=== PATIENT | female | born 1960 | race Caucasian/White ===

== ENCOUNTER 2016-04-14 13:12 | Emergency (ER) | payer OTHER ==
[~2016-04-14 13:12] MED LIST: AMIT100TA PO; AMIT75TA PO; BACITAB3 PO; COMP1TAB PO; CYCL10TA PO; DEXA4TA PO; FERR324T2 PO; FOLI1TAB2 PO; GABA300C3 PO; LEVO125T3 PO; LEVO150T42 PO; NORC5TAB PO; OMEP20CA3 PO; PERC5TAB6 PO; RIZA10TA4 PO; TYLE325T5 PO; VENL75CA PO; VITA50003 PO; ZOFR8TAB PO; ZYPR10TA PO
--- NOTE | 2016-04-14 13:55 | EDDOCDS ---
Nurse's Notes [facility] Name: Mirian Jameson Age: 55 yrs Sex: Female : 1960 Arrival Date: 04/14/2016 Time: 13:12 Bed Triage 1 Private MD: Janna Cabrera PA-C Diagnosis: Acute nasopharyngitis [common cold] Presentation: 04/14 13:18 Presenting complaint: Patient states: Pt presents with sore throat and cough x 4 days. dls Risk factors: Stridor is not present. Drooling is not present. Shortness of breath is not present. Cellulitis is not present. Adult Sepsis Screening: The patient does not have new or worsening altered mentation. Patient's respiratory rate is less than 22. Systolic blood pressure is greater than 100. Patient has a qSOFA score of 0- Negative Sepsis Screen. Suicide/Homicide risk assessment- the patient denies having any suicidal and/or homicidal ideations and does not present with any other emotional, behavioral or mental health complaints. 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 Transition of care: patient was not received from another setting of care. 13:18 Acuity: STEPHEN Level 4 dls 13:18 Method Of Arrival: Walkin/Carried/Asstd dls Triage Assessment: 13:21 General: Appears in no apparent distress, well developed, well nourished, well groomed, dls Behavior is cooperative. Pain: Pain currently is 6 out of 10 on a pain scale. HIV screening NA for this visit Offered previously. 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 gabapentin 300 mg Oral cap 1 cap 3 times per day 2. amitriptyline 100 mg Oral tab 1 tab once daily 3. folic acid 1 mg Oral tab once daily 4. venlafaxine 75 mg oral cp24 1 cap once daily - PSHx: removal of left lung; Appendectomy; Carpal Tunnel Repair- Right; Hysterectomy; - Social history: Smoking status: Patient/guardian denies using No barriers to communication noted, The patient speaks fluent Haitian. - Family history: Not pertinent. - : The pt / caregiver states he / she is not on anticoagulants. Home medication list is obtained from the patient. - Exposure Risk Screening:: None identified. Screenin:50 Screening information is obtained from the patient. Fall risk: No risks identified. js13 Assistance ADL's: requires no assistance with activities of daily living. Abuse/DV Screen: The patient / caregiver reports he/she is: not in a situation that causes fear, pain or injury. Nutritional screening: No deficits noted. Advance Directives: There is no active DNR order. home support is adequate. Assessment: 13:51 General: Appears in no apparent distress, comfortable. EENT: Throat is reddened. js13 Respiratory: Airway is patent. Derm: Skin is pink, warm & dry. Vital Signs: 13:14 BP 120 / 70; Pulse 91; Resp 18; Temp 96.7; Pulse Ox 96% ; Weight 63.5 kg; Height 5 ft. elp 3 in. (160.02 cm); Pain 6/10; 13:14 Body Mass Index 24.80 (63.50 kg, 160.02 cm) elp Vitals: 13:14 Log In Time: April 14, 2016 at 13:11. elp 13:39 Strep Screen is obtained and tested: Negative, a GATSNEG culture is ordered in [facility] dls and sent. ED Course: 13:14 Patient visited by Maty Alicia PCA. elp 13:14 Janna Cabrera is Private Physician. elp 13:14 Patient moved to Waiting elp 13:15 Patient visited by Maty Alicia PCA. elp 13:15 Patient moved to Pre RCE elp 13:19 Triage Initiated dls 13:29 Patient moved to Triage 1 js13 13:40 GATS (NEGATIVE STREP SCREEN) Sent. js13 13:42 Shakeel Olmedo PA is PHCP. btw 13:42 Sparkle Castillo MD is Attending Physician. btw 13:42 Patient visited by Shakeel Olmedo PA. btw 13:50 The patient / caregiver is instructed regarding the plan of care and ED course. js13 13:50 No IV's were initiated during this patient's visit. No procedures done that require js13 assistance. 13:51 Janna Cabrera is Referral Physician. btw Order Results: There are currently no results for this order. Outcome: 13:52 Discharge ordered by Provider. btw 13:52 Discharge Assessment: Patient awake, alert and oriented x 3. No cognitive and/or js13 functional deficits noted. Patient verbalized understanding of disposition instructions. patient administered narcotics - no. The following High Risk Discharge criteria are identified: None. Discharged to home ambulatory. Condition: stable. Discharge instructions given to patient, Instructed on discharge instructions, follow up and referral plans. medication usage, Demonstrated understanding of instructions, medications, Pt was receptive of discharge instructions/ teaching. Prescriptions given X 1. No special radiology studies were completed. Property :Personal belongings accompany Pt. 13:54 Patient left the ED. js13 Signatures: Michelle Walker RN RN Shakeel Matias PA PA btw Sullivan, JenniferRN RN js13 Maty Alicia, BANKING MANAGER BANKING MANAGER elp GISELLE
--- NOTE | 2016-04-14 13:55 | EDDOCDS ---
Physician Documentation [facility] Name: Mirian Jameson Age: 55 yrs Sex: Female : 1960 Arrival Date: 04/14/2016 Time: 13:12 Bed Triage 1 Private MD: Janna Cabrera PA-C Disposition: 04/14/16 13:52 Discharged to Home/Self Care. Impression: Acute nasopharyngitis [common cold]. - Condition is Stable. - Discharge Instructions: Upper Respiratory Infection, Adult, Viral Infections, Cool Mist Vaporizers. - Prescriptions for benzonatate 200 mg Oral Capsule - take 1 capsule by ORAL route 3 times per day As needed; 30 capsule. - Medication Reconciliation, Local Pharmacy Hours form. - Follow up: Janna Cabrera; When: 2 - 3 days; Reason: Further diagnostic work-up, Recheck today's complaints, Continuance of care. - Problem is new. - Symptoms are unchanged. Historical: - Allergies: Cymbalta (Upset stomach); GADOLINIUM-CONTAINING AGENTS (Anaphylaxis); PENICILLINS (Rash); SUMATRIPTAN (Anaphylaxis); - Home Meds: 1. gabapentin 300 mg Oral cap 1 cap 3 times per day 2. amitriptyline 100 mg Oral tab 1 tab once daily 3. folic acid 1 mg Oral tab once daily 4. venlafaxine 75 mg oral cp24 1 cap once daily - PSHx: removal of left lung; Appendectomy; Carpal Tunnel Repair- Right; Hysterectomy; - Social history: Smoking status: Patient/guardian denies using No barriers to communication noted, The patient speaks fluent Gibraltarian. - Family history: Not pertinent. - : The pt / caregiver states he / she is not on anticoagulants. Home medication list is obtained from the patient. - Exposure Risk Screening:: None identified. 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 3 in. (160.02 cm); Pain 6/10; 13:14 Body Mass Index 24.80 (63.50 kg, 160.02 cm) elp MDM: 13:23 Strep Screen, Nursing ordered. dt4 13:39 GATS (NEGATIVE STREP SCREEN) Ordered. EDMS 13:53 Financial registration complete. lg Signatures: Dispatcher [employer] EDLA Michelle Walker, RN RN Prasanth Vasquez, Nelson Reg lg Shakeel Olmedo PA PA btw Sullivan, Jennifer, RN RN js13 Yanira Garcia, NABOR PARuby dt4 MTDD
--- NOTE | 2016-04-17 11:07 | EDDOCDS ---
Physician Documentation [facility] Name: Mirian Jameson Age: 55 yrs Sex: Female : 1960 Arrival Date: 04/14/2016 Time: 13:12 Bed Triage 1 Private MD: Janna Cabrera PA-C Disposition: 04/14/16 13:52 Discharged to Home/Self Care. Impression: Acute nasopharyngitis [common cold]. - Condition is Stable. - Discharge Instructions: Upper Respiratory Infection, Adult, Viral Infections, Cool Mist Vaporizers. - Prescriptions for benzonatate 200 mg Oral Capsule - take 1 capsule by ORAL route 3 times per day As needed; 30 capsule. - Medication Reconciliation, Local Pharmacy Hours form. - Follow up: Janna Cabrera; When: 2 - 3 days; Reason: Further diagnostic work-up, Recheck today's complaints, Continuance of care. - Problem is new. - Symptoms are unchanged. Historical: - Allergies: Cymbalta (Upset stomach); GADOLINIUM-CONTAINING AGENTS (Anaphylaxis); PENICILLINS (Rash); SUMATRIPTAN (Anaphylaxis); - Home Meds: 1. gabapentin 300 mg Oral cap 1 cap 3 times per day 2. amitriptyline 100 mg Oral tab 1 tab once daily 3. folic acid 1 mg Oral tab once daily 4. venlafaxine 75 mg oral cp24 1 cap once daily - PSHx: removal of left lung; Appendectomy; Carpal Tunnel Repair- Right; Hysterectomy; - Social history: Smoking status: Patient/guardian denies using No barriers to communication noted, The patient speaks fluent Citizen Of [place]. - Family history: Not pertinent. - : The pt / caregiver states he / she is not on anticoagulants. Home medication list is obtained from the patient. - Exposure Risk Screening:: None identified. 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 3 in. (160.02 cm); Pain 6/10; 13:14 Body Mass Index 24.80 (63.50 kg, 160.02 cm) elp MDM: 13:23 Strep Screen, Nursing ordered. dt4 13:39 GATS (NEGATIVE STREP SCREEN) Ordered. EDMS 13:53 Financial registration complete. lg 13:59 [facility] Payment Agreement was scanned into [employer] and attached to record. lg 21:20 T-Sheet-- Draft Copy was scanned into [employer] and attached to record. klr Signatures: Dispatcher [employer] EDMS Michelle Walker RN RN dls Prasanth Grey, Reg Reg lg Shakeel Olmedo PA PA btw Sullivan, Jennifer, RN RN js13 Yanira Garcia PA-C PA-C dt4 Rohini Patterson klmati The chart was reviewed and I authenticate all verbal orders and agree with the evaluation and treatment provided.Attachments: 13:59 [facility] Payment Agreement lg 21:20 T-Sheet-- Draft Copy klr Chart Complete MTDD
--- NOTE | 2016-04-17 11:07 | EDDOCDS ---
Nurse's Notes [facility] Name: Mirian Jameson Age: 55 yrs Sex: Female : 1960 Arrival Date: 04/14/2016 Time: 13:12 Bed Triage 1 Private MD: Janna Cabrera PA-C Diagnosis: Acute nasopharyngitis [common cold] Presentation: 04/14 13:18 Presenting complaint: Patient states: Pt presents with sore throat and cough x 4 days. dls Risk factors: Stridor is not present. Drooling is not present. Shortness of breath is not present. Cellulitis is not present. Adult Sepsis Screening: The patient does not have new or worsening altered mentation. Patient's respiratory rate is less than 22. Systolic blood pressure is greater than 100. Patient has a qSOFA score of 0- Negative Sepsis Screen. Suicide/Homicide risk assessment- the patient denies having any suicidal and/or homicidal ideations and does not present with any other emotional, behavioral or mental health complaints. 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 Transition of care: patient was not received from another setting of care. 13:18 Acuity: STEPHEN Level 4 dls 13:18 Method Of Arrival: Walkin/Carried/Asstd dls Triage Assessment: 13:21 General: Appears in no apparent distress, well developed, well nourished, well groomed, dls Behavior is cooperative. Pain: Pain currently is 6 out of 10 on a pain scale. HIV screening NA for this visit Offered previously. 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 gabapentin 300 mg Oral cap 1 cap 3 times per day 2. amitriptyline 100 mg Oral tab 1 tab once daily 3. folic acid 1 mg Oral tab once daily 4. venlafaxine 75 mg oral cp24 1 cap once daily - PSHx: removal of left lung; Appendectomy; Carpal Tunnel Repair- Right; Hysterectomy; - Social history: Smoking status: Patient/guardian denies using No barriers to communication noted, The patient speaks fluent [place] Islander. - Family history: Not pertinent. - : The pt / caregiver states he / she is not on anticoagulants. Home medication list is obtained from the patient. - Exposure Risk Screening:: None identified. Screenin:50 Screening information is obtained from the patient. Fall risk: No risks identified. js13 Assistance ADL's: requires no assistance with activities of daily living. Abuse/DV Screen: The patient / caregiver reports he/she is: not in a situation that causes fear, pain or injury. Nutritional screening: No deficits noted. Advance Directives: There is no active DNR order. home support is adequate. Assessment: 13:51 General: Appears in no apparent distress, comfortable. EENT: Throat is reddened. js13 Respiratory: Airway is patent. Derm: Skin is pink, warm & dry. Vital Signs: 13:14 BP 120 / 70; Pulse 91; Resp 18; Temp 96.7; Pulse Ox 96% ; Weight 63.5 kg; Height 5 ft. elp 3 in. (160.02 cm); Pain 6/10; 13:14 Body Mass Index 24.80 (63.50 kg, 160.02 cm) elp Vitals: 13:14 Log In Time: April 14, 2016 at 13:11. elp 13:39 Strep Screen is obtained and tested: Negative, a GATSNEG culture is ordered in [facility] dls and sent. ED Course: 13:14 Patient visited by Maty Alicia PCA. elp 13:14 Janna Cabrera is Private Physician. elp 13:14 Patient moved to Waiting elp 13:15 Patient visited by Maty Alicia PCA. elp 13:15 Patient moved to Pre RCE elp 13:19 Triage Initiated dls 13:29 Patient moved to Triage 1 js13 13:40 GATS (NEGATIVE STREP SCREEN) Sent. js13 13:42 Shakeel Olmedo PA is PHCP. btw 13:42 Sparkle Castillo MD is Attending Physician. btw 13:42 Patient visited by Shakeel Olmedo PA. btw 13:50 The patient / caregiver is instructed regarding the plan of care and ED course. js13 13:50 No IV's were initiated during this patient's visit. No procedures done that require js13 assistance. 13:51 Janna Cabrera is Referral Physician. btw 13:59 [facility] Payment Agreement was scanned into Sumerian and attached to record. lg 21:20 T-Sheet-- Draft Copy was scanned into Sumerian and attached to record. sharon Order Results: Lab Order: GATS (NEGATIVE STREP SCREEN); SPEC'M 04/14/16 13:34 Test: GATS CULTURE (NEG STREP SCR); Value: GATS RESULT NEGATIVE FOR STREP PYOGENES (GROUP A); Status: F Outcome: 13:52 Discharge ordered by Provider. btw 13:52 Discharge Assessment: Patient awake, alert and oriented x 3. No cognitive and/or js13 functional deficits noted. Patient verbalized understanding of disposition instructions. patient administered narcotics - no. The following High Risk Discharge criteria are identified: None. Discharged to home ambulatory. Condition: stable. Discharge instructions given to patient, Instructed on discharge instructions, follow up and referral plans. medication usage, Demonstrated understanding of instructions, medications, Pt was receptive of discharge instructions/ teaching. Prescriptions given X 1. No special radiology studies were completed. Property :Personal belongings accompany Pt. 13:54 Patient left the ED. js13 Signatures: Michelle Walker, RN RN dls Prasanth Grey, Reg Reg lg Shakeel Olmedo, NIA PA btw Imelda Stark,RN RN js13 Maty Alicia, RYAN CRUISE DIRECTOR Rohini Escobedo Chart Complete MTDD
--- NOTE | 2016-04-17 11:07 | EDDOCDS ---
Physician Documentation [facility] Name: Mirian Jameson Age: 55 yrs Sex: Female : 1960 Arrival Date: 04/14/2016 Time: 13:12 Bed Triage 1 Private MD: Janna Cabrera PA-C Disposition: 04/14/16 13:52 Discharged to Home/Self Care. Impression: Acute nasopharyngitis [common cold]. - Condition is Stable. - Discharge Instructions: Upper Respiratory Infection, Adult, Viral Infections, Cool Mist Vaporizers. - Prescriptions for benzonatate 200 mg Oral Capsule - take 1 capsule by ORAL route 3 times per day As needed; 30 capsule. - Medication Reconciliation, Local Pharmacy Hours form. - Follow up: Janna Cabrera; When: 2 - 3 days; Reason: Further diagnostic work-up, Recheck today's complaints, Continuance of care. - Problem is new. - Symptoms are unchanged. Historical: - Allergies: Cymbalta (Upset stomach); GADOLINIUM-CONTAINING AGENTS (Anaphylaxis); PENICILLINS (Rash); SUMATRIPTAN (Anaphylaxis); - Home Meds: 1. gabapentin 300 mg Oral cap 1 cap 3 times per day 2. amitriptyline 100 mg Oral tab 1 tab once daily 3. folic acid 1 mg Oral tab once daily 4. venlafaxine 75 mg oral cp24 1 cap once daily - PSHx: removal of left lung; Appendectomy; Carpal Tunnel Repair- Right; Hysterectomy; - Social history: Smoking status: Patient/guardian denies using No barriers to communication noted, The patient speaks fluent Honduran. - Family history: Not pertinent. - : The pt / caregiver states he / she is not on anticoagulants. Home medication list is obtained from the patient. - Exposure Risk Screening:: None identified. 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 3 in. (160.02 cm); Pain 6/10; 13:14 Body Mass Index 24.80 (63.50 kg, 160.02 cm) elp MDM: 13:23 Strep Screen, Nursing ordered. dt4 13:39 GATS (NEGATIVE STREP SCREEN) Ordered. EDMS 13:53 Financial registration complete. lg 13:59 [facility] Payment Agreement was scanned into [employer] and attached to record. lg 21:20 T-Sheet-- Draft Copy was scanned into [employer] and attached to record. klr Signatures: Dispatcher [employer] EDMS Michelle Walker RN RN dls Prasanth Grey, Reg Reg lg Shakeel Olmedo PA PA btw Sullivan, Jennifer, RN RN js13 Yanira Garcia PA-C PA-C dt4 Rohini Patterson klmati The chart was reviewed and I authenticate all verbal orders and agree with the evaluation and treatment provided.Attachments: 13:59 [facility] Payment Agreement lg 21:20 T-Sheet-- Draft Copy klr Chart Complete MTDD
== END 2016-04-14 13:54 | disposition home or self-care (01) ==
LOC: M ED 13:12
DX: J06.9 Acute upper respiratory infection, unspecified (principal); Z79.899 Other long term (current) drug therapy; Z90.2 Acquired absence of lung [part of]; Z88.8 Allergy status to other drugs, medicaments and biological substances; Z88.0 Allergy status to penicillin; Z91.041 Radiographic dye allergy status

== ENCOUNTER → 2016-04-18 | Outpatient (REF) | payer OTHER ==
[2016-04-18 20:46] LABS: FREE T4 0.72 NG/DL (0.76-1.46)
== END ==
LOC: M SFHCADAM 15:29
PROVIDERS: ATTEND Physician Assistant
DX: E03.9 Hypothyroidism, unspecified (principal); M25.50 Pain in unspecified joint

== ENCOUNTER → 2016-05-02 | Outpatient (CLI) | payer OTHER ==
--- NOTE | 2016-05-02 13:47 | REP ---
Chest x-ray: Two views. History: Cough. Comparison chest CT study is from November 23, 2014. The patient is status post left pneumonectomy. Findings: The right lung is hyperinflated as expected but clear. No infiltrate is seen. Post-pneumonectomy changes are seen with mediastinal shift to the left and sutures in the left perihilar region. Postoperative changes are seen in the left rib cage. There are clips in right upper quadrant of the abdomen as well. No bony abnormality is seen. Impression: No active disease. The patient is status post left pneumonectomy. Signed by Noble Mariee MD 05/02/2016 06:36 P
== END ==
LOC: M ADAMS 10:29
PROVIDERS: ATTEND Physician Assistant
DX: R05 Cough (principal); Z87.09 Personal history of other diseases of the respiratory system

== ENCOUNTER 2016-05-12 13:51 | Emergency (ER) | payer OTHER ==
--- NOTE | 2016-05-12 14:46 | REP ---
CHEST X-RAY: Two views. HISTORY: Cough. FINDINGS: The patient is status post left pneumonectomy. The right lung is somewhat hyperinflated but otherwise clear. Trachea is deviated somewhat to the left consistent with a pneumonectomy. This is unchanged. Tracheobronchial tree is otherwise unremarkable. The right pleural angles are sharp. No bony abnormality is seen. IMPRESSION: No active disease. The patient status post left pneumonectomy. Signed by Noble Mariee MD 05/12/2016 02:57 P
[2016-05-12 15:12] LABS: BASO % 0.7 % (0.0-1.0); EOS # 0.2 K/mm3 (0.0-0.50); EOS % 4.5 % (0.0-3.0); LARGE UNSTAINED CELL # 0.1 K/mm3 (0.0-0.4); LYMPH # 2.8 K/mm3 (1.5-4.5); LYMPH % 46.9 % (24.0-44.0); MEAN CORPUSCULAR HEMOGLOBIN 29.8 pg (27.0-33.0); MEAN CORPUSCULAR HGB CONC 33.3 g/dl (32.0-36.5); MEAN CORPUSCULAR VOLUME 89.4 fl (80.0-96.0); MONO # 0.3 K/mm3 (0.0-0.8); MONO % 5.8 % (0.0-5.0); NEUTROPHILS # 2.3 K/mm3 (1.8-7.7); NEUTROPHILS % 40.2 % (36.0-66.0); PLATELET COUNT, AUTOMATED 243 k/mm3 (150-450); RED CELL DISTRIBUTION WIDTH 13.1 % (11.5-14.5); WHITE BLOOD COUNT 5.6 K/mm3 (4.0-10.0)
[2016-05-12 15:18] LABS: INR 0.93
[2016-05-12 15:37] LABS: ANION GAP 8 MEQ/L (8-16); BLOOD UREA NITROGEN 16 MG/DL (7-18); CALCIUM LEVEL 8.5 MG/DL (8.5-10.1); CARBON DIOXIDE LEVEL 27 MEQ/L (21-32); CHLORIDE LEVEL 110 MEQ/L (98-107); CREATININE FOR GFR 1.09 MG/DL (0.55-1.02); GLOMERULAR FILTRATION RATE 55.7 (>51); GLUCOSE, FASTING 87 MG/DL (70-105); POTASSIUM SERUM 3.9 MEQ/L (3.5-5.1); SODIUM LEVEL 145 MEQ/L (136-145)
[2016-05-12] MEDS ORDERED: IPRATROPIUM 0.5MG/ALBUTEROL 2.5MG INH SOL UD 3ML (DUONEB)(J7620) As Ordered ONE (15:52)
[2016-05-12] MEDS ORDERED: ISOVUE-370 76% 100ML VIAL (Q9967) As Ordered ONE (16:06)
[2016-05-12] MEDS ORDERED: TUSSICAPS ER 10/8MG CAPSULE As Ordered ONE (16:35)
--- NOTE | 2016-05-12 19:09 | ECGEPIP ---
Stationary ECG Study [facility] - ED Test Date: 2016-05-12 Pat Name: KATE ROSENBERG Department: Room: - Gender: F Grizzlyman: salima : 1960 Requested By: Mary Nesbitt Order Number: [id number] Reading MD: Mary Nesbitt Measurements Intervals [place] Rate: 82 P: 102 OR: 117 QRS: 71 QRSD: 89 T: 134 QT: 367 QTc: 431 Interpretive Statements SINUS RHYTHM WITH SHORT OR INTERVAL POSSIBLE RIGHT ATRIAL ENLARGEMENT ST DEVIATION AND MODERATE T-WAVE ABNORMALITY, CONSIDER ANTEROLATERAL ISCHEMIA, MORE PRONOUNCED 12/19/15, CLINICAL CORRELATION Electronically Signed On 05-12-2016 19:08:54 EST by Mary Nesbitt
--- NOTE | 2016-05-12 21:43 | EDDOCDS ---
Physician Documentation [facility] Name: Mirian Jameson Age: 56 yrs Sex: Female : 1960 Arrival Date: 05/12/2016 Time: 13:51 Bed OBSERVATION Private MD: Janna Cabrera PA-C Disposition: 05/12/16 21:24 Discharged to Home/Self Care. Impression: Cough. - Condition is Stable. - Discharge Instructions: Cough, Adult. - Prescriptions for Albuterol Sulfate 90 mcg/actuation Inhalation HFA Aerosol Inhaler - inhale 2 puff by INHALATION route every 4 hours As needed; 1 Inhaler. Guaifenesin AC 10- 100 mg/5 mL Oral liquid - take 10 milliliter by ORAL route every 4 hours; 200 milliliter. - Medication Reconciliation, Local Pharmacy Hours form. - Follow up: Janna Cabrera; When: saturday. - Problem is an ongoing problem. - Symptoms have improved. Historical: - Allergies: Cymbalta (Upset stomach); GADOLINIUM-CONTAINING AGENTS (Anaphylaxis); PENICILLINS (Rash); SUMATRIPTAN (Anaphylaxis); - Home Meds: 1. amitriptyline 100 mg Oral tab 1 tab once daily 2. folic acid 1 mg Oral tab once daily 3. gabapentin 300 mg Oral cap 1 cap 3 times per day 4. venlafaxine 75 mg oral cp24 1 cap once daily 5. unknown antibiotic - PMHx: Cancer, Lung - Left; Thyroid disease; - PSHx: removal of left lung, cancer, june 2014; Appendectomy; Carpal Tunnel Repair- Right; Hysterectomy; Cholecystectomy; - Social history: Smoking status: Patient states former smoker of tobacco. No barriers to communication noted. - Family history: Not pertinent. - : The pt / caregiver states he / she is not on anticoagulants. Home medication list is obtained from the patient. - Exposure Risk Screening:: None identified. 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 4 in. (162.56 cm) (R); Pain 5/10; 14:49 BP 109 / 65 (auto/); dsf 14:50 Pulse 78 MON; Pulse Ox 99% ; dsf 15:04 BP 108 / 62 (auto/); dsf 15:05 Pulse 84 MON; Pulse Ox 98% ; dsf 15:19 Pulse 80 MON; Pulse Ox 97% ; dsf 15:19 BP 98 / 60 (auto/); dsf 15:20 Pulse 76 MON; Pulse Ox 98% ; dsf 15:34 BP 99 / 60 (auto/); dsf 15:35 Pulse 74 MON; Pulse Ox 98% ; dsf 15:49 BP 93 / 61 (auto/); dsf 15:50 Pulse 78 MON; Pulse Ox 97% ; dsf 16:04 Pulse 78 MON; Pulse Ox 100% ; dsf 16:04 BP 96 / 57 (auto/); dsf 16:19 BP 97 / 56 (auto/); dsf 16:23 Pulse 86 MON; Pulse Ox 99% ; dsf 16:34 BP 106 / 58 (auto/); dsf 16:34 Pulse 84 MON; Pulse Ox 98% ; dsf 16:49 BP 100 / 59 (auto/); dsf 16:49 Pulse 78 MON; Pulse Ox 98% ; dsf 17:04 BP 103 / 57 (auto/); dsf 17:05 Pulse 80 MON; Pulse Ox 98% ; dsf 17:19 BP 96 / 57 (auto/); dsf 17:19 Pulse 80 MON; Pulse Ox 96% ; dsf 17:35 Pulse 76 MON; Pulse Ox 98% ; dsf 17:36 BP 93 / 52 (auto/); dsf 17:36 Pulse 80 MON; Pulse Ox 99% ; dsf 17:49 BP 106 / 70 (auto/); dsf 17:49 Pulse 80 MON; Pulse Ox 97% ; dsf 18:04 BP 98 / 57 (auto/); dsf 18:04 Pulse 78 MON; Pulse Ox 96% ; dsf 18:19 BP 108 / 61 (auto/); dsf 18:19 Pulse 80 MON; Pulse Ox 95% ; dsf 18:34 BP 111 / 63 (auto/); dsf 18:35 Pulse 80 MON; Pulse Ox 97% ; dsf 18:49 BP 108 / 68 (auto/); dsf 18:51 Pulse 78 MON; Pulse Ox 97% ; dsf 19:04 BP 98 / 62 (auto/); dsf 19:05 Pulse 82 MON; Pulse Ox 96% ; dsf 21:27 BP 106 / 59; Pulse 68; Resp 18; Temp 96.8(O); Pulse Ox 98% on R/A; Pain 0/10; justino 13:53 Body Mass Index 25.40 (67.13 kg, 162.56 cm) gr2 MDM: 14:25 Chest, 2 View (pa\E\lat) Ordered. EDMS 14:25 ECG WITH READING ER PHYS+CARDIAG ordered. EDMS 14:44 Records Management Director/Pulse Ox/q 30 min VS ordered. sd1 14:44 IV Saline Lock ordered. sd1 14:44 Rhythm Strip to chart ordered. sd1 14:44 Undress patient appropriately for examination ordered. sd1 14:45 Basic Metabolic Profile Ordered. EDMS 14:45 CBC with Diff Ordered. EDMS 14:45 Cardiac Injury Profile Ordered. EDMS 14:45 Prothrombin Time Profile\E\INR Ordered. EDMS 14:45 Troponin Ordered. EDMS 14:55 BNP Ordered. EDMS 15:12 Albuterol-Ipratropium 1 neb Nebulizer every 20 minutes x3 ordered. sd1 15:51 Financial registration complete. gjb 15:51 Basic Metabolic Profile Reviewed. sd1 15:51 CBC with Diff Reviewed. sd1 15:51 BNP Reviewed. sd1 15:51 Cardiac Injury Profile Reviewed. sd1 15:51 Prothrombin Time Profile\E\INR Reviewed. sd1 15:51 Troponin Reviewed. sd1 15:51 Chest, 2 View (pa\E\lat) Reviewed. sd1 15:53 CT Chest Angio R/O PE Ordered. EDMS 15:57 [facility] Payment Agreement was scanned into [employer] and attached to record. gjb 16:24 Chlorpheniramine-Hydrocodone Extended Release 12 hour Capsule 8 mg-10 mg 1 caps PO once sd1 ordered. 17:32 Redraw CIP &Troponin (put time in details section) ordered. sd1 17:32 Repeat EKG (put time details section) ordered. sd1 17:36 Repeat EKG (put time details section) complete. ar3 17:36 Redraw CIP &Troponin (put time in details section) complete. ar3 17:36 CARDIAC MARKER PANEL Ordered. EDMS 17:38 ECG WITH READING ER PHYS ordered. EDMS 21:23 CARDIAC MARKER PANEL Reviewed. cs11 21:23 EKG-ADULT Reviewed. cs11 Administered Medications: 15:56 Drug: Albuterol-Ipratropium 1 neb [ipratropium-albuterol 0.5 mg-3 mg(2.5 mg base)/3 mL kjn nebulization soln (1 neb)] Route: Nebulizer; 16:08 Drug: Albuterol-Ipratropium 1 neb [ipratropium-albuterol 0.5 mg-3 mg(2.5 mg base)/3 mL kjn nebulization soln (1 neb)] Route: Nebulizer; 16:25 Drug: Albuterol-Ipratropium 1 neb [ipratropium-albuterol 0.5 mg-3 mg(2.5 mg base)/3 mL kjn nebulization soln (1 neb)] Route: Nebulizer; 16:42 Drug: Chlorpheniramine-Hydrocodone 1 caps [hydrocodone ER 10 mg-chlorpheniramine 8 mg dsf 12hr capsule,extend.release (1 caps)] Route: PO; Signatures: Dispatcher [employer] EDMS Mary Nesbitt MD MD sd1 Nadia Dejesus, VICE PRESIDENT SALES VICE PRESIDENT SALES ar3 Carmela Mckeon RN RN [facility] Corbin Whitfield, DO cs11 Lasha Worthington RN RN [id number] Coreen Cadet Desiree RN dsf Penny Lucio The chart was reviewed and I authenticate all verbal orders and agree with the evaluation and treatment provided.Attachments: 15:57 [facility] Payment Agreement arabella [email or web address]
--- NOTE | 2016-05-12 21:43 | EDDOCDS ---
Nurse's Notes [facility] Name: Kate Jameson Age: 56 yrs Sex: Female : 1960 Arrival Date: 05/12/2016 Time: 13:51 Bed OBSERVATION Private MD: Janna Cabrera PA-C Diagnosis: Cough Presentation: 05/12 13:59 Presenting complaint: Patient states: antibiotics changed on Saturday but still [facility] coughing and having chest pain sometimes with cough sometimes when I cough I feel like I'm going to pass out, they told me if I didn't feel any better this weekend I should come in and get checked and I only have one lung. Adult Sepsis Screening: The patient does not have new or worsening altered mentation. Patient's respiratory rate is less than 22. Systolic blood pressure is greater than 100. Patient has a qSOFA score of 0- Negative Sepsis Screen. Suicide/Homicide risk assessment- the patient denies having any suicidal and/or homicidal ideations and does not present with any other emotional, behavioral or mental health complaints. 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 Transition of care: patient was not received from another setting of care. 13:59 Acuity: STEPHEN Level 3 [facility] 13:59 Method Of Arrival: Walkin/Carried/Asstd [facility] Triage Assessment: 14:03 General: Appears in no apparent distress, comfortable, Behavior is appropriate for age, [facility] cooperative. Pain: Denies pain. HIV screening NA for this visit Offered previously. Respiratory: Onset: The symptoms/episode began/occurred 2-weeks, Reports cough that is non-productive. Derm: Skin is pink, warm & dry. 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 amitriptyline 100 mg Oral tab 1 tab once daily 2. folic acid 1 mg Oral tab once daily 3. gabapentin 300 mg Oral cap 1 cap 3 times per day 4. venlafaxine 75 mg oral cp24 1 cap once daily 5. unknown antibiotic - PMHx: Cancer, Lung - Left; Thyroid disease; - PSHx: removal of left lung, cancer, june 2014; Appendectomy; Carpal Tunnel Repair- Right; Hysterectomy; Cholecystectomy; - Social history: Smoking status: Patient states former smoker of tobacco. No barriers to communication noted. - Family history: Not pertinent. - : The pt / caregiver states he / she is not on anticoagulants. Home medication list is obtained from the patient. - Exposure Risk Screening:: None identified. Screenin:41 Screening information is obtained from the patient. Fall risk: No risks identified. mb9 Assistance ADL's: requires no assistance with activities of daily living. Abuse/DV Screen: The patient / caregiver reports he/she is: not in a situation that causes fear, pain or injury. Nutritional screening: No deficits noted. Advance Directives: There is no active DNR order. home support is adequate. Assessment: 15:17 Adult Sepsis Screening: The patient does not have new or worsening altered mentation. dsf Patient's respiratory rate is less than 22. Systolic blood pressure is greater than 100. Patient has a qSOFA score of 0- Negative Sepsis Screen. General: Appears in no apparent distress, ill, Behavior is appropriate for age, cooperative. Pain: Denies pain. Neurological: Level of Consciousness is awake, alert, Oriented to person, place, time. Cardiovascular: Capillary refill < 3 seconds Rhythm is sinus rhythm No ectopy. Respiratory: Airway is patent Respiratory effort is even, unlabored, Respiratory pattern is regular, symmetrical, Reports shortness of breath on exertion since 2 weeks ago cough that is non-productive, since 2 weeks. Derm: Skin is dry, Skin is pale, Skin temperature is warm. 16:00 General: Appears in no apparent distress, ill, Behavior is appropriate for age, dsf cooperative. Pain: Denies pain. Neurological: Level of Consciousness is awake, alert, Oriented to person, place, time. Cardiovascular: Capillary refill < 3 seconds Heart tones S1 S2 present Rhythm is sinus rhythm No ectopy. Respiratory: Airway is patent Respiratory effort is even, unlabored, Respiratory pattern is regular, symmetrical, Breath sounds are diminished in right posterior upper lobe, right posterior middle lobe and right posterior lower lobe Breath sounds with wheezes in right posterior upper lobe, right posterior middle lobe and right posterior lower lobe. GI: Abdomen is non- distended Bowel sounds present X 4 quads. Abd is soft and non tender X 4 quads. Derm: Skin is dry, Skin is pale, Skin temperature is warm. 17:18 General: Appears in no apparent distress, Behavior is appropriate for age, cooperative. mb9 Respiratory: Airway is patent Respiratory effort is even, unlabored. 18:18 Adult Sepsis Screening: The patient does not have new or worsening altered mentation. dsf Patient's respiratory rate is less than 22. Systolic blood pressure is greater than 100. Patient has a qSOFA score of 0- Negative Sepsis Screen. General: Appears in no apparent distress, Behavior is appropriate for age, cooperative. Neurological: Level of Consciousness is awake, alert. Cardiovascular: Capillary refill < 3 seconds. Respiratory: Airway is patent Respiratory effort is even, unlabored, Respiratory pattern is regular, symmetrical. Derm: Skin is dry, Skin is pale, Skin temperature is warm. 19:59 General: Appears in no apparent distress, Behavior is appropriate for age, cooperative. mb9 Pain: Denies pain. Neurological: Level of Consciousness is awake, alert, Oriented to person, place, time. Respiratory: Airway is patent Breath sounds are clear bilaterally. Reports cough that is pt reports, "the cough has improved since you guys gave me that pill.". 21:41 Reassessment: Patient appears in no apparent distress at this time. Patient states mb9 symptoms have improved. Adult Sepsis Screening: The patient does not have new or worsening altered mentation. Patient's respiratory rate is less than 22. Systolic blood pressure is greater than 100. Patient has a qSOFA score of 0- Negative Sepsis Screen. General: Appears in no apparent distress, Behavior is appropriate for age, cooperative. Respiratory: Airway is patent Respiratory effort is even, unlabored. Vital Signs: 13:53 BP 128 / 61; Pulse 92; Resp 18 S; Temp 98.0(O); Pulse Ox 100% on R/A; Weight 67.13 kg gr2 (R); Height 5 ft. 4 in. (162.56 cm) (R); Pain 5/10; 14:49 BP 109 / 65 (auto/); dsf 14:50 Pulse 78 MON; Pulse Ox 99% ; dsf 15:04 BP 108 / 62 (auto/); dsf 15:05 Pulse 84 MON; Pulse Ox 98% ; dsf 15:19 Pulse 80 MON; Pulse Ox 97% ; dsf 15:19 BP 98 / 60 (auto/); dsf 15:20 Pulse 76 MON; Pulse Ox 98% ; dsf 15:34 BP 99 / 60 (auto/); dsf 15:35 Pulse 74 MON; Pulse Ox 98% ; dsf 15:49 BP 93 / 61 (auto/); dsf 15:50 Pulse 78 MON; Pulse Ox 97% ; dsf 16:04 Pulse 78 MON; Pulse Ox 100% ; dsf 16:04 BP 96 / 57 (auto/); dsf 16:19 BP 97 / 56 (auto/); dsf 16:23 Pulse 86 MON; Pulse Ox 99% ; dsf 16:34 BP 106 / 58 (auto/); dsf 16:34 Pulse 84 MON; Pulse Ox 98% ; dsf 16:49 BP 100 / 59 (auto/); dsf 16:49 Pulse 78 MON; Pulse Ox 98% ; dsf 17:04 BP 103 / 57 (auto/); dsf 17:05 Pulse 80 MON; Pulse Ox 98% ; dsf 17:19 BP 96 / 57 (auto/); dsf 17:19 Pulse 80 MON; Pulse Ox 96% ; dsf 17:35 Pulse 76 MON; Pulse Ox 98% ; dsf 17:36 BP 93 / 52 (auto/); dsf 17:36 Pulse 80 MON; Pulse Ox 99% ; dsf 17:49 BP 106 / 70 (auto/); dsf 17:49 Pulse 80 MON; Pulse Ox 97% ; dsf 18:04 BP 98 / 57 (auto/); dsf 18:04 Pulse 78 MON; Pulse Ox 96% ; dsf 18:19 BP 108 / 61 (auto/); dsf 18:19 Pulse 80 MON; Pulse Ox 95% ; dsf 18:34 BP 111 / 63 (auto/); dsf 18:35 Pulse 80 MON; Pulse Ox 97% ; dsf 18:49 BP 108 / 68 (auto/); dsf 18:51 Pulse 78 MON; Pulse Ox 97% ; dsf 19:04 BP 98 / 62 (auto/); dsf 19:05 Pulse 82 MON; Pulse Ox 96% ; dsf 21:27 BP 106 / 59; Pulse 68; Resp 18; Temp 96.8(O); Pulse Ox 98% on R/A; Pain 0/10; justino 13:53 Body Mass Index 25.40 (67.13 kg, 162.56 cm) gr2 Vitals: 13:53 Log In Time: May 12, 2016 at 13:53. gr2 ED Course: 13:53 Patient visited by Osmar Ivey. gr2 13:53 Janna Cabrera is Private Physician. gr2 13:53 Patient moved to Waiting gr2 13:54 Patient visited by Osmar Ivey. gr2 13:54 Patient moved to Pre RCE gr2 14:01 Triage Initiated cjh 14:32 Patient moved to PD dem1 14:38 Patient visited by Kranthi Clifford. dem1 14:38 EKG done. (by ED staff). Reviewed by Mary Nesbitt MD. dem1 14:44 Patient moved to 14 ar3 14:50 Patient visited by Kranthi Clifford. dem1 14:50 Pt greeted and oriented to ED. Patient advised of names of staff involved in care, dem1 location of call terry, wait times and NPO status. Patient has correct armband on for positive identification. Placed in gown. Bed in low position. Call light in reach. Side rails up X 1. air sampling and monitoring on. Pulse ox on. NIBP on. 14:55 Mary Nesbitt MD is Attending Physician. sd1 14:55 Patient visited by Mary Nesbitt MD. sd1 15:06 BNP Sent. mb9 15:07 Basic Metabolic Profile Sent. mb9 15:07 CBC with Diff Sent. mb9 15:07 Cardiac Injury Profile Sent. mb9 15:07 Prothrombin Time Profile\\E\\INR Sent. mb9 15:07 Troponin Sent. mb9 15:07 Inserted saline lock: 20 gauge. mb9 15:18 Patient visited by Lise Mayo,JENNIFER. dsf 15:25 Chest, 2 View (pa\\E\\lat) Returned. EDMS 15:57 [facility] [place] Agreement was scanned into [employer] and attached to record. gjb 16:[address] dsf 16:32 Patient moved to 14 dsf 16:34 Patient visited by Lise Mayo,JENNIFER. dsf 17:18 Patient visited by Lasha Worthington,JENNIFER. mb9 17:36 Patient moved to OBSERVATION sd1 18:47 Patient visited by Lise Mayo,JENNIFER. dsf 19:13 Attending Physician role handed off by Mary Nesbitt MD cs11 19:13 Corbin Whitfield DO is Attending Physician. cs11 19:46 EKG-ADULT Returned. EDMS 20:41 Patient visited by Rebecca Alonso PCA. justino 20:41 EKG done. (by ED staff). Reviewed by Corbin Whitfield DO. justino 21:23 Janna Cabrera is Referral Physician. cs11 21:27 Patient visited by Rebecca Alonso PCA. justino 21:41 The patient / caregiver is instructed regarding the plan of care and ED course. mb9 21:41 Discontinued IV lock intact, bleeding controlled, pressure dressing applied, No mb9 redness/swelling at site. No procedures done that require assistance. Administered Medications: 15:56 Drug: Albuterol-Ipratropium 1 neb [ipratropium-albuterol 0.5 mg-3 mg(2.5 mg base)/3 mL kjn nebulization soln (1 neb)] Route: Nebulizer; 16:08 Drug: Albuterol-Ipratropium 1 neb [ipratropium-albuterol 0.5 mg-3 mg(2.5 mg base)/3 mL kjn nebulization soln (1 neb)] Route: Nebulizer; 16:25 Drug: Albuterol-Ipratropium 1 neb [ipratropium-albuterol 0.5 mg-3 mg(2.5 mg base)/3 mL kjn nebulization soln (1 neb)] Route: Nebulizer; 16:42 Drug: Chlorpheniramine-Hydrocodone 1 caps [hydrocodone ER 10 mg-chlorpheniramine 8 mg dsf 12hr capsule,extend.release (1 caps)] Route: PO; RT: 15:57 Initial Med Neb Given as ordered Patient was instructed and evaluated on procedure kjn Patient tolerated procedure well without adverse effect. Oxygen is room air. Respiratory: Respiratory effort is unlabored, Breath sounds are diminished Breath sounds with wheezes in right upper lobe, right middle lobe and right lower lobe at inspiration. 16:08 Subsequent Med Neb Given as ordered. Respiratory: Breath sounds are diminished in right kjn upper lobe, right middle lobe and right lower lobe Breath sounds with wheezes in right upper lobe, right middle lobe and right lower lobe at expiration. 16:47 Subsequent Med Neb Given as ordered. Respiratory: Breath sounds are diminished Breath kjn sounds with wheezes. Order Results: Lab Order: Basic Metabolic Profile; SPEC05/12/16 15:02 Test: GLUCOSE, FASTING; Value: 87; Range: 70-105; Units: MG/DL; Status: F Test: BLOOD UREA NITROGEN; Value: 16; Range: 7-18; Units: MG/DL; Status: F Test: CREATININE FOR GFR; Value: 1.09; Range: 0.55-1.02; Abnormal: Above high normal; Units: MG/DL; Status: F Test: GLOMERULAR FILTRATION RATE; Value: 55.7; Range: >51; Status: F Test: SODIUM LEVEL; Value: 145; Range: 136-145; Units: MEQ/L; Status: F Test: POTASSIUM SERUM; Value: 3.9; Range: 3.5-5.1; Units: MEQ/L; Status: F Test: CHLORIDE LEVEL; Value: 110; Range: 98-107; Abnormal: Above high normal; Units: MEQ/L; Status: F Test: CARBON DIOXIDE LEVEL; Value: 27; Range: 21-32; Units: MEQ/L; Status: F Test: ANION GAP; Value: 8; Range: 8-16; Units: MEQ/L; Status: F Test: CALCIUM LEVEL; Value: 8.5; Range: 8.5-10.1; Units: MG/DL; Status: F Test Note: ; Units are mL/min/1.73 m2 Chronic Kidney Disease Staging per NKF: Stage I & II GFR >=60 Normal to Mildly Decreased Stage III GFR 30-59 Moderately Decreased Stage IV GFR 15-29 Severely Decreased Stage V GFR <15 Very Little GFR Left ESRD GFR <15 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 Lab Order: CBC with Diff; SPEC'05/12/16 15:02 Test: WHITE BLOOD COUNT; Value: 5.6; Range: 4.0-10.0; Units: K/mm3; Status: F Test: RED BLOOD COUNT; Value: 4.13; Range: 4.00-5.40; Units: M/mm3; Status: F Test: HEMOGLOBIN; Value: 12.3; Range: 12.0-16.0; Units: g/dl; Status: F Test: HEMATOCRIT; Value: 37.0; Range: 36.0-47.0; Units: %; Status: F Test: MEAN CORPUSCULAR VOLUME; Value: 89.4; Range: 80.0-96.0; Units: fl; Status: F Test: MEAN CORPUSCULAR HEMOGLOBIN; Value: 29.8; Range: 27.0-33.0; Units: pg; Status: F Test: MEAN CORPUSCULAR HGB CONC; Value: 33.3; Range: 32.0-36.5; Units: g/dl; Status: F Test: RED CELL DISTRIBUTION WIDTH; Value: 13.1; Range: 11.5-14.5; Units: %; Status: F Test: PLATELET COUNT, AUTOMATED; Value: 243; Range: 150-450; Units: k/mm3; Status: F Test: NEUTROPHILS %; Value: 40.2; Range: 36.0-66.0; Units: %; Status: F Test: LYMPH %; Value: 46.9; Range: 24.0-44.0; Abnormal: Above high normal; Units: %; Status: F Test: MONO %; Value: 5.8; Range: 0.0-5.0; Abnormal: Above high normal; Units: %; Status: F Test: EOS %; Value: 4.5; Range: 0.0-3.0; Abnormal: Above high normal; Units: %; Status: F Test: BASO %; Value: 0.7; Range: 0.0-1.0; Units: %; Status: F Test: LARGE UNSTAINED CELL %; Value: 2.0; Range: 0.0-4.0; Units: %; Status: F Test: NEUTROPHILS #; Value: 2.3; Range: 1.8-7.7; Units: K/mm3; Status: F Test: LYMPH #; Value: 2.8; Range: 1.5-4.5; Units: K/mm3; Status: F Test: MONO #; Value: 0.3; Range: 0.0-0.8; Units: K/mm3; Status: F Test: EOS #; Value: 0.2; Range: 0.0-0.50; Units: K/mm3; Status: F Test: BASO #; Value: 0.0; Range: 0.0-0.2; Units: K/mm3; Status: F Test: LARGE UNSTAINED CELL #; Value: 0.1; Range: 0.0-0.4; Units: K/mm3; Status: F Lab Order: Cardiac Injury Profile; [facility] 05/12/16 15:02 Test: CPK CREATINE PHOSPHOKINASE; Value: 56; Range: 26-192; Units: U/L; Status: F Test: CK-MB VALUE MASS; Value: 1.0; Range: 0.0-3.6; Units: NG/ML; Status: F Test: MB/CK RELATIVE INDEX; Value: 1.78; Range: < OR =4; Status: F Test Note: ; DIAGNOSIS CRITERIA MMB ng/ml Relative Index (RI) NON-AMI < or = 5 N/A SUTTON ZONE > 5 < or = 4 AMI > 5 > 4 Lab Order: Prothrombin Time Profile\\E\\INR; [facility] 05/12/16 15:02 Test: PROTHROMBIN TIME; Value: 12.6; Range: 12.3-14.5; Units: SECONDS; Status: F Test: INR; Value: 0.93; Status: F Test Note: ; THERAPUTIC HUMAN INR VALUES INDICATIONS NORMAL RANGES PROPHYLAXIS/TREATMENT OF: VENOUS THROMBOSIS 2.0-3.0 PULMONARY EMBOLISM 2.0-3.0 PREVENTION OF SYSTEMIC EMBOLISM FROM: TISSUE HEART VALVES 2.0-3.0 ACUTE MYOCARDIAL INFARCTION 2.0-3.0 VALVULAR HEART DISEASE 2.0-3.0 ATRIAL FIBRILLATION 2.0-3.0 MECHANICAL VALVES(HIGH RISK) 2.5-3.5 RECURRENT MYOCARDIAL INFARCTION 2.5-3.5 Lab Order: Troponin; [facility] 05/12/16 15:02 Test: TROPONIN I; Value: < 0.02; Range: < 0.10; Units: NG/ML; Status: F Test Note: ; Troponin I Reference Interval for [place] LOCI: 99th Percentile= 0.00-0.045 ng/ml Risk Stratification: <= 0.10 ng/ml Decreased Risk for Adverse Clinical Events. 0.10-1.50 ng/ml Increased Risk for Adverse Clinical Events. Evaluation of additional criterion and/or repeat testing in 2-6 hours is suggested to rule out myocardial damage. >= 1.50 ng/ml Indicative of Myocardial Injury. Lab Order: BNP; SPEC'[facility] 05/12/16 15:02 Test: BRAIN NATRIURETIC PEPTIDE; Value: 104; Range: <100; Abnormal: Above high normal; Units: PG/ML; Status: F Lab Order: CARDIAC MARKER PANEL; SPEC'[facility] 05/12/16 20:45 Test: CPK CREATINE PHOSPHOKINASE; Value: 52; Range: 26-192; Units: U/L; Status: F Test: CK-MB VALUE MASS; Value: 1.0; Range: 0.0-3.6; Units: NG/ML; Status: F Test: MB/CK RELATIVE INDEX; Value: 1.92; Range: < OR =4; Status: F Test: TROPONIN I; Value: < 0.02; Range: < 0.10; Units: NG/ML; Status: F Test Note: ; DIAGNOSIS CRITERIA MMB ng/ml Relative Index (RI) NON-AMI < or = 5 N/A SUTTON ZONE > 5 < or = 4 AMI > 5 > 4 Radiology Order: Chest, 2 View (pa\\E\\lat) Test: Chest, 2 View (pa\\E\\lat) REASON FOR EXAMINATION: Cough; CHEST X-RAY: Two views.; ; HISTORY: Cough.; ; FINDINGS: The patient is status post left pneumonectomy. The right lung is; somewhat hyperinflated but otherwise clear. Trachea is deviated somewhat to the; left consistent with a pneumonectomy. This is unchanged. Tracheobronchial tree; is otherwise unremarkable. The right pleural angles are sharp. No bony; abnormality is seen.; ; IMPRESSION:; ; No active disease. 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 cs11 21:41 Discharge Assessment: Patient awake, alert and oriented x 3. No cognitive and/or mb9 functional deficits noted. Patient verbalized understanding of disposition instructions. patient administered narcotics - no. The following High Risk Discharge criteria are identified: None. Discharged to home ambulatory, with significant other. Condition: good Condition: stable Condition: improved. Discharge instructions given to patient, Instructed on discharge instructions, follow up and referral plans. medication usage, Demonstrated understanding of instructions, medications, Pt was receptive of discharge instructions/ teaching. Prescriptions given X 2. No special radiology studies were completed. Property :Personal belongings accompany Pt. 21:42 Patient left the ED. [email or web address] Signatures: Dispatcher [employer] EDMS Mary Nesbitt MD MD sd1 Nadia Dejesus, WARM IN WARM IN ar3 Rebecca Alonso, WARM IN WARM IN Lise Alvarez,RN RN Kranthi Guerrero1 Carmela MckeonRN RN [facility] Penny Lucio Craig, DO cs11 Osmar Ivey 2 Lasha Worthington RN RN mb9 Coreen Cadet MTDD
--- NOTE | 2016-05-13 06:39 | ECGEPIP ---
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
--- NOTE | 2016-05-13 07:20 | REP ---
CT PULMONARY ANGIOGRAM: With IV contrast. HISTORY: Shortness of breath. COMPARISON STUDIES: November 23, 2014 Contrast dose: 75 mL of Isovue [address] TECHNIQUE: Helical scanning is acquired and overlapping 1.5 mm and contiguous 3 mm axial images are reformatted. In addition, a 3D work station is deployed to generate thick slab maximum intensity projection images in sagittal and coronal imaging projections. CT PULMONARY ANGIOGRAPHIC FINDINGS: There is good opacification of the pulmonary arterial tree. There is no CT evidence of pulmonary embolism. The thoracic aorta enhances homogeneously and is normal in course and caliber. The patient is status post left pneumonectomy so that the heart and mediastinal structures are in the left chest. The right lung is somewhat hyperinflated but free of infiltrate. No pleural or pericardial effusion is evident. No hilar or mediastinal mass is seen. Maximal intensity projection images show no filling defect or vessel cutoff. There is a tiny 3 mm noncalcified pulmonary nodule in the right lower lobe. This is seen on today's study page 46 and 107 series 402. Is not definitely apparent on July 16, 2014 or November 23, 2014 prior studies. No other new pulmonary nodule is appreciated. No bony destructive lesion is seen. No adrenal lesion is observed. There are clips in the gallbladder fossa. IMPRESSION: No CT evidence of pulmonary embolus. The patient status post left pneumonectomy. 3 mm noncalcified nodule seen on today's study in the right lower lobe. Follow-up chest CT study suggested 6-12 months. The areas of infiltrate seen in the periphery of the right lung on November 23, 2014 have resolved except for some right apical pleuroparenchymal fibrosis. Signed by Noble Mariee MD 05/13/2016 08:22 A
--- NOTE | 2016-05-14 22:43 | EDDOCDS ---
Physician Documentation [facility] Name: Mirian Jameson Age: 56 yrs Sex: Female : 1960 Arrival Date: 05/12/2016 Time: 13:51 Bed OBSERVATION Private MD: Janna Cabrera PA-C Disposition: 05/12/16 21:24 Discharged to Home/Self Care. Impression: Cough. - Condition is Stable. - Discharge Instructions: Cough, Adult. - Prescriptions for Albuterol Sulfate 90 mcg/actuation Inhalation HFA Aerosol Inhaler - inhale 2 puff by INHALATION route every 4 hours As needed; 1 Inhaler. Guaifenesin AC 10- 100 mg/5 mL Oral liquid - take 10 milliliter by ORAL route every 4 hours; 200 milliliter. - Medication Reconciliation, Local Pharmacy Hours form. - Follow up: Janna Cabrera; When: saturday. - Problem is an ongoing problem. - Symptoms have improved. Historical: - Allergies: Cymbalta (Upset stomach); GADOLINIUM-CONTAINING AGENTS (Anaphylaxis); PENICILLINS (Rash); SUMATRIPTAN (Anaphylaxis); - Home Meds: 1. amitriptyline 100 mg Oral tab 1 tab once daily 2. folic acid 1 mg Oral tab once daily 3. gabapentin 300 mg Oral cap 1 cap 3 times per day 4. venlafaxine 75 mg oral cp24 1 cap once daily 5. unknown antibiotic - PMHx: Cancer, Lung - Left; Thyroid disease; - PSHx: removal of left lung, cancer, june 2014; Appendectomy; Carpal Tunnel Repair- Right; Hysterectomy; Cholecystectomy; - Social history: Smoking status: Patient states former smoker of tobacco. No barriers to communication noted. - Family history: Not pertinent. - : The pt / caregiver states he / she is not on anticoagulants. Home medication list is obtained from the patient. - Exposure Risk Screening:: None identified. 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 4 in. (162.56 cm) (R); Pain 5/10; 14:49 BP 109 / 65 (auto/); dsf 14:50 Pulse 78 MON; Pulse Ox 99% ; dsf 15:04 BP 108 / 62 (auto/); dsf 15:05 Pulse 84 MON; Pulse Ox 98% ; dsf 15:19 Pulse 80 MON; Pulse Ox 97% ; dsf 15:19 BP 98 / 60 (auto/); dsf 15:20 Pulse 76 MON; Pulse Ox 98% ; dsf 15:34 BP 99 / 60 (auto/); dsf 15:35 Pulse 74 MON; Pulse Ox 98% ; dsf 15:49 BP 93 / 61 (auto/); dsf 15:50 Pulse 78 MON; Pulse Ox 97% ; dsf 16:04 Pulse 78 MON; Pulse Ox 100% ; dsf 16:04 BP 96 / 57 (auto/); dsf 16:19 BP 97 / 56 (auto/); dsf 16:23 Pulse 86 MON; Pulse Ox 99% ; dsf 16:34 BP 106 / 58 (auto/); dsf 16:34 Pulse 84 MON; Pulse Ox 98% ; dsf 16:49 BP 100 / 59 (auto/); dsf 16:49 Pulse 78 MON; Pulse Ox 98% ; dsf 17:04 BP 103 / 57 (auto/); dsf 17:05 Pulse 80 MON; Pulse Ox 98% ; dsf 17:19 BP 96 / 57 (auto/); dsf 17:19 Pulse 80 MON; Pulse Ox 96% ; dsf 17:35 Pulse 76 MON; Pulse Ox 98% ; dsf 17:36 BP 93 / 52 (auto/); dsf 17:36 Pulse 80 MON; Pulse Ox 99% ; dsf 17:49 BP 106 / 70 (auto/); dsf 17:49 Pulse 80 MON; Pulse Ox 97% ; dsf 18:04 BP 98 / 57 (auto/); dsf 18:04 Pulse 78 MON; Pulse Ox 96% ; dsf 18:19 BP 108 / 61 (auto/); dsf 18:19 Pulse 80 MON; Pulse Ox 95% ; dsf 18:34 BP 111 / 63 (auto/); dsf 18:35 Pulse 80 MON; Pulse Ox 97% ; dsf 18:49 BP 108 / 68 (auto/); dsf 18:51 Pulse 78 MON; Pulse Ox 97% ; dsf 19:04 BP 98 / 62 (auto/); dsf 19:05 Pulse 82 MON; Pulse Ox 96% ; dsf 21:27 BP 106 / 59; Pulse 68; Resp 18; Temp 96.8(O); Pulse Ox 98% on R/A; Pain 0/10; justino 13:53 Body Mass Index 25.40 (67.13 kg, 162.56 cm) gr2 MDM: 14:25 Chest, 2 View (pa\E\lat) Ordered. EDMS 14:25 ECG WITH READING ER PHYS+CARDIAG ordered. EDMS 14:44 Flumer/Pulse Ox/q 30 min VS ordered. sd1 14:44 IV Saline Lock ordered. sd1 14:44 Rhythm Strip to chart ordered. sd1 14:44 Undress patient appropriately for examination ordered. sd1 14:45 Basic Metabolic Profile Ordered. EDMS 14:45 CBC with Diff Ordered. EDMS 14:45 Cardiac Injury Profile Ordered. EDMS 14:45 Prothrombin Time Profile\E\INR Ordered. EDMS 14:45 Troponin Ordered. EDMS 14:55 BNP Ordered. EDMS 15:12 Albuterol-Ipratropium 1 neb Nebulizer every 20 minutes x3 ordered. sd1 15:51 Financial registration complete. gjb 15:51 Basic Metabolic Profile Reviewed. sd1 15:51 CBC with Diff Reviewed. sd1 15:51 BNP Reviewed. sd1 15:51 Cardiac Injury Profile Reviewed. sd1 15:51 Prothrombin Time Profile\E\INR Reviewed. sd1 15:51 Troponin Reviewed. sd1 15:51 Chest, 2 View (pa\E\lat) Reviewed. sd1 15:53 CT Chest Angio R/O PE Ordered. EDMS 15:57 [facility] Payment Agreement was scanned into [employer] and attached to record. gjb 16:24 Chlorpheniramine-Hydrocodone Extended Release 12 hour Capsule 8 mg-10 mg 1 caps PO once sd1 ordered. 17:32 Redraw CIP &Troponin (put time in details section) ordered. sd1 17:32 Repeat EKG (put time details section) ordered. sd1 17:36 Repeat EKG (put time details section) complete. ar3 17:36 Redraw CIP &Troponin (put time in details section) complete. ar3 17:36 CARDIAC MARKER PANEL Ordered. EDMS 17:38 ECG WITH READING ER PHYS ordered. EDMS 21:23 CARDIAC MARKER PANEL Reviewed. cs11 21:23 EKG-ADULT Reviewed. cs11 05/13 12:36 T-Sheet-- Draft Copy was scanned into [employer] and attached to record. gb 12:36 ECG/EKG was scanned into [employer] and attached to record. gb 12:37 Radiology Report was scanned into [employer] and attached to record. gb Administered Medications: 05/12 15:56 Drug: Albuterol-Ipratropium 1 neb [ipratropium-albuterol 0.5 mg-3 mg(2.5 mg base)/3 mL kjn nebulization soln (1 neb)] Route: Nebulizer; 16:08 Drug: Albuterol-Ipratropium 1 neb [ipratropium-albuterol 0.5 mg-3 mg(2.5 mg base)/3 mL kjn nebulization soln (1 neb)] Route: Nebulizer; 16:25 Drug: Albuterol-Ipratropium 1 neb [ipratropium-albuterol 0.5 mg-3 mg(2.5 mg base)/3 mL kjn nebulization soln (1 neb)] Route: Nebulizer; 16:42 Drug: Chlorpheniramine-Hydrocodone 1 caps [hydrocodone ER 10 mg-chlorpheniramine 8 mg dsf 12hr capsule,extend.release (1 caps)] Route: PO; Signatures: Dispatcher [employer] EDMI Mary Nesbitt MD MD sd1 Leia Spring, Reg Reg gb Oleg, Nadia, WASHING MACHINE ASSEMBLER WASHING MACHINE ASSEMBLER ar3 Carmela Mckeon RN RN [facility] Corbin Whitfield, DO cs11 Lasha Worthington RN RN [id number] Coreen Cadet Desiree RN dsf Penny Lucio The chart was reviewed and I authenticate all verbal orders and agree with the evaluation and treatment provided.Attachments: 15:57 [facility] Payment Agreement b 05/13 12:36 T-Sheet-- Draft Copy gb 12:36 ECG/EKG gb Chart Complete MTDD
--- NOTE | 2016-05-14 22:43 | EDDOCDS ---
Physician Documentation [facility] Name: Mirian Jameson Age: 56 yrs Sex: Female : 1960 Arrival Date: 05/12/2016 Time: 13:51 Bed OBSERVATION Private MD: Janna Cabrera PA-C Disposition: 05/12/16 21:24 Discharged to Home/Self Care. Impression: Cough. - Condition is Stable. - Discharge Instructions: Cough, Adult. - Prescriptions for Albuterol Sulfate 90 mcg/actuation Inhalation HFA Aerosol Inhaler - inhale 2 puff by INHALATION route every 4 hours As needed; 1 Inhaler. Guaifenesin AC 10- 100 mg/5 mL Oral liquid - take 10 milliliter by ORAL route every 4 hours; 200 milliliter. - Medication Reconciliation, Local Pharmacy Hours form. - Follow up: Janna Cabrera; When: saturday. - Problem is an ongoing problem. - Symptoms have improved. Historical: - Allergies: Cymbalta (Upset stomach); GADOLINIUM-CONTAINING AGENTS (Anaphylaxis); PENICILLINS (Rash); SUMATRIPTAN (Anaphylaxis); - Home Meds: 1. amitriptyline 100 mg Oral tab 1 tab once daily 2. folic acid 1 mg Oral tab once daily 3. gabapentin 300 mg Oral cap 1 cap 3 times per day 4. venlafaxine 75 mg oral cp24 1 cap once daily 5. unknown antibiotic - PMHx: Cancer, Lung - Left; Thyroid disease; - PSHx: removal of left lung, cancer, june 2014; Appendectomy; Carpal Tunnel Repair- Right; Hysterectomy; Cholecystectomy; - Social history: Smoking status: Patient states former smoker of tobacco. No barriers to communication noted. - Family history: Not pertinent. - : The pt / caregiver states he / she is not on anticoagulants. Home medication list is obtained from the patient. - Exposure Risk Screening:: None identified. 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 4 in. (162.56 cm) (R); Pain 5/10; 14:49 BP 109 / 65 (auto/); dsf 14:50 Pulse 78 MON; Pulse Ox 99% ; dsf 15:04 BP 108 / 62 (auto/); dsf 15:05 Pulse 84 MON; Pulse Ox 98% ; dsf 15:19 Pulse 80 MON; Pulse Ox 97% ; dsf 15:19 BP 98 / 60 (auto/); dsf 15:20 Pulse 76 MON; Pulse Ox 98% ; dsf 15:34 BP 99 / 60 (auto/); dsf 15:35 Pulse 74 MON; Pulse Ox 98% ; dsf 15:49 BP 93 / 61 (auto/); dsf 15:50 Pulse 78 MON; Pulse Ox 97% ; dsf 16:04 Pulse 78 MON; Pulse Ox 100% ; dsf 16:04 BP 96 / 57 (auto/); dsf 16:19 BP 97 / 56 (auto/); dsf 16:23 Pulse 86 MON; Pulse Ox 99% ; dsf 16:34 BP 106 / 58 (auto/); dsf 16:34 Pulse 84 MON; Pulse Ox 98% ; dsf 16:49 BP 100 / 59 (auto/); dsf 16:49 Pulse 78 MON; Pulse Ox 98% ; dsf 17:04 BP 103 / 57 (auto/); dsf 17:05 Pulse 80 MON; Pulse Ox 98% ; dsf 17:19 BP 96 / 57 (auto/); dsf 17:19 Pulse 80 MON; Pulse Ox 96% ; dsf 17:35 Pulse 76 MON; Pulse Ox 98% ; dsf 17:36 BP 93 / 52 (auto/); dsf 17:36 Pulse 80 MON; Pulse Ox 99% ; dsf 17:49 BP 106 / 70 (auto/); dsf 17:49 Pulse 80 MON; Pulse Ox 97% ; dsf 18:04 BP 98 / 57 (auto/); dsf 18:04 Pulse 78 MON; Pulse Ox 96% ; dsf 18:19 BP 108 / 61 (auto/); dsf 18:19 Pulse 80 MON; Pulse Ox 95% ; dsf 18:34 BP 111 / 63 (auto/); dsf 18:35 Pulse 80 MON; Pulse Ox 97% ; dsf 18:49 BP 108 / 68 (auto/); dsf 18:51 Pulse 78 MON; Pulse Ox 97% ; dsf 19:04 BP 98 / 62 (auto/); dsf 19:05 Pulse 82 MON; Pulse Ox 96% ; dsf 21:27 BP 106 / 59; Pulse 68; Resp 18; Temp 96.8(O); Pulse Ox 98% on R/A; Pain 0/10; justino 13:53 Body Mass Index 25.40 (67.13 kg, 162.56 cm) gr2 MDM: 14:25 Chest, 2 View (pa\E\lat) Ordered. EDMS 14:25 ECG WITH READING ER PHYS+CARDIAG ordered. EDMS 14:44 Torch Brazer/Pulse Ox/q 30 min VS ordered. sd1 14:44 IV Saline Lock ordered. sd1 14:44 Rhythm Strip to chart ordered. sd1 14:44 Undress patient appropriately for examination ordered. sd1 14:45 Basic Metabolic Profile Ordered. EDMS 14:45 CBC with Diff Ordered. EDMS 14:45 Cardiac Injury Profile Ordered. EDMS 14:45 Prothrombin Time Profile\E\INR Ordered. EDMS 14:45 Troponin Ordered. EDMS 14:55 BNP Ordered. EDMS 15:12 Albuterol-Ipratropium 1 neb Nebulizer every 20 minutes x3 ordered. sd1 15:51 Financial registration complete. gjb 15:51 Basic Metabolic Profile Reviewed. sd1 15:51 CBC with Diff Reviewed. sd1 15:51 BNP Reviewed. sd1 15:51 Cardiac Injury Profile Reviewed. sd1 15:51 Prothrombin Time Profile\E\INR Reviewed. sd1 15:51 Troponin Reviewed. sd1 15:51 Chest, 2 View (pa\E\lat) Reviewed. sd1 15:53 CT Chest Angio R/O PE Ordered. EDMS 15:57 [facility] Payment Agreement was scanned into [employer] and attached to record. gjb 16:24 Chlorpheniramine-Hydrocodone Extended Release 12 hour Capsule 8 mg-10 mg 1 caps PO once sd1 ordered. 17:32 Redraw CIP &Troponin (put time in details section) ordered. sd1 17:32 Repeat EKG (put time details section) ordered. sd1 17:36 Repeat EKG (put time details section) complete. ar3 17:36 Redraw CIP &Troponin (put time in details section) complete. ar3 17:36 CARDIAC MARKER PANEL Ordered. EDMS 17:38 ECG WITH READING ER PHYS ordered. EDMS 21:23 CARDIAC MARKER PANEL Reviewed. cs11 21:23 EKG-ADULT Reviewed. cs11 05/13 12:36 T-Sheet-- Draft Copy was scanned into [employer] and attached to record. gb 12:36 ECG/EKG was scanned into [employer] and attached to record. gb 12:37 Radiology Report was scanned into [employer] and attached to record. gb Administered Medications: 05/12 15:56 Drug: Albuterol-Ipratropium 1 neb [ipratropium-albuterol 0.5 mg-3 mg(2.5 mg base)/3 mL kjn nebulization soln (1 neb)] Route: Nebulizer; 16:08 Drug: Albuterol-Ipratropium 1 neb [ipratropium-albuterol 0.5 mg-3 mg(2.5 mg base)/3 mL kjn nebulization soln (1 neb)] Route: Nebulizer; 16:25 Drug: Albuterol-Ipratropium 1 neb [ipratropium-albuterol 0.5 mg-3 mg(2.5 mg base)/3 mL kjn nebulization soln (1 neb)] Route: Nebulizer; 16:42 Drug: Chlorpheniramine-Hydrocodone 1 caps [hydrocodone ER 10 mg-chlorpheniramine 8 mg dsf 12hr capsule,extend.release (1 caps)] Route: PO; Signatures: Dispatcher [employer] EDWY Mary Nesbitt MD MD sd1 Leia Spring, Reg Reg gb Oleg, Nadia, TOMBSTONE POLISHER TOMBSTONE POLISHER ar3 Carmela Mckeon RN RN [facility] Corbin Whitfield, DO cs11 Lasha Worthington RN RN [id number] Coreen Cadet Desiree RN dsf Penny Lucio The chart was reviewed and I authenticate all verbal orders and agree with the evaluation and treatment provided.Attachments: 15:57 [facility] Payment Agreement b 05/13 12:36 T-Sheet-- Draft Copy gb 12:36 ECG/EKG gb Chart Complete MTDD
--- NOTE | 2016-05-14 22:43 | EDDOCDS ---
Nurse's Notes [facility] Name: Kate Rosenberg Age: 56 yrs Sex: Female : 1960 Arrival Date: 05/12/2016 Time: 13:51 Bed OBSERVATION Private MD: Janna Cabrera PA-C Diagnosis: Cough Presentation: 05/12 13:59 Presenting complaint: Patient states: antibiotics changed on Saturday but still [facility] coughing and having chest pain sometimes with cough sometimes when I cough I feel like I'm going to pass out, they told me if I didn't feel any better this weekend I should come in and get checked and I only have one lung. Adult Sepsis Screening: The patient does not have new or worsening altered mentation. Patient's respiratory rate is less than 22. Systolic blood pressure is greater than 100. Patient has a qSOFA score of 0- Negative Sepsis Screen. Suicide/Homicide risk assessment- the patient denies having any suicidal and/or homicidal ideations and does not present with any other emotional, behavioral or mental health complaints. Status: Patient is not a service developer or dependent. Transition of care: patient was not received from another setting of care. 13:59 Acuity: STEPHEN Level 3 [facility] 13:59 Method Of Arrival: Walkin/Carried/Asstd [facility] Triage Assessment: 14:03 General: Appears in no apparent distress, comfortable, Behavior is appropriate for age, [facility] cooperative. Pain: Denies pain. HIV screening NA for this visit Offered previously. Respiratory: Onset: The symptoms/episode began/occurred 2-weeks, Reports cough that is non-productive. Derm: Skin is pink, warm & dry. [employer] ARTISTIC DIRECTOR: 14:03 LMP N/A - Hysterectomy [facility] Historical: - Allergies: Cymbalta (Upset stomach); GADOLINIUM-CONTAINING AGENTS (Anaphylaxis); PENICILLINS (Rash); SUMATRIPTAN (Anaphylaxis); - Home Meds: 1. amitriptyline 100 mg Oral tab 1 tab once daily 2. folic acid 1 mg Oral tab once daily 3. gabapentin 300 mg Oral cap 1 cap 3 times per day 4. venlafaxine 75 mg oral cp24 1 cap once daily 5. unknown antibiotic - PMHx: Cancer, Lung - Left; Thyroid disease; - PSHx: removal of left lung, cancer, june 2014; Appendectomy; Carpal Tunnel Repair- Right; Hysterectomy; Cholecystectomy; - Social history: Smoking status: Patient states former smoker of tobacco. No barriers to communication noted. - Family history: Not pertinent. - : The pt / caregiver states he / she is not on anticoagulants. Home medication list is obtained from the patient. - Exposure Risk Screening:: None identified. Screenin:41 Screening information is obtained from the patient. Fall risk: No risks identified. mb9 Assistance ADL's: requires no assistance with activities of daily living. Abuse/DV Screen: The patient / caregiver reports he/she is: not in a situation that causes fear, pain or injury. Nutritional screening: No deficits noted. Advance Directives: There is no active DNR order. home support is adequate. Assessment: 15:17 Adult Sepsis Screening: The patient does not have new or worsening altered mentation. dsf Patient's respiratory rate is less than 22. Systolic blood pressure is greater than 100. Patient has a qSOFA score of 0- Negative Sepsis Screen. General: Appears in no apparent distress, ill, Behavior is appropriate for age, cooperative. Pain: Denies pain. Neurological: Level of Consciousness is awake, alert, Oriented to person, place, time. Cardiovascular: Capillary refill < 3 seconds Rhythm is sinus rhythm No ectopy. Respiratory: Airway is patent Respiratory effort is even, unlabored, Respiratory pattern is regular, symmetrical, Reports shortness of breath on exertion since 2 weeks ago cough that is non-productive, since 2 weeks. Derm: Skin is dry, Skin is pale, Skin temperature is warm. 16:00 General: Appears in no apparent distress, ill, Behavior is appropriate for age, dsf cooperative. Pain: Denies pain. Neurological: Level of Consciousness is awake, alert, Oriented to person, place, time. Cardiovascular: Capillary refill < 3 seconds Heart tones S1 S2 present Rhythm is sinus rhythm No ectopy. Respiratory: Airway is patent Respiratory effort is even, unlabored, Respiratory pattern is regular, symmetrical, Breath sounds are diminished in right posterior upper lobe, right posterior middle lobe and right posterior lower lobe Breath sounds with wheezes in right posterior upper lobe, right posterior middle lobe and right posterior lower lobe. GI: Abdomen is non- distended Bowel sounds present X 4 quads. Abd is soft and non tender X 4 quads. Derm: Skin is dry, Skin is pale, Skin temperature is warm. 17:18 General: Appears in no apparent distress, Behavior is appropriate for age, cooperative. mb9 Respiratory: Airway is patent Respiratory effort is even, unlabored. 18:18 Adult Sepsis Screening: The patient does not have new or worsening altered mentation. dsf Patient's respiratory rate is less than 22. Systolic blood pressure is greater than 100. Patient has a qSOFA score of 0- Negative Sepsis Screen. General: Appears in no apparent distress, Behavior is appropriate for age, cooperative. Neurological: Level of Consciousness is awake, alert. Cardiovascular: Capillary refill < 3 seconds. Respiratory: Airway is patent Respiratory effort is even, unlabored, Respiratory pattern is regular, symmetrical. Derm: Skin is dry, Skin is pale, Skin temperature is warm. 19:59 General: Appears in no apparent distress, Behavior is appropriate for age, cooperative. mb9 Pain: Denies pain. Neurological: Level of Consciousness is awake, alert, Oriented to person, place, time. Respiratory: Airway is patent Breath sounds are clear bilaterally. Reports cough that is pt reports, "the cough has improved since you guys gave me that pill.". 21:41 Reassessment: Patient appears in no apparent distress at this time. Patient states mb9 symptoms have improved. Adult Sepsis Screening: The patient does not have new or worsening altered mentation. Patient's respiratory rate is less than 22. Systolic blood pressure is greater than 100. Patient has a qSOFA score of 0- Negative Sepsis Screen. General: Appears in no apparent distress, Behavior is appropriate for age, cooperative. Respiratory: Airway is patent Respiratory effort is even, unlabored. Vital Signs: 13:53 BP 128 / 61; Pulse 92; Resp 18 S; Temp 98.0(O); Pulse Ox 100% on R/A; Weight 67.13 kg gr2 (R); Height 5 ft. 4 in. (162.56 cm) (R); Pain 5/10; 14:49 BP 109 / 65 (auto/); dsf 14:50 Pulse 78 MON; Pulse Ox 99% ; dsf 15:04 BP 108 / 62 (auto/); dsf 15:05 Pulse 84 MON; Pulse Ox 98% ; dsf 15:19 Pulse 80 MON; Pulse Ox 97% ; dsf 15:19 BP 98 / 60 (auto/); dsf 15:20 Pulse 76 MON; Pulse Ox 98% ; dsf 15:34 BP 99 / 60 (auto/); dsf 15:35 Pulse 74 MON; Pulse Ox 98% ; dsf 15:49 BP 93 / 61 (auto/); dsf 15:50 Pulse 78 MON; Pulse Ox 97% ; dsf 16:04 Pulse 78 MON; Pulse Ox 100% ; dsf 16:04 BP 96 / 57 (auto/); dsf 16:19 BP 97 / 56 (auto/); dsf 16:23 Pulse 86 MON; Pulse Ox 99% ; dsf 16:34 BP 106 / 58 (auto/); dsf 16:34 Pulse 84 MON; Pulse Ox 98% ; dsf 16:49 BP 100 / 59 (auto/); dsf 16:49 Pulse 78 MON; Pulse Ox 98% ; dsf 17:04 BP 103 / 57 (auto/); dsf 17:05 Pulse 80 MON; Pulse Ox 98% ; dsf 17:19 BP 96 / 57 (auto/); dsf 17:19 Pulse 80 MON; Pulse Ox 96% ; dsf 17:35 Pulse 76 MON; Pulse Ox 98% ; dsf 17:36 BP 93 / 52 (auto/); dsf 17:36 Pulse 80 MON; Pulse Ox 99% ; dsf 17:49 BP 106 / 70 (auto/); dsf 17:49 Pulse 80 MON; Pulse Ox 97% ; dsf 18:04 BP 98 / 57 (auto/); dsf 18:04 Pulse 78 MON; Pulse Ox 96% ; dsf 18:19 BP 108 / 61 (auto/); dsf 18:19 Pulse 80 MON; Pulse Ox 95% ; dsf 18:34 BP 111 / 63 (auto/); dsf 18:35 Pulse 80 MON; Pulse Ox 97% ; dsf 18:49 BP 108 / 68 (auto/); dsf 18:51 Pulse 78 MON; Pulse Ox 97% ; dsf 19:04 BP 98 / 62 (auto/); dsf 19:05 Pulse 82 MON; Pulse Ox 96% ; dsf 21:27 BP 106 / 59; Pulse 68; Resp 18; Temp 96.8(O); Pulse Ox 98% on R/A; Pain 0/10; justino 13:53 Body Mass Index 25.40 (67.13 kg, 162.56 cm) gr2 Vitals: 13:53 Log In Time: May 12, 2016 at 13:53. gr2 ED Course: 13:53 Patient visited by Osmar Ivey. gr2 13:53 Janna Cabrera is Private Physician. gr2 13:53 Patient moved to Waiting gr2 13:54 Patient visited by Osmar Ivey. gr2 13:54 Patient moved to Pre RCE gr2 14:01 Triage Initiated cjh 14:32 Patient moved to PD dem1 14:38 Patient visited by Kranthi Clifford. dem1 14:38 EKG done. (by ED staff). Reviewed by Mary Nesbitt MD. dem1 14:44 Patient moved to 14 ar3 14:50 Patient visited by Kranthi Clifford. dem1 14:50 Pt greeted and oriented to ED. Patient advised of names of staff involved in care, dem1 location of call terry, wait times and NPO status. Patient has correct armband on for positive identification. Placed in gown. Bed in low position. Call light in reach. Side rails up X 1. desk monitor on. Pulse ox on. NIBP on. 14:55 Mary Nesbitt MD is Attending Physician. sd1 14:55 Patient visited by Mary Nesbitt MD. sd1 15:06 BNP Sent. mb9 15:07 Basic Metabolic Profile Sent. mb9 15:07 CBC with Diff Sent. mb9 15:07 Cardiac Injury Profile Sent. mb9 15:07 Prothrombin Time Profile\\E\\INR Sent. mb9 15:07 Troponin Sent. mb9 15:07 Inserted saline lock: 20 gauge. mb9 15:18 Patient visited by Lise Mayo,JENNIFER. dsf 15:25 Chest, 2 View (pa\\E\\lat) Returned. EDMS 15:57 [facility] [place] Agreement was scanned into [employer] and attached to record. gjb 16:[address] dsf 16:32 Patient moved to 14 dsf 16:34 Patient visited by Lise Mayo,JENNIFER. dsf 17:18 Patient visited by Lasha Worthington,JENNIFER. mb9 17:36 Patient moved to OBSERVATION sd1 18:47 Patient visited by Lise Mayo,JENNIFER. dsf 19:13 Attending Physician role handed off by Mary Nesbitt MD cs11 19:13 Corbin Whitfield DO is Attending Physician. cs11 19:46 EKG-ADULT Returned. EDMS 20:41 Patient visited by Rebecca Alonso PCA. justino 20:41 EKG done. (by ED staff). Reviewed by Corbin Whitfield DO. justino 21:23 Janna Cabrera is Referral Physician. cs11 21:27 Patient visited by Rebecca Alonso PCA. justino 21:41 The patient / caregiver is instructed regarding the plan of care and ED course. mb9 21:41 Discontinued IV lock intact, bleeding controlled, pressure dressing applied, No mb9 redness/swelling at site. No procedures done that require assistance. 05/13 06:54 ECG WITH READING ER PHYS Returned. EDMS 07:22 CT Chest Angio R/O PE Returned. EDMS 12:36 T-Sheet-- Draft Copy was scanned into [employer] and attached to record. gb 12:36 ECG/EKG was scanned into [employer] and attached to record. gb 12:37 Radiology Report was scanned into [employer] and attached to record. gb Administered Medications: 05/12 15:56 Drug: Albuterol-Ipratropium 1 neb [ipratropium-albuterol 0.5 mg-3 mg(2.5 mg base)/3 mL kjn nebulization soln (1 neb)] Route: Nebulizer; 16:08 Drug: Albuterol-Ipratropium 1 neb [ipratropium-albuterol 0.5 mg-3 mg(2.5 mg base)/3 mL kjn nebulization soln (1 neb)] Route: Nebulizer; 16:25 Drug: Albuterol-Ipratropium 1 neb [ipratropium-albuterol 0.5 mg-3 mg(2.5 mg base)/3 mL kjn nebulization soln (1 neb)] Route: Nebulizer; 16:42 Drug: Chlorpheniramine-Hydrocodone 1 caps [hydrocodone ER 10 mg-chlorpheniramine 8 mg dsf 12hr capsule,extend.release (1 caps)] Route: PO; RT: 15:57 Initial Med Neb Given as ordered Patient was instructed and evaluated on procedure kjn Patient tolerated procedure well without adverse effect. Oxygen is room air. Respiratory: Respiratory effort is unlabored, Breath sounds are diminished Breath sounds with wheezes in right upper lobe, right middle lobe and right lower lobe at inspiration. 16:08 Subsequent Med Neb Given as ordered. Respiratory: Breath sounds are diminished in right kjn upper lobe, right middle lobe and right lower lobe Breath sounds with wheezes in right upper lobe, right middle lobe and right lower lobe at expiration. 16:47 Subsequent Med Neb Given as ordered. Respiratory: Breath sounds are diminished Breath kjn sounds with wheezes. Order Results: Lab Order: Basic Metabolic Profile; SPEC'M 05/12/16 15:02 Test: GLUCOSE, FASTING; Value: 87; Range: 70-105; Units: MG/DL; Status: F Test: BLOOD UREA NITROGEN; Value: 16; Range: 7-18; Units: MG/DL; Status: F Test: CREATININE FOR GFR; Value: 1.09; Range: 0.55-1.02; Abnormal: Above high normal; Units: MG/DL; Status: F Test: GLOMERULAR FILTRATION RATE; Value: 55.7; Range: >51; Status: F Test: SODIUM LEVEL; Value: 145; Range: 136-145; Units: MEQ/L; Status: F Test: POTASSIUM SERUM; Value: 3.9; Range: 3.5-5.1; Units: MEQ/L; Status: F Test: CHLORIDE LEVEL; Value: 110; Range: 98-107; Abnormal: Above high normal; Units: MEQ/L; Status: F Test: CARBON DIOXIDE LEVEL; Value: 27; Range: 21-32; Units: MEQ/L; Status: F Test: ANION GAP; Value: 8; Range: 8-16; Units: MEQ/L; Status: F Test: CALCIUM LEVEL; Value: 8.5; Range: 8.5-10.1; Units: MG/DL; Status: F Test Note: ; Units are mL/min/1.73 m2 Chronic Kidney Disease Staging per NKF: Stage I & II GFR >=60 Normal to Mildly Decreased Stage III GFR 30-59 Moderately Decreased Stage IV GFR 15-29 Severely Decreased Stage V GFR <15 Very Little GFR Left ESRD GFR <15 on TECHNOLOGY DIRECTOR Lab Order: CBC with Diff; SPEC'M 05/12/16 15:02 Test: WHITE BLOOD COUNT; Value: 5.6; Range: 4.0-10.0; Units: K/mm3; Status: F Test: RED BLOOD COUNT; Value: 4.13; Range: 4.00-5.40; Units: M/mm3; Status: F Test: HEMOGLOBIN; Value: 12.3; Range: 12.0-16.0; Units: g/dl; Status: F Test: HEMATOCRIT; Value: 37.0; Range: 36.0-47.0; Units: %; Status: F Test: MEAN CORPUSCULAR VOLUME; Value: 89.4; Range: 80.0-96.0; Units: fl; Status: F Test: MEAN CORPUSCULAR HEMOGLOBIN; Value: 29.8; Range: 27.0-33.0; Units: pg; Status: F Test: MEAN CORPUSCULAR HGB CONC; Value: 33.3; Range: 32.0-36.5; Units: g/dl; Status: F Test: RED CELL DISTRIBUTION WIDTH; Value: 13.1; Range: 11.5-14.5; Units: %; Status: F Test: PLATELET COUNT, AUTOMATED; Value: 243; Range: 150-450; Units: k/mm3; Status: F Test: NEUTROPHILS %; Value: 40.2; Range: 36.0-66.0; Units: %; Status: F Test: LYMPH %; Value: 46.9; Range: 24.0-44.0; Abnormal: Above high normal; Units: %; Status: F Test: MONO %; Value: 5.8; Range: 0.0-5.0; Abnormal: Above high normal; Units: %; Status: F Test: EOS %; Value: 4.5; Range: 0.0-3.0; Abnormal: Above high normal; Units: %; Status: F Test: BASO %; Value: 0.7; Range: 0.0-1.0; Units: %; Status: F Test: LARGE UNSTAINED CELL %; Value: 2.0; Range: 0.0-4.0; Units: %; Status: F Test: NEUTROPHILS #; Value: 2.3; Range: 1.8-7.7; Units: K/mm3; Status: F Test: LYMPH #; Value: 2.8; Range: 1.5-4.5; Units: K/mm3; Status: F Test: MONO #; Value: 0.3; Range: 0.0-0.8; Units: K/mm3; Status: F Test: EOS #; Value: 0.2; Range: 0.0-0.50; Units: K/mm3; Status: F Test: BASO #; Value: 0.0; Range: 0.0-0.2; Units: K/mm3; Status: F Test: LARGE UNSTAINED CELL #; Value: 0.1; Range: 0.0-0.4; Units: K/mm3; Status: F Lab Order: Cardiac Injury Profile; [facility] 05/12/16 15:02 Test: CPK CREATINE PHOSPHOKINASE; Value: 56; Range: 26-192; Units: U/L; Status: F Test: CK-MB VALUE MASS; Value: 1.0; Range: 0.0-3.6; Units: NG/ML; Status: F Test: MB/CK RELATIVE INDEX; Value: 1.78; Range: < OR =4; Status: F Test Note: ; DIAGNOSIS CRITERIA MMB ng/ml Relative Index (RI) NON-AMI < or = 5 N/A SUTTON ZONE > 5 < or = 4 AMI > 5 > 4 Lab Order: Prothrombin Time Profile\\E\\INR; [facility] 05/12/16 15:02 Test: PROTHROMBIN TIME; Value: 12.6; Range: 12.3-14.5; Units: SECONDS; Status: F Test: INR; Value: 0.93; Status: F Test Note: ; THERAPUTIC HUMAN INR VALUES INDICATIONS NORMAL RANGES PROPHYLAXIS/TREATMENT OF: VENOUS THROMBOSIS 2.0-3.0 PULMONARY EMBOLISM 2.0-3.0 PREVENTION OF SYSTEMIC EMBOLISM FROM: TISSUE HEART VALVES 2.0-3.0 ACUTE MYOCARDIAL INFARCTION 2.0-3.0 VALVULAR HEART DISEASE 2.0-3.0 ATRIAL FIBRILLATION 2.0-3.0 MECHANICAL VALVES(HIGH RISK) 2.5-3.5 RECURRENT MYOCARDIAL INFARCTION 2.5-3.5 Lab Order: Troponin; [facility] 05/12/16 15:02 Test: TROPONIN I; Value: < 0.02; Range: < 0.10; Units: NG/ML; Status: F Test Note: ; Troponin I Reference Interval for [employer] LOCI: 99th Percentile= 0.00-0.045 ng/ml Risk Stratification: <= 0.10 ng/ml Decreased Risk for Adverse Clinical Events. 0.10-1.50 ng/ml Increased Risk for Adverse Clinical Events. Evaluation of additional criterion and/or repeat testing in 2-6 hours is suggested to rule out myocardial damage. >= 1.50 ng/ml Indicative of Myocardial Injury. Lab Order: BNP; SPEC'M 05/12/16 15:02 Test: BRAIN NATRIURETIC PEPTIDE; Value: 104; Range: <100; Abnormal: Above high normal; Units: PG/ML; Status: F Lab Order: CARDIAC MARKER PANEL; SPEC'M 05/12/16 20:45 Test: CPK CREATINE PHOSPHOKINASE; Value: 52; Range: 26-192; Units: U/L; Status: F Test: CK-MB VALUE MASS; Value: 1.0; Range: 0.0-3.6; Units: NG/ML; Status: F Test: MB/CK RELATIVE INDEX; Value: 1.92; Range: < OR =4; Status: F Test: TROPONIN I; Value: < 0.02; Range: < 0.10; Units: NG/ML; Status: F Test Note: ; DIAGNOSIS CRITERIA MMB ng/ml Relative Index (RI) NON-AMI < or = 5 N/A SUTTON ZONE > 5 < or = 4 AMI > 5 > 4 Radiology Order: Chest, 2 View (pa\\E\\lat) Test: Chest, 2 View (pa\\E\\lat) REASON FOR EXAMINATION: Cough; CHEST X-RAY: Two views.; ; HISTORY: Cough.; ; FINDINGS: The patient is status post left pneumonectomy. The right lung is; somewhat hyperinflated but otherwise clear. Trachea is deviated somewhat to the; left consistent with a pneumonectomy. This is unchanged. Tracheobronchial tree; is otherwise unremarkable. The right pleural angles are sharp. No bony; abnormality is seen.; ; IMPRESSION:; ; No active disease. 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; : 1960 Requested By: Mary Nesbitt; Order Number: [id number] Reading MD: Mary Nesbitt; Measurements; Intervals [place]; Rate: 82 P: 102; [place]: 117 QRS: 71; QRSD: 89 T: 134; QT: 367; QTc: 431; Interpretive Statements; SINUS RHYTHM WITH SHORT [place] INTERVAL; POSSIBLE RIGHT ATRIAL ENLARGEMENT; ST DEVIATION AND MODERATE T-WAVE ABNORMALITY, CONSIDER ANTEROLATERAL; ISCHEMIA,; MORE PRONOUNCED 12/19/15, CLINICAL CORRELATION; ; Electronically Signed On 05-12-2016 19:08:54 EST by Mary Nesbitt; Radiology Order: CT Chest Angio R/O PE Test: CT Chest Angio R/O PE REASON FOR EXAMINATION: Shortness of Breath; CT PULMONARY ANGIOGRAM: With IV contrast.; ; HISTORY: Shortness of breath.; ; COMPARISON STUDIES: November 23, 2014; ; Contrast dose: 75 mL of Isovue 370 are administered intravenously.; ; CT TECHNIQUE: Helical scanning is acquired and overlapping 1.5 mm and contiguous; 3 mm axial images are reformatted. In addition, a 3D work station is deployed to; generate thick slab maximum intensity projection images in sagittal and coronal; imaging projections.; ; CT PULMONARY ANGIOGRAPHIC FINDINGS: There is good opacification of the pulmonary; arterial tree. There is no CT evidence of pulmonary embolism. The thoracic; aorta enhances homogeneously and is normal in course and caliber. The patient is; status post left pneumonectomy so that the heart and mediastinal structures are; in the left chest. The right lung is somewhat hyperinflated but free of; infiltrate. No pleural or pericardial effusion is evident. No hilar or; mediastinal mass is seen. Maximal intensity projection images show no filling; defect or vessel cutoff. There is a tiny 3 mm noncalcified pulmonary nodule in; the right lower lobe. This is seen on today's study page 46 and 107 series 402.; Is not definitely apparent on July 16, 2014 or November 23, 2014 prior studies.; No other new pulmonary nodule is appreciated. No bony destructive lesion is; seen. No adrenal lesion is observed. There are clips in the gallbladder fossa.; ; IMPRESSION:; ; No CT evidence of pulmonary embolus.; ; The patient status post left pneumonectomy.; ; 3 mm noncalcified nodule seen on today's study in the right lower lobe.; Follow-up chest CT study suggested 6-12 months.; ; The areas of infiltrate seen in the periphery of the right lung on November [id number] have resolved except for some right apical pleuroparenchymal fibrosis.; ; ; ; ; Signed by; Noble Mariee MD 05/13/2016 08:22 A; Radiology Order: ECG WITH READING ER PHYS Test: ECG WITH READING ER PHYS REASON FOR EXAMINATION: CHEST CONGESTION, COUGH; Stationary ECG Study; [facility] - ED; ; Test Date: 2016-05-12; Pat Name: KATE ROSENBERG Department:; Room: -; Gender: F 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 cox monett 21:41 Discharge Assessment: Patient awake, alert and oriented x 3. No cognitive and/or mb9 functional deficits noted. Patient verbalized understanding of disposition instructions. patient administered narcotics - no. The following High Risk Discharge criteria are identified: None. Discharged to home ambulatory, with significant other. Condition: good Condition: stable Condition: improved. Discharge instructions given to patient, Instructed on discharge instructions, follow up and referral plans. medication usage, Demonstrated understanding of instructions, medications, Pt was receptive of discharge instructions/ teaching. Prescriptions given X 2. No special radiology studies were completed. Property :Personal belongings accompany Pt. 21:42 Patient left the ED. mb9 Signatures: Dispatcher [employer] EDMT Mary Nesbitt MD MD sd1 Clementine, Leia, Reg Reg gb Oleg, Nadia, CURRICULUM AND INSTRUCTION DIRECTOR CURRICULUM AND INSTRUCTION DIRECTOR ar3 Celeste, Rebecca, CURRICULUM AND INSTRUCTION DIRECTOR CURRICULUM AND INSTRUCTION DIRECTOR justino Maria Esther,Lise,JENNIFER RN shane Clifford, Kranthi dem1 Carmela Mckeon RN RN [facility] Naveed,Corbin Jacobs, DO DO cs11 Osmar Ivey gr2 Lasha Worthington RN RN mb9 Coreen Cadet Chart Complete MTDD
--- NOTE | 2016-05-15 17:46 | EDDOCDS ---
Physician Documentation [facility] Name: Mirian Jameson Age: 56 yrs Sex: Female : 1960 Arrival Date: 05/12/2016 Time: 13:51 Bed OBSERVATION Private MD: Janna Cabrera PA-C Disposition: 05/12/16 21:24 Discharged to Home/Self Care. Impression: Cough. - Condition is Stable. - Discharge Instructions: Cough, Adult. - Prescriptions for Albuterol Sulfate 90 mcg/actuation Inhalation HFA Aerosol Inhaler - inhale 2 puff by INHALATION route every 4 hours As needed; 1 Inhaler. Guaifenesin AC 10- 100 mg/5 mL Oral liquid - take 10 milliliter by ORAL route every 4 hours; 200 milliliter. - Medication Reconciliation, Local Pharmacy Hours form. - Follow up: Janna Cabrera; When: saturday. - Problem is an ongoing problem. - Symptoms have improved. Historical: - Allergies: Cymbalta (Upset stomach); GADOLINIUM-CONTAINING AGENTS (Anaphylaxis); PENICILLINS (Rash); SUMATRIPTAN (Anaphylaxis); - Home Meds: 1. amitriptyline 100 mg Oral tab 1 tab once daily 2. folic acid 1 mg Oral tab once daily 3. gabapentin 300 mg Oral cap 1 cap 3 times per day 4. venlafaxine 75 mg oral cp24 1 cap once daily 5. unknown antibiotic - PMHx: Cancer, Lung - Left; Thyroid disease; - PSHx: removal of left lung, cancer, june 2014; Appendectomy; Carpal Tunnel Repair- Right; Hysterectomy; Cholecystectomy; - Social history: Smoking status: Patient states former smoker of tobacco. No barriers to communication noted. - Family history: Not pertinent. - : The pt / caregiver states he / she is not on anticoagulants. Home medication list is obtained from the patient. - Exposure Risk Screening:: None identified. 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 4 in. (162.56 cm) (R); Pain 5/10; 14:49 BP 109 / 65 (auto/); dsf 14:50 Pulse 78 MON; Pulse Ox 99% ; dsf 15:04 BP 108 / 62 (auto/); dsf 15:05 Pulse 84 MON; Pulse Ox 98% ; dsf 15:19 Pulse 80 MON; Pulse Ox 97% ; dsf 15:19 BP 98 / 60 (auto/); dsf 15:20 Pulse 76 MON; Pulse Ox 98% ; dsf 15:34 BP 99 / 60 (auto/); dsf 15:35 Pulse 74 MON; Pulse Ox 98% ; dsf 15:49 BP 93 / 61 (auto/); dsf 15:50 Pulse 78 MON; Pulse Ox 97% ; dsf 16:04 Pulse 78 MON; Pulse Ox 100% ; dsf 16:04 BP 96 / 57 (auto/); dsf 16:19 BP 97 / 56 (auto/); dsf 16:23 Pulse 86 MON; Pulse Ox 99% ; dsf 16:34 BP 106 / 58 (auto/); dsf 16:34 Pulse 84 MON; Pulse Ox 98% ; dsf 16:49 BP 100 / 59 (auto/); dsf 16:49 Pulse 78 MON; Pulse Ox 98% ; dsf 17:04 BP 103 / 57 (auto/); dsf 17:05 Pulse 80 MON; Pulse Ox 98% ; dsf 17:19 BP 96 / 57 (auto/); dsf 17:19 Pulse 80 MON; Pulse Ox 96% ; dsf 17:35 Pulse 76 MON; Pulse Ox 98% ; dsf 17:36 BP 93 / 52 (auto/); dsf 17:36 Pulse 80 MON; Pulse Ox 99% ; dsf 17:49 BP 106 / 70 (auto/); dsf 17:49 Pulse 80 MON; Pulse Ox 97% ; dsf 18:04 BP 98 / 57 (auto/); dsf 18:04 Pulse 78 MON; Pulse Ox 96% ; dsf 18:19 BP 108 / 61 (auto/); dsf 18:19 Pulse 80 MON; Pulse Ox 95% ; dsf 18:34 BP 111 / 63 (auto/); dsf 18:35 Pulse 80 MON; Pulse Ox 97% ; dsf 18:49 BP 108 / 68 (auto/); dsf 18:51 Pulse 78 MON; Pulse Ox 97% ; dsf 19:04 BP 98 / 62 (auto/); dsf 19:05 Pulse 82 MON; Pulse Ox 96% ; dsf 21:27 BP 106 / 59; Pulse 68; Resp 18; Temp 96.8(O); Pulse Ox 98% on R/A; Pain 0/10; justino 13:53 Body Mass Index 25.40 (67.13 kg, 162.56 cm) gr2 MDM: 14:25 Chest, 2 View (pa\E\lat) Ordered. EDMS 14:25 ECG WITH READING ER PHYS+CARDIAG ordered. EDMS 14:44 Ship Runner/Pulse Ox/q 30 min VS ordered. sd1 14:44 IV Saline Lock ordered. sd1 14:44 Rhythm Strip to chart ordered. sd1 14:44 Undress patient appropriately for examination ordered. sd1 14:45 Basic Metabolic Profile Ordered. EDMS 14:45 CBC with Diff Ordered. EDMS 14:45 Cardiac Injury Profile Ordered. EDMS 14:45 Prothrombin Time Profile\E\INR Ordered. EDMS 14:45 Troponin Ordered. EDMS 14:55 BNP Ordered. EDMS 15:12 Albuterol-Ipratropium 1 neb Nebulizer every 20 minutes x3 ordered. sd1 15:51 Financial registration complete. gjb 15:51 Basic Metabolic Profile Reviewed. sd1 15:51 CBC with Diff Reviewed. sd1 15:51 BNP Reviewed. sd1 15:51 Cardiac Injury Profile Reviewed. sd1 15:51 Prothrombin Time Profile\E\INR Reviewed. sd1 15:51 Troponin Reviewed. sd1 15:51 Chest, 2 View (pa\E\lat) Reviewed. sd1 15:53 CT Chest Angio R/O PE Ordered. EDMS 15:57 [facility] Payment Agreement was scanned into [employer] and attached to record. gjb 16:24 Chlorpheniramine-Hydrocodone Extended Release 12 hour Capsule 8 mg-10 mg 1 caps PO once sd1 ordered. 17:32 Redraw CIP &Troponin (put time in details section) ordered. sd1 17:32 Repeat EKG (put time details section) ordered. sd1 17:36 Repeat EKG (put time details section) complete. ar3 17:36 Redraw CIP &Troponin (put time in details section) complete. ar3 17:36 CARDIAC MARKER PANEL Ordered. EDMS 17:38 ECG WITH READING ER PHYS ordered. EDMS 21:23 CARDIAC MARKER PANEL Reviewed. cs11 21:23 EKG-ADULT Reviewed. cs11 05/13 12:36 T-Sheet-- Draft Copy was scanned into [employer] and attached to record. gb 12:36 ECG/EKG was scanned into [employer] and attached to record. gb 12:37 Radiology Report was scanned into [employer] and attached to record. gb Administered Medications: 05/12 15:56 Drug: Albuterol-Ipratropium 1 neb [ipratropium-albuterol 0.5 mg-3 mg(2.5 mg base)/3 mL kjn nebulization soln (1 neb)] Route: Nebulizer; 16:08 Drug: Albuterol-Ipratropium 1 neb [ipratropium-albuterol 0.5 mg-3 mg(2.5 mg base)/3 mL kjn nebulization soln (1 neb)] Route: Nebulizer; 16:25 Drug: Albuterol-Ipratropium 1 neb [ipratropium-albuterol 0.5 mg-3 mg(2.5 mg base)/3 mL kjn nebulization soln (1 neb)] Route: Nebulizer; 16:42 Drug: Chlorpheniramine-Hydrocodone 1 caps [hydrocodone ER 10 mg-chlorpheniramine 8 mg dsf 12hr capsule,extend.release (1 caps)] Route: PO; Addendum: 05/15/2016 17:45 Radiology Callback: Radiology results faxed to primary care physician/provider. dr fermín daniels faxed formal report of cta for fu mlg. Signatures: Dispatcher [employer] EDMS Mary Nesbitt MD MD sd1 Sparkle Castillo MD MD ml Barnhardt, Gloria, Reg Reg gb Nadia Dejesus, PRODUCT CONTROLLER PRODUCT CONTROLLER ar3 Carmela MckeonRN RN [facility] Corbin Whitfield DO DO cs11 Lasha WorthingtonRN RN mb9 Coreen Cadet b Lise Mayo RNf Penny Lucio The chart was reviewed and I authenticate all verbal orders and agree with the evaluation and treatment provided.Attachments: 05/12 15:57 [facility] Payment Agreement gjb 05/13 12:36 T-Sheet-- Draft Copy gb 12:36 ECG/EKG gb MTDD
--- NOTE | 2016-05-15 17:46 | EDDOCDS ---
Physician Documentation [facility] Name: Mirian Jameson Age: 56 yrs Sex: Female : 1960 Arrival Date: 05/12/2016 Time: 13:51 Bed OBSERVATION Private MD: Janna Cabrera PA-C Disposition: 05/12/16 21:24 Discharged to Home/Self Care. Impression: Cough. - Condition is Stable. - Discharge Instructions: Cough, Adult. - Prescriptions for Albuterol Sulfate 90 mcg/actuation Inhalation HFA Aerosol Inhaler - inhale 2 puff by INHALATION route every 4 hours As needed; 1 Inhaler. Guaifenesin AC 10- 100 mg/5 mL Oral liquid - take 10 milliliter by ORAL route every 4 hours; 200 milliliter. - Medication Reconciliation, Local Pharmacy Hours form. - Follow up: Janna Cabrera; When: saturday. - Problem is an ongoing problem. - Symptoms have improved. Historical: - Allergies: Cymbalta (Upset stomach); GADOLINIUM-CONTAINING AGENTS (Anaphylaxis); PENICILLINS (Rash); SUMATRIPTAN (Anaphylaxis); - Home Meds: 1. amitriptyline 100 mg Oral tab 1 tab once daily 2. folic acid 1 mg Oral tab once daily 3. gabapentin 300 mg Oral cap 1 cap 3 times per day 4. venlafaxine 75 mg oral cp24 1 cap once daily 5. unknown antibiotic - PMHx: Cancer, Lung - Left; Thyroid disease; - PSHx: removal of left lung, cancer, june 2014; Appendectomy; Carpal Tunnel Repair- Right; Hysterectomy; Cholecystectomy; - Social history: Smoking status: Patient states former smoker of tobacco. No barriers to communication noted. - Family history: Not pertinent. - : The pt / caregiver states he / she is not on anticoagulants. Home medication list is obtained from the patient. - Exposure Risk Screening:: None identified. 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 4 in. (162.56 cm) (R); Pain 5/10; 14:49 BP 109 / 65 (auto/); dsf 14:50 Pulse 78 MON; Pulse Ox 99% ; dsf 15:04 BP 108 / 62 (auto/); dsf 15:05 Pulse 84 MON; Pulse Ox 98% ; dsf 15:19 Pulse 80 MON; Pulse Ox 97% ; dsf 15:19 BP 98 / 60 (auto/); dsf 15:20 Pulse 76 MON; Pulse Ox 98% ; dsf 15:34 BP 99 / 60 (auto/); dsf 15:35 Pulse 74 MON; Pulse Ox 98% ; dsf 15:49 BP 93 / 61 (auto/); dsf 15:50 Pulse 78 MON; Pulse Ox 97% ; dsf 16:04 Pulse 78 MON; Pulse Ox 100% ; dsf 16:04 BP 96 / 57 (auto/); dsf 16:19 BP 97 / 56 (auto/); dsf 16:23 Pulse 86 MON; Pulse Ox 99% ; dsf 16:34 BP 106 / 58 (auto/); dsf 16:34 Pulse 84 MON; Pulse Ox 98% ; dsf 16:49 BP 100 / 59 (auto/); dsf 16:49 Pulse 78 MON; Pulse Ox 98% ; dsf 17:04 BP 103 / 57 (auto/); dsf 17:05 Pulse 80 MON; Pulse Ox 98% ; dsf 17:19 BP 96 / 57 (auto/); dsf 17:19 Pulse 80 MON; Pulse Ox 96% ; dsf 17:35 Pulse 76 MON; Pulse Ox 98% ; dsf 17:36 BP 93 / 52 (auto/); dsf 17:36 Pulse 80 MON; Pulse Ox 99% ; dsf 17:49 BP 106 / 70 (auto/); dsf 17:49 Pulse 80 MON; Pulse Ox 97% ; dsf 18:04 BP 98 / 57 (auto/); dsf 18:04 Pulse 78 MON; Pulse Ox 96% ; dsf 18:19 BP 108 / 61 (auto/); dsf 18:19 Pulse 80 MON; Pulse Ox 95% ; dsf 18:34 BP 111 / 63 (auto/); dsf 18:35 Pulse 80 MON; Pulse Ox 97% ; dsf 18:49 BP 108 / 68 (auto/); dsf 18:51 Pulse 78 MON; Pulse Ox 97% ; dsf 19:04 BP 98 / 62 (auto/); dsf 19:05 Pulse 82 MON; Pulse Ox 96% ; dsf 21:27 BP 106 / 59; Pulse 68; Resp 18; Temp 96.8(O); Pulse Ox 98% on R/A; Pain 0/10; justino 13:53 Body Mass Index 25.40 (67.13 kg, 162.56 cm) gr2 MDM: 14:25 Chest, 2 View (pa\E\lat) Ordered. EDMS 14:25 ECG WITH READING ER PHYS+CARDIAG ordered. 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 sd1 14:44 IV Saline Lock ordered. sd1 14:44 Rhythm Strip to chart ordered. sd1 14:44 Undress patient appropriately for examination ordered. sd1 14:45 Basic Metabolic Profile Ordered. EDMS 14:45 CBC with Diff Ordered. EDMS 14:45 Cardiac Injury Profile Ordered. EDMS 14:45 Prothrombin Time Profile\E\INR Ordered. EDMS 14:45 Troponin Ordered. EDMS 14:55 BNP Ordered. EDMS 15:12 Albuterol-Ipratropium 1 neb Nebulizer every 20 minutes x3 ordered. sd1 15:51 Financial registration complete. gjb 15:51 Basic Metabolic Profile Reviewed. sd1 15:51 CBC with Diff Reviewed. sd1 15:51 BNP Reviewed. sd1 15:51 Cardiac Injury Profile Reviewed. sd1 15:51 Prothrombin Time Profile\E\INR Reviewed. sd1 15:51 Troponin Reviewed. sd1 15:51 Chest, 2 View (pa\E\lat) Reviewed. sd1 15:53 CT Chest Angio R/O PE Ordered. EDMS 15:57 [facility] Payment Agreement was scanned into [employer] and attached to record. gjb 16:24 Chlorpheniramine-Hydrocodone Extended Release 12 hour Capsule 8 mg-10 mg 1 caps PO once sd1 ordered. 17:32 Redraw CIP &Troponin (put time in details section) ordered. sd1 17:32 Repeat EKG (put time details section) ordered. sd1 17:36 Repeat EKG (put time details section) complete. ar3 17:36 Redraw CIP &Troponin (put time in details section) complete. ar3 17:36 CARDIAC MARKER PANEL Ordered. EDMS 17:38 ECG WITH READING ER PHYS ordered. EDMS 21:23 CARDIAC MARKER PANEL Reviewed. cs11 21:23 EKG-ADULT Reviewed. cs11 05/13 12:36 T-Sheet-- Draft Copy was scanned into [employer] and attached to record. gb 12:36 ECG/EKG was scanned into [employer] and attached to record. gb 12:37 Radiology Report was scanned into [employer] and attached to record. gb Administered Medications: 05/12 15:56 Drug: Albuterol-Ipratropium 1 neb [ipratropium-albuterol 0.5 mg-3 mg(2.5 mg base)/3 mL kjn nebulization soln (1 neb)] Route: Nebulizer; 16:08 Drug: Albuterol-Ipratropium 1 neb [ipratropium-albuterol 0.5 mg-3 mg(2.5 mg base)/3 mL kjn nebulization soln (1 neb)] Route: Nebulizer; 16:25 Drug: Albuterol-Ipratropium 1 neb [ipratropium-albuterol 0.5 mg-3 mg(2.5 mg base)/3 mL kjn nebulization soln (1 neb)] Route: Nebulizer; 16:42 Drug: Chlorpheniramine-Hydrocodone 1 caps [hydrocodone ER 10 mg-chlorpheniramine 8 mg dsf 12hr capsule,extend.release (1 caps)] Route: PO; Addendum: 05/15/2016 17:45 Radiology Callback: Radiology results faxed to primary care physician/provider. dr fermín daniels faxed formal report of cta for fu mlg. Signatures: Dispatcher [employer] EDMS Mary Nesbitt MD MD sd1 Sparkle Castillo MD MD ml Barnhardt, Gloria, Reg Reg gb Nadia Dejesus, HOOK AND EYE ATTACHER HOOK AND EYE ATTACHER ar3 Carmela MckeonRN RN [facility] Corbin Whitfield DO DO cs11 Lasha WorthingtonRN RN mb9 Coreen Cadet b Lise Mayo RNf Penny Lucio The chart was reviewed and I authenticate all verbal orders and agree with the evaluation and treatment provided.Attachments: 05/12 15:57 [facility] Payment Agreement gjb 05/13 12:36 T-Sheet-- Draft Copy gb 12:36 ECG/EKG gb MTDD
--- NOTE | 2016-05-15 17:47 | EDDOCDS ---
Physician Documentation [facility] Name: Mirian Jameson Age: 56 yrs Sex: Female : 1960 Arrival Date: 05/12/2016 Time: 13:51 Bed OBSERVATION Private MD: Janna Cabrera PA-C Disposition: 05/12/16 21:24 Discharged to Home/Self Care. Impression: Cough. - Condition is Stable. - Discharge Instructions: Cough, Adult. - Prescriptions for Albuterol Sulfate 90 mcg/actuation Inhalation HFA Aerosol Inhaler - inhale 2 puff by INHALATION route every 4 hours As needed; 1 Inhaler. Guaifenesin AC 10- 100 mg/5 mL Oral liquid - take 10 milliliter by ORAL route every 4 hours; 200 milliliter. - Medication Reconciliation, Local Pharmacy Hours form. - Follow up: Janna Cabrera; When: saturday. - Problem is an ongoing problem. - Symptoms have improved. Historical: - Allergies: Cymbalta (Upset stomach); GADOLINIUM-CONTAINING AGENTS (Anaphylaxis); PENICILLINS (Rash); SUMATRIPTAN (Anaphylaxis); - Home Meds: 1. amitriptyline 100 mg Oral tab 1 tab once daily 2. folic acid 1 mg Oral tab once daily 3. gabapentin 300 mg Oral cap 1 cap 3 times per day 4. venlafaxine 75 mg oral cp24 1 cap once daily 5. unknown antibiotic - PMHx: Cancer, Lung - Left; Thyroid disease; - PSHx: removal of left lung, cancer, june 2014; Appendectomy; Carpal Tunnel Repair- Right; Hysterectomy; Cholecystectomy; - Social history: Smoking status: Patient states former smoker of tobacco. No barriers to communication noted. - Family history: Not pertinent. - : The pt / caregiver states he / she is not on anticoagulants. Home medication list is obtained from the patient. - Exposure Risk Screening:: None identified. 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 4 in. (162.56 cm) (R); Pain 5/10; 14:49 BP 109 / 65 (auto/); dsf 14:50 Pulse 78 MON; Pulse Ox 99% ; dsf 15:04 BP 108 / 62 (auto/); dsf 15:05 Pulse 84 MON; Pulse Ox 98% ; dsf 15:19 Pulse 80 MON; Pulse Ox 97% ; dsf 15:19 BP 98 / 60 (auto/); dsf 15:20 Pulse 76 MON; Pulse Ox 98% ; dsf 15:34 BP 99 / 60 (auto/); dsf 15:35 Pulse 74 MON; Pulse Ox 98% ; dsf 15:49 BP 93 / 61 (auto/); dsf 15:50 Pulse 78 MON; Pulse Ox 97% ; dsf 16:04 Pulse 78 MON; Pulse Ox 100% ; dsf 16:04 BP 96 / 57 (auto/); dsf 16:19 BP 97 / 56 (auto/); dsf 16:23 Pulse 86 MON; Pulse Ox 99% ; dsf 16:34 BP 106 / 58 (auto/); dsf 16:34 Pulse 84 MON; Pulse Ox 98% ; dsf 16:49 BP 100 / 59 (auto/); dsf 16:49 Pulse 78 MON; Pulse Ox 98% ; dsf 17:04 BP 103 / 57 (auto/); dsf 17:05 Pulse 80 MON; Pulse Ox 98% ; dsf 17:19 BP 96 / 57 (auto/); dsf 17:19 Pulse 80 MON; Pulse Ox 96% ; dsf 17:35 Pulse 76 MON; Pulse Ox 98% ; dsf 17:36 BP 93 / 52 (auto/); dsf 17:36 Pulse 80 MON; Pulse Ox 99% ; dsf 17:49 BP 106 / 70 (auto/); dsf 17:49 Pulse 80 MON; Pulse Ox 97% ; dsf 18:04 BP 98 / 57 (auto/); dsf 18:04 Pulse 78 MON; Pulse Ox 96% ; dsf 18:19 BP 108 / 61 (auto/); dsf 18:19 Pulse 80 MON; Pulse Ox 95% ; dsf 18:34 BP 111 / 63 (auto/); dsf 18:35 Pulse 80 MON; Pulse Ox 97% ; dsf 18:49 BP 108 / 68 (auto/); dsf 18:51 Pulse 78 MON; Pulse Ox 97% ; dsf 19:04 BP 98 / 62 (auto/); dsf 19:05 Pulse 82 MON; Pulse Ox 96% ; dsf 21:27 BP 106 / 59; Pulse 68; Resp 18; Temp 96.8(O); Pulse Ox 98% on R/A; Pain 0/10; justino 13:53 Body Mass Index 25.40 (67.13 kg, 162.56 cm) gr2 MDM: 14:25 Chest, 2 View (pa\E\lat) Ordered. EDMS 14:25 ECG WITH READING ER PHYS+CARDIAG ordered. EDMS 14:44 Tail Ripper/Pulse Ox/q 30 min VS ordered. sd1 14:44 IV Saline Lock ordered. sd1 14:44 Rhythm Strip to chart ordered. sd1 14:44 Undress patient appropriately for examination ordered. sd1 14:45 Basic Metabolic Profile Ordered. EDMS 14:45 CBC with Diff Ordered. EDMS 14:45 Cardiac Injury Profile Ordered. EDMS 14:45 Prothrombin Time Profile\E\INR Ordered. EDMS 14:45 Troponin Ordered. EDMS 14:55 BNP Ordered. EDMS 15:12 Albuterol-Ipratropium 1 neb Nebulizer every 20 minutes x3 ordered. sd1 15:51 Financial registration complete. gjb 15:51 Basic Metabolic Profile Reviewed. sd1 15:51 CBC with Diff Reviewed. sd1 15:51 BNP Reviewed. sd1 15:51 Cardiac Injury Profile Reviewed. sd1 15:51 Prothrombin Time Profile\E\INR Reviewed. sd1 15:51 Troponin Reviewed. sd1 15:51 Chest, 2 View (pa\E\lat) Reviewed. sd1 15:53 CT Chest Angio R/O PE Ordered. EDMS 15:57 [facility] Payment Agreement was scanned into [employer] and attached to record. gjb 16:24 Chlorpheniramine-Hydrocodone Extended Release 12 hour Capsule 8 mg-10 mg 1 caps PO once sd1 ordered. 17:32 Redraw CIP &Troponin (put time in details section) ordered. sd1 17:32 Repeat EKG (put time details section) ordered. sd1 17:36 Repeat EKG (put time details section) complete. ar3 17:36 Redraw CIP &Troponin (put time in details section) complete. ar3 17:36 CARDIAC MARKER PANEL Ordered. EDMS 17:38 ECG WITH READING ER PHYS ordered. EDMS 21:23 CARDIAC MARKER PANEL Reviewed. cs11 21:23 EKG-ADULT Reviewed. cs11 05/13 12:36 T-Sheet-- Draft Copy was scanned into [employer] and attached to record. gb 12:36 ECG/EKG was scanned into [employer] and attached to record. gb 12:37 Radiology Report was scanned into [employer] and attached to record. gb Administered Medications: 05/12 15:56 Drug: Albuterol-Ipratropium 1 neb [ipratropium-albuterol 0.5 mg-3 mg(2.5 mg base)/3 mL kjn nebulization soln (1 neb)] Route: Nebulizer; 16:08 Drug: Albuterol-Ipratropium 1 neb [ipratropium-albuterol 0.5 mg-3 mg(2.5 mg base)/3 mL kjn nebulization soln (1 neb)] Route: Nebulizer; 16:25 Drug: Albuterol-Ipratropium 1 neb [ipratropium-albuterol 0.5 mg-3 mg(2.5 mg base)/3 mL kjn nebulization soln (1 neb)] Route: Nebulizer; 16:42 Drug: Chlorpheniramine-Hydrocodone 1 caps [hydrocodone ER 10 mg-chlorpheniramine 8 mg dsf 12hr capsule,extend.release (1 caps)] Route: PO; Addendum: 05/15/2016 17:45 Radiology Callback: Radiology results faxed to primary care physician/provider. dr fermín daniels faxed formal report of cta for fu mlg. Signatures: Dispatcher [employer] EDMS Mary Nesbitt MD MD sd1 Sparkle Castillo MD MD ml Barnhardt, Gloria, Reg Reg gb Nadia Dejesus, AIRPORT ATTENDANT AIRPORT ATTENDANT ar3 Carmela MckeonRN RN [facility] Corbin Whitfield DO DO cs11 Lasha WorthingtonRN RN mb9 Coreen Cadet b Lise Mayo RNf Penny Lucio The chart was reviewed and I authenticate all verbal orders and agree with the evaluation and treatment provided.Attachments: 05/12 15:57 [facility] Payment Agreement gjb 05/13 12:36 T-Sheet-- Draft Copy gb 12:36 ECG/EKG gb Chart Complete MTDD
--- NOTE | 2016-05-15 17:47 | EDDOCDS ---
Physician Documentation [facility] Name: Mirian Jameson Age: 56 yrs Sex: Female : 1960 Arrival Date: 05/12/2016 Time: 13:51 Bed OBSERVATION Private MD: Janna Cabrera PA-C Disposition: 05/12/16 21:24 Discharged to Home/Self Care. Impression: Cough. - Condition is Stable. - Discharge Instructions: Cough, Adult. - Prescriptions for Albuterol Sulfate 90 mcg/actuation Inhalation HFA Aerosol Inhaler - inhale 2 puff by INHALATION route every 4 hours As needed; 1 Inhaler. Guaifenesin AC 10- 100 mg/5 mL Oral liquid - take 10 milliliter by ORAL route every 4 hours; 200 milliliter. - Medication Reconciliation, Local Pharmacy Hours form. - Follow up: Janna Cabrera; When: saturday. - Problem is an ongoing problem. - Symptoms have improved. Historical: - Allergies: Cymbalta (Upset stomach); GADOLINIUM-CONTAINING AGENTS (Anaphylaxis); PENICILLINS (Rash); SUMATRIPTAN (Anaphylaxis); - Home Meds: 1. amitriptyline 100 mg Oral tab 1 tab once daily 2. folic acid 1 mg Oral tab once daily 3. gabapentin 300 mg Oral cap 1 cap 3 times per day 4. venlafaxine 75 mg oral cp24 1 cap once daily 5. unknown antibiotic - PMHx: Cancer, Lung - Left; Thyroid disease; - PSHx: removal of left lung, cancer, june 2014; Appendectomy; Carpal Tunnel Repair- Right; Hysterectomy; Cholecystectomy; - Social history: Smoking status: Patient states former smoker of tobacco. No barriers to communication noted. - Family history: Not pertinent. - : The pt / caregiver states he / she is not on anticoagulants. Home medication list is obtained from the patient. - Exposure Risk Screening:: None identified. 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 4 in. (162.56 cm) (R); Pain 5/10; 14:49 BP 109 / 65 (auto/); dsf 14:50 Pulse 78 MON; Pulse Ox 99% ; dsf 15:04 BP 108 / 62 (auto/); dsf 15:05 Pulse 84 MON; Pulse Ox 98% ; dsf 15:19 Pulse 80 MON; Pulse Ox 97% ; dsf 15:19 BP 98 / 60 (auto/); dsf 15:20 Pulse 76 MON; Pulse Ox 98% ; dsf 15:34 BP 99 / 60 (auto/); dsf 15:35 Pulse 74 MON; Pulse Ox 98% ; dsf 15:49 BP 93 / 61 (auto/); dsf 15:50 Pulse 78 MON; Pulse Ox 97% ; dsf 16:04 Pulse 78 MON; Pulse Ox 100% ; dsf 16:04 BP 96 / 57 (auto/); dsf 16:19 BP 97 / 56 (auto/); dsf 16:23 Pulse 86 MON; Pulse Ox 99% ; dsf 16:34 BP 106 / 58 (auto/); dsf 16:34 Pulse 84 MON; Pulse Ox 98% ; dsf 16:49 BP 100 / 59 (auto/); dsf 16:49 Pulse 78 MON; Pulse Ox 98% ; dsf 17:04 BP 103 / 57 (auto/); dsf 17:05 Pulse 80 MON; Pulse Ox 98% ; dsf 17:19 BP 96 / 57 (auto/); dsf 17:19 Pulse 80 MON; Pulse Ox 96% ; dsf 17:35 Pulse 76 MON; Pulse Ox 98% ; dsf 17:36 BP 93 / 52 (auto/); dsf 17:36 Pulse 80 MON; Pulse Ox 99% ; dsf 17:49 BP 106 / 70 (auto/); dsf 17:49 Pulse 80 MON; Pulse Ox 97% ; dsf 18:04 BP 98 / 57 (auto/); dsf 18:04 Pulse 78 MON; Pulse Ox 96% ; dsf 18:19 BP 108 / 61 (auto/); dsf 18:19 Pulse 80 MON; Pulse Ox 95% ; dsf 18:34 BP 111 / 63 (auto/); dsf 18:35 Pulse 80 MON; Pulse Ox 97% ; dsf 18:49 BP 108 / 68 (auto/); dsf 18:51 Pulse 78 MON; Pulse Ox 97% ; dsf 19:04 BP 98 / 62 (auto/); dsf 19:05 Pulse 82 MON; Pulse Ox 96% ; dsf 21:27 BP 106 / 59; Pulse 68; Resp 18; Temp 96.8(O); Pulse Ox 98% on R/A; Pain 0/10; justino 13:53 Body Mass Index 25.40 (67.13 kg, 162.56 cm) gr2 MDM: 14:25 Chest, 2 View (pa\E\lat) Ordered. EDMS 14:25 ECG WITH READING ER PHYS+CARDIAG ordered. EDMS 14:44 Manager Vehicle/Pulse Ox/q 30 min VS ordered. sd1 14:44 IV Saline Lock ordered. sd1 14:44 Rhythm Strip to chart ordered. sd1 14:44 Undress patient appropriately for examination ordered. sd1 14:45 Basic Metabolic Profile Ordered. EDMS 14:45 CBC with Diff Ordered. EDMS 14:45 Cardiac Injury Profile Ordered. EDMS 14:45 Prothrombin Time Profile\E\INR Ordered. EDMS 14:45 Troponin Ordered. EDMS 14:55 BNP Ordered. EDMS 15:12 Albuterol-Ipratropium 1 neb Nebulizer every 20 minutes x3 ordered. sd1 15:51 Financial registration complete. gjb 15:51 Basic Metabolic Profile Reviewed. sd1 15:51 CBC with Diff Reviewed. sd1 15:51 BNP Reviewed. sd1 15:51 Cardiac Injury Profile Reviewed. sd1 15:51 Prothrombin Time Profile\E\INR Reviewed. sd1 15:51 Troponin Reviewed. sd1 15:51 Chest, 2 View (pa\E\lat) Reviewed. sd1 15:53 CT Chest Angio R/O PE Ordered. EDMS 15:57 [facility] Payment Agreement was scanned into [employer] and attached to record. gjb 16:24 Chlorpheniramine-Hydrocodone Extended Release 12 hour Capsule 8 mg-10 mg 1 caps PO once sd1 ordered. 17:32 Redraw CIP &Troponin (put time in details section) ordered. sd1 17:32 Repeat EKG (put time details section) ordered. sd1 17:36 Repeat EKG (put time details section) complete. ar3 17:36 Redraw CIP &Troponin (put time in details section) complete. ar3 17:36 CARDIAC MARKER PANEL Ordered. EDMS 17:38 ECG WITH READING ER PHYS ordered. EDMS 21:23 CARDIAC MARKER PANEL Reviewed. cs11 21:23 EKG-ADULT Reviewed. cs11 05/13 12:36 T-Sheet-- Draft Copy was scanned into [employer] and attached to record. gb 12:36 ECG/EKG was scanned into [employer] and attached to record. gb 12:37 Radiology Report was scanned into [employer] and attached to record. gb Administered Medications: 05/12 15:56 Drug: Albuterol-Ipratropium 1 neb [ipratropium-albuterol 0.5 mg-3 mg(2.5 mg base)/3 mL kjn nebulization soln (1 neb)] Route: Nebulizer; 16:08 Drug: Albuterol-Ipratropium 1 neb [ipratropium-albuterol 0.5 mg-3 mg(2.5 mg base)/3 mL kjn nebulization soln (1 neb)] Route: Nebulizer; 16:25 Drug: Albuterol-Ipratropium 1 neb [ipratropium-albuterol 0.5 mg-3 mg(2.5 mg base)/3 mL kjn nebulization soln (1 neb)] Route: Nebulizer; 16:42 Drug: Chlorpheniramine-Hydrocodone 1 caps [hydrocodone ER 10 mg-chlorpheniramine 8 mg dsf 12hr capsule,extend.release (1 caps)] Route: PO; Addendum: 05/15/2016 17:45 Radiology Callback: Radiology results faxed to primary care physician/provider. dr fermín daniels faxed formal report of cta for fu mlg. Signatures: Dispatcher [employer] EDMS Mary Nesbitt MD MD sd1 Sparkle Castillo MD MD ml Barnhardt, Gloria, Reg Reg gb Nadia Dejesus, CASHIER TUBE ROOM CASHIER [employer] ROOM ar3 Carmela MckeonRN RN [facility] Corbin Whitfield DO DO cs11 Lasha WorthingtonRN RN mb9 Coreen Cadet b Lise Mayo RNf Penny Lucio The chart was reviewed and I authenticate all verbal orders and agree with the evaluation and treatment provided.Attachments: 05/12 15:57 [facility] Payment Agreement gjb 05/13 12:36 T-Sheet-- Draft Copy gb 12:36 ECG/EKG gb Chart Complete MTDD
--- NOTE | 2016-05-15 17:47 | EDDOCDS ---
Nurse's Notes [facility] Name: Kate Rosenberg Age: 56 yrs Sex: Female : 1960 Arrival Date: 05/12/2016 Time: 13:51 Bed OBSERVATION Private MD: Janna Cabrera PA-C Diagnosis: Cough Presentation: 05/12 13:59 Presenting complaint: Patient states: antibiotics changed on Saturday but still [facility] coughing and having chest pain sometimes with cough sometimes when I cough I feel like I'm going to pass out, they told me if I didn't feel any better this weekend I should come in and get checked and I only have one lung. Adult Sepsis Screening: The patient does not have new or worsening altered mentation. Patient's respiratory rate is less than 22. Systolic blood pressure is greater than 100. Patient has a qSOFA score of 0- Negative Sepsis Screen. Suicide/Homicide risk assessment- the patient denies having any suicidal and/or homicidal ideations and does not present with any other emotional, behavioral or mental health complaints. Status: Patient is not a technical services librarian or dependent. Transition of care: patient was not received from another setting of care. 13:59 Acuity: STEPHEN Level 3 [facility] 13:59 Method Of Arrival: Walkin/Carried/Asstd [facility] Triage Assessment: 14:03 General: Appears in no apparent distress, comfortable, Behavior is appropriate for age, [facility] cooperative. Pain: Denies pain. HIV screening NA for this visit Offered previously. Respiratory: Onset: The symptoms/episode began/occurred 2-weeks, Reports cough that is non-productive. Derm: Skin is pink, warm & dry. 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 amitriptyline 100 mg Oral tab 1 tab once daily 2. folic acid 1 mg Oral tab once daily 3. gabapentin 300 mg Oral cap 1 cap 3 times per day 4. venlafaxine 75 mg oral cp24 1 cap once daily 5. unknown antibiotic - PMHx: Cancer, Lung - Left; Thyroid disease; - PSHx: removal of left lung, cancer, june 2014; Appendectomy; Carpal Tunnel Repair- Right; Hysterectomy; Cholecystectomy; - Social history: Smoking status: Patient states former smoker of tobacco. No barriers to communication noted. - Family history: Not pertinent. - : The pt / caregiver states he / she is not on anticoagulants. Home medication list is obtained from the patient. - Exposure Risk Screening:: None identified. Screenin:41 Screening information is obtained from the patient. Fall risk: No risks identified. mb9 Assistance ADL's: requires no assistance with activities of daily living. Abuse/DV Screen: The patient / caregiver reports he/she is: not in a situation that causes fear, pain or injury. Nutritional screening: No deficits noted. Advance Directives: There is no active DNR order. home support is adequate. Assessment: 15:17 Adult Sepsis Screening: The patient does not have new or worsening altered mentation. dsf Patient's respiratory rate is less than 22. Systolic blood pressure is greater than 100. Patient has a qSOFA score of 0- Negative Sepsis Screen. General: Appears in no apparent distress, ill, Behavior is appropriate for age, cooperative. Pain: Denies pain. Neurological: Level of Consciousness is awake, alert, Oriented to person, place, time. Cardiovascular: Capillary refill < 3 seconds Rhythm is sinus rhythm No ectopy. Respiratory: Airway is patent Respiratory effort is even, unlabored, Respiratory pattern is regular, symmetrical, Reports shortness of breath on exertion since 2 weeks ago cough that is non-productive, since 2 weeks. Derm: Skin is dry, Skin is pale, Skin temperature is warm. 16:00 General: Appears in no apparent distress, ill, Behavior is appropriate for age, dsf cooperative. Pain: Denies pain. Neurological: Level of Consciousness is awake, alert, Oriented to person, place, time. Cardiovascular: Capillary refill < 3 seconds Heart tones S1 S2 present Rhythm is sinus rhythm No ectopy. Respiratory: Airway is patent Respiratory effort is even, unlabored, Respiratory pattern is regular, symmetrical, Breath sounds are diminished in right posterior upper lobe, right posterior middle lobe and right posterior lower lobe Breath sounds with wheezes in right posterior upper lobe, right posterior middle lobe and right posterior lower lobe. GI: Abdomen is non- distended Bowel sounds present X 4 quads. Abd is soft and non tender X 4 quads. Derm: Skin is dry, Skin is pale, Skin temperature is warm. 17:18 General: Appears in no apparent distress, Behavior is appropriate for age, cooperative. mb9 Respiratory: Airway is patent Respiratory effort is even, unlabored. 18:18 Adult Sepsis Screening: The patient does not have new or worsening altered mentation. dsf Patient's respiratory rate is less than 22. Systolic blood pressure is greater than 100. Patient has a qSOFA score of 0- Negative Sepsis Screen. General: Appears in no apparent distress, Behavior is appropriate for age, cooperative. Neurological: Level of Consciousness is awake, alert. Cardiovascular: Capillary refill < 3 seconds. Respiratory: Airway is patent Respiratory effort is even, unlabored, Respiratory pattern is regular, symmetrical. Derm: Skin is dry, Skin is pale, Skin temperature is warm. 19:59 General: Appears in no apparent distress, Behavior is appropriate for age, cooperative. mb9 Pain: Denies pain. Neurological: Level of Consciousness is awake, alert, Oriented to person, place, time. Respiratory: Airway is patent Breath sounds are clear bilaterally. Reports cough that is pt reports, "the cough has improved since you guys gave me that pill.". 21:41 Reassessment: Patient appears in no apparent distress at this time. Patient states mb9 symptoms have improved. Adult Sepsis Screening: The patient does not have new or worsening altered mentation. Patient's respiratory rate is less than 22. Systolic blood pressure is greater than 100. Patient has a qSOFA score of 0- Negative Sepsis Screen. General: Appears in no apparent distress, Behavior is appropriate for age, cooperative. Respiratory: Airway is patent Respiratory effort is even, unlabored. Vital Signs: 13:53 BP 128 / 61; Pulse 92; Resp 18 S; Temp 98.0(O); Pulse Ox 100% on R/A; Weight 67.13 kg gr2 (R); Height 5 ft. 4 in. (162.56 cm) (R); Pain 5/10; 14:49 BP 109 / 65 (auto/); dsf 14:50 Pulse 78 MON; Pulse Ox 99% ; dsf 15:04 BP 108 / 62 (auto/); dsf 15:05 Pulse 84 MON; Pulse Ox 98% ; dsf 15:19 Pulse 80 MON; Pulse Ox 97% ; dsf 15:19 BP 98 / 60 (auto/); dsf 15:20 Pulse 76 MON; Pulse Ox 98% ; dsf 15:34 BP 99 / 60 (auto/); dsf 15:35 Pulse 74 MON; Pulse Ox 98% ; dsf 15:49 BP 93 / 61 (auto/); dsf 15:50 Pulse 78 MON; Pulse Ox 97% ; dsf 16:04 Pulse 78 MON; Pulse Ox 100% ; dsf 16:04 BP 96 / 57 (auto/); dsf 16:19 BP 97 / 56 (auto/); dsf 16:23 Pulse 86 MON; Pulse Ox 99% ; dsf 16:34 BP 106 / 58 (auto/); dsf 16:34 Pulse 84 MON; Pulse Ox 98% ; dsf 16:49 BP 100 / 59 (auto/); dsf 16:49 Pulse 78 MON; Pulse Ox 98% ; dsf 17:04 BP 103 / 57 (auto/); dsf 17:05 Pulse 80 MON; Pulse Ox 98% ; dsf 17:19 BP 96 / 57 (auto/); dsf 17:19 Pulse 80 MON; Pulse Ox 96% ; dsf 17:35 Pulse 76 MON; Pulse Ox 98% ; dsf 17:36 BP 93 / 52 (auto/); dsf 17:36 Pulse 80 MON; Pulse Ox 99% ; dsf 17:49 BP 106 / 70 (auto/); dsf 17:49 Pulse 80 MON; Pulse Ox 97% ; dsf 18:04 BP 98 / 57 (auto/); dsf 18:04 Pulse 78 MON; Pulse Ox 96% ; dsf 18:19 BP 108 / 61 (auto/); dsf 18:19 Pulse 80 MON; Pulse Ox 95% ; dsf 18:34 BP 111 / 63 (auto/); dsf 18:35 Pulse 80 MON; Pulse Ox 97% ; dsf 18:49 BP 108 / 68 (auto/); dsf 18:51 Pulse 78 MON; Pulse Ox 97% ; dsf 19:04 BP 98 / 62 (auto/); dsf 19:05 Pulse 82 MON; Pulse Ox 96% ; dsf 21:27 BP 106 / 59; Pulse 68; Resp 18; Temp 96.8(O); Pulse Ox 98% on R/A; Pain 0/10; justino 13:53 Body Mass Index 25.40 (67.13 kg, 162.56 cm) gr2 Vitals: 13:53 Log In Time: May 12, 2016 at 13:53. gr2 ED Course: 13:53 Patient visited by Osmar Ivey. gr2 13:53 Janna Cabrera is Private Physician. gr2 13:53 Patient moved to Waiting gr2 13:54 Patient visited by Osmar Ivey. gr2 13:54 Patient moved to Pre RCE gr2 14:01 Triage Initiated cjh 14:32 Patient moved to PD dem1 14:38 Patient visited by Kranthi Clifford. dem1 14:38 EKG done. (by ED staff). Reviewed by Mary Nesbitt MD. dem1 14:44 Patient moved to 14 ar3 14:50 Patient visited by Kranthi Clifford. dem1 14:50 Pt greeted and oriented to ED. Patient advised of names of staff involved in care, dem1 location of call terry, wait times and NPO status. Patient has correct armband on for positive identification. Placed in gown. Bed in low position. Call light in reach. Side rails up X 1. vegetable scullion on. Pulse ox on. NIBP on. 14:55 Mary Nesbitt MD is Attending Physician. sd1 14:55 Patient visited by Mary Nesbitt MD. sd1 15:06 BNP Sent. mb9 15:07 Basic Metabolic Profile Sent. mb9 15:07 CBC with Diff Sent. mb9 15:07 Cardiac Injury Profile Sent. mb9 15:07 Prothrombin Time Profile\\E\\INR Sent. mb9 15:07 Troponin Sent. mb9 15:07 Inserted saline lock: 20 gauge. mb9 15:18 Patient visited by Lise Mayo,JENNIFER. dsf 15:25 Chest, 2 View (pa\\E\\lat) Returned. EDMS 15:57 PA-[facility] Payment Agreement was scanned into [employer] and attached to record. gjb 16:[address] dsf 16:32 Patient moved to 14 dsf 16:34 Patient visited by Lise Mayo,JENNIFER. dsf 17:18 Patient visited by Lasha Worthington,JENNIFER. mb9 17:36 Patient moved to OBSERVATION sd1 18:47 Patient visited by Lise Mayo,JENNIFER. dsf 19:13 Attending Physician role handed off by Mary Nesbitt MD cs11 19:13 Corbin Whitfield DO is Attending Physician. cs11 19:46 EKG-ADULT Returned. EDMS 20:41 Patient visited by Rebecca Alonso PCA. justino 20:41 EKG done. (by ED staff). Reviewed by Corbin Whitfield DO. justino 21:23 Janna Cabrera is Referral Physician. cs11 21:27 Patient visited by Rebecca Alonso PCA. justino 21:41 The patient / caregiver is instructed regarding the plan of care and ED course. mb9 21:41 Discontinued IV lock intact, bleeding controlled, pressure dressing applied, No mb9 redness/swelling at site. No procedures done that require assistance. 05/13 06:54 ECG WITH READING ER PHYS Returned. EDMS 07:22 CT Chest Angio R/O PE Returned. EDMS 12:36 T-Sheet-- Draft Copy was scanned into [employer] and attached to record. gb 12:36 ECG/EKG was scanned into [employer] and attached to record. gb 12:37 Radiology Report was scanned into [employer] and attached to record. gb Administered Medications: 05/12 15:56 Drug: Albuterol-Ipratropium 1 neb [ipratropium-albuterol 0.5 mg-3 mg(2.5 mg base)/3 mL kjn nebulization soln (1 neb)] Route: Nebulizer; 16:08 Drug: Albuterol-Ipratropium 1 neb [ipratropium-albuterol 0.5 mg-3 mg(2.5 mg base)/3 mL kjn nebulization soln (1 neb)] Route: Nebulizer; 16:25 Drug: Albuterol-Ipratropium 1 neb [ipratropium-albuterol 0.5 mg-3 mg(2.5 mg base)/3 mL kjn nebulization soln (1 neb)] Route: Nebulizer; 16:42 Drug: Chlorpheniramine-Hydrocodone 1 caps [hydrocodone ER 10 mg-chlorpheniramine 8 mg dsf 12hr capsule,extend.release (1 caps)] Route: PO; RT: 15:57 Initial Med Neb Given as ordered Patient was instructed and evaluated on procedure kjn Patient tolerated procedure well without adverse effect. Oxygen is room air. Respiratory: Respiratory effort is unlabored, Breath sounds are diminished Breath sounds with wheezes in right upper lobe, right middle lobe and right lower lobe at inspiration. 16:08 Subsequent Med Neb Given as ordered. Respiratory: Breath sounds are diminished in right kjn upper lobe, right middle lobe and right lower lobe Breath sounds with wheezes in right upper lobe, right middle lobe and right lower lobe at expiration. 16:47 Subsequent Med Neb Given as ordered. Respiratory: Breath sounds are diminished Breath kjn sounds with wheezes. Order Results: Lab Order: Basic Metabolic Profile; SPEC'M 05/12/16 15:02 Test: GLUCOSE, FASTING; Value: 87; Range: 70-105; Units: MG/DL; Status: F Test: BLOOD UREA NITROGEN; Value: 16; Range: 7-18; Units: MG/DL; Status: F Test: CREATININE FOR GFR; Value: 1.09; Range: 0.55-1.02; Abnormal: Above high normal; Units: MG/DL; Status: F Test: GLOMERULAR FILTRATION RATE; Value: 55.7; Range: >51; Status: F Test: SODIUM LEVEL; Value: 145; Range: 136-145; Units: MEQ/L; Status: F Test: POTASSIUM SERUM; Value: 3.9; Range: 3.5-5.1; Units: MEQ/L; Status: F Test: CHLORIDE LEVEL; Value: 110; Range: 98-107; Abnormal: Above high normal; Units: MEQ/L; Status: F Test: CARBON DIOXIDE LEVEL; Value: 27; Range: 21-32; Units: MEQ/L; Status: F Test: ANION GAP; Value: 8; Range: 8-16; Units: MEQ/L; Status: F Test: CALCIUM LEVEL; Value: 8.5; Range: 8.5-10.1; Units: MG/DL; Status: F Test Note: ; Units are mL/min/1.73 m2 Chronic Kidney Disease Staging per NKF: Stage I & II GFR >=60 Normal to Mildly Decreased Stage III GFR 30-59 Moderately Decreased Stage IV GFR 15-29 Severely Decreased Stage V GFR <15 Very Little GFR Left ESRD GFR <15 on GRAIN LOADER Lab Order: CBC with Diff; SPEC'M 05/12/16 15:02 Test: WHITE BLOOD COUNT; Value: 5.6; Range: 4.0-10.0; Units: K/mm3; Status: F Test: RED BLOOD COUNT; Value: 4.13; Range: 4.00-5.40; Units: M/mm3; Status: F Test: HEMOGLOBIN; Value: 12.3; Range: 12.0-16.0; Units: g/dl; Status: F Test: HEMATOCRIT; Value: 37.0; Range: 36.0-47.0; Units: %; Status: F Test: MEAN CORPUSCULAR VOLUME; Value: 89.4; Range: 80.0-96.0; Units: fl; Status: F Test: MEAN CORPUSCULAR HEMOGLOBIN; Value: 29.8; Range: 27.0-33.0; Units: pg; Status: F Test: MEAN CORPUSCULAR HGB CONC; Value: 33.3; Range: 32.0-36.5; Units: g/dl; Status: F Test: RED CELL DISTRIBUTION WIDTH; Value: 13.1; Range: 11.5-14.5; Units: %; Status: F Test: PLATELET COUNT, AUTOMATED; Value: 243; Range: 150-450; Units: k/mm3; Status: F Test: NEUTROPHILS %; Value: 40.2; Range: 36.0-66.0; Units: %; Status: F Test: LYMPH %; Value: 46.9; Range: 24.0-44.0; Abnormal: Above high normal; Units: %; Status: F Test: MONO %; Value: 5.8; Range: 0.0-5.0; Abnormal: Above high normal; Units: %; Status: F Test: EOS %; Value: 4.5; Range: 0.0-3.0; Abnormal: Above high normal; Units: %; Status: F Test: BASO %; Value: 0.7; Range: 0.0-1.0; Units: %; Status: F Test: LARGE UNSTAINED CELL %; Value: 2.0; Range: 0.0-4.0; Units: %; Status: F Test: NEUTROPHILS #; Value: 2.3; Range: 1.8-7.7; Units: K/mm3; Status: F Test: LYMPH #; Value: 2.8; Range: 1.5-4.5; Units: K/mm3; Status: F Test: MONO #; Value: 0.3; Range: 0.0-0.8; Units: K/mm3; Status: F Test: EOS #; Value: 0.2; Range: 0.0-0.50; Units: K/mm3; Status: F Test: BASO #; Value: 0.0; Range: 0.0-0.2; Units: K/mm3; Status: F Test: LARGE UNSTAINED CELL #; Value: 0.1; Range: 0.0-0.4; Units: K/mm3; Status: F Lab Order: Cardiac Injury Profile; [facility] 05/12/16 15:02 Test: CPK CREATINE PHOSPHOKINASE; Value: 56; Range: 26-192; Units: U/L; Status: F Test: CK-MB VALUE MASS; Value: 1.0; Range: 0.0-3.6; Units: NG/ML; Status: F Test: MB/CK RELATIVE INDEX; Value: 1.78; Range: < OR =4; Status: F Test Note: ; DIAGNOSIS CRITERIA MMB ng/ml Relative Index (RI) NON-AMI < or = 5 N/A SUTTON ZONE > 5 < or = 4 AMI > 5 > 4 Lab Order: Prothrombin Time Profile\\E\\INR; [facility] 05/12/16 15:02 Test: PROTHROMBIN TIME; Value: 12.6; Range: 12.3-14.5; Units: SECONDS; Status: F Test: INR; Value: 0.93; Status: F Test Note: ; THERAPUTIC HUMAN INR VALUES INDICATIONS NORMAL RANGES PROPHYLAXIS/TREATMENT OF: VENOUS THROMBOSIS 2.0-3.0 PULMONARY EMBOLISM 2.0-3.0 PREVENTION OF SYSTEMIC EMBOLISM FROM: TISSUE HEART VALVES 2.0-3.0 ACUTE MYOCARDIAL INFARCTION 2.0-3.0 VALVULAR HEART DISEASE 2.0-3.0 ATRIAL FIBRILLATION 2.0-3.0 MECHANICAL VALVES(HIGH RISK) 2.5-3.5 RECURRENT MYOCARDIAL INFARCTION 2.5-3.5 Lab Order: Troponin; [facility] 05/12/16 15:02 Test: TROPONIN I; Value: < 0.02; Range: < 0.10; Units: NG/ML; Status: F Test Note: ; Troponin I Reference Interval for [employer] LOCI: 99th Percentile= 0.00-0.045 ng/ml Risk Stratification: <= 0.10 ng/ml Decreased Risk for Adverse Clinical Events. 0.10-1.50 ng/ml Increased Risk for Adverse Clinical Events. Evaluation of additional criterion and/or repeat testing in 2-6 hours is suggested to rule out myocardial damage. >= 1.50 ng/ml Indicative of Myocardial Injury. Lab Order: BNP; SPEC'M 05/12/16 15:02 Test: BRAIN NATRIURETIC PEPTIDE; Value: 104; Range: <100; Abnormal: Above high normal; Units: PG/ML; Status: F Lab Order: CARDIAC MARKER PANEL; SPEC'[facility] 05/12/16 20:45 Test: CPK CREATINE PHOSPHOKINASE; Value: 52; Range: 26-192; Units: U/L; Status: F Test: CK-MB VALUE MASS; Value: 1.0; Range: 0.0-3.6; Units: NG/ML; Status: F Test: MB/CK RELATIVE INDEX; Value: 1.92; Range: < OR =4; Status: F Test: TROPONIN I; Value: < 0.02; Range: < 0.10; Units: NG/ML; Status: F Test Note: ; DIAGNOSIS CRITERIA MMB ng/ml Relative Index (RI) NON-AMI < or = 5 N/A SUTTON ZONE > 5 < or = 4 AMI > 5 > 4 Radiology Order: Chest, 2 View (pa\\E\\lat) Test: Chest, 2 View (pa\\E\\lat) REASON FOR EXAMINATION: Cough; CHEST X-RAY: Two views.; ; HISTORY: Cough.; ; FINDINGS: The patient is status post left pneumonectomy. The right lung is; somewhat hyperinflated but otherwise clear. Trachea is deviated somewhat to the; left consistent with a pneumonectomy. This is unchanged. Tracheobronchial tree; is otherwise unremarkable. The right pleural angles are sharp. No bony; abnormality is seen.; ; IMPRESSION:; ; No active disease. 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; : 1960 Requested By: Mary Nesbitt; Order Number: [id number] Reading MD: Mary Nesbitt; Measurements; Intervals [place]; Rate: 82 P: 102; AR: 117 QRS: 71; QRSD: 89 T: 134; QT: 367; QTc: 431; Interpretive Statements; SINUS RHYTHM WITH SHORT AR INTERVAL; POSSIBLE RIGHT ATRIAL ENLARGEMENT; ST DEVIATION AND MODERATE T-WAVE ABNORMALITY, CONSIDER ANTEROLATERAL; ISCHEMIA,; MORE PRONOUNCED 12/19/15, CLINICAL CORRELATION; ; Electronically Signed On 05-12-2016 19:08:54 EST by Mary Nesbitt; Radiology Order: CT Chest Angio R/O PE Test: CT Chest Angio R/O PE REASON FOR EXAMINATION: Shortness of Breath; CT PULMONARY ANGIOGRAM: With IV contrast.; ; HISTORY: Shortness of breath.; ; COMPARISON STUDIES: November 23, 2014; ; Contrast dose: 75 mL of Isovue 370 are administered intravenously.; ; CT TECHNIQUE: Helical scanning is acquired and overlapping 1.5 mm and contiguous; 3 mm axial images are reformatted. In addition, a 3D work station is deployed to; generate thick slab maximum intensity projection images in sagittal and coronal; imaging projections.; ; CT PULMONARY ANGIOGRAPHIC FINDINGS: There is good opacification of the pulmonary; arterial tree. There is no CT evidence of pulmonary embolism. The thoracic; aorta enhances homogeneously and is normal in course and caliber. The patient is; status post left pneumonectomy so that the heart and mediastinal structures are; in the left chest. The right lung is somewhat hyperinflated but free of; infiltrate. No pleural or pericardial effusion is evident. No hilar or; mediastinal mass is seen. Maximal intensity projection images show no filling; defect or vessel cutoff. There is a tiny 3 mm noncalcified pulmonary nodule in; the right lower lobe. This is seen on today's study page 46 and 107 series 402.; Is not definitely apparent on July 16, 2014 or November 23, 2014 prior studies.; No other new pulmonary nodule is appreciated. No bony destructive lesion is; seen. No adrenal lesion is observed. There are clips in the gallbladder fossa.; ; IMPRESSION:; ; No CT evidence of pulmonary embolus.; ; The patient status post left pneumonectomy.; ; 3 mm noncalcified nodule seen on today's study in the right lower lobe.; Follow-up chest CT study suggested 6-12 months.; ; The areas of infiltrate seen in the periphery of the right lung on November [id number] have resolved except for some right apical pleuroparenchymal fibrosis.; ; ; ; ; Signed by; Noble Mariee MD 05/13/2016 08:22 A; Radiology Order: ECG WITH READING ER PHYS Test: ECG WITH READING ER PHYS REASON FOR EXAMINATION: CHEST CONGESTION, COUGH; Stationary ECG Study; [facility] - ED; ; Test Date: 2016-05-12; Pat Name: KATE ROSENBERG Department:; Room: -; 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 [facility] 21:41 Discharge Assessment: Patient awake, alert and oriented x 3. No cognitive and/or mb9 functional deficits noted. Patient verbalized understanding of disposition instructions. patient administered narcotics - no. The following High Risk Discharge criteria are identified: None. Discharged to home ambulatory, with significant other. Condition: good Condition: stable Condition: improved. Discharge instructions given to patient, Instructed on discharge instructions, follow up and referral plans. medication usage, Demonstrated understanding of instructions, medications, Pt was receptive of discharge instructions/ teaching. Prescriptions given X 2. No special radiology studies were completed. Property :Personal belongings accompany Pt. 21:42 Patient left the ED. mb9 Signatures: Dispatcher [employer] EDIN Mary Nesbitt MD MD sd1 Clementine, Leia, Reg Reg gb Oleg, Nadia, PODIATRIC AIDE PODIATRIC AIDE ar3 Celeste, Rebecca, PODIATRIC AIDE PODIATRIC AIDE justino Maria Esther,Lise,JENNIFER RN shane Clifford, Kranthi dem1 Carmela Mckeon RN RN [facility] Naveed,Corbin Jacobs, DO cs11 Osmar Ivey gr2 Lasha Worthington RN RN mb9 Coreen Cadet MTDD
--- NOTE | 2016-05-15 17:47 | EDDOCDS ---
Nurse's Notes [facility] Name: Kate Rosenberg Age: 56 yrs Sex: Female : 1960 Arrival Date: 05/12/2016 Time: 13:51 Bed OBSERVATION Private MD: Janna Cabrera PA-C Diagnosis: Cough Presentation: 05/12 13:59 Presenting complaint: Patient states: antibiotics changed on Saturday but still [facility] coughing and having chest pain sometimes with cough sometimes when I cough I feel like I'm going to pass out, they told me if I didn't feel any better this weekend I should come in and get checked and I only have one lung. Adult Sepsis Screening: The patient does not have new or worsening altered mentation. Patient's respiratory rate is less than 22. Systolic blood pressure is greater than 100. Patient has a qSOFA score of 0- Negative Sepsis Screen. Suicide/Homicide risk assessment- the patient denies having any suicidal and/or homicidal ideations and does not present with any other emotional, behavioral or mental health complaints. Status: Patient is not a food services director or dependent. Transition of care: patient was not received from another setting of care. 13:59 Acuity: STEPHEN Level 3 [facility] 13:59 Method Of Arrival: Walkin/Carried/Asstd [facility] Triage Assessment: 14:03 General: Appears in no apparent distress, comfortable, Behavior is appropriate for age, [facility] cooperative. Pain: Denies pain. HIV screening NA for this visit Offered previously. Respiratory: Onset: The symptoms/episode began/occurred 2-weeks, Reports cough that is non-productive. Derm: Skin is pink, warm & dry. VP RHEUMATOLOGY: 14:03 LMP N/A - Hysterectomy [facility] Historical: - Allergies: Cymbalta (Upset stomach); GADOLINIUM-CONTAINING AGENTS (Anaphylaxis); PENICILLINS (Rash); SUMATRIPTAN (Anaphylaxis); - Home Meds: 1. amitriptyline 100 mg Oral tab 1 tab once daily 2. folic acid 1 mg Oral tab once daily 3. gabapentin 300 mg Oral cap 1 cap 3 times per day 4. venlafaxine 75 mg oral cp24 1 cap once daily 5. unknown antibiotic - PMHx: Cancer, Lung - Left; Thyroid disease; - PSHx: removal of left lung, cancer, june 2014; Appendectomy; Carpal Tunnel Repair- Right; Hysterectomy; Cholecystectomy; - Social history: Smoking status: Patient states former smoker of tobacco. No barriers to communication noted. - Family history: Not pertinent. - : The pt / caregiver states he / she is not on anticoagulants. Home medication list is obtained from the patient. - Exposure Risk Screening:: None identified. Screenin:41 Screening information is obtained from the patient. Fall risk: No risks identified. mb9 Assistance ADL's: requires no assistance with activities of daily living. Abuse/DV Screen: The patient / caregiver reports he/she is: not in a situation that causes fear, pain or injury. Nutritional screening: No deficits noted. Advance Directives: There is no active DNR order. home support is adequate. Assessment: 15:17 Adult Sepsis Screening: The patient does not have new or worsening altered mentation. dsf Patient's respiratory rate is less than 22. Systolic blood pressure is greater than 100. Patient has a qSOFA score of 0- Negative Sepsis Screen. General: Appears in no apparent distress, ill, Behavior is appropriate for age, cooperative. Pain: Denies pain. Neurological: Level of Consciousness is awake, alert, Oriented to person, place, time. Cardiovascular: Capillary refill < 3 seconds Rhythm is sinus rhythm No ectopy. Respiratory: Airway is patent Respiratory effort is even, unlabored, Respiratory pattern is regular, symmetrical, Reports shortness of breath on exertion since 2 weeks ago cough that is non-productive, since 2 weeks. Derm: Skin is dry, Skin is pale, Skin temperature is warm. 16:00 General: Appears in no apparent distress, ill, Behavior is appropriate for age, dsf cooperative. Pain: Denies pain. Neurological: Level of Consciousness is awake, alert, Oriented to person, place, time. Cardiovascular: Capillary refill < 3 seconds Heart tones S1 S2 present Rhythm is sinus rhythm No ectopy. Respiratory: Airway is patent Respiratory effort is even, unlabored, Respiratory pattern is regular, symmetrical, Breath sounds are diminished in right posterior upper lobe, right posterior middle lobe and right posterior lower lobe Breath sounds with wheezes in right posterior upper lobe, right posterior middle lobe and right posterior lower lobe. GI: Abdomen is non- distended Bowel sounds present X 4 quads. Abd is soft and non tender X 4 quads. Derm: Skin is dry, Skin is pale, Skin temperature is warm. 17:18 General: Appears in no apparent distress, Behavior is appropriate for age, cooperative. mb9 Respiratory: Airway is patent Respiratory effort is even, unlabored. 18:18 Adult Sepsis Screening: The patient does not have new or worsening altered mentation. dsf Patient's respiratory rate is less than 22. Systolic blood pressure is greater than 100. Patient has a qSOFA score of 0- Negative Sepsis Screen. General: Appears in no apparent distress, Behavior is appropriate for age, cooperative. Neurological: Level of Consciousness is awake, alert. Cardiovascular: Capillary refill < 3 seconds. Respiratory: Airway is patent Respiratory effort is even, unlabored, Respiratory pattern is regular, symmetrical. Derm: Skin is dry, Skin is pale, Skin temperature is warm. 19:59 General: Appears in no apparent distress, Behavior is appropriate for age, cooperative. mb9 Pain: Denies pain. Neurological: Level of Consciousness is awake, alert, Oriented to person, place, time. Respiratory: Airway is patent Breath sounds are clear bilaterally. Reports cough that is pt reports, "the cough has improved since you guys gave me that pill.". 21:41 Reassessment: Patient appears in no apparent distress at this time. Patient states mb9 symptoms have improved. Adult Sepsis Screening: The patient does not have new or worsening altered mentation. Patient's respiratory rate is less than 22. Systolic blood pressure is greater than 100. Patient has a qSOFA score of 0- Negative Sepsis Screen. General: Appears in no apparent distress, Behavior is appropriate for age, cooperative. Respiratory: Airway is patent Respiratory effort is even, unlabored. Vital Signs: 13:53 BP 128 / 61; Pulse 92; Resp 18 S; Temp 98.0(O); Pulse Ox 100% on R/A; Weight 67.13 kg gr2 (R); Height 5 ft. 4 in. (162.56 cm) (R); Pain 5/10; 14:49 BP 109 / 65 (auto/); dsf 14:50 Pulse 78 MON; Pulse Ox 99% ; dsf 15:04 BP 108 / 62 (auto/); dsf 15:05 Pulse 84 MON; Pulse Ox 98% ; dsf 15:19 Pulse 80 MON; Pulse Ox 97% ; dsf 15:19 BP 98 / 60 (auto/); dsf 15:20 Pulse 76 MON; Pulse Ox 98% ; dsf 15:34 BP 99 / 60 (auto/); dsf 15:35 Pulse 74 MON; Pulse Ox 98% ; dsf 15:49 BP 93 / 61 (auto/); dsf 15:50 Pulse 78 MON; Pulse Ox 97% ; dsf 16:04 Pulse 78 MON; Pulse Ox 100% ; dsf 16:04 BP 96 / 57 (auto/); dsf 16:19 BP 97 / 56 (auto/); dsf 16:23 Pulse 86 MON; Pulse Ox 99% ; dsf 16:34 BP 106 / 58 (auto/); dsf 16:34 Pulse 84 MON; Pulse Ox 98% ; dsf 16:49 BP 100 / 59 (auto/); dsf 16:49 Pulse 78 MON; Pulse Ox 98% ; dsf 17:04 BP 103 / 57 (auto/); dsf 17:05 Pulse 80 MON; Pulse Ox 98% ; dsf 17:19 BP 96 / 57 (auto/); dsf 17:19 Pulse 80 MON; Pulse Ox 96% ; dsf 17:35 Pulse 76 MON; Pulse Ox 98% ; dsf 17:36 BP 93 / 52 (auto/); dsf 17:36 Pulse 80 MON; Pulse Ox 99% ; dsf 17:49 BP 106 / 70 (auto/); dsf 17:49 Pulse 80 MON; Pulse Ox 97% ; dsf 18:04 BP 98 / 57 (auto/); dsf 18:04 Pulse 78 MON; Pulse Ox 96% ; dsf 18:19 BP 108 / 61 (auto/); dsf 18:19 Pulse 80 MON; Pulse Ox 95% ; dsf 18:34 BP 111 / 63 (auto/); dsf 18:35 Pulse 80 MON; Pulse Ox 97% ; dsf 18:49 BP 108 / 68 (auto/); dsf 18:51 Pulse 78 MON; Pulse Ox 97% ; dsf 19:04 BP 98 / 62 (auto/); dsf 19:05 Pulse 82 MON; Pulse Ox 96% ; dsf 21:27 BP 106 / 59; Pulse 68; Resp 18; Temp 96.8(O); Pulse Ox 98% on R/A; Pain 0/10; justino 13:53 Body Mass Index 25.40 (67.13 kg, 162.56 cm) gr2 Vitals: 13:53 Log In Time: May 12, 2016 at 13:53. gr2 ED Course: 13:53 Patient visited by Osmar Ivey. gr2 13:53 Janna Cabrera is Private Physician. gr2 13:53 Patient moved to Waiting gr2 13:54 Patient visited by Osmar Ivey. gr2 13:54 Patient moved to Pre RCE gr2 14:01 Triage Initiated cjh 14:32 Patient moved to PD dem1 14:38 Patient visited by Kranthi Clifford. dem1 14:38 EKG done. (by ED staff). Reviewed by Mary Nesbitt MD. dem1 14:44 Patient moved to 14 ar3 14:50 Patient visited by Kranthi Clifford. dem1 14:50 Pt greeted and oriented to ED. Patient advised of names of staff involved in care, dem1 location of call terry, wait times and NPO status. Patient has correct armband on for positive identification. Placed in gown. Bed in low position. Call light in reach. Side rails up X 1. busgirl on. Pulse ox on. NIBP on. 14:55 Mary Nesbitt MD is Attending Physician. sd1 14:55 Patient visited by Mary Nesbitt MD. sd1 15:06 BNP Sent. mb9 15:07 Basic Metabolic Profile Sent. mb9 15:07 CBC with Diff Sent. mb9 15:07 Cardiac Injury Profile Sent. mb9 15:07 Prothrombin Time Profile\\E\\INR Sent. mb9 15:07 Troponin Sent. mb9 15:07 Inserted saline lock: 20 gauge. mb9 15:18 Patient visited by Lise Mayo,JENNIFER. dsf 15:25 Chest, 2 View (pa\\E\\lat) Returned. EDMS 15:57 [facility] Payment Agreement was scanned into [employer] and attached to record. gjb 16:[address] dsf 16:32 Patient moved to 14 dsf 16:34 Patient visited by Lise Mayo,JENNIFER. dsf 17:18 Patient visited by Lasha Worthington,JENNIFER. mb9 17:36 Patient moved to OBSERVATION sd1 18:47 Patient visited by Lise Mayo,JENNIFER. dsf 19:13 Attending Physician role handed off by Mary Nesbitt MD cs11 19:13 Corbin Whitfield DO is Attending Physician. cs11 19:46 EKG-ADULT Returned. EDMS 20:41 Patient visited by Rebecca Alonso PCA. justino 20:41 EKG done. (by ED staff). Reviewed by Corbin Whitfield DO. justino 21:23 Janna Cabrera is Referral Physician. cs11 21:27 Patient visited by Rebecca Alonso PCA. justino 21:41 The patient / caregiver is instructed regarding the plan of care and ED course. mb9 21:41 Discontinued IV lock intact, bleeding controlled, pressure dressing applied, No mb9 redness/swelling at site. No procedures done that require assistance. 05/13 06:54 ECG WITH READING ER PHYS Returned. EDMS 07:22 CT Chest Angio R/O PE Returned. EDMS 12:36 T-Sheet-- Draft Copy was scanned into [employer] and attached to record. gb 12:36 ECG/EKG was scanned into [employer] and attached to record. gb 12:37 Radiology Report was scanned into [employer] and attached to record. gb Administered Medications: 05/12 15:56 Drug: Albuterol-Ipratropium 1 neb [ipratropium-albuterol 0.5 mg-3 mg(2.5 mg base)/3 mL kjn nebulization soln (1 neb)] Route: Nebulizer; 16:08 Drug: Albuterol-Ipratropium 1 neb [ipratropium-albuterol 0.5 mg-3 mg(2.5 mg base)/3 mL kjn nebulization soln (1 neb)] Route: Nebulizer; 16:25 Drug: Albuterol-Ipratropium 1 neb [ipratropium-albuterol 0.5 mg-3 mg(2.5 mg base)/3 mL kjn nebulization soln (1 neb)] Route: Nebulizer; 16:42 Drug: Chlorpheniramine-Hydrocodone 1 caps [hydrocodone ER 10 mg-chlorpheniramine 8 mg dsf 12hr capsule,extend.release (1 caps)] Route: PO; RT: 15:57 Initial Med Neb Given as ordered Patient was instructed and evaluated on procedure kjn Patient tolerated procedure well without adverse effect. Oxygen is room air. Respiratory: Respiratory effort is unlabored, Breath sounds are diminished Breath sounds with wheezes in right upper lobe, right middle lobe and right lower lobe at inspiration. 16:08 Subsequent Med Neb Given as ordered. Respiratory: Breath sounds are diminished in right kjn upper lobe, right middle lobe and right lower lobe Breath sounds with wheezes in right upper lobe, right middle lobe and right lower lobe at expiration. 16:47 Subsequent Med Neb Given as ordered. Respiratory: Breath sounds are diminished Breath kjn sounds with wheezes. Order Results: Lab Order: Basic Metabolic Profile; SPEC'M 05/12/16 15:02 Test: GLUCOSE, FASTING; Value: 87; Range: 70-105; Units: MG/DL; Status: F Test: BLOOD UREA NITROGEN; Value: 16; Range: 7-18; Units: MG/DL; Status: F Test: CREATININE FOR GFR; Value: 1.09; Range: 0.55-1.02; Abnormal: Above high normal; Units: MG/DL; Status: F Test: GLOMERULAR FILTRATION RATE; Value: 55.7; Range: >51; Status: F Test: SODIUM LEVEL; Value: 145; Range: 136-145; Units: MEQ/L; Status: F Test: POTASSIUM SERUM; Value: 3.9; Range: 3.5-5.1; Units: MEQ/L; Status: F Test: CHLORIDE LEVEL; Value: 110; Range: 98-107; Abnormal: Above high normal; Units: MEQ/L; Status: F Test: CARBON DIOXIDE LEVEL; Value: 27; Range: 21-32; Units: MEQ/L; Status: F Test: ANION GAP; Value: 8; Range: 8-16; Units: MEQ/L; Status: F Test: CALCIUM LEVEL; Value: 8.5; Range: 8.5-10.1; Units: MG/DL; Status: F Test Note: ; Units are mL/min/1.73 m2 Chronic Kidney Disease Staging per NKF: Stage I & II GFR >=60 Normal to Mildly Decreased Stage III GFR 30-59 Moderately Decreased Stage IV GFR 15-29 Severely Decreased Stage V GFR <15 Very Little GFR Left ESRD GFR <15 on FRAME RUNNER Lab Order: CBC with Diff; SPEC'M 05/12/16 15:02 Test: WHITE BLOOD COUNT; Value: 5.6; Range: 4.0-10.0; Units: K/mm3; Status: F Test: RED BLOOD COUNT; Value: 4.13; Range: 4.00-5.40; Units: M/mm3; Status: F Test: HEMOGLOBIN; Value: 12.3; Range: 12.0-16.0; Units: g/dl; Status: F Test: HEMATOCRIT; Value: 37.0; Range: 36.0-47.0; Units: %; Status: F Test: MEAN CORPUSCULAR VOLUME; Value: 89.4; Range: 80.0-96.0; Units: fl; Status: F Test: MEAN CORPUSCULAR HEMOGLOBIN; Value: 29.8; Range: 27.0-33.0; Units: pg; Status: F Test: MEAN CORPUSCULAR HGB CONC; Value: 33.3; Range: 32.0-36.5; Units: g/dl; Status: F Test: RED CELL DISTRIBUTION WIDTH; Value: 13.1; Range: 11.5-14.5; Units: %; Status: F Test: PLATELET COUNT, AUTOMATED; Value: 243; Range: 150-450; Units: k/mm3; Status: F Test: NEUTROPHILS %; Value: 40.2; Range: 36.0-66.0; Units: %; Status: F Test: LYMPH %; Value: 46.9; Range: 24.0-44.0; Abnormal: Above high normal; Units: %; Status: F Test: MONO %; Value: 5.8; Range: 0.0-5.0; Abnormal: Above high normal; Units: %; Status: F Test: EOS %; Value: 4.5; Range: 0.0-3.0; Abnormal: Above high normal; Units: %; Status: F Test: BASO %; Value: 0.7; Range: 0.0-1.0; Units: %; Status: F Test: LARGE UNSTAINED CELL %; Value: 2.0; Range: 0.0-4.0; Units: %; Status: F Test: NEUTROPHILS #; Value: 2.3; Range: 1.8-7.7; Units: K/mm3; Status: F Test: LYMPH #; Value: 2.8; Range: 1.5-4.5; Units: K/mm3; Status: F Test: MONO #; Value: 0.3; Range: 0.0-0.8; Units: K/mm3; Status: F Test: EOS #; Value: 0.2; Range: 0.0-0.50; Units: K/mm3; Status: F Test: BASO #; Value: 0.0; Range: 0.0-0.2; Units: K/mm3; Status: F Test: LARGE UNSTAINED CELL #; Value: 0.1; Range: 0.0-0.4; Units: K/mm3; Status: F Lab Order: Cardiac Injury Profile; [facility] 05/12/16 15:02 Test: CPK CREATINE PHOSPHOKINASE; Value: 56; Range: 26-192; Units: U/L; Status: F Test: CK-MB VALUE MASS; Value: 1.0; Range: 0.0-3.6; Units: NG/ML; Status: F Test: MB/CK RELATIVE INDEX; Value: 1.78; Range: < OR =4; Status: F Test Note: ; DIAGNOSIS CRITERIA MMB ng/ml Relative Index (RI) NON-AMI < or = 5 N/A SUTTON ZONE > 5 < or = 4 AMI > 5 > 4 Lab Order: Prothrombin Time Profile\\E\\INR; [facility] 05/12/16 15:02 Test: PROTHROMBIN TIME; Value: 12.6; Range: 12.3-14.5; Units: SECONDS; Status: F Test: INR; Value: 0.93; Status: F Test Note: ; THERAPUTIC HUMAN INR VALUES INDICATIONS NORMAL RANGES PROPHYLAXIS/TREATMENT OF: VENOUS THROMBOSIS 2.0-3.0 PULMONARY EMBOLISM 2.0-3.0 PREVENTION OF SYSTEMIC EMBOLISM FROM: TISSUE HEART VALVES 2.0-3.0 ACUTE MYOCARDIAL INFARCTION 2.0-3.0 VALVULAR HEART DISEASE 2.0-3.0 ATRIAL FIBRILLATION 2.0-3.0 MECHANICAL VALVES(HIGH RISK) 2.5-3.5 RECURRENT MYOCARDIAL INFARCTION 2.5-3.5 Lab Order: Troponin; [facility] 05/12/16 15:02 Test: TROPONIN I; Value: < 0.02; Range: < 0.10; Units: NG/ML; Status: F Test Note: ; Troponin I Reference Interval for Siemens Talyst LOCI: 99th Percentile= 0.00-0.045 ng/ml Risk Stratification: <= 0.10 ng/ml Decreased Risk for Adverse Clinical Events. 0.10-1.50 ng/ml Increased Risk for Adverse Clinical Events. Evaluation of additional criterion and/or repeat testing in 2-6 hours is suggested to rule out myocardial damage. >= 1.50 ng/ml Indicative of Myocardial Injury. Lab Order: BNP; SPEC'M 05/12/16 15:02 Test: BRAIN NATRIURETIC PEPTIDE; Value: 104; Range: <100; Abnormal: Above high normal; Units: PG/ML; Status: F Lab Order: CARDIAC MARKER PANEL; SPEC'M 05/12/16 20:45 Test: CPK CREATINE PHOSPHOKINASE; Value: 52; Range: 26-192; Units: U/L; Status: F Test: CK-MB VALUE MASS; Value: 1.0; Range: 0.0-3.6; Units: NG/ML; Status: F Test: MB/CK RELATIVE INDEX; Value: 1.92; Range: < OR =4; Status: F Test: TROPONIN I; Value: < 0.02; Range: < 0.10; Units: NG/ML; Status: F Test Note: ; DIAGNOSIS CRITERIA MMB ng/ml Relative Index (RI) NON-AMI < or = 5 N/A SUTTON ZONE > 5 < or = 4 AMI > 5 > 4 Radiology Order: Chest, 2 View (pa\\E\\lat) Test: Chest, 2 View (pa\\E\\lat) REASON FOR EXAMINATION: Cough; CHEST X-RAY: Two views.; ; HISTORY: Cough.; ; FINDINGS: The patient is status post left pneumonectomy. The right lung is; somewhat hyperinflated but otherwise clear. Trachea is deviated somewhat to the; left consistent with a pneumonectomy. This is unchanged. Tracheobronchial tree; is otherwise unremarkable. The right pleural angles are sharp. No bony; abnormality is seen.; ; IMPRESSION:; ; No active disease. 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; : 1960 Requested By: Mary Nesbitt; Order Number: [id number] Reading MD: Mary Nesbitt; Measurements; Intervals [place]; Rate: 82 P: 102; [place]: 117 QRS: 71; QRSD: 89 T: 134; QT: 367; QTc: 431; Interpretive Statements; SINUS RHYTHM WITH SHORT [place] INTERVAL; POSSIBLE RIGHT ATRIAL ENLARGEMENT; ST DEVIATION AND MODERATE T-WAVE ABNORMALITY, CONSIDER ANTEROLATERAL; ISCHEMIA,; MORE PRONOUNCED 12/19/15, CLINICAL CORRELATION; ; Electronically Signed On 05-12-2016 19:08:54 EST by Mary Nesbitt; Radiology Order: CT Chest Angio R/O PE Test: CT Chest Angio R/O PE REASON FOR EXAMINATION: Shortness of Breath; CT PULMONARY ANGIOGRAM: With IV contrast.; ; HISTORY: Shortness of breath.; ; COMPARISON STUDIES: November 23, 2014; ; Contrast dose: 75 mL of Isovue 370 are administered intravenously.; ; CT TECHNIQUE: Helical scanning is acquired and overlapping 1.5 mm and contiguous; 3 mm axial images are reformatted. In addition, a 3D work station is deployed to; generate thick slab maximum intensity projection images in sagittal and coronal; imaging projections.; ; CT PULMONARY ANGIOGRAPHIC FINDINGS: There is good opacification of the pulmonary; arterial tree. There is no CT evidence of pulmonary embolism. The thoracic; aorta enhances homogeneously and is normal in course and caliber. The patient is; status post left pneumonectomy so that the heart and mediastinal structures are; in the left chest. The right lung is somewhat hyperinflated but free of; infiltrate. No pleural or pericardial effusion is evident. No hilar or; mediastinal mass is seen. Maximal intensity projection images show no filling; defect or vessel cutoff. There is a tiny 3 mm noncalcified pulmonary nodule in; the right lower lobe. This is seen on today's study page 46 and 107 series 402.; Is not definitely apparent on July 16, 2014 or November 23, 2014 prior studies.; No other new pulmonary nodule is appreciated. No bony destructive lesion is; seen. No adrenal lesion is observed. There are clips in the gallbladder fossa.; ; IMPRESSION:; ; No CT evidence of pulmonary embolus.; ; The patient status post left pneumonectomy.; ; 3 mm noncalcified nodule seen on today's study in the right lower lobe.; Follow-up chest CT study suggested 6-12 months.; ; The areas of infiltrate seen in the periphery of the right lung on November [id number] have resolved except for some right apical pleuroparenchymal fibrosis.; ; ; ; ; Signed by; Noble Mariee MD 05/13/2016 08:22 A; Radiology Order: ECG WITH READING ER PHYS Test: ECG WITH READING ER PHYS REASON FOR EXAMINATION: CHEST CONGESTION, COUGH; Stationary ECG Study; [facility] - ED; ; Test Date: 2016-05-12; Pat Name: KATE ROSENBERG Department:; Room: -; Gender: F 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 [facility] 21:41 Discharge Assessment: Patient awake, alert and oriented x 3. No cognitive and/or mb9 functional deficits noted. Patient verbalized understanding of disposition instructions. patient administered narcotics - no. The following High Risk Discharge criteria are identified: None. Discharged to home ambulatory, with significant other. Condition: good Condition: stable Condition: improved. Discharge instructions given to patient, Instructed on discharge instructions, follow up and referral plans. medication usage, Demonstrated understanding of instructions, medications, Pt was receptive of discharge instructions/ teaching. Prescriptions given X 2. No special radiology studies were completed. Property :Personal belongings accompany Pt. 21:42 Patient left the ED. mb9 Signatures: Dispatcher [employer] EDWI Mary Nesbitt MD MD sd1 Clementine, Leia, Reg Reg gb Oleg, Nadia, SURVEILLANCE SUPERVISOR SURVEILLANCE SUPERVISOR ar3 Celeste, Rebecca, SURVEILLANCE SUPERVISOR SURVEILLANCE SUPERVISOR justino Maria Esther,Lise,JENNIFER RN shane Clifford, Kranthi dem1 Carmela Mckeon RN RN [facility] Naveed,Corbin Jacobs, DO DO cs11 Osmar Ivey gr2 Lasha Worthington RN RN mb9 Coreen Cadet Chart Complete MTDD
== END 2016-05-12 21:42 | disposition home or self-care (01) ==
LOC: M ED 13:51
DX: J06.9 Acute upper respiratory infection, unspecified (principal); R91.1 Solitary pulmonary nodule; E07.9 Disorder of thyroid, unspecified; Z85.118 Personal history of other malignant neoplasm of bronchus and lung; Z79.899 Other long term (current) drug therapy; Z88.0 Allergy status to penicillin; Z88.8 Allergy status to other drugs, medicaments and biological substances; Z87.891 Personal history of nicotine dependence
CPT/HCPCS: 36415; 71020; 71275; 80048; 82550; 82553; 83880; 85025; 85610; 93005; 93041; 94640; 99285; Q9967

== ENCOUNTER → 2016-06-15 | Outpatient (REF) | payer OTHER ==
[2016-06-15 15:23] LABS: FREE T4 1.42 NG/DL (0.76-1.46)
== END ==
LOC: M SFHCADAM 13:39
PROVIDERS: ATTEND Physician Assistant
DX: E03.9 Hypothyroidism, unspecified (principal); E55.9 Vitamin D deficiency, unspecified

== ENCOUNTER → 2016-07-09 | Outpatient (CLI) | payer OTHER ==
[~2016-07-09] MED LIST changes: +GABA-282 PO; -GABA300C3 PO; +NORC1TAB4 PO; -NORC5TAB PO
--- NOTE | 2016-07-09 15:42 | REP ---
MR BRAIN WITHOUT CONTRAST: HISTORY: Syncope. COMPARISON: 09/14/2014. Several punctate areas of increased signal intensity on T2-weighted images are present in the periventricular and subcortical white matter. This represents small vessel ischemic disease. There is no intraparenchymal hemorrhage, infarct, mass, or midline shift. The sella turcica is partially empty. The ventricular system is normal in appearance. There is no extracerebral collection. Minimal mucosal thickening is present in the right sphenoid sinus. IMPRESSION: Minimal small vessel ischemic disease. Signed by Sesar Sanchez MD 07/09/2016 03:44 P
== END ==
LOC: M RAD 09:49
PROVIDERS: ATTEND Thoracic Surgery (Cardiothoracic Vascular Surgery)
DX: R55 Syncope and collapse (principal); R90.82 White matter disease, unspecified

== ENCOUNTER → 2016-11-23 | Outpatient (CLI) | payer OTHER ==
[~2016-11-23] MED LIST changes: +BACITAB PO; -BACITAB3 PO; -FOLI1TAB2 PO; +FOLI1TAB4 PO; -LEVO125T3 PO; +LEVO125T4 PO; +PERC5TAB12 PO; -PERC5TAB6 PO; -VENL75CA PO; +VENL75CA2 PO; +VITA1CAP40 PO; -VITA50003 PO
--- NOTE | 2016-11-23 14:18 | REP ---
CHEST X-RAY: Two views. HISTORY: Cough. COMPARISON: Chest x-ray May 02, 2016. FINDINGS: The patient is status post prior left thoracotomy. Post thoracotomy rib changes are noted on the left as before. The right lung is hyperinflated and clear. No new infiltrate or mass lesion is seen. The right pleural angles are sharp. There are clips in right upper quadrant of the abdomen. No significant bony abnormality is seen. IMPRESSION: Status post left thoracotomy. Otherwise no active disease. Signed by Noble Mariee MD 11/23/2016 04:42 P
== END ==
LOC: M ADAMS 13:29
PROVIDERS: ATTEND Physician Assistant
DX: J40 Bronchitis, not specified as acute or chronic (principal)

== ENCOUNTER 2017-03-10 11:23 | Emergency (ER) | payer OTHER, MEDICARE ==
[~2017-03-10] VITALS: Ht 162.6 cm; Wt 67.7 kg
[2017-03-10 12:50] LABS: BASO # 0.1 10^3/uL (0.0-0.2); BASO % 0.7 % (0.0-1.0); EOS # 0.2 10^3/uL (0.0-0.50); EOS % 1.9 % (0.0-3.0); IMMATURE GRANULOCYTE % 0.3 % (0-0); LYMPH # 2.6 10^3/uL (1.5-4.5); MEAN CORPUSCULAR HGB CONC 32.8 g/dl (32.0-36.5); MEAN CORPUSCULAR VOLUME 91.5 fl (80.0-96.0); MONO # 0.7 10^3/uL (0.0-0.8); MONO % 6.7 % (0.0-5.0); NEUTROPHILS # 6.9 10^3/uL (1.8-7.7); NEUTROPHILS % 65.4 % (36.0-66.0); PLATELET COUNT, AUTOMATED 276 10^3/uL (150-450); RED CELL DISTRIBUTION WIDTH 13.2 % (11.5-14.5); WHITE BLOOD COUNT 10.5 10^3/uL (4.0-10.0)
--- NOTE | 2017-03-10 13:16 | REP ---
Chest two views HISTORY: Pneumonia Comparison: 11/23/2016 The patient is status post left thoracotomy. There is shift of the mediastinal structures to the left. There is partial resection of the left fifth rib. The right lung is clear. The heart is normal in size. The pulmonary vasculature is normal in appearance. The bony structure is intact. IMPRESSION: The patient is status post left thoracotomy. Signed by Sesar Sanchez MD 03/10/2017 01:07 P
[2017-03-10] MEDS ORDERED: AZIT-12 PO (13:45)
[2017-03-10] MEDS ORDERED: PROAAER10 INH (13:46)
[2017-03-10 14:00] VITALS: BP 105/67
[2017-03-10] MEDS ORDERED: AZITHROMYCIN 250 MG TAB PO ONE (14:00)
== END 2017-03-10 14:03 | disposition home or self-care (01) ==
LOC: M ED 11:23
DX: J98.8 Other specified respiratory disorders (principal); C34.90 Malignant neoplasm of unspecified part of unspecified bronchus or lung; C79.89 Secondary malignant neoplasm of other specified sites; Z90.2 Acquired absence of lung [part of]; Z87.891 Personal history of nicotine dependence; Z79.899 Other long term (current) drug therapy; Z88.0 Allergy status to penicillin; Z88.8 Allergy status to other drugs, medicaments and biological substances

== ENCOUNTER → 2017-04-11 | Outpatient (CLI) | payer OTHER, MEDICARE | LOC: M ADAMS 15:15 | DX: M54.31 Sciatica, right side (principal); M51.36 Other intervertebral disc degeneration, lumbar region | CPT/HCPCS: 72100 ==

== ENCOUNTER 2017-05-05 13:53 | Emergency (ER) | payer OTHER, MEDICARE | END 2017-05-05 16:14 | disposition left against medical advice (07) | LOC: M ED 13:53 | DX: M54.9 Dorsalgia, unspecified (principal); Z53.21 Procedure and treatment not carried out due to patient leaving prior to being seen by health care provider ==

== ENCOUNTER → 2017-08-08 | Outpatient (REF) | payer MEDICARE, OTHER ==
[2017-08-08 12:44] LABS: HEMATOCRIT 39.2 % (36.0-47.0); HEMOGLOBIN 12.8 g/dl (12.0-15.5); MEAN CORPUSCULAR HGB CONC 32.7 g/dl (32.0-36.5); MEAN CORPUSCULAR VOLUME 91.8 fl (80.0-96.0); PLATELET COUNT, AUTOMATED 278 10^3/uL (150-450); RED BLOOD COUNT 4.27 10^6/uL (4.00-5.40); RED CELL DISTRIBUTION WIDTH 13.6 % (11.5-14.5); WHITE BLOOD COUNT 7.7 10^3/uL (4.0-10.0)
[2017-08-08 12:58] LABS: TOTAL 25(OH) VITAMIN D 17.4 NG/ML (30.0-100.0)
[2017-08-08 12:59] LABS: FOLATE 11.9 NG/ML; VITAMIN B12 LEVEL 343 PG/ML
[2017-08-08 14:15] LABS: ALBUMIN 3.9 GM/DL (3.2-5.2); ALBUMIN/GLOBULIN RATIO 0.93 (1.00-1.93); ALKALINE PHOSPHATASE 102 U/L (45-117); ALT/SGPT 18 U/L (12-78); ANION GAP 6 MEQ/L (8-16); AST/SGOT 11 U/L (7-37); BILIRUBIN,TOTAL 0.3 MG/DL (0.2-1.0); BLOOD UREA NITROGEN 13 MG/DL (7-18); CALCIUM LEVEL 9.3 MG/DL (8.5-10.1); CARBON DIOXIDE LEVEL 28 MEQ/L (21-32); CHLORIDE LEVEL 109 MEQ/L (98-107); CREATININE FOR GFR 1.19 MG/DL (0.55-1.30); GLOMERULAR FILTRATION RATE 50.1 (>51); GLUCOSE, FASTING 76 MG/DL (70-100); POTASSIUM SERUM 4.5 MEQ/L (3.5-5.1); SODIUM LEVEL 143 MEQ/L (136-145); TOTAL PROTEIN 8.1 GM/DL (6.4-8.2)
== END ==
LOC: M SFHCADAM 09:55
DX: C34.12 Malignant neoplasm of upper lobe, left bronchus or lung (principal); E34.9 Endocrine disorder, unspecified; E55.9 Vitamin D deficiency, unspecified; D51.3 Other dietary vitamin B12 deficiency anemia; M79.645 Pain in left finger(s); Z79.899 Other long term (current) drug therapy
CPT/HCPCS: 82746

== ENCOUNTER → 2017-08-08 | Outpatient (CLI) | payer MEDICARE, OTHER | LOC: M ADAMS 10:06 | DX: M25.742 Osteophyte, left hand (principal); M79.645 Pain in left finger(s); E03.9 Hypothyroidism, unspecified; E55.9 Vitamin D deficiency, unspecified | CPT/HCPCS: 73130; 82746 ==

== ENCOUNTER → 2017-08-22 | Outpatient (CLI) | payer MEDICARE, OTHER | LOC: M RAD 13:51 | DX: M54.2 Cervicalgia (principal) | CPT/HCPCS: 70490 ==

== ENCOUNTER → 2017-11-12 | Outpatient (REF) | payer MEDICARE, OTHER ==
[2017-11-12 20:19] LABS: FREE T4 0.69 NG/DL (0.76-1.46)
== END ==
LOC: M SFHCADAM 16:23
DX: E03.9 Hypothyroidism, unspecified (principal)
CPT/HCPCS: 84443

== ENCOUNTER → 2017-11-15 | Outpatient (CLI) | payer MEDICARE, OTHER | LOC: M WUC 11:46 | DX: R05 Cough (principal) | CPT/HCPCS: 71046 ==

== ENCOUNTER → 2018-01-15 | Outpatient (REF) | payer MEDICARE, OTHER ==
[2018-01-15 13:01] LABS: FREE T4 0.71 NG/DL (0.76-1.46)
== END ==
LOC: M LABDRAW1 11:46
DX: E03.9 Hypothyroidism, unspecified (principal)
CPT/HCPCS: 84443

== ENCOUNTER → 2018-02-20 | Outpatient (REF) | payer MEDICARE, OTHER ==
[2018-02-20 19:59] LABS: HEMATOCRIT 36.4 % (36.0-47.0); HEMOGLOBIN 11.7 g/dl (12.0-15.5); MEAN CORPUSCULAR HEMOGLOBIN 29.4 pg (27.0-33.0); MEAN CORPUSCULAR HGB CONC 32.1 g/dl (32.0-36.5); MEAN CORPUSCULAR VOLUME 91.5 fl (80.0-96.0); PLATELET COUNT, AUTOMATED 297 10^3/uL (150-450); RED BLOOD COUNT 3.98 10^6/uL (4.00-5.40); RED CELL DISTRIBUTION WIDTH 12.4 % (11.5-14.5); WHITE BLOOD COUNT 8.5 10^3/uL (4.0-10.0)
[2018-02-20 20:16] LABS: D-DIMER QUANT 404.4 ng/ml (<500)
[2018-02-20 20:31] LABS: ALBUMIN 3.6 GM/DL (3.2-5.2); ALBUMIN/GLOBULIN RATIO 0.97 (1.00-1.93); ALKALINE PHOSPHATASE 102 U/L (45-117); ALT/SGPT 19 U/L (12-78); ANION GAP 9 MEQ/L (8-16); AST/SGOT 10 U/L (7-37); BILIRUBIN,TOTAL 0.2 MG/DL (0.2-1.0); BLOOD UREA NITROGEN 13 MG/DL (7-18); CALCIUM LEVEL 9.3 MG/DL (8.5-10.1); CARBON DIOXIDE LEVEL 28 MEQ/L (21-32); CHLORIDE LEVEL 105 MEQ/L (98-107); CREATININE FOR GFR 1.14 MG/DL (0.55-1.30); GLOMERULAR FILTRATION RATE 52.7 (>51); GLUCOSE, FASTING 85 MG/DL (70-100); POTASSIUM SERUM 4.4 MEQ/L (3.5-5.1); SODIUM LEVEL 142 MEQ/L (136-145); THYROID STIMULATING HORMONE 0.017 uIU/ML (0.358-3.740); TOTAL PROTEIN 7.3 GM/DL (6.4-8.2)
[2018-02-20 20:32] LABS: FREE T4 1.91 NG/DL (0.76-1.46); TOTAL 25(OH) VITAMIN D 25.3 NG/ML (30.0-100.0); VITAMIN B12 LEVEL 387 PG/ML
[2018-02-20 20:33] LABS: FOLATE 8.8 NG/ML
== END ==
LOC: M SFHCADAM 16:43
DX: R06.09 Other forms of dyspnea (principal); R00.0 Tachycardia, unspecified; R53.82 Chronic fatigue, unspecified; M25.50 Pain in unspecified joint; Z79.899 Other long term (current) drug therapy
CPT/HCPCS: 82746

== ENCOUNTER → 2018-02-20 | Outpatient (CLI) | payer MEDICARE, OTHER | LOC: M ADAMS 16:52 | DX: R06.09 Other forms of dyspnea (principal); R00.0 Tachycardia, unspecified; Z98.890 Other specified postprocedural states | CPT/HCPCS: 71046; 82746 ==

== ENCOUNTER → 2018-03-06 | Outpatient (REF) | payer MEDICARE, OTHER ==
[2018-03-06 13:16] LABS: FREE T4 0.55 NG/DL (0.76-1.46); THYROID STIMULATING HORMONE 0.676 uIU/ML (0.358-3.740)
== END ==
LOC: M LABDRAW1 12:08
DX: E07.9 Disorder of thyroid, unspecified (principal)
CPT/HCPCS: 84443

== ENCOUNTER → 2018-03-14 | Outpatient (CLI) | payer MEDICARE, OTHER ==
[~2018-03-14] MED LIST changes: -AMIT100TA PO; -AMIT75TA PO; -BACITAB PO; -COMP1TAB PO; -CYCL10TA PO; -DEXA4TA PO; -FERR324T2 PO; -FOLI1TAB4 PO; -GABA-282 PO; +ISOVUE-370 76% 100ML VIAL (Q9967) As Ordered; -LEVO125T4 PO; -LEVO150T42 PO; -NORC1TAB4 PO; -OMEP20CA3 PO; -PERC5TAB12 PO; -RIZA10TA4 PO; -TYLE325T5 PO; -VENL75CA2 PO; -VITA1CAP40 PO; -ZOFR8TAB PO; -ZYPR10TA PO
== END ==
LOC: M RAD 17:41
DX: C34.92 Malignant neoplasm of unspecified part of left bronchus or lung (principal); R09.02 Hypoxemia; R06.09 Other forms of dyspnea; Z80.2 Family history of malignant neoplasm of other respiratory and intrathoracic organs
CPT/HCPCS: Q9967

== ENCOUNTER → 2018-03-26 | Outpatient (CLI) | payer MEDICARE, OTHER ==
[~2018-03-26] MED LIST changes: +AMIT100TA PO; +AMIT75TA PO; +AZIT-12 PO; +BACITAB PO; +COMP1TAB PO; +CYCL10TA PO; +CYCL5TAB PO; +DEXA4TA PO; +FERR324T2 PO; +FOLI1TAB5 PO; +GABA-843 PO; +IBUP80TA PO; -ISOVUE-370 76% 100ML VIAL (Q9967) As Ordered; +LEVO125T4 PO; +LEVO150T42 PO; +NORC1TAB4 PO; +OMEP20CA3 PO; +PERC5TAB12 PO; +PROAAER10 INH; +RIZA10TA4 PO; +TYLE325T5 PO; +VENL75CA2 PO; +VITA50005 PO; +ZOFR8TAB24 PO; +ZYPR10TA PO
--- NOTE | 2018-03-28 19:33 | ECHO ---
DATE OF PROCEDURE: 03/26/2018 REFERRING PHYSICIAN: NIA Dye INDICATION: Dyspnea, hypoxemia, lung cancer. HEIGHT: 5 feet 4 inches WEIGHT: 144 pounds 2D MEASUREMENTS: Aortic root: 3.0 cm Left atrium: 3.7 cm Ventricular septum: 0.92 cm Posterior wall: 1.00 cm Left ventricle diastole: 4.5 cm Inferior vena cava: 1.7 cm with normal respiratory variation. DOPPLER MEASUREMENTS: Aortic valve velocity: 97.2 cm/s LVOT velocity: 68.4 cm/s Mitral deceleration time: 62.2 cm/s Mitral A velocity: 53.8 cm/s Mitral deceleration time: 151 ms Mild tricuspid regurgitation. Estimated right ventricle systolic pressure: 30-35 mmHg assuming a right atrial pressure of 5-10 mmHg. Pulmonary artery systolic pressure 21 mmHg by pulmonary artery acceleration time method. DESCRIPTION: Rhythm was sinus. Image quality was fair. No pericardial effusion. This was a 2D, M-mode, color flow Doppler and pulse wave Doppler examination that included mitral annular tissue Doppler. CONCLUSIONS: 1. Estimated right ventricle systolic pressure near the upper limits of normal to mildly increased. Normal right ventricle size and systolic function. Normal right atrial size. Central venous pressure estimated to be 5-10 mmHg. 2. Normal left ventricle internal dimensions and wall thickness. Normal regional left ventricle (LV) wall motion and wall thickening. Normal left ventricle (LV) systolic function. Probably normal LV diastolic function. Normal left atrial size. 3. Otherwise, normal appearing echocardiogram Doppler findings.
== END ==
LOC: M CARPUL 09:40
PROVIDERS: ATTEND Physician Assistant
DX: R09.02 Hypoxemia (principal); R06.09 Other forms of dyspnea; C34.92 Malignant neoplasm of unspecified part of left bronchus or lung

== ENCOUNTER → 2018-05-22 | Outpatient (REF) | payer MEDICARE, OTHER ==
[~2018-05-22] MED LIST changes: +FOLI1TAB11 PO; -FOLI1TAB5 PO
[2018-05-22 19:50] LABS: FREE T4 1.43 NG/DL (0.76-1.46); THYROID STIMULATING HORMONE 0.991 uIU/ML (0.358-3.740)
== END ==
LOC: M SFHCADAM 13:37
PROVIDERS: ATTEND Physician Assistant
DX: E03.9 Hypothyroidism, unspecified (principal)
CPT/HCPCS: 84439; 84443; G0463

== ENCOUNTER → 2018-06-03 | Outpatient (REF) | payer MEDICARE, OTHER ==
[2018-06-03 14:24] LABS: BASO # 0.1 10^3/uL (0.0-0.2); BASO % 0.6 % (0.0-1.0); EOS # 0.1 10^3/uL (0.0-0.50); EOS % 1.1 % (0.0-3.0); HEMATOCRIT 40.9 % (36.0-47.0); HEMOGLOBIN 13.4 g/dl (12.0-15.5); LYMPH # 2.5 10^3/uL (1.5-4.5); LYMPH % 24.4 % (24.0-44.0); MEAN CORPUSCULAR HEMOGLOBIN 29.8 pg (27.0-33.0); MEAN CORPUSCULAR HGB CONC 32.8 g/dl (32.0-36.5); MEAN CORPUSCULAR VOLUME 90.9 fl (80.0-96.0); MONO # 0.5 10^3/uL (0.0-0.8); MONO % 5.4 % (0.0-5.0); NEUTROPHILS # 6.9 10^3/uL (1.8-7.7); NEUTROPHILS % 68.2 % (36.0-66.0); PLATELET COUNT, AUTOMATED 329 10^3/uL (150-450); WHITE BLOOD COUNT 10.1 10^3/uL (4.0-10.0)
[2018-06-03 14:58] LABS: BILIRUBIN,TOTAL 0.3 MG/DL (0.2-1.0); CALCIUM LEVEL 9.5 MG/DL (8.5-10.1); CREATININE FOR GFR 1.12 MG/DL (0.55-1.30); GLOMERULAR FILTRATION RATE 53.6 (>51); MAGNESIUM LEVEL 2.1 MG/DL (1.8-2.4); POTASSIUM SERUM 5.3 MEQ/L (3.5-5.1); TOTAL PROTEIN 8.2 GM/DL (6.4-8.2)
== END ==
LOC: M SFHCADAM 12:01
PROVIDERS: ATTEND Physician Assistant
DX: R11.2 Nausea with vomiting, unspecified (principal); G43.809 Other migraine, not intractable, without status migrainosus
CPT/HCPCS: 80053; 82150; 83690; 83735; 85025; G0463

== ENCOUNTER → 2018-11-25 | Outpatient (REF) | payer MEDICARE, OTHER ==
[~2018-11-25] MED LIST changes: -NORC1TAB4 PO; +NORC1TAB7 PO; -OMEP20CA3 PO; +OMEP20CA4 PO
[2018-11-25 16:10] LABS: HEMATOCRIT 39.7 % (36.0-47.0); HEMOGLOBIN 12.8 g/dl (12.0-15.5); MEAN CORPUSCULAR HEMOGLOBIN 30.3 pg (27.0-33.0); MEAN CORPUSCULAR HGB CONC 32.2 g/dl (32.0-36.5); MEAN CORPUSCULAR VOLUME 94.1 fl (80.0-96.0); PLATELET COUNT, AUTOMATED 259 10^3/uL (150-450); RED BLOOD COUNT 4.22 10^6/uL (4.00-5.40); WHITE BLOOD COUNT 7.3 10^3/uL (4.0-10.0)
[2018-11-25 16:23] LABS: BILIRUBIN,TOTAL 0.4 MG/DL (0.2-1.0); CALCIUM LEVEL 9.5 MG/DL (8.5-10.1); CREATININE FOR GFR 1.26 MG/DL (0.55-1.30); GLOMERULAR FILTRATION RATE 46.8 (>51); POTASSIUM SERUM 4.4 MEQ/L (3.5-5.1); THYROID STIMULATING HORMONE 0.128 uIU/ML (0.358-3.740); TOTAL PROTEIN 8.3 GM/DL (6.4-8.2)
== END ==
LOC: M SFHCPLAZ 13:55
PROVIDERS: ATTEND Family Medicine
DX: R42 Dizziness and giddiness (principal); E03.9 Hypothyroidism, unspecified
CPT/HCPCS: 36415; 80053; 84443; 85027; G0463

== ENCOUNTER → 2018-11-29 | Outpatient (CLI) | payer MEDICARE, OTHER ==
[~2018-11-29] MED LIST changes: +ANOR1AER IN; +ANOR1AER PO; +OMEP1CAP73 PO; -OMEP20CA4 PO; +PROT1TAB2 PO; -RIZA10TA4 PO; +RIZA10TA58 PO; +STIO1AER IN; +TAGR80TA PO; +VENTAER INH
--- NOTE | 2018-11-29 09:55 | REPVR ---
EXAM: MR Head Without Contrast EXAM DATE/TIME: 11/29/2018 9:35 AM CLINICAL HISTORY: 58 years old, female; Other: Headache HX of lung CA; Additional info: Headaches TECHNIQUE: Imaging protocol: MR of the head without contrast. COMPARISON: MRI-Brain without Contrast 07/09/2016 10:09 AM FINDINGS: Brain: There is no abnormal diffusion weighted signal intensity to suggest an acute ischemic event. There is mild atrophy and chronic white matter microangiopathic changes. No acute intracranial process is identified. Postcontrast images would be more sensitive to the possibility of metastatic disease. Ventricles: There is compensatory ventricular dilation. There is a normal-variant cavum septi pellucidi. Bones/joints: Unremarkable. Soft tissues: Normal. Sinuses: Normal as visualized. No acute sinusitis. Mastoid air cells: Normal as visualized. No mastoid effusion. Orbits: Unremarkable. Vertebral arteries: There is a dominant left vertebral artery. Posterior cerebral arteries: There is origin of the right posterior cerebral artery. Other vasculature: Normal vascular flow voids are present. IMPRESSION: 1. There is origin of the right posterior cerebral artery. 2. No acute intracranial process is identified. Postcontrast images would be more sensitive to the possibility of metastatic disease. Electronically signed by: Dre Berrios On 11/29/2018 09:55:26 AM
== END ==
LOC: M RAD 08:55
PROVIDERS: ATTEND Family Medicine
DX: R51 Headache (principal)

== ENCOUNTER → 2018-12-22 | Outpatient (CLI) | payer MEDICARE, OTHER ==
[~2018-12-22] MED LIST changes: +ISOVUE-370 76% 100ML VIAL (Q9967) As Ordered ONE
--- NOTE | 2018-12-22 13:51 | REP ---
Thyroid ultrasound: Comparison is 04/05/2014. The thyroid gland is diffusely enlarged. The right lobe measures 5.6 x 2.6 x 2.1 cm. The left lobe measures 5.5 x 2.1 x 2.0 cm. The isthmus measures 4 mm thickness. These measurements are not significantly changed. The thyroid parenchyma is diffusely heterogeneous, as previously. This is unchanged. There are no focal masses or cysts. The bilateral lower lobe nodules identified on the previous study are not identified on the current examination. Impression: Diffusely enlarged heterogeneous thyroid with no focal masses or nodules. 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 Electronically Signed by Son Foster MD 12/22/2018 01:42 P
--- NOTE | 2018-12-22 14:47 | REP ---
CT of the chest with IV contrast for follow up of right lung nodule: Comparison is 03/14/2018. There is a total left pneumonectomy. This is unchanged. There is a ground-glass density in the apex of the right upper lobe today measuring 2.4 cm AP by 1.7 cm transversely by 2.2 cm craniocaudad. This nodule previously measured 2.1 x 1.4 x 2.1 cm, and has slightly increased in size. There are no other lung nodules or masses. There are no infiltrates or pleural effusions. No mediastinal or right hilar add is identified. There is no axillary adenopathy. The thoracic aorta is unremarkable. Cardiac size is normal. The visualized upper abdominal contents are unremarkable. There is no adrenal mass. There are surgical clips in the gallbladder fossa. There is a tiny hepatic right lobe cyst, unchanged. Impression: Slowly growing ground-glass density in the right upper lobe apex as described. No adenopathy. As a precaution, I would recommend follow-up CT in 6 months. Total left pneumonectomy. Electronically Signed by Son Foster MD 12/22/2018 02:39 P
== END ==
LOC: M RAD 12:05
PROVIDERS: ATTEND Family Medicine
DX: E04.9 Nontoxic goiter, unspecified (principal)
CPT/HCPCS: 71260; 76536; Q9967

== ENCOUNTER → 2019-01-07 | Outpatient (CLI) | payer MEDICARE, OTHER ==
[~2019-01-07] MED LIST changes: -ANOR1AER IN; -ANOR1AER PO; -ISOVUE-370 76% 100ML VIAL (Q9967) As Ordered ONE; -OMEP1CAP73 PO; +OMEP20CA4 PO; -PROT1TAB2 PO; +RIZA10TA4 PO; -RIZA10TA58 PO; -STIO1AER IN; -TAGR80TA PO
--- NOTE | 2019-01-07 16:27 | REP ---
PET/CT: History: Restaging lung carcinoma. The patient is status post left pneumonectomy. Comparisons: Comparison PET-CT study August 20, 2016. Comparison chest CT December 22, 2018. TECHNIQUE: 46 minutes following the intravenous injection of a 8.62 mCi dose of F-18 FDG, three-dimensional PET scintigraphy is acquired from the skull base to the proximal thighs. Triplanar noncontrast CT scanning is acquired through the same anatomic range for attenuation correction, and image registration with scan parameters optimized to minimize radiation exposure to the patient. PET scintigraphy and CT datasets were fused and displayed on a workstation with multiplanar and projection display capability. PET/CT Findings: There is diffusely hypermetabolic uptake in the thyroid lobes bilaterally. This appears to be unchanged from the comparison study and is compatible with thyroiditis. Maximum standard uptake value is 12.43. The thyroid gland appears somewhat enlarged. The head and neck soft tissues are otherwise unremarkable. There is mildly hypermetabolic uptake in the recently identified nodule in the right upper lobe of the lung, maximum standard uptake value is 3.46. No other suspicious pulmonary parenchymal uptake is seen in the right lung. There is however suspicious mediastinal hypermetabolic virgie uptake. There are multiple hypermetabolic virgie foci in the precarinal, left hilar root, pretracheal region of the mediastinum. There is a virgie focus adjacent to the posterior aspect of the aortic arch. There is abnormal hypermetabolic uptake just below the left hilar root as well. Maximum standard uptake value within these virgie foci ranges from 5.08 to 17.5. This latter focus is the precarinal virgie focus. These foci appear more numerous than on the PET/CT study from August 20, 2016. In addition, there is a virgie focus of hypermetabolic uptake in a 13 mm left axillary lymph node. Maximum standard uptake value here is 22.4. The injection site was contralateral. This left axillary virgie focus appears to have been present previously. Impression: There are multiple foci of suspicious hypermetabolic virgie uptake in the left chest and mediastinum. These are more numerous than on the prior study. The right lung nodule is hypermetabolic. It appears a little larger than previously. Hypermetabolic left axillary lymphadenopathy is again seen. Electronically Signed by Noble Mariee MD 01/07/2019 04:39 P
== END ==
LOC: M PLARAD 09:14
PROVIDERS: ATTEND Nurse Practitioner Family
DX: C34.11 Malignant neoplasm of upper lobe, right bronchus or lung (principal)
CPT/HCPCS: 78815; A9552

== ENCOUNTER → 2019-01-28 | Outpatient (CLI) | payer MEDICARE, OTHER ==
[~2019-01-28] MED LIST changes: +ANOR1AER IN; -RIZA10TA4 PO; +RIZA10TA58 PO
[2019-01-28 14:01] LABS: BASO # 0.1 10^3/uL (0.0-0.2); BASO % 0.7 % (0.0-1.0); EOS # 0.2 10^3/uL (0.0-0.5); EOS % 1.9 % (0.0-3.0); HEMATOCRIT 40.4 % (36.0-47.0); LYMPH # 2.2 10^3/uL (1.5-5.0); LYMPH % 27.1 % (24.0-44.0); MEAN CORPUSCULAR HEMOGLOBIN 30.5 pg (27.0-33.0); MEAN CORPUSCULAR HGB CONC 32.2 g/dl (32.0-36.5); MEAN CORPUSCULAR VOLUME 94.8 fl (80.0-96.0); MONO # 0.5 10^3/uL (0.0-0.8); MONO % 6.2 % (0.0-5.0); NEUTROPHILS # 5.3 10^3/uL (1.5-8.5); NEUTROPHILS % 63.9 % (36.0-66.0); PLATELET COUNT, AUTOMATED 245 10^3/uL (150-450); RED BLOOD COUNT 4.26 10^6/uL (4.00-5.40); WHITE BLOOD COUNT 8.2 10^3/uL (4.0-10.0)
[2019-01-28 14:17] LABS: CALCIUM LEVEL 9.9 MG/DL (8.5-10.1); CREATININE FOR GFR 1.27 MG/DL (0.55-1.30); GLOMERULAR FILTRATION RATE 46.3 (>51); POTASSIUM SERUM 4.6 MEQ/L (3.5-5.1)
[2019-01-28 14:20] LABS: INR 0.94; PARTIAL THROMBOPLASTIN TIME 32.8 SECONDS (25.0-38.4); PROTHROMBIN TIME 12.3 SECONDS (11.8-14.0)
== END ==
LOC: M SMT 10:33
PROVIDERS: ATTEND Internal Medicine Pulmonary Disease
DX: J44.9 Chronic obstructive pulmonary disease, unspecified (principal)

== ENCOUNTER → 2019-01-30 | Outpatient (CLI) | payer MEDICARE, OTHER ==
[~2019-01-30] MED LIST changes: +STIO1AER IN
--- NOTE | 2019-01-30 15:56 | REP ---
HISTORY: Followup ground glass opacity right upper lobe increasing in size when compared to other prior chest CTs. All prior chest CTs were reviewed, the latest of which is dated 12/22/2018. The lack of intravenous contrast decreases the sensitivity of the examination. ILogic protocol. The mediastinum and pulmonary reynaldo are unchanged. The imaged upper abdomen and imaged osseous structures are unchanged. Postoperative changes left hemithorax with volume loss, status quo. There is a spiculated nodule in the right upper lobe which measures approximately 2.2 cm. When I measured this in the same plane on the same slice as close as possible, compared to the latest prior examination, it has not changed significantly in size from that latest prior. It has, however, increased in size from the 03/14/2018 examination when it had a maximal dimension of 1.9 cm, but its short axis dimension was much smaller on that prior exam. There are no additional abnormal nodules, masses or opacities. IMPRESSION: Spiculated right upper lobe nodule as described above. Electronically Signed by Mejia Jacome DO 01/30/2019 04:24 P
== END ==
LOC: M RAD 07:28
PROVIDERS: ATTEND Internal Medicine Pulmonary Disease
DX: R91.1 Solitary pulmonary nodule (principal); Z85.118 Personal history of other malignant neoplasm of bronchus and lung; E03.9 Hypothyroidism, unspecified
CPT/HCPCS: 71250; 84439; 84443; G0463

== ENCOUNTER → 2019-01-30 | Outpatient (REF) | payer MEDICARE, OTHER ==
[~2019-01-30] MED LIST changes: -STIO1AER IN
[2019-01-30 16:50] LABS: FREE T4 0.8 NG/DL (0.76-1.46); THYROID STIMULATING HORMONE 7.17 uIU/ML (0.358-3.740)
== END ==
LOC: M SFHCADAM 13:47
PROVIDERS: ATTEND Family Medicine
DX: E03.9 Hypothyroidism, unspecified (principal)

== ENCOUNTER 2019-02-04 06:29 | Day surgery (SDC) | payer MEDICARE, OTHER ==
[~2019-02-04] VITALS: Ht 162.6 cm; Wt 62.6 kg
[2019-02-04] MEDS ORDERED: MIDAZOLAM INJ 2 MG/2 ML VIAL (J2250) As Ordered ONE (06:46)
[2019-02-04] MEDS ORDERED: fentaNYL 100 MCG/2 ML INJECTION (J3010) As Ordered ONE (06:46)
[2019-02-04] MEDS ORDERED: LIDOCAINE 2% INJ 100 MG/5 ML SDV (FOR ANES.) As Ordered ONE (06:47)
[2019-02-04] MEDS ORDERED: ONDANSETRON 4MG/2ML VIAL (J2405) As Ordered ONE (06:47)
[2019-02-04] MEDS ORDERED: SUGAMMADEX SODIUM 500 MG/5 ML VIAL (BRIDION) As Ordered ONE (06:47)
[2019-02-04] MEDS ORDERED: PROPOFOL 200 MG/20 ML VIAL As Ordered ONE (06:47)
[2019-02-04] MEDS ORDERED: dexameTHASONE 4 MG/ML 1ML VIAL (J1100) As Ordered ONE (06:47)
[2019-02-04] MEDS ORDERED: ROCURONIUM BROMIDE 50 MG/5 ML VIAL As Ordered ONE (06:47)
[2019-02-04] MEDS ORDERED: THROMBIN SOLN 5,000 UNITS VIAL As Ordered ONE (07:28)
[2019-02-04] MEDS ORDERED: LIDOCAINE VISCOUS 2% SOLN 15ML UDC As Ordered ONE (07:29)
[2019-02-04] MEDS ORDERED: CETACAINE SPRAY 5GM As Ordered ONE (07:29)
[2019-02-04] MEDS ORDERED: LIDOCAINE 1% SDV INJ 30 ML VIAL As Ordered ONE (07:29)
[2019-02-04] MEDS ORDERED: EPINEPHrine 1MG/10ML SYRINGE 1.5IN As Ordered ONE (07:29)
--- NOTE | 2019-02-04 09:51 | REP ---
Clinical: Status post procedure/bronchoscopy. Comparison: 02/20/2018. Findings: Complete opacification of the left hemithorax with volume loss and ipsilateral mediastinal shift remains stable compared to prior examination. The right hemithorax demonstrates ill-defined parenchymal opacity in the right apex. No effusion. No pneumothorax. Skeletal structures stable. Impression: Chronic stable changes involving the left hemithorax. Increased parenchymal opacities in the right apex compared to prior. Electronically Signed by Isauro Maurer MD 02/04/2019 09:43 A
[2019-02-04] MEDS ORDERED: ONDANSETRON 4MG/2ML VIAL (J2405) IV PRN (10:00)
[2019-02-04] MEDS ORDERED: fentaNYL 100 MCG/2 ML INJECTION (J3010) IV PRN (10:00)
[2019-02-04] MEDS ORDERED: METOCLOPRAMIDE INJ 10MG/2ML VIAL (J2765) IV PRN (10:00)
[2019-02-04] MEDS ORDERED: LR 1,000 ML IV SCH (10:00)
[2019-02-04] MEDS ORDERED: oxyCODONE 5MG TAB PO PRN (10:00)
[2019-02-04 10:45] VITALS: BP 100/56
--- NOTE | 2019-02-04 11:44 | ROOR ---
Patient Name: Mirian Jameson Procedure Date: 02/04/2019 7:22 AM Date of : 1960 Admit Type: Outpatient Age: 58 Note Status: Finalized Attending MD: Aleyda Smith MD Procedure: Bronchoscopy Indications: Right upper lobe nodule, Hilar lymphadenopathy of the left side, Mediastinal adenopathy Providers: Aleyda Smith MD (Doctor) Referring MD: Elizabeth Tse MD (Referring MD) Requesting Physician: Medicines: General Anesthesia, Cetacaine topical Complications: No immediate complications. Estimated blood loss: Minimal Procedure: Pre-Anesthesia Assessment: - Prior to the procedure, a History and Physical was performed, and patient medications and allergies were reviewed. The patient's tolerance of previous anesthesia was also reviewed. The risks and benefits of the procedure and the sedation options and risks were discussed with the patient. All questions were answered, and informed consent was obtained. Prior Anticoagulants: The patient has taken no previous anticoagulant or antiplatelet agents. ASA Grade Assessment: III - A patient with severe systemic disease. After reviewing the risks and benefits, the patient was deemed in satisfactory condition to undergo the procedure. The Bronchoscope was introduced through the mouth, via the endotracheal tube (the patient was intubated for the procedure) and advanced to the right lung only. The procedure was accomplished without difficulty. The patient tolerated the procedure well. Findings: Respiratory tract: The trachea is of normal caliber. The marshall is sharp. The entire tracheobronchial tree was examined to at least the first subsegmental level on the right side. Patient is status post left pneumonectomy. Left bronchial stump visualized, well healed. Bronchial mucosa was normal, some mild pitting and webbing. In the RUL there were only two segmental bronchial divisions instead of three. There are no endobronchial lesions. Some scant thick white secretions. Electromagnetic navigation bronchoscopy utilizing the Partender system with iLogic upgrade was performed. The CT scan was used for planning purposes. A virtual bronchoscopic image was generated using the planning software and the marshall, left main bronchus marshall, right upper lobe, right middle lobe and right lower lobe basilar segment registration points were marked on the virtual image. The target in the apical segment of the right upper lobe was marked. A nodule 2.2 cm in size was found and a pathway was created. After a complete airway exam, the locatable guide/extended working channel was inserted and an automatic registration was performed by advancing the scope through the marshall, left main bronchus marshall, right upper lobe, right middle lobe and right lower lobe basilar segment. The navigation phase was then begun to locate the target lesion(s). Positioning was confirmed using the Olympus radial probe ultrasound catheter. The locatable guide was removed from the extended working channel. Fluoroscopy guided transbronchial brushings of a nodule were obtained in the apical segment of the right upper lobe with a needle brush and sent for routine cytology. Transbronchial brushing technique was selected because the sampling site was not accessible using standard endoscopic (bronchoscopic) techniques. Transbronchial needle aspirations of a nodule were performed in the apical segment of the right upper lobe using a SuperTrax 21 gauge needle and sent for routine cytology. The procedure was guided by fluoroscopy. Transbronchial needle aspiration technique was selected because the sampling site was not accessible using standard endoscopic (bronchoscopic) techniques. Transbronchial biopsies of a nodule were performed in the apical segment of the right upper lobe using forceps and sent for histopathology examination. The procedure was guided by fluoroscopy. Transbronchial biopsy technique was selected because the sampling site was not accessible using standard endoscopic (bronchoscopic) techniques. Bronchoalveolar lavage was performed in the RUL apical segment (B1) of the lung and sent for routine cytology. The return was blood-tinged and cloudy. An endobronchial ultrasound endoscope was utilized in order to assist with fine needle aspiration in the subcarinal area. Transbronchial needle aspirations of a lymph node were performed in the subcarinal area using an Olympus EBUS-TBNA 21 gauge needle and sent for routine cytology. The procedure was guided by ultrasound. Transbronchial needle aspiration technique was selected because the sampling site was not visible endoscopically. Impression: - Right upper lobe nodule - Hilar lymphadenopathy of the left side - Mediastinal adenopathy - Electromagnetic navigation bronchoscopy was performed. - Transbronchial brushings were obtained. - A transbronchial needle aspiration was performed. - Transbronchial lung biopsies were performed. - Bronchoalveolar lavage was performed. - Endobronchial ultrasound was performed. - A transbronchial needle aspiration was performed. Recommendation: - Follow up with bronchoscopist as previously scheduled. Attending Participation: I personally performed the entire procedure. Aleyda Smith MD 02/04/2019 11:44:37 AM Number of Addenda: 0 Note Initiated On: 02/04/2019 7:22 AM
--- NOTE | 2019-02-04 22:31 | ECGEPIP ---
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 Electronically Signed on 02-04-2019 22:30:56 EDT by Timothy Ramon
== END 2019-02-04 11:02 | disposition home or self-care (01) ==
LOC: M SDC 06:29
PROVIDERS: ATTEND Internal Medicine Pulmonary Disease
DX: C77.9 Secondary and unspecified malignant neoplasm of lymph node, unspecified (principal); Z85.118 Personal history of other malignant neoplasm of bronchus and lung; R59.0 Localized enlarged lymph nodes; J44.9 Chronic obstructive pulmonary disease, unspecified; Z87.891 Personal history of nicotine dependence; Z92.21 Personal history of antineoplastic chemotherapy; Z88.0 Allergy status to penicillin; Z88.8 Allergy status to other drugs, medicaments and biological substances; Z79.899 Other long term (current) drug therapy; E03.9 Hypothyroidism, unspecified; F41.9 Anxiety disorder, unspecified; F32.9 Major depressive disorder, single episode, unspecified
CPT/HCPCS: 31623; 31624; 31627; 31628; 31629; 31652; 71045; 76000; 88104; 88108; 88173; 88305; 88313; 93005; J1100; J2250; J2405; J3010

== ENCOUNTER 2019-04-10 09:17 | Emergency (ER) | payer MEDICARE, OTHER ==
[~2019-04-10] VITALS: Ht 162.6 cm; Wt 63.3 kg
[~2019-04-10 09:17] MED LIST changes: +OMEP-172 PO; -OMEP20CA4 PO; +STIO1AER IN; +TAGR80TA PO
[2019-04-10] MEDS ORDERED: ANOR1AER PO (09:45)
[2019-04-10 10:03] LABS: BASO % 0.4 % (0.0-1.0); EOS # 0.2 10^3/uL (0.0-0.5); EOS % 2.4 % (0.0-3.0); HEMATOCRIT 37.7 % (36.0-47.0); HEMOGLOBIN 12.3 g/dl (12.0-15.5); LYMPH # 1.3 10^3/uL (1.5-5.0); LYMPH % 13.8 % (24.0-44.0); MEAN CORPUSCULAR HEMOGLOBIN 30.4 pg (27.0-33.0); MEAN CORPUSCULAR HGB CONC 32.6 g/dl (32.0-36.5); MEAN CORPUSCULAR VOLUME 93.3 fl (80.0-96.0); MONO # 0.5 10^3/uL (0.0-0.8); MONO % 5.9 % (0.0-5.0); NEUTROPHILS % 77.2 % (36.0-66.0); PLATELET COUNT, AUTOMATED 192 10^3/uL (150-450); RED BLOOD COUNT 4.04 10^6/uL (4.00-5.40); WHITE BLOOD COUNT 9.1 10^3/uL (4.0-10.0)
--- NOTE | 2019-04-10 10:08 | REP ---
Clinical: Chest pain. Comparison: 02/04/2019. Findings: No change from prior examination. There is near complete opacification of the left hemithorax with ipsilateral mediastinal shift and findings suggesting sequelae from prior surgery. The right hemithorax is well-aerated and clear. Skeletal deformities of the left hemithorax related to surgery remains stable. Impression: Stable chest x-ray with stable left-sided findings. Electronically Signed by Isauro Maurer MD 04/10/2019 10:00 A
[2019-04-10 10:17] LABS: INR 0.97; PROTHROMBIN TIME 12.6 SECONDS (11.8-14.0)
[2019-04-10 10:32] LABS: ALBUMIN 3.8 GM/DL (3.2-5.2); ALT/SGPT 18 U/L (12-78); BILIRUBIN,DIRECT < 0.1 MG/DL (0.0-0.2); BILIRUBIN,TOTAL 0.3 MG/DL (0.2-1.0); CK-MB VALUE MASS < 1.0 NG/ML (<3.6); CPK CREATINE PHOSPHOKINASE 53 U/L (26-192); LIPASE 82 U/L (73-393); MB/CK RELATIVE INDEX 1.89 (< OR =4); TOTAL PROTEIN 7.9 GM/DL (6.4-8.2); TROPONIN I < 0.02 NG/ML (< 0.10)
[2019-04-10] MEDS ORDERED: ISOVUE-370 76% 100ML VIAL (Q9967) As Ordered ONE (11:12)
[2019-04-10] MEDS ORDERED: GI COCKTAIL 50ML BTL(HYOSCYAMINE/MAALOX/LIDOCAINE VISCOUS)(1:3:1) PO ONE (11:15)
[2019-04-10] MEDS ORDERED: ACETAMINOPHEN TAB 650MG DOSE (2X325MG) PO ONE (11:30)
--- NOTE | 2019-04-10 11:37 | REP ---
Clinical: Chest pain. Rule out pulmonary embolus. Technique: Axial contrast enhanced images from the thoracic inlet to the upper abdomen using pulmonary embolus technique including multiplanar re-formations and MIP reconstructions. 75 ml Isovue 370 intravenous contrast material administered without complication. Comparison: 01/30/2019. Findings: The patient is noted to be status post left lung resection with complete ipsilateral mediastinal shift into the left hemithorax. The right pulmonary arteries are well opacified and there is no evidence for pulmonary embolus. Thoracic aorta, heart and pericardium appear stable and within normal limits. The right hemithorax is well-aerated and without acute consolidation, effusion, or pneumothorax. A 1.8 cm density in the right apex is unchanged from prior examination. Impression: 1. No evidence for pulmonary embolus. 2. Status post left lung resection. 3. Stable opacity in the right apex Electronically Signed by Isauro Maurer MD 04/10/2019 11:29 A
[2019-04-10] MEDS ORDERED: PROT1TAB2 PO (12:28)
[2019-04-10 12:30] VITALS: BP 90/54
--- NOTE | 2019-04-10 15:31 | ECGEPIP ---
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
== END 2019-04-10 12:43 | disposition home or self-care (01) ==
LOC: M ED 09:17
DX: K20.9 Esophagitis, unspecified (principal); C34.90 Malignant neoplasm of unspecified part of unspecified bronchus or lung; R00.0 Tachycardia, unspecified; Z79.51 Long term (current) use of inhaled steroids; Z87.891 Personal history of nicotine dependence; Z88.0 Allergy status to penicillin; Z88.8 Allergy status to other drugs, medicaments and biological substances; Z90.2 Acquired absence of lung [part of]
CPT/HCPCS: 36415; 71045; 71275; 80047; 80076; 82550; 82553; 83690; 84484; 85025; 85610; 93005; 93041; 94760; 99285; Q9967

== ENCOUNTER → 2019-04-21 | Outpatient (CLI) | payer MEDICARE, OTHER ==
[~2019-04-21] MED LIST changes: +ANOR1AER PO; -OMEP-172 PO; +OMEP1CAP73 PO; +PROT1TAB2 PO
--- NOTE | 2019-04-21 21:28 | ECGEPIP ---
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
== END ==
LOC: M EKG 13:56
PROVIDERS: ATTEND Internal Medicine Medical Oncology
DX: C34.92 Malignant neoplasm of unspecified part of left bronchus or lung (principal)

== ENCOUNTER → 2019-04-30 | Outpatient (REF) | payer MEDICARE, OTHER ==
[2019-04-30 16:27] LABS: HEMATOCRIT 37.6 % (36.0-47.0); HEMOGLOBIN 11.5 g/dl (12.0-15.5); MEAN CORPUSCULAR HEMOGLOBIN 29.4 pg (27.0-33.0); MEAN CORPUSCULAR HGB CONC 30.6 g/dl (32.0-36.5); MEAN CORPUSCULAR VOLUME 96.2 fl (80.0-96.0); PLATELET COUNT, AUTOMATED 251 10^3/uL (150-450); RED BLOOD COUNT 3.91 10^6/uL (4.00-5.40); WHITE BLOOD COUNT 7.9 10^3/uL (4.0-10.0)
[2019-04-30 17:03] LABS: ALBUMIN 3.8 GM/DL (3.2-5.2); BILIRUBIN,TOTAL 0.2 MG/DL (0.2-1.0); CALCIUM LEVEL 9.1 MG/DL (8.5-10.1); CREATININE FOR GFR 1.24 MG/DL (0.55-1.30); FREE T4 0.74 NG/DL (0.76-1.46); GLOMERULAR FILTRATION RATE 47.5 (>51); THYROID STIMULATING HORMONE 12.2 uIU/ML (0.358-3.740); TOTAL PROTEIN 8.1 GM/DL (6.4-8.2)
== END ==
LOC: M SFHCADAM 13:54
PROVIDERS: ATTEND Physician Assistant
DX: C34.92 Malignant neoplasm of unspecified part of left bronchus or lung (principal); E04.9 Nontoxic goiter, unspecified; N18.3 Chronic kidney disease, stage 3 (moderate)
CPT/HCPCS: 80053; 84439; 84443; 85027; G0463

== ENCOUNTER → 2019-05-13 | Outpatient (CLI) | payer MEDICARE, OTHER ==
[~2019-05-13] MED LIST changes: +ISOVUE-370 76% 100ML VIAL (Q9967) As Ordered ONE
--- NOTE | 2019-05-13 08:49 | REPVR ---
PROCEDURE INFORMATION: Exam: CT Neck With Contrast Exam date and time: 05/13/2019 7:42 AM Age: 59 years old Clinical indication: Condition or disease; Other: Neck nodule; Additional info: R22.1 neck nodule TECHNIQUE: Imaging protocol: Computed tomography images of the neck with intravenous contrast. Radiation optimization: All CT scans at this facility use at least one of these dose optimization techniques: automated exposure control; mA and/or kV adjustment per patient size (includes targeted exams where dose is matched to clinical indication); or iterative reconstruction. Contrast material: ISOVUE 370; Contrast volume: 75 ml; Contrast route: IV; COMPARISON: CT NECK WITHOUT CONTRAST 08/22/2017 1:54 PM FINDINGS: Nasopharynx: Unremarkable. Oropharynx: Unremarkable. No significant tonsillar enlargement. Hypopharynx: Unremarkable Larynx: Unremarkable. Normal epiglottis. Retropharyngeal space: Unremarkable. Submandibular/Parotid glands: Normal. Glands are normal in size. Thyroid: Thyroid gland is prominent and heterogeneous without focal abnormality. Lymph nodes: There are small, scattered multilevel cervical lymph nodes. Trachea: Visualized trachea is unremarkable. Lungs: There are patchy airspace opacities within the right upper lobe present previously but increased in size. There are left pneumonectomy changes, with leftward shift of heart and mediastinal structures. Bones/joints: Unremarkable. No acute fracture. Soft tissues: Unremarkable. No significant soft tissue swelling. IMPRESSION: 1. No acute soft tissue abnormality. 2. Increased focal patchy opacities within the right upper lobe as compared to preceding examination. Electronically signed by: Anu Nieves On 05/13/2019 08:48:38 AM
== END ==
LOC: M RAD 07:23
PROVIDERS: ATTEND Physician Assistant
DX: R22.1 Localized swelling, mass and lump, neck (principal)
CPT/HCPCS: 70491; Q9967

== ENCOUNTER → 2019-07-07 | Outpatient (CLI) | payer MEDICARE, OTHER ==
[~2019-07-07] MED LIST changes: -ISOVUE-370 76% 100ML VIAL (Q9967) As Ordered ONE; +LEVO200T4 PO; +TREL1AER PO
[2019-07-07 11:14] LABS: FREE T4 1.86 NG/DL (0.76-1.46); THYROID STIMULATING HORMONE 0.008 uIU/ML (0.358-3.740)
== END ==
LOC: M LAB 09:54
PROVIDERS: ATTEND Physician Assistant
DX: E03.9 Hypothyroidism, unspecified (principal)

== ENCOUNTER → 2019-07-07 | Outpatient (CLI) | payer MEDICARE, OTHER ==
[~2019-07-07] MED LIST changes: +ISOVUE-370 76% 100ML VIAL (Q9967) As Ordered ONE
--- NOTE | 2019-07-07 11:13 | REP ---
CT BRAIN WITHOUT AND WITH IV CONTRAST: HISTORY: Dizziness. History of metastatic carcinoma of the lung. Comparison MRI study of the brain is from November 29, 2018. CT CONTRAST DOSE: 75 mL of intravenous Isovue and [address] FINDINGS: The digital preliminary lateral tip printer view is unremarkable. Bone window settings demonstrate an intact bony calvarium. On soft-tissue window settings, the lateral, third, and fourth ventricles are normal in size and position. Head-white differentiation pattern is normal above below the tentorium. There is no evidence of intracranial hemorrhage. No mass lesion is seen. No extra-axial fluid collection or midline shift is observed. Postcontrast images demonstrate enhancement in normal vascular structures. No abnormal contrast enhancement pattern is appreciated. IMPRESSION: There is no evidence of intracranial metastatic disease. Unremarkable CT study of the brain without and with IV contrast. Electronically Signed by Noble Mariee MD 07/07/2019 01:33 P
--- NOTE | 2019-07-07 15:21 | REP ---
HISTORY: History of non small cell lung carcinoma. COMPARISON: 12/10/2013 After the intravenous administration of 21.9 mCi of technetium 99m MDP a total body bone scan was obtained. There is uptake seen in the shoulders and spine much in the same fashion as that seen on the prior exam, but slightly increased in the spine particularly the lumbar facet joint region. There is no frankly abnormal focus of increased or decreased radionuclide accumulation in the imaged axial or appendicular skeleton, which is representing a significant change from the prior exam. IMPRESSION: Degenerative type uptake pattern as described above. There is no compelling scintigraphic evidence for metastatic disease. Electronically Signed by Mejia Jacome DO 07/07/2019 03:23 P
== END ==
LOC: M RAD 10:12
PROVIDERS: ATTEND Internal Medicine Medical Oncology
DX: M54.9 Dorsalgia, unspecified (principal); R42 Dizziness and giddiness; C34.90 Malignant neoplasm of unspecified part of unspecified bronchus or lung; Z79.899 Other long term (current) drug therapy; E03.9 Hypothyroidism, unspecified
CPT/HCPCS: 36415; 70470; 78306; 84439; 84443; A9503; Q9967

== ENCOUNTER → 2019-07-22 | Outpatient (CLI) | payer MEDICARE, OTHER ==
[~2019-07-22] MED LIST changes: +CYCL-707 PO; -CYCL10TA PO; -ISOVUE-370 76% 100ML VIAL (Q9967) As Ordered ONE
--- NOTE | 2019-07-22 11:14 | REP ---
REASON: Lung cancer followup. COMPARISON: Multiple, the latest 04/10/2019. Patient is status post left pneumonectomy. The mediastinum and pulmonary reynaldo are unchanged. There is complete left pneumonectomy with shift of the midline structures to the ipsilateral side of the pneumonectomy. The imaged upper abdomen and imaged osseous structures are unchanged. Evaluation of the lung krueger shows no significant change from the prior exam. There is a persistent spiculated nodule in the right lung apex measuring approximately 2.4 cm. This has gotten only slightly larger compared to the CT chest of 03/14/2018. There is compensatory hyper expansion of the right lung. There are no new parenchymal abnormalities. IMPRESSION: Essentially stable chest CT with findings as described above. Electronically Signed by Mejia Jacome DO 07/22/2019 11:15 A
== END ==
LOC: M RAD 10:41
PROVIDERS: ATTEND Internal Medicine Pulmonary Disease
DX: Z90.2 Acquired absence of lung [part of] (principal); C77.1 Secondary and unspecified malignant neoplasm of intrathoracic lymph nodes

== ENCOUNTER → 2019-08-12 | Outpatient (REF) | payer MEDICARE, OTHER ==
[2019-08-12 18:34] LABS: BASO # 0.1 10^3/uL (0.0-0.2); BASO % 0.7 % (0.0-1.0); EOS # 0.2 10^3/uL (0.0-0.5); EOS % 2.2 % (0.0-3.0); HEMATOCRIT 36.6 % (36.0-47.0); HEMOGLOBIN 11.7 g/dl (12.0-15.5); LYMPH # 2.5 10^3/uL (1.5-5.0); MEAN CORPUSCULAR HEMOGLOBIN 29.3 pg (27.0-33.0); MEAN CORPUSCULAR VOLUME 91.5 fl (80.0-96.0); MONO # 0.7 10^3/uL (0.0-0.8); MONO % 8.4 % (0.0-5.0); NEUTROPHILS # 5.3 10^3/uL (1.5-8.5); NEUTROPHILS % 60.4 % (36.0-66.0); PLATELET COUNT, AUTOMATED 278 10^3/uL (150-450); WHITE BLOOD COUNT 8.8 10^3/uL (4.0-10.0)
[2019-08-12 19:04] LABS: ALBUMIN 3.4 GM/DL (3.2-5.2); ALT/SGPT 48 U/L (12-78); BILIRUBIN,TOTAL 0.2 MG/DL (0.2-1.0); BLOOD UREA NITROGEN 11 MG/DL (7-18); CALCIUM LEVEL 9.4 MG/DL (8.5-10.1); CARBON DIOXIDE LEVEL 26 MEQ/L (21-32); CHLORIDE LEVEL 104 MEQ/L (98-107); CREATININE FOR GFR 1.11 MG/DL (0.55-1.30); FERRITIN 234 NG/ML (8-252); FOLATE 6.1 NG/ML; FREE T4 1.99 NG/DL (0.76-1.46); GLOMERULAR FILTRATION RATE 53.9 (>51); GLUCOSE, FASTING 80 MG/DL (70-100); IRON (FE) 36 UG/DL (50-170); PERCENT SATURATION 16.7 % (13.2-45.0); POTASSIUM SERUM 4.9 MEQ/L (3.5-5.1); SODIUM LEVEL 138 MEQ/L (136-145); THYROID STIMULATING HORMONE < 0.005 uIU/ML (0.358-3.740); TOTAL IRON BINDING CAPACITY 216 UG/DL (250-450); TOTAL PROTEIN 7.7 GM/DL (6.4-8.2); VITAMIN B12 LEVEL 256 PG/ML
== END ==
LOC: M SFHCADAM 16:23
PROVIDERS: ATTEND Physician Assistant
DX: M54.5 Low back pain (principal); R06.00 Dyspnea, unspecified; R53.82 Chronic fatigue, unspecified; E03.9 Hypothyroidism, unspecified; M25.551 Pain in right hip

== ENCOUNTER → 2019-08-12 | Outpatient (CLI) | payer MEDICARE, OTHER ==
--- NOTE | 2019-08-12 17:54 | REP ---
RIGHT FEMUR: FOUR VIEWS. HISTORY: Acute right low back pain with sciatica. Acute pain right hip. There is apparently a history of lung carcinoma. FINDINGS: AP and lateral views of the distal femur and AP and frog-leg views of the proximal femur show no bony destructive lesion. No fracture or erosive changes seen. There are surgical clips in the inguinal soft tissues on the right. Overall mineralization is felt to be normal. IMPRESSION: Negative radiographs of the right femur. Electronically Signed by Noble Mariee MD 08/12/2019 05:57 P
--- NOTE | 2019-08-12 17:55 | REP ---
PELVIS: SINGLE VIEW. HISTORY: Acute right-sided low back pain and sciatica. FINDINGS: AP view of the pelvis shows an intact bony pelvic ring. No bony destructive lesion. Sacrum and SI joints are intact. There is a benign bone island in the upper sacrum just to the right of midline, unchanged from CT study dated December 19, 2015. Symphysis pubis is normally aligned. Hip joint spaces are preserved. Femoral heads are smooth and rounded. There are surgical clips in the right inguinal soft tissues. IMPRESSION: No acute bony abnormality. Electronically Signed by Noble Mariee MD 08/12/2019 05:57 P
--- NOTE | 2019-08-12 17:57 | REP ---
LUMBAR SPINE SERIES: FIVE VIEWS. HISTORY: Acute right-sided back pain and sciatica. Comparison lumbar spine radiographs are from April 11, 2017. FINDINGS: There are clips in right upper quadrant of the abdomen. Lumbar vertebral body heights are preserved. There is degenerative disc disease at L4-5 which appears more prominent, particularly along the right side when compared with the prior study. On the right side, there is sclerosis and progressive disc space narrowing at L4-5. Endplates are intact. Some vascular calcification is noted. There is a bone island in the upper sacrum, unchanged. No bony destructive lesion is seen. Psoas margins are symmetric. Sacrum and SI joints appear intact. IMPRESSION: Degenerative disc disease most pronounced at L4-5. There is increased sclerosis and progressive disc narrowing at the L4-5 level on the right side. Electronically Signed by Noble Mariee MD 08/12/2019 05:59 P
== END ==
LOC: M ADAMS 16:28
PROVIDERS: ATTEND Physician Assistant
DX: M51.36 Other intervertebral disc degeneration, lumbar region (principal); M54.5 Low back pain; M25.551 Pain in right hip; R06.00 Dyspnea, unspecified; R53.82 Chronic fatigue, unspecified; E03.9 Hypothyroidism, unspecified

== ENCOUNTER → 2019-08-13 | Outpatient (CLI) | payer MEDICARE, OTHER ==
[~2019-08-13] MED LIST changes: +GASTROGRAFIN SOLUTION 30ML (Q9963) As Ordered ONE; +ISOVUE-370 76% 100ML VIAL As Ordered ONE
--- NOTE | 2019-08-13 14:44 | REP ---
CT ABDOMEN AND PELVIS WITH ORAL AND IV CONTRAST, CT ABDOMEN WITHOUT IV CONTRAST: CT abdomen and pelvis performed following the intravenous administration of 100 mL of Isovue 370 as well as oral contrast administration. Pre-IV contrast images are obtained through the abdomen. Sagittal and coronal reconstruction images are performed. In the visualized lower thorax, there is evidence of prior left pneumonectomy with shift of the heart into the left side of the thorax. There are a few small cysts of the liver with no suspicious nodule. The patient has had a prior cholecystectomy. There is no evidence of significant biliary dilatation. The spleen is normal in size with no intrinsic abnormality. The adrenal glands are normal. The pancreas demonstrates no mass or pancreatic duct dilatation. The kidneys are normal. There is no hydronephrosis. There is mild atherosclerotic calcification of the abdominal aorta without aneurysm. There is no adenopathy. There is no free air or free fluid. There is no bowel wall thickening. No pelvic mass is seen. The urinary bladder is unremarkable. No anterior abdominal wall defect is seen. There is no inguinal hernia. There are mild degenerative changes of the spine. The patient has had a prior hysterectomy. IMPRESSION: No acute abnormality is detected. Small cysts in the liver. Postsurgical findings as discussed above. Electronically Signed by Son Head MD 08/13/2019 03:41 P
--- NOTE | 2019-08-13 15:42 | REP ---
MRI LUMBAR SPINE WITHOUT CONTRAST: HISTORY: Acute right-sided back pain without sciatica. Comparison CT study is from this date. Comparison lumbar spine radiographs are from August 12, 2019. FINDINGS: There is a horizontally oriented healing fracture line along the inferior endplate of the L3 vertebral body consistent with an acute fracture. There is some heterogeneous signal intensity in the L3-4 disc and the inferior endplate is disrupted posteriorly. The finding is consistent with an acute Schmorl's node or intravertebral disc herniation. There is diffuse bulging of the posterior margin of this L3-4 disc, which indents the ventral aspect of the thecal sac. There is mild left foraminal disc bulging but no nerve root compression is seen. There is mild ligamentum flavum and facet hypertrophy. There is low T1 and high T2 signal intensity marrow edema in the inferior aspect of the L3 vertebral body in association with the fracture line. There are some reactive marrow changes on either side of the degenerated L4-5 disc, particularly on the right side where the radiograph shows sclerosis. There is disc space narrowing at L4-5. No disc protrusion is seen. No spinal stenosis is noted. There is foraminal disc bulging bilaterally and neural foraminal narrowing is noted on the right at L4-5. At L5-S1, there is mild facet hypertrophy bilaterally. At L2-3, there is mild disc bulging. There is a benign hemangioma in the L2 vertebral body. Tip of the conus medullaris is normal in position and appearance at T12-L1. IMPRESSION: Healing fracture with collapse of the inferior endplate and intravertebral disc protrusion at L3 with surrounding marrow edema. Degenerative spondylosis changes. No other acute bony abnormality. Diffuse disc bulging L3-4 and L2-3. Neural foraminal narrowing at L4-5 on the right. Electronically Signed by Noble Mariee MD 08/13/2019 04:15 P
== END ==
LOC: M RAD 11:16
PROVIDERS: ATTEND Physician Assistant
DX: M54.5 Low back pain (principal); M25.551 Pain in right hip
CPT/HCPCS: 72148; 74178; Q9963; Q9967

== ENCOUNTER → 2019-08-18 | Outpatient (POV) | payer MEDICARE, OTHER ==
[~2019-08-18] MED LIST changes: -GASTROGRAFIN SOLUTION 30ML (Q9963) As Ordered ONE; -ISOVUE-370 76% 100ML VIAL As Ordered ONE
--- NOTE | 2019-08-19 10:04 | IRCOV ---
[facility] IR Consult Office Visit IR Consult Office Visit DATE: August 18, 2019 REASON FOR CONSULTATION/CHIEF COMPLAINT: L 3 fracture HISTORY OF PRESENT ILLNESS: 59 year old female with history of lung cancer presents with back pain status post trauma. Patient describes missing a step off her porch a week ago and dropping to the ground, as a result she suffered intense pain in her lower back. No syncope. Since then, she is in agonizing pain all the time and taking percocet as needed. She describes difficulty moving around, pain with activities of daily living and pain trying to get in an out of bed. She denies numbness, tingling or weakness in the legs and denies bowel or bladder incontinence. She is able to walk. No prior back trauma. She is status post left lung removal for lung cancer and states the cancer has spread to her lymph nodes and right lung for which she is scheduled to get chemotherapy. She does not use home oxygen but takes rescue inhalers. She is able to walk around the house without extreme shortness of breath. Denies chest pain, orthopnea or PND. No sleep apnea. No fevers or chills. ALLERGIES: Please see below. HOME MEDICATIONS: Please see below. PAST MEDICAL HISTORY: PTX lung cancer goiter osteopenia dexa 2008 gerd depression fibromyalgia OA vit D deficiency Low back pain, prior epidural steroid injection folate deficiency CKD PAST SURGICAL HISTORY: left lung pneumonectomy, pulmonary artery and stump repair hysterectomy BSO appendectomy r carpal tunnel release cholecystectomy LN Bx FAMILY HISTORY: non contributory SOCIAL HISTORY: Former smoker quit 2015. Denies alcohol or drugs REVIEW OF SYSTEMS: Otherwise negative PHYSICAL EXAMINATION: no video LABORATORY DATA: 08/12/19 Hgb 11.7 HCT 36.6 WBC 8.8 PLT 278 Na 138 K 4.9 BUN 11 Creatinine 1.11 GFR 53.9 04/10/19 INR 0.97 Imaging: I personally reviewed the MRI L spine from 08/13/19. There is an acute L 3 vertebral body compression fracture, dark on T1 with bright signal on STIR indicating edema and acuity. No bony retropulsion. ASSESSMENT/PLAN: 59 female with osteopenia, presents with acute L3 fracture and pain. She is s good candidate for L3 kyphoplasty. Given her history of metastatic lung cancer, it would be reasonable to get a biopsy at the same session and through the same trocar. This will be done under moderate sedation. We discussed the risks and benefits of the procedure and patient would like to proceed. We have scheduled the patient for the procedure. I spent 30 minutes in consultation with the patient. Thank you for this referral. CC Janna Calix Allergies Coded Allergies: Gadolinium-Containing Contrast Medi (Verified Allergy, Severe, ANAPHYLAXIS, 12/30/18) sumatriptan (Verified Allergy, Severe, THROAT CLOSING, 12/30/18) Penicillins (Verified Allergy, Unknown, 12/30/18) pregabalin (Verified Adverse Reaction, Intermediate, stomach pains, 02/03/19) duloxetine (Verified Adverse Reaction, Mild, UPSET STOMACH, 12/30/18) Home Medications Scheduled Amitriptyline HCl (Amitriptyline HCl), 100 MG PO QHS, (Reported) Fluticasone/Umeclidin/Vilanter (Trelegy Ellipta 100-62.5-25), 1 PUFF PO DAILY, (Reported) Gabapentin (Gabapentin), 300 MG PO BID, (Reported) Levothyroxine Sodium (Levothyroxine Sodium), 1 TAB PO DAILY, (Reported) Osimertinib Mesylate (Tagrisso), 1 TAB PO DAILY, (Reported) Pantoprazole Sodium (Protonix), 40 MG PO DAILY Scheduled PRN Albuterol Sulfate (Ventolin Hfa), 2 PUFF INH Q4-6HP PRN for wheezing, (Reported) Rizatriptan Benzoate (Rizatriptan), 10 MG PO PRN PRN for MIGRAINE, (Reported) MAKAYLA BLANTON MD August 19, 2019 10:04
== END ==
LOC: M TMIRPOV 09:18
PROVIDERS: ATTEND Radiology Diagnostic Radiology
DX: S32.030A Wedge compression fracture of third lumbar vertebra, initial encounter for closed fracture (principal); M85.80 Other specified disorders of bone density and structure, unspecified site; C34.91 Malignant neoplasm of unspecified part of right bronchus or lung; C77.1 Secondary and unspecified malignant neoplasm of intrathoracic lymph nodes; K21.9 Gastro-esophageal reflux disease without esophagitis; F32.9 Major depressive disorder, single episode, unspecified; M79.7 Fibromyalgia; M19.90 Unspecified osteoarthritis, unspecified site; E55.9 Vitamin D deficiency, unspecified; N18.9 Chronic kidney disease, unspecified; W10.8XXA Fall (on) (from) other stairs and steps, initial encounter; Y92.008 Other place in unspecified non-institutional (private) residence as the place of occurrence of the external cause; Z79.899 Other long term (current) drug therapy; Z87.891 Personal history of nicotine dependence; Z88.0 Allergy status to penicillin; Z88.8 Allergy status to other drugs, medicaments and biological substances; Z91.041 Radiographic dye allergy status

== ENCOUNTER → 2019-08-20 | Outpatient (CLI) | payer MEDICARE, OTHER ==
[~2019-08-20] MED LIST changes: +ISOVUE-300 61% 50ML VIAL As Ordered ONE; +LIDOCAINE 1% MDV 20ML VIAL As Ordered ONE; +MEPERIDINE INJ 25 MG/ML VIAL (J2175) As Ordered ONE; +MIDAZOLAM INJ 2MG/2ML VIAL (J2250 PER 1MG) As Ordered ONE; +PROMETHAZINE INJ 25 MG/ML VIAL (J2550) As Ordered ONE; +VANCOMYCIN 500MG/10ML VIAL As Ordered ONE; +diphenhydrAMINE 50MG/ML VIAL (J1200) As Ordered ONE; +fentaNYL 100 MCG/2 ML INJECTION (J3010) As Ordered ONE
--- NOTE | 2019-08-20 13:55 | IRHP ---
[facility] IR Pre-Procedure H & P General Date of Service: August 20, 2019 Procedure: Same Day Surgery Interval History and Physical I have seen the patient and reviewed last H & P performed within 30 days. There is no significant interval change. History of Present Illness Chief Complaint The patient is a 59-year-old female admitted with a reason for visit of Compression Fx. PRE-PROCEDURE DIAGNOSIS: compression fracture HEART: normal rate. LUNGS: normal breathing at rest. ASA Classification ASA Classification: II-Mild systemic disease Mallampati Score: II NPO: Yes Problems with prior sedation: No Obstructive Sleep Apnea: No Plan moderate sedation Allergies Coded Allergies: Gadolinium-Containing Contrast Medi (Verified Allergy, Severe, ANAPHYLAXIS, 12/30/18) sumatriptan (Verified Allergy, Severe, THROAT CLOSING, 12/30/18) Penicillins (Verified Allergy, Unknown, 12/30/18) pregabalin (Verified Adverse Reaction, Intermediate, stomach pains, 02/03/19) duloxetine (Verified Adverse Reaction, Mild, UPSET STOMACH, 12/30/18) Home Medications Scheduled Amitriptyline HCl (Amitriptyline HCl), 100 MG PO QHS, (Reported) Fluticasone/Umeclidin/Vilanter (Trelegy Ellipta 100-62.5-25), 1 PUFF PO DAILY, (Reported) Gabapentin (Gabapentin), 300 MG PO BID, (Reported) Levothyroxine Sodium (Levothyroxine Sodium), 1 TAB PO DAILY, (Reported) Osimertinib Mesylate (Tagrisso), 1 TAB PO DAILY, (Reported) Scheduled PRN Albuterol Sulfate (Ventolin Hfa), 2 PUFF INH Q4-6HP PRN for wheezing, (Reported) Rizatriptan Benzoate (Rizatriptan), 10 MG PO PRN PRN for MIGRAINE, (Reported) Discontinued Medications Pantoprazole Sodium (Protonix), 40 MG PO DAILY Discontinued Reason: Pt states not taking VS, I&O, 24H, Fishbone Vital Signs/I&O Vital Signs Date Time Temp Pulse Resp B/P (MAP) Pulse Ox O2 Delivery O2 Flow Rate FiO2 08/20/19 12:17 98.2 89 16 97 Room Air MAKAYLA BLANTON MD August 20, 2019 13:55
--- NOTE | 2019-08-20 16:10 | POST-OPPD ---
Postoperative Procedure Note Date Of Procedure: August 20, 2019 Time Of Procedure: 16:08 PREOPERATIVE DIAGNOSIS: L3 compression fracture POSTOPERATIVE DIAGNOSIS: same FINDINGS: same PROCEDURE: L3 kyphoplasty and biopsy SURGEON: addis ANESTHESIA: mod sed SPECIMENS: in formalin ESTIMATED BLOOD LOSS: < 5 ml COMPLICATIONS: none POSTOPERATIVE CONDITION: stable MAKAYLA BLANTON MD August 20, 2019 16:09
[2019-08-20 17:49] VITALS: BP 128/59
--- NOTE | 2019-08-24 13:31 | REP ---
IR Kyphoplasty. IR Bone biopsy. IR Moderate sedation. Clinical information. Patient with acute L3 compression fracture. Pain. History of lung cancer. Physician: Dr. Zamudio. Procedure: The patient was advised of the benefits, risks and alternatives of the procedure and informed consent was obtained. The time-out was performed with verification of the patient's name, MRN, site of procedure and type of procedure to be performed. The patient was positioned in the prone position on the angiographic table. The site was prepped and draped in the usual sterile fashion. Moderate sedation was performed by the physician including the presence of an independent trained observer who assisted in monitoring the patient's level of consciousness and physiologic status. Following the administration of Fentanyl and Versed, the physician spent 60 minutes of continuous face to face time with the patient. A shirt sewer radiograph reveals a compression fracture at L3. The anticipated puncture site was visualized under fluoroscopy guidance. The skin and subcutaneous tissues were anesthetized using lidocaine. Under fluoroscopy guidance, a bi pedicular approach was selected. A small skin incision was made and under fluoroscopy guidance, an osteoplasty needle was introduced through each pedicle into the L3 vertebral body. The manual drill was inserted through the trocar under fluoroscopy guidance and used to drill to the anterior third of the vertebral body. The drill and an additional bone biopsy needle was inserted through each trocar, under fluoroscopy guidance and used to obtain samples of the L3 vertebral body. Two kyphoplasty balloons were inserted through each trocar under fluoroscopy guidance, into the L3 vertebral body. Both balloons were inflated under fluoroscopy guidance, maintained, deflated and removed. Approximately 4 ml of polymethyl methacrylate was inserted through the trocars into the vertebral body, under fluoroscopy guidance. A follow-up radiograph demonstrates no epidural or paravertebral extravasation of cement. The inner stylet of the trocars were replaced and the trocars were removed. Pressure held, hemostasis achieved and a sterile dressing was applied to the site. The patient tolerated the procedure well and was returned to [facility] in stable condition. EPL: Less than 5 ml. Complications: None. Conclusion: 1. Patient with symptomatic compression fracture of L3. 2. Successful fluoroscopy guided biopsy and Kyphoplasty of L3. 3. . Patient to follow up in IR clinic in 2 weeks. Thank you this referral. Sharla Calix Electronically Signed by Kaleigh Zamudio MD 08/24/2019 01:30 P
== END ==
LOC: M IRPRO 11:36
PROVIDERS: ATTEND Radiology Diagnostic Radiology
DX: S32.030A Wedge compression fracture of third lumbar vertebra, initial encounter for closed fracture (principal); X58.XXXA Exposure to other specified factors, initial encounter; Y93.9 Activity, unspecified; Y92.9 Unspecified place or not applicable; Y99.9 Unspecified external cause status; Z88.0 Allergy status to penicillin; Z88.8 Allergy status to other drugs, medicaments and biological substances; Z91.041 Radiographic dye allergy status; Z79.899 Other long term (current) drug therapy
CPT/HCPCS: 22511; 88305; 99152; 99153; C1713; J1200; J2175; J2250; J3010; J3370; Q9967

== ENCOUNTER → 2019-08-26 | Outpatient (REF) | payer MEDICARE, OTHER ==
[~2019-08-26] MED LIST changes: -ISOVUE-300 61% 50ML VIAL As Ordered ONE; -LIDOCAINE 1% MDV 20ML VIAL As Ordered ONE; -MEPERIDINE INJ 25 MG/ML VIAL (J2175) As Ordered ONE; -MIDAZOLAM INJ 2MG/2ML VIAL (J2250 PER 1MG) As Ordered ONE; -PROMETHAZINE INJ 25 MG/ML VIAL (J2550) As Ordered ONE; -VANCOMYCIN 500MG/10ML VIAL As Ordered ONE; -diphenhydrAMINE 50MG/ML VIAL (J1200) As Ordered ONE; -fentaNYL 100 MCG/2 ML INJECTION (J3010) As Ordered ONE
[2019-08-26 13:27] LABS: FREE T4 0.6 NG/DL (0.76-1.46); THYROID STIMULATING HORMONE 0.329 uIU/ML (0.358-3.740)
== END ==
LOC: M SFHCADAM 09:32
PROVIDERS: ATTEND Physician Assistant
DX: E03.9 Hypothyroidism, unspecified (principal)
CPT/HCPCS: 84439; 84443; G0463

== ENCOUNTER → 2019-09-01 | Outpatient (POV) | payer MEDICARE, OTHER ==
--- NOTE | 2019-09-02 09:43 | IRPN ---
[facility] IR Progress Note IR Progress Note DATE: September 01, 2019 Consent was given by patient for this telephone call. Length of call was 5 minutes. FOLLOW-UP: Status post L3 Kyphoplasty. Patient states she is active and moving around. She reports pain around the left hip related to recent repeat loss of balance but the pain on the back and to the right of the fractured area is gone. Not needing percocet regulary. She is active in the garden. ON EXAMINATION: No video on patient side Pathology: I reviewed the bone biopsy results with the patient. IMPRESSION: Doing well status post L3 kyphoplasty. Given no malignant disease on bone biopsy, fracture likely osteoporosis related and patient should be on calcium vitamin D supplements and osteoporosis therapy if appropriate. Thank you for this referral Magalie Calix Allergies Coded Allergies: Gadolinium-Containing Contrast Medi (Verified Allergy, Severe, ANAPHYLAXIS, 12/30/18) sumatriptan (Verified Allergy, Severe, THROAT CLOSING, 12/30/18) Penicillins (Verified Allergy, Unknown, 12/30/18) pregabalin (Verified Adverse Reaction, Intermediate, stomach pains, 02/03/19) duloxetine (Verified Adverse Reaction, Mild, UPSET STOMACH, 12/30/18) MAKAYLA BLANTON MD September 02, 2019 09:43
== END ==
LOC: M TMIRPOV 11:15
PROVIDERS: ATTEND Radiology Diagnostic Radiology
DX: Z47.89 Encounter for other orthopedic aftercare (principal)

== ENCOUNTER → 2019-09-04 | Outpatient (CLI) | payer MEDICARE, OTHER ==
--- NOTE | 2019-09-05 08:07 | REP ---
PELVIS: AP view of the pelvis is performed. No fracture or dislocation is seen. There are metallic clips overlying the right inguinal region. There is mild sclerosis along the sacroiliac joints inferiorly bilaterally. Hip joints appear normal. IMPRESSION: Mild narrowing and sclerosis at the bilateral sacroiliac joints inferiorly. Electronically Signed by Son Head MD 09/05/2019 09:31 P
--- NOTE | 2019-09-05 08:08 | REP ---
LEFT HIP, TWO VIEWS: There is no evidence of an acute fracture, dislocation or intrinsic bone disease. No significant arthritic changes seen. IMPRESSION: No fracture or dislocation. Electronically Signed by Son Head MD 09/05/2019 09:31 P
== END ==
LOC: M ADAMS 13:56
PROVIDERS: ATTEND Physician Assistant
DX: M25.552 Pain in left hip (principal)
CPT/HCPCS: 72170; 73502; G0463

== ENCOUNTER 2019-09-22 11:31 | Outpatient (RCR) | payer MEDICARE, OTHER ==
[2019-10-12] MEDS ORDERED: SYNT150T PO (13:11)
[2019-12-22] MEDS ORDERED: HYDR-3713 PO (12:30)
[2019-12-22] MEDS ORDERED: CALC20SPR (12:33)
[2019-12-22] MEDS ORDERED: PERC5TAB12 PO (12:33)
[2019-12-22] MEDS ORDERED: ALEN70TA74 PO (12:33)
[2020-01-26] MEDS ORDERED: VENTAER INH (10:28)
[2020-02-08] MEDS ORDERED: TAGR80TA PO (13:01)
== END 2019-10-06 | disposition home or self-care (01) ==
LOC: M PT 11:31
PROVIDERS: ATTEND Otolaryngology
DX: M54.2 Cervicalgia (principal)

== ENCOUNTER → 2019-10-24 | Outpatient (CLI) | payer MEDICARE, OTHER ==
[~2019-10-24] MED LIST changes: +ALEN70TA74 PO; +CALC20SPR; +HYDR-3713 PO; +SYNT137T7 PO; +SYNT150T PO
[2019-10-24 18:19] LABS: BASO # 0.1 10^3/uL (0.0-0.2); BASO % 0.5 % (0.0-1.0); EOS # 0.2 10^3/uL (0.0-0.5); EOS % 1.6 % (0.0-3.0); HEMATOCRIT 37.4 % (36.0-47.0); HEMOGLOBIN 11.9 g/dl (12.0-15.5); LYMPH % 18.4 % (24.0-44.0); MEAN CORPUSCULAR HEMOGLOBIN 29.8 pg (27.0-33.0); MEAN CORPUSCULAR HGB CONC 31.8 g/dl (32.0-36.5); MEAN CORPUSCULAR VOLUME 93.5 fl (80.0-96.0); MONO # 0.7 10^3/uL (0.0-0.8); MONO % 6.3 % (0.0-5.0); NEUTROPHILS # 7.9 10^3/uL (1.5-8.5); PLATELET COUNT, AUTOMATED 238 10^3/uL (150-450); WHITE BLOOD COUNT 10.8 10^3/uL (4.0-10.0)
[2019-10-24 18:31] LABS: ALBUMIN 3.6 GM/DL (3.2-5.2); BILIRUBIN,TOTAL 0.2 MG/DL (0.2-1.0); CALCIUM LEVEL 9.3 MG/DL (8.5-10.1); CREATININE FOR GFR 1.35 MG/DL (0.55-1.30); POTASSIUM SERUM 5.2 MEQ/L (3.5-5.1); TOTAL PROTEIN 7.6 GM/DL (6.4-8.2)
== END ==
LOC: M WUC 14:04
PROVIDERS: ATTEND Physician Assistant
DX: R10.32 Left lower quadrant pain (principal)

== ENCOUNTER → 2019-10-28 | Outpatient (REF) | payer MEDICARE, OTHER ==
[~2019-10-28] MED LIST changes: -ALEN70TA74 PO; -CALC20SPR; -HYDR-3713 PO; -SYNT137T7 PO
[2019-10-28 13:08] LABS: BASO % 0.5 % (0.0-1.0); EOS # 0.2 10^3/uL (0.0-0.5); EOS % 2.4 % (0.0-3.0); HEMATOCRIT 36.3 % (36.0-47.0); HEMOGLOBIN 11.7 g/dl (12.0-15.5); LYMPH % 26.5 % (24.0-44.0); MEAN CORPUSCULAR HEMOGLOBIN 30.1 pg (27.0-33.0); MEAN CORPUSCULAR HGB CONC 32.2 g/dl (32.0-36.5); MEAN CORPUSCULAR VOLUME 93.3 fl (80.0-96.0); MONO # 0.6 10^3/uL (0.0-0.8); MONO % 7.4 % (0.0-5.0); NEUTROPHILS # 4.7 10^3/uL (1.5-8.5); NEUTROPHILS % 62.9 % (36.0-66.0); PLATELET COUNT, AUTOMATED 269 10^3/uL (150-450); RED BLOOD COUNT 3.89 10^6/uL (4.00-5.40); WHITE BLOOD COUNT 7.5 10^3/uL (4.0-10.0)
[2019-10-28 13:54] LABS: C REACTIVE PROTEIN QUANTITATIV 1.98 MG/DL (0.00-0.30); FREE T4 1.72 NG/DL (0.76-1.46); THYROID STIMULATING HORMONE 0.009 uIU/ML (0.358-3.740)
[2019-10-28 14:14] LABS: ERYTHROCYTE SEDIMENTATION RATE 54 mm/hr (0-30)
[2019-10-29 17:07] LABS: FREE KAPPA LIGHT CHAINS SERUM 32.1 mg/L (3.3-19.4); FREE LAMBDA LIGHT CHAINS SERUM 25.8 mg/L (5.7-26.3); KAPPA/LAMBDA RATIO SERUM 1.24 (0.26-1.65)
== END ==
LOC: M SFHCADAM 08:03
PROVIDERS: ATTEND Physician Assistant
DX: M54.41 Lumbago with sciatica, right side (principal); M25.552 Pain in left hip; Z79.899 Other long term (current) drug therapy

== ENCOUNTER → 2019-10-28 | Outpatient (CLI) | payer MEDICARE, OTHER ==
--- NOTE | 2019-10-28 10:24 | REP ---
Clinical: Left-sided pain. Technique: AP, lateral, bilateral oblique coned-down views of the lumbosacral spine. Comparison: 08/12/2019. Findings: The patient appears to be status post vertebroplasty at the L3 level. Underlying generalized osteopenia and moderate/early advanced degenerative changes are again noted. Findings include endplate sclerosis and disc space narrowing primarily involving the L4-5 and L5-S1 levels. Alignment and lordosis maintained. No obvious spondylolysis or spondylolisthesis. Impression: 1. Evidence for prior vertebroplasty at L3 with minimal loss of vertebral body height as compared to 08/12/2019. 2. Generalized osteopenia along with relatively stable early advanced degenerative changes at the L4-5 and L5-S1 levels. Electronically Signed by Isauro Maurer MD 10/28/2019 10:16 A
== END ==
LOC: M ADAMS 08:17
PROVIDERS: ATTEND Physician Assistant
DX: M51.36 Other intervertebral disc degeneration, lumbar region (principal); M51.37 Other intervertebral disc degeneration, lumbosacral region; M54.41 Lumbago with sciatica, right side; M25.552 Pain in left hip

== ENCOUNTER → 2019-12-03 | Outpatient (REF) | payer MEDICARE, OTHER ==
[~2019-12-03] MED LIST changes: +ALEN70TA74 PO; +CALC20SPR; +HYDR-3713 PO; +SYNT137T7 PO
[2019-12-03 15:54] LABS: ALBUMIN 3.9 GM/DL (3.2-5.2); ALT/SGPT 12 U/L (12-78); BILIRUBIN,TOTAL 0.4 MG/DL (0.2-1.0); BLOOD UREA NITROGEN 10 MG/DL (7-18); CALCIUM LEVEL 9.4 MG/DL (8.5-10.1); CARBON DIOXIDE LEVEL 29 MEQ/L (21-32); CHLORIDE LEVEL 107 MEQ/L (98-107); CREATININE FOR GFR 1.33 MG/DL (0.55-1.30); FREE T4 0.88 NG/DL (0.76-1.46); GLOMERULAR FILTRATION RATE 43.8 (>51); GLUCOSE, FASTING 79 MG/DL (70-100); SODIUM LEVEL 140 MEQ/L (136-145); TOTAL PROTEIN 7.9 GM/DL (6.4-8.2)
[2019-12-04 19:07] LABS: FREE KAPPA LIGHT CHAINS SERUM 34.8 mg/L (3.3-19.4); FREE LAMBDA LIGHT CHAINS SERUM 28.5 mg/L (5.7-26.3); KAPPA/LAMBDA RATIO SERUM 1.22 (0.26-1.65)
[2019-12-08 13:48] LABS: ALBUMIN 4.33 GM/DL (3.29-5.55); ALBUMIN % 54.8 % (55.8-66.1); ALPHA-1-GLOBULIN % 4.5 % (2.9-4.9); ALPHA-1-GLOBULINS 0.36 GM/DL (0.17-0.41); ALPHA-2-GLOBULINS 0.88 GM/DL (0.42-0.99); ALPHA-2-GLOBULINS % 11.1 % (7.1-11.8); BETA-1-GLOBULINS % 5.1 % (4.7-7.2); BETA-2-GLOBULINS % 5.1 % (3.2-6.5); GAMMA GLOBULIN % 19.4 % (11.1-18.8); GAMMA GLOBULINS 1.53 GM/DL (0.65-1.58)
== END ==
LOC: M LABDRWAD 10:50
PROVIDERS: ATTEND Physician Assistant
DX: E03.8 Other specified hypothyroidism (principal); M25.559 Pain in unspecified hip
CPT/HCPCS: 36415; 80053; 83883; 84165; 84439; 84443; 85652; G0463

== ENCOUNTER → 2019-12-22 | Outpatient (CLI) | payer MEDICARE, OTHER ==
--- NOTE | 2019-12-22 13:23 | RADONC.CN ---
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 She has a synchronous primary [id number] stage I NSCLC of the remaining RUL and is seen today for consideration of SBRT to this lesion. 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 She received adjuvant chemotherapy. 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 In 2018 she suffered recurrence in mediastinal lymph nodes, PET-CT on 01/07/19 showing avidity in the left hilar stump, precarinal and paratracheal nodes. Biop sy on 02/04/19 showing EGFR+ adenocarcinoma as before. She was started on Tagrisso, initially complicated by mucositis, however with reduced dose she has been able to tolerate Tagrisso and the nodes in the chest have responded, as noted on CT on 07/22/19 and 11/09/19. At the time of initial diagnosis in 2014 she had a ~1 cm RUL apical nodule concerning for synchronous primary NSCLC, this lesion has not responded to systemic therapy, including adjuvant chemotherapy after pneumonectomy or Tagrisso in the setting of the virgie recurrence. In fact, it has grown steadily on serial CT scans exhibiting a lepidic pattern consistent with a low grade adenocarcinoma (FKA bronchioalveolar carcinoma). It now measures 2.6 cm on most recent CT chest from 11/09/19. She is seen today for consideration of SBRT to address this synchronous untreated primary NSCLC. Interval History Mirian has occasional pain in the left chest secondary to her prior surgery. She has no significant SOB at this time. She is tolerating Tagrisso 40 mg daily. The full dose was causing her mucositis and making swallowing very difficult. She has poor appetite but stable weight. She is fatigued chronically. Past Medical History: COPD Riki's thyroiditis Lumbar spondolysis Past Surgical History: Hysterectomy Left pneumonectomy 2015 Pleural scarification Hysterectomy BSO Carpal tunnel release Family History: Sister of NSCLC 2019 Social History: Former smoker 10 pack year history quit 2014 Allergies / Meds Allergies: Coded Allergies: Gadolinium-Containing Contrast Medi (Verified Allergy, Severe, ANAPHYLAXIS, 12/30/18) sumatriptan (Verified Allergy, Severe, THROAT CLOSING, 12/30/18) Penicillins (Verified Allergy, Unknown, 12/30/18) pregabalin (Verified Adverse Reaction, Intermediate, stomach pains, 02/03/19) duloxetine (Verified Adverse Reaction, Mild, UPSET STOMACH, 12/30/18) Home Meds Reported Medications Levothyroxine Sodium (Synthroid) 150 Mcg Tablet, 1 TAB PO DAILY for 30 Days, #30 TAB 10/12/19 Fluticasone/Umeclidin/Vilanter (Trelegy Ellipta 100-62.5-25) 1 Each Blst.w.dev, 1 PUFF PO DAILY for 30 Days, #1 EA 06/30/19 Osimertinib Mesylate (Tagrisso) 80 Mg Tablet, 1 TAB PO DAILY, #30 11 Refills 05/06/19 Albuterol Sulfate (Ventolin Hfa) 18 Gm Hfa.aer.ad, 2 PUFF INH Q4-6HP PRN for wheezing for 30 Days, #1 INHALER 12/30/18 Rizatriptan Benzoate (Rizatriptan) 10 Mg Tab, 10 MG PO PRN PRN for MIGRAINE, TAB 12/19/15 Amitriptyline HCl (Amitriptyline HCl) 100 Mg Tab, 100 MG PO QHS, TAB 09/15/14 Gabapentin (Gabapentin) 300 Mg Cap, 300 MG PO BID, CAP 09/14/14 Review of Systems Constitutional: Reports: Fatigue; Denies: Chills, Fever, Night Sweats, Weight Loss Eyes: Denies: Pain HEENT: Denies: Head Aches, Dysphagia, Sore Throat Pulmonary: Denies: Dyspnea, Cough Cardiovascular: Reports: Chest Pain; Denies: Palpitations Gastrointestinal: Denies: Nausea, Vomiting, Abdominal Pain Genitourinary: Denies: Dysuria, Frequency Hematologic: Denies: Bruising, Bleeding Excessively Endocrine: Denies: Polydipsia, Heat Intolerance, Cold Intolerance Musculoskeletal: Denies: Neck pain, Shoulder pain Neurological: Denies: Weakness, Numbness Psych: Reports: Mood Normal Vital Signs Ht 63" Wt 138.6lb BMI 24.5 T 98.3 P 95 RR 16 BP 112/79 O2 99% General Exam: Positive: Alert, Cooperative, No Acute Distress Eye Exam: Positive: PERRLA, EOMI ENT EXAM: Positive: Atraumatic, Mucous membr. moist/pink Neck Exam: Positive: Supple Chest Exam: Positive: Clear to auscultation, Normal air movement, Diminished (Absent breath sounds on left); Negative: Rales, Rhonchi, Wheezing Heart Exam: Positive: Rate Normal, Regular Rhythm Abdomen Exam: Positive: Soft; Negative: Tenderness Extremity Exam: Negative: Edema Skin Exam: Positive: Nl turgor and temperature; Negative: Rash Neuro Exam: Positive: Normal Gait, Normal Speech, Cranial Nerves 3-12 NL Psych Exam: Positive: Mental status NL, Mood NL Diagnostic and Laboratory Diagnostic Review Radiologic images, relevant labs and pathology reports were personally reviewed and discussed with Ms. Jameson. PFTs 12/09/19 FVC 1.84L (56%) FEV1 1.2L (47%) FEV1/FVC 65% Stable compared to 01/28/19 Assessment and Plan Impression Ms. 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 She has a synchronous primary [id number] stage I NSCLC of the remaining RUL and is seen today for consideration of SBRT to this lesion. Stage [id number] stage I NSCLC of the RUL Performance Status ECOG 0 Plan We had an extensive discussion with Ms. Jameson regarding the diagnosis at hand and available therapeutic options. She has a synchronous primary RUL stage I NSCLC (presumed) which was present at the time of the diagnosis of her left lung cancer in 2014. This lesion has grown slowly and is consistent most with a low grade adenocarcinoma (FKA JEROMY) radiographically. it now measures 2.6 cm in greatest extent. It has not responded to chemotherapy or Tagrisso, while her recurrent mediastinal virgie disease has, which solidifies its distinct etiology. Biopsy is being considered by Dr. Smith but is not without risk, and would not change my plan should the patient elect to pursue SBRT. It may however inform systemic therapy choice/options. I defer to Dr. Smith and Dr. De León on this point. With respect to SBRT, I think that treatment is feasible. The lesion has grown slowly and remains small, with continued growth however, treatment will only become more difficult and confer a higher risk of complications. Based on published series, the risk of significant (Gr 3 or higher) pneumonitis with SBRT is 10-15% in the pneumonectomy population (versus 5-8% in the non-pneumonectomy population) and there are established dose metrics which are associated with lower risk such as lung V20<12% and mean lung dose less than 8Gy, I think given her lung volume and the small size of the lesion, we could meet these and other quality metrics. In addition we have the ability to account for tumor motion through the respiratory phase (which was not in common use in SBRT planning during the time of the publication of the relevant series) which would allow me to reduce the needed margin around the tumor and lower lung doses further. The chance of durable local control is >80% in the same series. I would give 50-60 Gy in 5 fractions. I do recommend a differential lung perfusion study to establish whether or not the lung in the area of tumor is contributing significantly to her respiratory function, if the apical lung is poorly perfused and thus not contributing much, then I would recommend SBRT more strongly. If the RUL is anomalously providing an large portion of overall lung function then I would withdraw SBRT as an option. She agreed to proceed with the lung scan. She wishes to talk to her family about the SBRT option, as her sister had RT for lung cancer and had marked skin complications, I assured her this would not be the case for her. I also recommend that she discuss biopsy and systemic therapy with Drs. Smith and Sarthak. Dr. De León could also speak to the overall prognosis for the virgie recurrence in the chest which is under control currently on Tagrisso. I do not consider RT an option for addressing the virgie recurrent disease, now or in the future, as to treat such a large field with curative dose in the post-pneumonectomy setting would carry an unacceptably high cardiopulmonary mortality risk. After discussing the risks, benefits and alternatives to radiation therapy, Ms. Jameson was amenable to considering her options at this time. All questions were answered to the patient's satisfaction. We instructed the patient that if there were any questions,concerns or changes in clinical status in the interim to contact us. Recommendations SBRT an option to treat the RUL lesion Differential lung perfusion scan ordered Follow up in 1 month Encouraged her to speak with Dr. De León and Dr. Smith If she decides she would not want SBRT under any circumstances she may cancel her follow up with ALICE Allen MD Dec 22, 2019:23
== END ==
LOC: M ONCR 11:02
PROVIDERS: ATTEND General Practice
DX: C77.9 Secondary and unspecified malignant neoplasm of lymph node, unspecified (principal); Z85.118 Personal history of other malignant neoplasm of bronchus and lung; Z90.2 Acquired absence of lung [part of]; Z90.79 Acquired absence of other genital organ(s)

== ENCOUNTER → 2019-12-29 | Outpatient (CLI) | payer MEDICARE, OTHER ==
--- NOTE | 2020-01-07 08:57 | REP ---
CHEST X-RAY: 2-VIEWS HISTORY: Lung cancer. COMPARISON: 04/10/19 as well as other prior exams. FINDINGS: Once again, there is evidence of prior left pneumonectomy with shift of heart and mediastinal structures into the left hemithorax. There is compensatory hyperinflation of the right lung. No new abnormal right lung opacity is seen. There is no change since the prior exam. There is some calcification of the thoracic aorta. No other acute changes are seen. IMPRESSION: Status post left pneumonectomy. No acute changes compared to prior studies. MTDD
--- NOTE | 2020-01-07 08:57 | REP ---
DIFFERENTIAL LUNG SCAN HISTORY: Lung carcinoma. TECHNIQUE: 1.1 mCi of Technetium-99m MAA is given intravenously and is followed by a 2.0 mCi dose of Technetium-99m DTPA aerosol. Anterior and posterior ventilation and perfusion images are acquired and these are segmented into upper, middle, and lower thirds for segmental differential lung function analysis. This segmental data is available on the PACS image. RESULTS: The left lung is surgically absent. There is some central bronchial deposition of inspired ventilatory tracer. Fairly homogeneous pulmonary parenchymal uptake is seen on the perfusion images. The upper third of the right lung contributes 15.6% of perfusion counts on the posterior image and 18.4% of the perfusion counts on the anterior image. On the ventilation study, the upper third of the right lung contributes 14.5% of overall lung counts on the posterior image and 16.2% of overall lung counts on the anterior image. MTDD
== END ==
LOC: M RAD 13:10
PROVIDERS: ATTEND General Practice
DX: C34.11 Malignant neoplasm of upper lobe, right bronchus or lung (principal); Z90.2 Acquired absence of lung [part of]
CPT/HCPCS: 71046; 78598; A9540; A9567

== ENCOUNTER → 2020-01-07 | Outpatient (CLI) | payer MEDICARE, OTHER ==
[2020-01-07 12:36] LABS: BASO # 0.1 10^3/uL (0.0-0.2); BASO % 1.1 % (0.0-1.0); EOS # 0.2 10^3/uL (0.0-0.5); EOS % 2.6 % (0.0-3.0); HEMATOCRIT 37.9 % (36.0-47.0); HEMOGLOBIN 12.2 g/dl (12.0-15.5); LYMPH # 2.5 10^3/uL (1.5-5.0); MEAN CORPUSCULAR HEMOGLOBIN 29.8 pg (27.0-33.0); MEAN CORPUSCULAR HGB CONC 32.2 g/dl (32.0-36.5); MEAN CORPUSCULAR VOLUME 92.7 fl (80.0-96.0); MONO # 0.5 10^3/uL (0.0-0.8); MONO % 6.1 % (0.0-5.0); NEUTROPHILS # 4.1 10^3/uL (1.5-8.5); NEUTROPHILS % 55.9 % (36.0-66.0); PLATELET COUNT, AUTOMATED 237 10^3/uL (150-450); RED BLOOD COUNT 4.09 10^6/uL (4.00-5.40); WHITE BLOOD COUNT 7.4 10^3/uL (4.0-10.0)
[2020-01-07 12:56] LABS: INR 0.96; PROTHROMBIN TIME 12.9 SECONDS (12.5-14.3)
[2020-01-07 12:57] LABS: PARTIAL THROMBOPLASTIN TIME 28.6 SECONDS (24.2-38.5)
[2020-01-07 13:05] LABS: CALCIUM LEVEL 9.4 MG/DL (8.5-10.1); CREATININE FOR GFR 1.36 MG/DL (0.55-1.30); GLOMERULAR FILTRATION RATE 42.7 (>51); POTASSIUM SERUM 4.6 MEQ/L (3.5-5.1)
== END ==
LOC: M LAB 11:51
PROVIDERS: ATTEND Internal Medicine Pulmonary Disease
DX: J44.9 Chronic obstructive pulmonary disease, unspecified (principal)

== ENCOUNTER → 2020-01-19 | Outpatient (CLI) | payer MEDICARE, OTHER ==
--- NOTE | 2020-01-19 17:16 | REPVR ---
PROCEDURE INFORMATION: Exam: CT Head Without And With Contrast Exam date and time: 01/19/2020 4:20 PM Age: 59 years old Clinical indication: Pain; Headache; Additional info: Dizziness, , lung CA TECHNIQUE: Imaging protocol: Computed tomography of the head without and with intravenous contrast. Radiation optimization: All CT scans at this facility use at least one of these dose optimization techniques: automated exposure control; mA and/or kV adjustment per patient size (includes targeted exams where dose is matched to clinical indication); or iterative reconstruction. Contrast material: ISO 370; Contrast volume: 75 ml; Contrast route: INTRAVENOUS (IV); COMPARISON: CT Head W/O FOLL BY WITH CONTR 07/07/2019 10:44 AM FINDINGS: Brain: There is no acute intracranial hemorrhage, cerebral edema, or midline shift. No enhancing lesions were identified after the administration of contrast. Cerebral ventricles: No ventriculomegaly. Bones/joints: Unremarkable. No acute fracture. Paranasal sinuses: Visualized sinuses are unremarkable. No fluid levels. Mastoid air cells: Visualized mastoid air cells are well aerated. Soft tissues: Unremarkable. IMPRESSION: No acute intracranial abnormality. Electronically signed by: Vini Vallejo On 01/19/2020 17:16:26 PM
== END ==
LOC: M RAD 15:52
PROVIDERS: ATTEND Internal Medicine Medical Oncology
DX: R42 Dizziness and giddiness (principal); C34.90 Malignant neoplasm of unspecified part of unspecified bronchus or lung; R91.8 Other nonspecific abnormal finding of lung field; J44.9 Chronic obstructive pulmonary disease, unspecified
CPT/HCPCS: 70470; 71250; Q9967

== ENCOUNTER → 2020-01-19 | Outpatient (CLI) | payer MEDICARE, OTHER ==
[~2020-01-19] MED LIST changes: +ISOVUE-370 76% 100ML VIAL As Ordered ONE
--- NOTE | 2020-01-22 13:58 | REP ---
NON CONTRAST CHEST CT: 01/19/20 CLINICAL: COPD. History of lung cancer. TECHNIQUE: Axial non-contrast images from the thoracic inlet to the upper abdomen with coronal and sagittal reformations. COMPARISON: Multiple examinations dated from 08/12/16. FINDINGS: The patient is again noted to be status post pneumonectomy. Mediastinal structures now identified in the left hemithorax appear relatively stable. The right lung is well aerated. A 2.6cm lesion in the right apex is again identified which has slowly increased in size as compared to 2017. Findings are nonspecific and may represent active disease including well differentiated neoplasm. The remainder of the right hemithorax is well aerated and clear and no further consolidation, nodule or mass lesion is appreciated. There is no evidence for effusion or pneumothorax. The tracheobronchial tree is relatively patent. No obvious adenopathy is appreciated. Surrounding musculoskeletal structures are intact and without acute osseous abnormality. Limited upper abdomen demonstrates normal bilateral adrenal glands and evidence for prior cholecystectomy. IMPRESSION: 1. Opacity in the right apex currently measuring approximately 2.6cm. Findings have increased when compared to 2017. Further investigation may be warranted. 2. Prior left pneumonectomy with stable findings. 3. No further new acute process appreciated. [facility]
== END ==
LOC: M RAD 15:58
PROVIDERS: ATTEND Internal Medicine Pulmonary Disease
DX: R91.8 Other nonspecific abnormal finding of lung field (principal); J44.9 Chronic obstructive pulmonary disease, unspecified

== ENCOUNTER → 2020-01-22 | Outpatient (CLI) | payer MEDICARE, OTHER ==
[~2020-01-22] MED LIST changes: -ISOVUE-370 76% 100ML VIAL As Ordered ONE; -SYNT137T7 PO
== END ==
LOC: M LABSMTC 13:21
PROVIDERS: ATTEND Anesthesiology
DX: Z01.812 Encounter for preprocedural laboratory examination (principal); Z20.828 Contact with and (suspected) exposure to other viral communicable diseases
CPT/HCPCS: C9803; U0003

== ENCOUNTER 2020-01-27 06:10 | Day surgery (SDC) | payer MEDICARE, OTHER ==
[~2020-01-27] VITALS: Ht 160 cm; Wt 63.5 kg
[~2020-01-27 06:10] MED LIST changes: +ALBUTEROL SULFATE 2.5 MG/0.5 ML INH NEB SOLN NEB ONE; +LIDOCAINE 4% INJ 5ML AMP INH ONE; +LR 1,000 ML IV ONE
[2020-01-27] MEDS ORDERED: EPINEPHrine 1MG/10ML SYRINGE 1.5IN As Ordered ONE (07:16)
[2020-01-27] MEDS ORDERED: CETACAINE SPRAY 5GM As Ordered ONE (07:16)
[2020-01-27] MEDS ORDERED: THROMBIN SOLN 20,000 UNITS KIT As Ordered ONE (07:16)
[2020-01-27] MEDS ORDERED: LIDOCAINE 1% SDV 30ML VIAL As Ordered ONE (07:16)
[2020-01-27] MEDS ORDERED: ROCURONIUM BROMIDE 50 MG/5 ML VIAL As Ordered ONE (07:19)
[2020-01-27] MEDS ORDERED: LIDOCAINE 2% 100MG/5ML SDV (FOR ANES.) As Ordered ONE (07:19)
[2020-01-27] MEDS ORDERED: ONDANSETRON 4MG/2ML VIAL As Ordered ONE (07:19)
[2020-01-27] MEDS ORDERED: propofoL 200 MG/20 ML VIAL As Ordered ONE (07:19)
[2020-01-27] MEDS ORDERED: dexameTHASONE 4 MG/ML 1ML VIAL (J1100 PER 1MG) As Ordered ONE (07:19)
[2020-01-27] MEDS ORDERED: MIDAZOLAM INJ 2MG/2ML VIAL (J2250 PER 1MG) As Ordered ONE (07:20)
[2020-01-27] MEDS ORDERED: fentaNYL 100 MCG/2 ML INJECTION (J3010) As Ordered ONE (07:20)
[2020-01-27] MEDS ORDERED: PHENYLephrine HCL 500 MCG/5 ML (100MCG/ML) SYRINGE (J2370) As Ordered ONE (07:49)
[2020-01-27] MEDS ORDERED: ePHEDrine SULFATE 25 MG/5 ML(5MG/ML) SYRINGE As Ordered ONE (07:56)
[2020-01-27] MEDS ORDERED: PHENYLEPHRINE 10MG/ML 1ML VIAL (J2370 PER 1) As Ordered ONE (08:12)
[2020-01-27] MEDS ORDERED: SUGAMMADEX SODIUM 500 MG/5 ML VIAL (BRIDION) As Ordered ONE (08:31)
[2020-01-27] MEDS ORDERED: LACRILUBE (AKWA TEARS) OPHTH OINT 3.5 GM As Ordered ONE (09:17)
[2020-01-27] MEDS ORDERED: ONDANSETRON 4MG/2ML VIAL IV PRN (09:30)
[2020-01-27] MEDS ORDERED: fentaNYL 100 MCG/2 ML INJECTION (J3010) IV PRN (09:30)
[2020-01-27] MEDS ORDERED: HYDROMORPHONE HCL 0.5 MG/ 0.5 ML SYRINGE (J1170 PER 1) IV PRN (09:30)
[2020-01-27] MEDS ORDERED: oxyCODONE 5MG TAB PO PRN (09:30)
[2020-01-27] MEDS ORDERED: LR 1,000 ML IV SCH (09:30)
--- NOTE | 2020-01-27 09:41 | REP ---
INDICATION: POST OP IN PACU/BRONCHO. COMPARISON: 12/29/2019 TECHNIQUE: SINGLE PORTABLE AP VIEW OF THE CHEST WAS PERFORMED. FINDINGS: There is again evidence of prior left pneumonectomy with shift of heart mediastinal structures in the left hemithorax. There is compensatory hyperinflation of the right lung. Two metallic clips are seen in the right upper lobe status post bronchoscopy. There is no pneumothorax. IMPRESSION: No pneumothorax status post bronchoscopy. <Electronically signed by Son Head > 01/27/20 [id number]
[2020-01-27 09:50] VITALS: BP 106/55
--- NOTE | 2020-01-27 17:01 | ROOR ---
Patient Name: Mirian Jameson Procedure Date: 01/27/2020 7:12 AM Date of : 1960 Admit Type: Outpatient Age: 59 Room: Main OR Note Status: Finalized Attending MD: Aleyda Smith MD Procedure: Bronchoscopy Indications: Right upper lobe nodule Providers: Aleyda Smith MD (Doctor), Timothy Hathaway DO, [facility] ([facility]isting [facility]) Referring MD: 1. No Referring Physician 1. No Referring Physician, Admin. (Referring MD) Requesting Physician: 1. No Referring Physician 1. No Referring Physician, Admin. (Requesting Physician) Medicines: General Anesthesia, Lidocaine 4% via nebulizer with Albuterol 2.5 mg, Cetacaine topical Complications: No immediate complications. Estimated blood loss: Minimal Procedure: Pre-Anesthesia Assessment: - Prior to the procedure, a History and Physical was performed, and patient medications and allergies were reviewed. The patient's tolerance of previous anesthesia was also reviewed. The risks and benefits of the procedure and the sedation options and risks were discussed with the patient. All questions were answered, and informed consent was obtained. Prior Anticoagulants: The patient has taken no previous anticoagulant or antiplatelet agents. ASA Grade Assessment: III - A patient with severe systemic disease. After reviewing the risks and benefits, the patient was deemed in satisfactory condition to undergo the procedure. - Patient identification and proposed procedure were verified prior to the procedure by the physician, the nurse, the anesthesiologist and the maintenance service technician. The procedure was verified in the procedure room. The Bronchoscope was introduced through the mouth, via the endotracheal tube (the patient was intubated for the procedure) and advanced to the right lung only. The procedure was accomplished without difficulty. The patient tolerated the procedure well. Findings: The endotracheal tube is in good position. The visualized portion of the trachea is of normal caliber. The marshall is sharp. The tracheobronchial tree was examined to at least the first subsegmental level on the right. Patient is status post pneumonectomy on left lung. The left main stem stump appears well healed. There were some thick white mucoid secretions in right lung. There was area of erythema in take off to right upper lobe bronchial mucosa. Bronchial anatomy was normal; there are no endobronchial lesions. [employer] Electromagnetic navigation bronchoscopy was performed. The CT scan was used for planning purposes. A virtual bronchoscopic image was generated using the planning software. The target in the right upper lobe was marked. A nodule was found and a pathway was created. After a complete airway exam, the Robotic navigation phase was then begun to locate the target lesion(s). Positioning centrally (in relation to the lesion) was confirmed using the Olympus radial probe US catheter. Fluoroscopy guided transbronchial brushings of a nodule were obtained in the right upper lobe with a cytology brush and sent for routine cytology. Transbronchial brushing technique was selected because the sampling site was not visible endoscopically. Transbronchial biopsies of a nodule were performed in the right upper lobe using forceps and sent for histopathology examination. The procedure was guided by fluoroscopy. Transbronchial biopsy technique was selected because the sampling site was not visible endoscopically. Fiducial marker placement was performed. Once the target lesion was identified, two markers were deployed around the lesion approx 15-20 mm apart in the right upper lobe. Impression: - Right upper lobe nodule - The airway examination was normal. - Electromagnetic navigation bronchoscopy was performed. - Transbronchial brushings were obtained. - Transbronchial lung biopsies were performed. - Fiducial markers were deployed. Recommendation: - Await test results. Attending Participation: I personally performed the entire procedure. Aleyda Smith MD 01/27/2020 5:00:53 PM Timothy Hathaway DO, [facility] Number of Addenda: 0 Note Initiated On: 01/27/2020 7:12 AM
[2020-02-08] MEDS ORDERED: TAGR80TA PO (13:01)
--- NOTE | 2020-02-11 10:46 | REP ---
INDICATION: RIGHT UPPER LOBE - OEC. COMPARISON: None. TECHNIQUE: Fluoroscopic guidance. No spot images obtained. 6 minutes 14 seconds of fluoroscopy time is reported. FINDINGS: No spot images. IMPRESSION: Procedural fluoroscopy. <Electronically signed by Ferny Mariee > 02/11/20 [id number]
== END 2020-01-27 10:30 | disposition home or self-care (01) ==
LOC: M SDC 06:10
PROVIDERS: ATTEND Internal Medicine Pulmonary Disease
DX: C34.11 Malignant neoplasm of upper lobe, right bronchus or lung (principal); E03.9 Hypothyroidism, unspecified; E04.9 Nontoxic goiter, unspecified; D64.9 Anemia, unspecified; Z87.891 Personal history of nicotine dependence; Z88.0 Allergy status to penicillin; Z92.21 Personal history of antineoplastic chemotherapy; F41.9 Anxiety disorder, unspecified; F32.9 Major depressive disorder, single episode, unspecified
CPT/HCPCS: 31623; 31626; 31627; 31628; 71045; 76000; 88104; 88305; A4648; J1100; J2250; J2370; J2405; J3010; S2900

== ENCOUNTER 2020-02-09 13:49 | Outpatient (RCR) | payer MEDICARE, OTHER ==
[~2020-02-09 13:49] MED LIST changes: -ALBUTEROL SULFATE 2.5 MG/0.5 ML INH NEB SOLN NEB ONE; -LIDOCAINE 4% INJ 5ML AMP INH ONE; -LR 1,000 ML IV ONE
[2020-02-09] MEDS ORDERED: TAGR80TA PO ×2 (15:35→15:39)
[2020-02-15] MEDS ORDERED: TAGR80TA PO (10:33)
[2020-02-17] MEDS ORDERED: SYNT137T7 PO (11:25)
== END 2020-03-07 ==
LOC: M ONCR 13:49
PROVIDERS: ATTEND General Practice
DX: C34.11 Malignant neoplasm of upper lobe, right bronchus or lung (principal)

== ENCOUNTER → 2020-03-02 | Outpatient (REF) | payer MEDICARE, OTHER ==
[~2020-03-02] MED LIST changes: +SYNT137T7 PO
== END ==
LOC: M SFHCPLAZ 13:01
PROVIDERS: ATTEND Physician Assistant
DX: J20.9 Acute bronchitis, unspecified (principal); Z20.828 Contact with and (suspected) exposure to other viral communicable diseases

== ENCOUNTER 2020-03-18 11:08 | Outpatient (RCR) | payer MEDICARE, OTHER ==
--- NOTE | 2020-03-17 15:40 | RADENCPD ---
Date/Time of Encounter Date of Encounter: Mar 17, 2020 Time of Encounter: 12:00 Encounter Mirian asked to see me after treatment today she reports some heartburn like discomfort in her left chest and well as some substernal pain. She also endorses mild tingling her fingers on the bilateral hands. The chest symptoms responded to tums last night. She has no SOB or crushing chest pressure. I explained that the esophageal dose from treating the apical lung lesion is very low, and thus her reflux-like symptoms are not likely radiation related. I prescribed her omeprazole for this probably. Her hand tingling raises more concern, as we are treating close to the right brachial plexus, but have taken extra care to reduce dose to this structure to below established tolerances. Also against an RT effect is that her tingling is bilateral and the timing is too acute for nerve injury. To hedge against any inflammatory contribution from RT underlying this, I gave her a 7 day course of decadron 4 mg QD. I will see her back in the office 1 week post completion to see how she is doing as she is s/p pneumonectomy. I think it remains reasonable to resume her tagrisso (which has been held) over the weekend as previously planned as she is on a reduced dose (40mg daily) and it has been a very effective therapy for her other distinct lung cancer. ALICE POLLACK MD Mar 17, 2020 15:40
[~2020-03-18 11:08] MED LIST changes: +DECA4TAB PO; +OMEP-218 PO
== END 2020-04-07 ==
LOC: M ONCR 11:08
PROVIDERS: ATTEND General Practice
DX: C34.11 Malignant neoplasm of upper lobe, right bronchus or lung (principal)

== ENCOUNTER → 2020-03-25 | Outpatient (CLI) | payer MEDICARE, OTHER ==
--- NOTE | 2020-03-25 09:09 | RADENCPD ---
Date/Time of Encounter Date of Encounter: Mar 25, 2020 Time of Encounter: 09:06 Encounter Mirian came in today for a 1 week side effect check. Completed SBRT to her RUL lesion on 03/18/20. She has had no tingling in the fingers, skin reaction or changes in her breathing. She has resumed Tagrisso without incident. She has noted some discomfort in the right shoulder, transient and decreasing in frequency (was more frequent, earlier this week). Overall it was mild and not bothersome. I gave her anticipatory guidance regarding red flag symptoms of cough, and/or change in pulmonary status, as well as pain or paresthesias in the right arm. She will return in the coming months for her CT chest. ALICE POLLACK MD Mar 25, 2020 09:09
== END ==
LOC: M ONCR 08:43
PROVIDERS: ATTEND General Practice
DX: C34.11 Malignant neoplasm of upper lobe, right bronchus or lung (principal)

== ENCOUNTER → 2020-04-20 | Outpatient (CLI) | payer MEDICARE, OTHER ==
[~2020-04-20] MED LIST changes: -ALEN70TA74 PO; +ALEN70TA82 PO; +GABA-282 PO; -GABA-843 PO
--- NOTE | 2020-04-20 15:56 | RADENCPD ---
Date/Time of Encounter Date of Encounter: Apr 20, 2020 Time of Encounter: 14:00 Encounter Mirian came in for a 1 month global period follow up post SBRT. She completed 60 Gy in 5 fractions on 03/18/20. At the time of completion she noted some tingling in her fingers for which she was given a medrol pulse. Since she was last seen on 03/25/20 she notes no cough, CP, SOB, or LYNCH. She had some transient right shoulder pains at last visit but these have abated. Her appetite is good and she has no fatigue. She is back on tagrisso and tolerating it well. She is scheduled to have CT chest done on 06/16/20, she will follow up with me later that week. She is scheduled to see Dr. De León in July. After her June scan I will confer with Dr. De León about the best interval for surveillance overall and likely defer future imaging to her. If there is a good interval response in the RUL treated lesion, then surveillance of that lesion could be q 6m, which may be less frequent than would be recommended by Dr. De León for the phenotypically distinct synchronous primary cancer affecting her mediastinal nodes. Mirian agrees to the above and will call if she notes any new symptoms. ALICE POLLACK MD Apr 20, 2020 15:56
== END ==
LOC: M ONCR 13:15
PROVIDERS: ATTEND Radiology Radiation Oncology
DX: Z08 Encounter for follow-up examination after completed treatment for malignant neoplasm (principal); C34.11 Malignant neoplasm of upper lobe, right bronchus or lung; Z92.3 Personal history of irradiation

== ENCOUNTER 2020-06-04 17:06 | Emergency (ER) | payer MEDICARE, OTHER ==
[~2020-06-04] VITALS: Ht 160 cm; Wt 63.5 kg
[2020-06-04] MEDS ORDERED: NORCO, ANEXSIA 5/325MG TABLET (HYDROcodone/ACETAMINOPHEN) PO ONE (17:45)
[2020-06-04] MEDS ORDERED: ACETAMINOPHEN 325 MG TAB PO ONE (17:50)
--- NOTE | 2020-06-04 18:49 | REP ---
INDICATION: trauma. COMPARISON: Chest 12/29/2019. TECHNIQUE: Three AP and lateral views thoracic spine. FINDINGS: There is no acute compression fracture. There is slight loss of height of an upper thoracic vertebral body but this is stable. There is mild diffuse spurring and disc space narrowing. The posterior elements are intact. IMPRESSION: Mild diffuse degenerative changes. No acute fracture or dislocation. <Electronically signed by Son Head > 06/04/20 [id number]
--- NOTE | 2020-06-04 18:52 | REP ---
INDICATION: trauma. COMPARISON: 10/28/2019. TECHNIQUE: Six views lumbosacral spine. FINDINGS: There are old mild compression deformities of L2 and L3. There has been prior kyphoplasty at L3. There is mild diffuse spurring. There is mild disc space narrowing at L3-4. There is moderate narrowing at L4-5 with subchondral sclerosis and vacuum. There is sclerosis of the facets of L4-5 and L5-S1. Posterior elements are intact. Metallic clips are seen in the right upper quadrant. IMPRESSION: Stable mild compression deformities of L2 and L3, prior kyphoplasty of L3 vertebral body. Degenerative changes with no acute fracture or dislocation. <Electronically signed by Son Head > 06/04/20 [id number]
[2020-06-04 19:06] VITALS: BP 129/73
== END 2020-06-04 19:07 | disposition home or self-care (01) ==
LOC: M ED 17:06
DX: S20.224A Contusion of middle back wall of thorax, initial encounter (principal); W00.1XXA Fall from stairs and steps due to ice and snow, initial encounter; Y92.018 Other place in single-family (private) house as the place of occurrence of the external cause; C34.90 Malignant neoplasm of unspecified part of unspecified bronchus or lung; Z79.899 Other long term (current) drug therapy; Z79.890 Hormone replacement therapy; Z88.0 Allergy status to penicillin; Z88.8 Allergy status to other drugs, medicaments and biological substances; Z91.041 Radiographic dye allergy status

== ENCOUNTER 2020-06-08 10:51 | Emergency (ER) | payer MEDICARE, OTHER ==
[~2020-06-08] VITALS: Ht 162.6 cm; Wt 63.5 kg
[2020-06-08] MEDS ORDERED: ONDANSETRON 4MG/2ML VIAL IV ONE (11:35)
[2020-06-08] MEDS ORDERED: MORPHINE 4 MG/ML 1ML VIAL/SYRINGE (J2270) IV PRN (11:35)
--- NOTE | 2020-06-08 11:36 | REP ---
INDICATION: CHEST PAIN COMPARISON: 01/27/2020 TECHNIQUE: Portable AP view of the chest FINDINGS: Complete opacification of the left hemithorax with associated volume loss and ipsilateral mediastinal shift along with prior partial rib resection remains stable. The right hemithorax is clear. IMPRESSION: Stable appearance of the chest. No obvious acute process appreciated. <Electronically signed by Isauro Maurer > 06/08/20 [id number]
[2020-06-08 11:57] LABS: BASO # 0.1 10^3/uL (0.0-0.2); BASO % 0.6 % (0.0-1.0); EOS # 0.2 10^3/uL (0.0-0.5); HEMATOCRIT 35.7 % (36.0-47.0); HEMOGLOBIN 11.3 g/dl (12.0-15.5); LYMPH # 1.4 10^3/uL (1.5-5.0); LYMPH % 17.8 % (24.0-44.0); MEAN CORPUSCULAR HEMOGLOBIN 29.4 pg (27.0-33.0); MEAN CORPUSCULAR HGB CONC 31.7 g/dl (32.0-36.5); MONO # 0.5 10^3/uL (0.0-0.8); MONO % 6.8 % (2.0-8.0); NEUTROPHILS # 5.7 10^3/uL (1.5-8.5); NEUTROPHILS % 72.4 % (36.0-66.0); PLATELET COUNT, AUTOMATED 282 10^3/uL (150-450); RED BLOOD COUNT 3.84 10^6/uL (4.00-5.40); WHITE BLOOD COUNT 7.9 10^3/uL (4.0-10.0)
[2020-06-08 12:32] LABS: ALBUMIN 3.5 GM/DL (3.2-5.2); ALT/SGPT 13 U/L (12-78); BILIRUBIN,DIRECT < 0.1 MG/DL (0.0-0.2); BILIRUBIN,TOTAL 0.3 MG/DL (0.2-1.0); LIPASE 83 U/L (73-393); NT-PRO BNP 241 PG/ML (<125)
[2020-06-08] MEDS ORDERED: ISOVUE-370 76% 100ML VIAL As Ordered ONE (13:08)
--- NOTE | 2020-06-08 13:32 | REP ---
INDICATION: CP/cancer COMPARISON: 01/19/2020 TECHNIQUE: Axial contrast enhanced images from the thoracic inlet to the upper abdomen using pulmonary embolus technique with multiplanar re-formations. 75 ml Isovue 370 intravenous contrast material administered without complication. This CT examination was performed using the following dose reduction techniques: Automated exposure control, adjustment of mA and/or kv according to the patient's size, and use of iterative reconstruction technique. FINDINGS: Patient is again noted to be status post left pneumonectomy. Pulmonary arteries are well opacified and there is no evidence for pulmonary embolus. Heart/pericardium and thoracic aorta are relatively normal. Right apical mass measures 1.8 cm and demonstrates a small surgical clip along its inferior margin. No further consolidation, suspicious nodule or mass lesion. No effusion. No pneumothorax. No obvious adenopathy. Musculoskeletal structures without acute osseous abnormality. IMPRESSION: No evidence for pulmonary embolus. Right apical mass similar to prior examination now include small surgical clip. No further acute mediastinal or pleuroparenchymal process appreciated. <Electronically signed by Isauro Maurer > 06/08/20 [id number]
[2020-06-08 13:54] VITALS: BP 113/60
--- NOTE | 2020-06-08 17:14 | ECGEPIP ---
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
== END 2020-06-08 14:08 | disposition home or self-care (01) ==
LOC: M ED 10:51
DX: J20.6 Acute bronchitis due to rhinovirus (principal); C34.11 Malignant neoplasm of upper lobe, right bronchus or lung; K21.9 Gastro-esophageal reflux disease without esophagitis; N18.30 Chronic kidney disease, stage 3 unspecified; M79.7 Fibromyalgia; Z87.891 Personal history of nicotine dependence; Z88.0 Allergy status to penicillin; Z88.8 Allergy status to other drugs, medicaments and biological substances; Z79.899 Other long term (current) drug therapy
CPT/HCPCS: 71045; 71275; 80047; 80076; 83690; 83880; 84443; 84484; 85025; 87798; 93005; 93041; 94760; 96361; 96374; 96375; 99285; J2270; J2405; Q9967

== ENCOUNTER → 2020-06-16 | Outpatient (CLI) | payer MEDICARE, OTHER ==
[~2020-06-16] MED LIST changes: +ISOVUE-370 76% 100ML VIAL As Ordered ONE; +ONDA-83 PO
--- NOTE | 2020-06-16 12:43 | REP ---
INDICATION: F/U LUNG CA COMPARISON: None TECHNIQUE: Axial contrast enhanced images from the thoracic inlet to the upper abdomen with coronal and sagittal reformations using 75 ml Isovue 370 intravenous contrast material. This CT examination was performed using the following dose reduction techniques: Automated exposure control, adjustment of mA and/or kv according to the patient's size, and use of iterative reconstruction technique. FINDINGS: 2 cm spiculated mass in the right apex gradually appears more dense when compared through 2018. Malignant/metastatic focus cannot definitively be excluded. Remainder of the right hemithorax is essentially clear. Patient is again noted to be status post left pneumonectomy with ipsilateral shift of the mediastinum. No obvious adenopathy is identified. Osseous structures are intact and without acute process. IMPRESSION: 1. 2 cm spiculated mass in the right apex can be followed through multiple prior examinations. Focus was hypermetabolic on PET-CT dated 2019. Further investigation is warranted. 2. Remainder of the right hemithorax is essentially clear and without further acute process. <Electronically signed by Isauro Maurer > 06/16/20 [id number]
== END ==
LOC: M RAD 11:01
PROVIDERS: ATTEND General Practice
DX: C34.11 Malignant neoplasm of upper lobe, right bronchus or lung (principal)
CPT/HCPCS: 71260; Q9967

== ENCOUNTER → 2020-06-21 | Outpatient (CLI) | payer MEDICARE, OTHER ==
[~2020-06-21] MED LIST changes: -ISOVUE-370 76% 100ML VIAL As Ordered ONE
--- NOTE | 2020-06-21 10:01 | RADONC ---
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 She has a synchronous primary [id number] stage I NSCLC of the RUL for which she underwent SBRT 60 Gy in 5 fractions completed 03/18/20. She remains on tagrisso due to recurrence of her left lung cancer. 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 She received adjuvant chemotherapy. 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 In 2018 she suffered recurrence in mediastinal lymph nodes, PET-CT on 01/07/19 showing avidity in the left hilar stump, precarinal and paratracheal nodes. Biopsy on 02/04/19 showing EGFR+ adenocarcinoma as before. She was started on Tagrisso, initially complicated by mucositis, however with reduced dose she has been able to tolerate Tagrisso and the nodes in the chest have responded, as noted on CT on 07/22/19 and 11/09/19. At the time of initial diagnosis in 2014 she had a ~1 cm RUL apical nodule concerning for synchronous primary NSCLC, this lesion has not responded to systemic therapy, including adjuvant chemotherapy after pneumonectomy or Tagrisso in the setting of the virgie recurrence. In fact, it has grown steadily on serial CT scans exhibiting a lepidic pattern consistent with a low grade adenocarcinoma (FKA bronchioalveolar carcinoma). It measured 2.6 cm on most recent [address] chest from 11/09/19. She underwent differential lung perfusion scan and the RUL BO was only contributing 16% to total lung function. 01/27/20 biopsy revealed EGFR- adenocarcinoma confirming de herlinda second primary NSCLC. After some deliberation she agreed to proceed with SBRT. She completed 60 Gy in 5 fractions with VMAT planning due to proximity to brachial plexus completed 03/18/20. Recent data: 06/16/20 CT chest The RUL lesion now measures 1.6 x 1.8 cm from 2.2 x 2.3 cm on the planning CT from 02/09/20 which is the immediate prior study. There is minimal associated parenchymal fibrotic change, and no new nodules. (Formal radiologist read was uninformative with respect to relevant size comparisons). Interval History Mirian feels poorly today, due to recent migraine and associated nausea which has not subsided. She has not been vomiting with this but appetite is suppressed. She also had a recent viral URI and was assessed in the ED for this. Breathing and cough improved spontaneously. No significant pulmonary symptoms today other than stable chronic LYNCH. Feels this is the same as before RT. Current Therapy Tagrisso Stage [id number] stage I EGFR- NSCLC of the RUL Stage II NSCLC EGFR+ NSCLC of left lung with virgie/bronchial stump recurrence Social History: Former 10 pack year smoker quit 2014 Does not drink Allergies / Meds Allergies: Coded Allergies: Gadolinium-Containing Contrast Medi (Verified Allergy, Severe, ANAPHYLAXIS, 06/08/20) sumatriptan (Verified Allergy, Severe, THROAT CLOSING, 06/08/20) Penicillins (Verified Allergy, Unknown, 06/08/20) pregabalin (Verified Adverse Reaction, Intermediate, stomach pains, 06/08/20) duloxetine (Verified Adverse Reaction, Mild, UPSET STOMACH, 06/08/20) Home Meds Active Scripts Ondansetron HCl (Ondansetron HCl) 4 Mg Tablet, 1 TAB PO TID PRN for nausea/vomiting, #30 TAB 1 Refill Prov:ALICE POLLACK MD 06/21/20 Osimertinib Mesylate (Tagrisso) 80 Mg Tablet, 40 MG PO DAILY for 30 Days, #30 TAB 11 Refills Prov:AUGUSTINA TRUONG MD 02/15/20 Reported Medications Levothyroxine Sodium (Synthroid) 137 Mcg Tablet, 135 MCG PO DAILY for 30 Days, #30 TAB 02/17/20 Albuterol Sulfate (Ventolin Hfa) 18 Gm Hfa.aer.ad, 2 PUFF INH Q4-6HP PRN for wheezing for 30 Days, #1 INHALER 01/26/20 Alendronate Sodium (Alendronate Sodium) 70 Mg Tablet, 70 MG PO Q7D for 28 Days, #4 TAB in the morning, at least 30 minutes before the first food, beverage, or medication of the day 12/22/19 Calcitonin [place] (Calcitonin-[place]) 3.7 Ml [place].pump, 1 SPRAY NA DAILY, SPRAY 12/22/19 Fluticasone/Umeclidin/Vilanter (Trelegy Ellipta 100-62.5-25) 1 Each Blst.w.dev, 1 PUFF PO DAILY for 30 Days, #1 EA 06/30/19 Rizatriptan Benzoate (Rizatriptan) 10 Mg Tab, 10 MG PO PRN PRN for MIGRAINE, TAB 12/19/15 Amitriptyline HCl (Amitriptyline HCl) 100 Mg Tab, 100 MG PO QHS, TAB 09/15/14 Gabapentin (Gabapentin) 300 Mg Cap, 600 MG PO BID, CAP 09/14/14 Review of Systems Review of Systems Constitutional: Reports: Fatigue; Denies: Chills, Fever, Weakness Eyes: Denies: Pain HEENT: Reports: Head Aches Skin: Denies: Rash Pulmonary: Reports: Dyspnea; Denies: Cough, Pleuritic Chest Pain Cardiovascular: Denies: Chest Pain, Palpitations Gastrointestinal: Reports: Nausea; Denies: Vomiting, Abdominal Pain Musculoskeletal: Denies: Neck pain, Arm pain Neurological: Denies: Weakness, Numbness Psych: Reports: Mood Normal Physical Examination Vital Signs Wt 134 lbs T 98 P 67 RR 18 BP 109/74 O2 97% Pain 0 Fatigue 1 General Exam: Positive: Alert, Cooperative, No Acute Distress Eye Exam: Positive: PERRLA, EOMI ENT EXAM: Positive: Atraumatic Neck Exam: Positive: Supple Chest Exam: Positive: Clear to auscultation, Normal air movement; Negative: Rales, Wheezing Heart Exam: Positive: Rate Normal, Regular Rhythm Abdomen Exam: Positive: Soft; Negative: Tenderness Extremity Exam: Negative: Edema Skin Exam: Positive: Nl turgor and temperature Neuro Exam: Positive: Normal Gait, Normal Speech, Cranial Nerves 3-12 NL Psych Exam: Positive: Mental status NL Diagnostic and Laboratory Diagnostic Review Radiologic images, relevant labs and pathology reports were personally reviewed and discussed with Ms. Jameson. Assessment and Plan Impression Assessment Ms. 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 She has a synchronous primary [id number] stage I NSCLC of the RUL for which she underwent SBRT 60 Gy in 5 fractions completed 03/18/20. She remains on tagrisso due to recurrence of her left lung cancer. Her recent CT scan shows a positive response in the lesion (compared to the immediate prior which is my planning CT from 02/09/20). Because of the positive response and absence of new lesions in the right lung parenchyma I will obtain another scan in [address] Truong is administering her Tagrisso and may want interval body scans prior to the aforementioned [address] chest[address] After the next CT if the treated lesion continues to regress, then I would defer additional imaging to Dr. Truong as long as she is actively treating Mirian. For her nausea, which I believe is related to her migraine, I have prescribed zofran PRN. In addition, she is not vaccinated against COVID currently, I encouraged her sign for up for this as her solitary lung and history of cancer make her inherently high risk for COVID complications. She acquiesced. Performance Status ECOG 0 Plan Follow up in [address] chest Zofran for nausea Recommended she receive COVID vaccine Ms. Jameson was encouraged to call with questions or concerns in the interim period. Billing Statement Total time of [33] minutes was spent preparing for the visit [2], obtaining HPI [4], examining the patient [3], reviewing diagnostic tests [5], discussing management options [5], coordinating care [2], and writing this note [12]. ALICE POLLACK MD Jun 21, 2020 10:01
== END ==
LOC: M ONCR 08:32
PROVIDERS: ATTEND General Practice
DX: C34.11 Malignant neoplasm of upper lobe, right bronchus or lung (principal)

== ENCOUNTER → 2020-06-21 | Outpatient (CLI) | payer MEDICARE, OTHER ==
[2020-06-21 10:51] LABS: HEMOGLOBIN 12.6 g/dl (12.0-15.5); MEAN CORPUSCULAR HEMOGLOBIN 30.2 pg (27.0-33.0); MEAN CORPUSCULAR HGB CONC 32.3 g/dl (32.0-36.5); MEAN CORPUSCULAR VOLUME 93.5 fl (80.0-96.0); PLATELET COUNT, AUTOMATED 303 10^3/uL (150-450); RED BLOOD COUNT 4.17 10^6/uL (4.00-5.40); WHITE BLOOD COUNT 7.5 10^3/uL (4.0-10.0)
[2020-06-21 11:37] LABS: ALBUMIN 3.9 GM/DL (3.2-5.2); BILIRUBIN,TOTAL 0.5 MG/DL (0.2-1.0); CALCIUM LEVEL 9.8 MG/DL (8.5-10.1); CREATININE FOR GFR 1.31 MG/DL (0.55-1.30); FOLATE 9.6 NG/ML; FREE T4 0.43 NG/DL (0.76-1.46); GLOMERULAR FILTRATION RATE 44.4 (>51); POTASSIUM SERUM 4.1 MEQ/L (3.5-5.1); THYROID STIMULATING HORMONE 77.5 uIU/ML (0.358-3.740); TOTAL 25(OH) VITAMIN D 27.1 NG/ML (30.0-100.0); TOTAL PROTEIN 8.3 GM/DL (6.4-8.2)
== END ==
LOC: M LAB 09:56
PROVIDERS: ATTEND Physician Assistant
DX: E03.9 Hypothyroidism, unspecified (principal); E55.9 Vitamin D deficiency, unspecified; D51.8 Other vitamin B12 deficiency anemias; Z79.899 Other long term (current) drug therapy

== ENCOUNTER → 2020-06-24 | Outpatient (REF) | payer MEDICARE, OTHER | LOC: M SFHCADAM 10:22 | PROVIDERS: ATTEND Physician Assistant | DX: N30.01 Acute cystitis with hematuria (principal) | CPT/HCPCS: 87088; 87186; G0463 ==

== ENCOUNTER → 2020-08-31 | Outpatient (REF) | payer MEDICARE, OTHER ==
[~2020-08-31] MED LIST changes: +LEVO175C PO
[2020-08-31 12:54] LABS: HEMATOCRIT 39.5 % (36.0-47.0); HEMOGLOBIN 12.5 g/dl (12.0-15.5); MEAN CORPUSCULAR HEMOGLOBIN 29.4 pg (27.0-33.0); MEAN CORPUSCULAR HGB CONC 31.6 g/dl (32.0-36.5); MEAN CORPUSCULAR VOLUME 92.9 fl (80.0-96.0); PLATELET COUNT, AUTOMATED 281 10^3/uL (150-450); RED BLOOD COUNT 4.25 10^6/uL (4.00-5.40); WHITE BLOOD COUNT 7.3 10^3/uL (4.0-10.0)
[2020-08-31 13:18] LABS: ALBUMIN 3.5 GM/DL (3.2-5.2); BILIRUBIN,TOTAL 0.2 MG/DL (0.2-1.0); CALCIUM LEVEL 9.1 MG/DL (8.5-10.1); CREATININE FOR GFR 1.23 MG/DL (0.55-1.30); FREE T4 1.01 NG/DL (0.76-1.46); GLOMERULAR FILTRATION RATE 47.7 (>51); POTASSIUM SERUM 5.2 MEQ/L (3.5-5.1); THYROID STIMULATING HORMONE 5.53 uIU/ML (0.358-3.740); TOTAL PROTEIN 7.6 GM/DL (6.4-8.2)
[2020-08-31 14:02] LABS: TOTAL 25(OH) VITAMIN D 28.1 NG/ML (30.0-100.0)
== END ==
LOC: M SFHCADAM 11:14
PROVIDERS: ATTEND Physician Assistant
DX: E03.9 Hypothyroidism, unspecified (principal); E55.9 Vitamin D deficiency, unspecified; Z79.899 Other long term (current) drug therapy

== ENCOUNTER → 2020-09-12 | Outpatient (CLI) | payer MEDICARE, OTHER ==
[~2020-09-12] MED LIST changes: +GASTROGRAFIN SOLUTION 30ML (Q9963) As Ordered ONE; +ISOVUE-370 76% 100ML VIAL As Ordered ONE
--- NOTE | 2020-09-12 13:42 | REP ---
INDICATION: LUNG CA F/U. COMPARISON: Multiple the latest 06/16/2020 TECHNIQUE: Standard helical technique after the intravenous administration of 100 cc Isovue 370. FINDINGS: There are multiple hepatic cysts status quo. No enhancing hepatic lesions have developed. The spleen, pancreas, adrenal glands, and kidneys are unchanged. The abdominal aorta and para-regions are unchanged the bowel loops and the mesenteries are essentially unchanged. There is no free fluid or free air. There is no mass or adenopathy. The latest prior pelvic CT was obtained 08/13/2019 which showed a grade 2 superior endplate compression deformity of L3. I have been given no history but dense material is seen within the L3 vertebral body possibly secondary to vertebroplasty. There are no other osseous changes. 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 With this exception there has been no significant change. There is no evidence of acute disease. <Electronically signed by Mejia Jacome > 09/12/20 [id number]
--- NOTE | 2020-09-12 13:47 | REP ---
INDICATION: LUNG CA F/U COMPARISON: Mobile latest 06/16/2020 TECHNIQUE: Standard contrast-enhanced helical technique FINDINGS: The mediastinum and pulmonary reynaldo are are unchanged. The heart is in the ipsilateral side of the pneumonectomy. Is unchanged. No pleural or pericardial effusions have developed. No mass or adenopathy has developed. The osseous structures are stable. Evaluation of the lung krueger shows an asymmetric density in the right upper lobe with likely fiducial markers in place. The density has, however, increased in size from the prior exam. No additional abnormal parenchymal densities have developed. IMPRESSION: The density seen in the right upper lobe with suspected fiducial markers in place has increased somewhat in size. <Electronically signed by Mejia Jacome > 09/12/20 [id number]
== END ==
LOC: M RAD 11:11
PROVIDERS: ATTEND Internal Medicine Medical Oncology
DX: C34.90 Malignant neoplasm of unspecified part of unspecified bronchus or lung (principal)
CPT/HCPCS: 71260; 74177; Q9963; Q9967

== ENCOUNTER → 2020-09-29 | Outpatient (CLI) | payer MEDICARE, OTHER ==
[~2020-09-29] MED LIST changes: -GASTROGRAFIN SOLUTION 30ML (Q9963) As Ordered ONE
--- NOTE | 2020-09-29 09:04 | REP ---
INDICATION: HEADACHES, LUNG CA F/U. COMPARISON: Comparison head CT study 19 January 2020.. TECHNIQUE: CT contrast dose: 75 ml as Isovue 370 as administered intravenously. Pre and post contrast helical scanning is included. FINDINGS: Bone windows settings demonstrate intact bony calvarium. There is no evidence of skull fracture or bony destructive lesion. The visualized paranasal sinuses are clear. No intraorbital abnormality is seen. On soft tissue window settings, daily-white differentiation pattern is seen to be normal above and below the tentorium. Lateral, third, and fourth ventricles are normal in size and position. There is no evidence of intracranial hemorrhage. No mass, extra-axial fluid collection or infarction is seen. Contrast enhanced study shows enhancement of normal vessels. No abnormal contrast enhancement is appreciated. IMPRESSION: Normal brain CT without and with IV contrast. <Electronically signed by Ferny Mariee > 09/29/20 0901
== END ==
LOC: M RAD 08:26
PROVIDERS: ATTEND Internal Medicine Medical Oncology
DX: C34.90 Malignant neoplasm of unspecified part of unspecified bronchus or lung (principal)
CPT/HCPCS: 70470; Q9967

== ENCOUNTER → 2020-12-13 | Outpatient (REF) | payer MEDICARE, OTHER ==
[~2020-12-13] MED LIST changes: -ISOVUE-370 76% 100ML VIAL As Ordered ONE
[2020-12-13 12:49] LABS: HEMATOCRIT 36.6 % (36.0-47.0); HEMOGLOBIN 11.7 g/dl (12.0-15.5); MEAN CORPUSCULAR HEMOGLOBIN 29.8 pg (27.0-33.0); MEAN CORPUSCULAR VOLUME 93.4 fl (80.0-96.0); PLATELET COUNT, AUTOMATED 239 10^3/uL (150-450); RED BLOOD COUNT 3.92 10^6/uL (4.00-5.40); WHITE BLOOD COUNT 6.5 10^3/uL (4.0-10.0)
[2020-12-13 13:18] LABS: CALCIUM LEVEL 9.2 MG/DL (8.5-10.1); CREATININE FOR GFR 1.2 MG/DL (0.55-1.30); FREE T4 1.26 NG/DL (0.76-1.46); GLOMERULAR FILTRATION RATE 49.1 (>51); POTASSIUM SERUM 5.1 MEQ/L (3.5-5.1); THYROID STIMULATING HORMONE 5.6 uIU/ML (0.358-3.740)
== END ==
LOC: M SFHCADAM 11:18
PROVIDERS: ATTEND Physician Assistant
DX: Z01.818 Encounter for other preprocedural examination (principal); E03.9 Hypothyroidism, unspecified
CPT/HCPCS: 80048; 84439; 84443; 85027; G0463

== ENCOUNTER → 2020-12-15 | Outpatient (CLI) | payer MEDICARE, OTHER ==
[~2020-12-15] MED LIST changes: +ISOVUE-370 76% 100ML VIAL As Ordered ONE
--- NOTE | 2020-12-15 10:47 | REP ---
INDICATION: LUNG CA SURVEILANCE. COMPARISON: Comparison CT studies include September 12, 2020 and June 16, 2020. Comparison is also made with January 19, 2020 study. TECHNIQUE: Helical scanning is acquired following the intravenous injection of 75 mL of Isovue 370. 3 mm axial images re-formatted. Coronal and sagittal MPR and coronal MIP images are included. 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 There is deviation of the mediastinum to the left and some hyperinflation in the right lung in general. The nodular density seen in the right lung apex is again noted and appears to have decreased in size somewhat since the prior studies. On the January 19, 2020 study this measured 2.7 cm in greatest transverse diameter, currently 1.4 cm. Its craniocaudal span on coronal MPR images is 1.4 cm as well, on the January 2020 scan, the coronal craniocaudal span was 2.5 cm. Fiducial markers are again seen inferiorly adjacent to this lesion. No new pulmonary nodule or mass lesion is seen. The right lung is otherwise clear. No right pleural effusion is noted. There is no hilar or mediastinal mass or adenopathy observed. The adrenal glands remain normal. There are clips in the gallbladder fossa. Visualized upper abdominal structures are unremarkable. IMPRESSION: Right apical somewhat spiculated lesion adjacent to the fiducial markers is decreased in size overall compared to the original CT study January 19, 2020 and slightly improved when compared with the most recent study. No new mass or adenopathy seen. <Electronically signed by Ferny Mariee > 12/15/20 [id number]
== END ==
LOC: M RAD 09:16
PROVIDERS: ATTEND General Practice
DX: C34.11 Malignant neoplasm of upper lobe, right bronchus or lung (principal)
CPT/HCPCS: 71260; Q9967

== ENCOUNTER → 2020-12-21 | Outpatient (CLI) | payer MEDICARE, OTHER ==
[~2020-12-21] MED LIST changes: -ISOVUE-370 76% 100ML VIAL As Ordered ONE
--- NOTE | 2020-12-21 11:00 | RADONC ---
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 She has a synchronous primary [id number] stage I NSCLC of the RUL for which she underwent SBRT 60 Gy in 5 fractions completed 03/18/20. She remains on tagrisso due to recurrence of her left lung cancer. 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 She received adjuvant chemotherapy. 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 In 2018 she suffered recurrence in mediastinal lymph nodes, PET-CT on 01/07/19 showing avidity in the left hilar stump, precarinal and paratracheal nodes. Biopsy on 02/04/19 showing EGFR+ adenocarcinoma as before. She was started on Tagrisso, initially complicated by mucositis, however with reduced dose she has been able to tolerate Tagrisso and the nodes in the chest have responded, as noted on CT on 07/22/19 and 11/09/19. At the time of initial diagnosis in 2014 she had a ~1 cm RUL apical nodule concerning for synchronous primary NSCLC, this lesion has not responded to systemic therapy, including adjuvant chemotherapy after pneumonectomy or Tagrisso in the setting of the virgie recurrence. In fact, it has grown steadily on serial CT scans exhibiting a lepidic pattern consistent with a low grade adenocarcinoma (FKA bronchioalveolar carcinoma). It measured 2.6 cm on most recent CT chest from 11/09/19. She underwent differential lung perfusion scan and the RUL BO was only contributing 16% to total lung function. 01/27/20 biopsy revealed EGFR- adenocarcinoma confirming de herlinda second primary NSCLC. After some deliberation she agreed to proceed with SBRT. She completed 60 Gy in 5 fractions with VMAT planning due to proximity to brachial plexus completed 03/18/20. 06/16/20 CT chest showed the RUL lesion now measures 1.6 x 1.8 cm from 2.2 x 2.3 cm on the planning CT from 02/09/20 which is the immediate prior study. There is minimal associated parenchymal fibrotic change, and no new nodules. (Formal radiologist read was uninformative with respect to relevant size comparisons). Relevant data: 09/28/20 PET-CT COMPARED TO:No priors HISTORY: Left pneumonectomy TECHNIQUE: Following intravenous injection of 8.91 mCi of FDG, a total body PET scan was performed from the base of the of the skull to the upper thighs. Prior to the PET scan, transmission CT was performed. Fusion images were created from the source data. Attenuation correction was applied. FINDINGS: Patient is status post left pneumonectomy with ipsilateral shift of the mediastinum. In the right upper lobe there is a spiculated lesion which roughly measures 2.3 x 1.4 cm revealing a mean SUV of 3.6 small patchy lesion more medially abutting the anterolateral cortex of the upper thoracic vertebral bodies noted measuring 0.5 x 1 cm with a mean SUV of 2. Neoplasm is not excluded. There is no evidence for any abnormal virgie or solid organ uptake. There are no areas of abnormal osseous uptake. Both thyroid lobes are markedly enlarged with intensely increased uptake of activity with a mean SUV of 13.8. This may be seen with Graves' disease. Infiltrative processes such as lymphoma can't also appear in this manner. Further clinical evaluation is recommended. IMPRESSION: Lesion in the right apex as described above is neoplastic until proven otherwise. Left pneumonectomy. Marked enlargement of both thyroid lobes with intensely increased uptake of activity with above described diagnostic considerations. Further clinical evaluation is encouraged. 10/03/20 CT chest Post-radiation changes evident in the RUL treatment field, spiculated mass is in size compared to prior from 06/16/20. (Formal radiologist read was uninformative with respect to relevant size comparisons). 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 There is deviation of the mediastinum to the left and some hyperinflation in the right lung in general. The nodular density seen in the right lung apex is again noted and appears to have decreased in size somewhat since the prior studies. On the January 19, 2020 study this measured 2.7 cm in greatest transverse diameter, currently 1.4 cm. Its craniocaudal span on coronal MPR images is 1.4 cm as well, on the January 2020 scan, the coronal craniocaudal span was 2.5 cm. Fiducial markers are again seen inferiorly adjacent to this lesion. No new pulmonary nodule or mass lesion is seen. The right lung is otherwise clear. No right pleural effusion is noted. There is no hilar or mediastinal mass or adenopathy observed. The adrenal glands remain normal. There are clips in the gallbladder fossa. Visualized upper abdominal structures are unremarkable. IMPRESSION: Right apical somewhat spiculated lesion adjacent to the fiducial markers is decreased in size overall compared to the original CT study January 19, 2020 and slightly improved when compared with the most recent study. No new mass or adenopathy seen. Interval History Mirian reports she is breathing well. Stable LYNCH. No increase in cough, no fevers, chills, or CP. She informs me that she is scheduled to undergo wedge resection of the RUL with Dr. Villalobos, on 12/30/20, was referred for this by Dr. Truong due to her September 2020 scans. Current Therapy Tagrisso Stage [id number] stage I EGFR- NSCLC of the RUL Stage II NSCLC EGFR+ NSCLC of left lung with virgie/bronchial stump recurrence Social History: Former 10 pack year smoker quit 2014 Does not drink Allergies / Meds Allergies: Coded Allergies: Gadolinium-Containing Contrast Medi (Verified Allergy, Severe, ANAPHYLAXIS, 06/08/20) sumatriptan (Verified Allergy, Severe, THROAT CLOSING, 06/08/20) Penicillins (Verified Allergy, Unknown, 06/08/20) pregabalin (Verified Adverse Reaction, Intermediate, stomach pains, 06/08/20) duloxetine (Verified Adverse Reaction, Mild, UPSET STOMACH, 06/08/20) Home Meds Active Scripts Ondansetron HCl (Ondansetron HCl) 4 Mg Tablet, 1 TAB PO TID PRN for nausea/vomiting, #30 TAB 1 Refill Prov:ALICE POLLACK MD 06/21/20 Osimertinib Mesylate (Tagrisso) 80 Mg Tablet, 40 MG PO DAILY for 30 Days, #30 TAB 11 Refills Prov:AUGUSTINA TRUONG MD FACP 02/15/20 Reported Medications Levothyroxine Sodium (Levothyroxine) 175 Mcg Capsule, 175 MCG PO, CAP 07/25/20 Albuterol Sulfate (Ventolin Hfa) 18 Gm Hfa.aer.ad, 2 PUFF INH Q4-6HP PRN for wheezing for 30 Days, #1 INHALER 01/26/20 Alendronate Sodium (Alendronate Sodium) 70 Mg Tablet, 70 MG PO Q7D for 28 Days, #4 TAB in the morning, at least 30 minutes before the first food, beverage, or medication of the day 12/22/19 Fluticasone/Umeclidin/Vilanter (Trelegy Ellipta 100-62.5-25) 1 Each Blst.w.dev, 1 PUFF PO DAILY for 30 Days, #1 EA 06/30/19 Rizatriptan Benzoate (Rizatriptan) 10 Mg Tab, 10 MG PO PRN PRN for MIGRAINE, TAB 12/19/15 Amitriptyline HCl (Amitriptyline HCl) 100 Mg Tab, 100 MG PO QHS, TAB 09/15/14 Gabapentin (Gabapentin) 300 Mg Cap, 600 MG PO BID, CAP 09/14/14 Review of Systems Review of Systems Constitutional: Denies: Chills, Fever, Fatigue, Weight Loss Eyes: Denies: Pain HEENT: Denies: Head Aches Skin: Denies: Rash Pulmonary: Reports: Dyspnea, Cough; Denies: Pleuritic Chest Pain Cardiovascular: Denies: Chest Pain, Palpitations, Edema Gastrointestinal: Denies: Nausea, Vomiting, Abdominal Pain, Diarrhea Hematologic: Denies: Bruising, Bleeding Excessively Musculoskeletal: Denies: Neck pain, Back pain, Midthoracic pain Neurological: Denies: Weakness, Numbness Psych: Reports: Mood Normal Physical Examination Vital Signs Wt 136 lbs T 98 P 67 RR 18 BP 134/76 O2 99% Pain 0 Fatigue 0 General Exam: Alert, Cooperative, No Acute Distress Eye Exam: PERRLA, EOMI ENT EXAM: Atraumatic Neck Exam: Supple Chest Exam: Clear to auscultation Heart Exam: Rate Normal, Regular Rhythm Abdomen Exam: Normal bowel sounds, Soft Extremity Exam: Negative: Edema Skin Exam: Nl turgor and temperature Neuro Exam: Normal Gait, Normal Speech, Cranial Nerves 3-12 NL Psych Exam: Mental status NL Diagnostic and Laboratory Diagnostic Review Radiologic images, relevant labs and pathology reports were personally reviewed and discussed with Ms. Jameson. Assessment and Plan Impression Assessment Ms. 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 She has a synchronous primary [id number] stage I NSCLC of the RUL for which she underwent SBRT 60 Gy in 5 fractions completed 03/18/20. She remains on tagrisso due to recurrence of her left lung cancer. Her RUL lesion is under excellent radiographic control s/p SBRT. Despite this, she has been referred for wedge resection which has been scheduled at [place] with Dr. Villalobos on 12/30/20. I explained to Mirian that I think this is an unnecessary procedure at this time, which given her solitary lung poses a high risk of complication for no obvious benefit. She would need bypass or ECMO intraoperatively which itself is risky. I am unclear on what grounds it was agreed to proceed as such, but appears that the CT scan from September 2020 was poorly interpreted by the radiologist here, as was the 12/07/20 PET-CT read at [place], which had no priors for comparison there, which shows equivocal uptake in the treated lesion, which at this latency from RT is not conclusive for residual disease. Combining all of the available data: 1) The lesion is considerably smaller than prior to SBRT (2.6 cm-->1.3cm) 2) It is showing the characteristic fibrotic changes associated with this treatment 3) It has the usual low-grade uptake associated with active fibrosis compared to prior PET-CT. Therefore it is under excellent local control. I would hold that the appropriate threshold for operative intervention in this scenario involves the treated lesion enlarging. Until then the risk of surgery outweighs any benefit in my opinion. I will share my concerns with Dr. Truong and Dr. Villalobos and hopefully delay surgery. I would favor repeating a CT chest in 3 months time. If the lesion remains under good radiographic control then CT surveillance is sufficient. Performance Status ECOG 0 Plan Will discuss case with Dr. Truong and Dr. Villalobos I favor continued CT observation of the RUL lesion as it is actively shrinking and surgery is high risk CT chest in 3 months Ms. Jameson was encouraged to call with questions or concerns in the interim period. Billing Statement Total time of [39] minutes was spent preparing for the visit [1], obtaining HPI [6], examining the patient [3], reviewing diagnostic tests [6], discussing man agement options [12], coordinating care [3], and writing this note [8]. ALICE POLLACK MD Dec 21, 2020 11:00
== END ==
LOC: M ONCR 08:43
PROVIDERS: ATTEND General Practice
DX: C34.11 Malignant neoplasm of upper lobe, right bronchus or lung (principal); C34.82 Malignant neoplasm of overlapping sites of left bronchus and lung; Z79.890 Hormone replacement therapy; Z79.899 Other long term (current) drug therapy; Z87.891 Personal history of nicotine dependence; Z92.3 Personal history of irradiation

== ENCOUNTER → 2021-02-22 | Outpatient (REF) | payer MEDICARE, OTHER ==
[2021-02-22 13:13] LABS: FREE T4 2.79 NG/DL (0.76-1.46); THYROID STIMULATING HORMONE < 0.005 uIU/ML (0.358-3.740)
== END ==
LOC: M SFHCADAM 07:53
PROVIDERS: ATTEND Physician Assistant
DX: E03.9 Hypothyroidism, unspecified (principal)
CPT/HCPCS: 84439; 84443; G0463

== ENCOUNTER → 2021-03-20 | Outpatient (CLI) | payer MEDICARE ==
[~2021-03-20] MED LIST changes: +OMEP-173 PO; -OMEP-218 PO
== END ==
LOC: M RAD 16:38
PROVIDERS: ATTEND Family Medicine
DX: R05.9 Cough, unspecified (principal)

== ENCOUNTER 2021-04-05 15:05 | Emergency (ER) | payer MEDICARE ==
[~2021-04-05] VITALS: Ht 160 cm; Wt 61.8 kg
[~2021-04-05 15:05] MED LIST changes: -OMEP-173 PO; +OMEP-218 PO
[2021-04-05 15:06] VITALS: BP 135/72
== END 2021-04-05 18:44 | disposition left against medical advice (07) ==
LOC: M ED 15:05
DX: Z53.21 Procedure and treatment not carried out due to patient leaving prior to being seen by health care provider (principal)

== ENCOUNTER → 2021-04-19 | Outpatient (CLI) | payer MEDICARE, OTHER ==
[~2021-04-19] MED LIST changes: +BARIUM SULFATE 700 MG TABLET (E-Z-DISK) As Ordered ONE; +E-Z-PAQUE 96% w/w SUSP 176GM BTL As Ordered ONE; +VARIBAR NECTAR 40% w/v 240ML SUSP BTL As Ordered ONE; +VARIBAR PUDDING 40% w/v 230ML TUBE As Ordered ONE
== END ==
LOC: M RAD 10:00
PROVIDERS: ATTEND Physician Assistant
DX: R13.13 Dysphagia, pharyngeal phase (principal)

== ENCOUNTER → 2021-04-20 | Outpatient (CLI) | payer MEDICARE ==
[~2021-04-20] MED LIST changes: -BARIUM SULFATE 700 MG TABLET (E-Z-DISK) As Ordered ONE; -E-Z-PAQUE 96% w/w SUSP 176GM BTL As Ordered ONE; +ISOVUE-370 76% 100ML VIAL As Ordered ONE; +OMEP-173 PO; -OMEP-218 PO; -VARIBAR NECTAR 40% w/v 240ML SUSP BTL As Ordered ONE; -VARIBAR PUDDING 40% w/v 230ML TUBE As Ordered ONE
== END ==
LOC: M RAD 13:55
PROVIDERS: ATTEND General Practice
DX: C34.11 Malignant neoplasm of upper lobe, right bronchus or lung (principal)
CPT/HCPCS: 71260; G0463; Q9967

== ENCOUNTER → 2021-04-20 | Outpatient (REF) | payer MEDICARE ==
[~2021-04-20] MED LIST changes: -ISOVUE-370 76% 100ML VIAL As Ordered ONE; -OMEP-173 PO; +OMEP-218 PO
[2021-04-20 16:52] LABS: FREE T4 2.21 NG/DL (0.76-1.46); THYROID STIMULATING HORMONE < 0.005 uIU/ML (0.358-3.740)
== END ==
LOC: M SFHCADAM 12:13
PROVIDERS: ATTEND Physician Assistant
DX: E03.9 Hypothyroidism, unspecified (principal)

== ENCOUNTER → 2021-04-21 | Outpatient (CLI) | payer MEDICARE ==
[~2021-04-21] MED LIST changes: +OMEP-173 PO; -OMEP-218 PO
== END ==
LOC: M ONCR 14:05
PROVIDERS: ATTEND General Practice
DX: C34.11 Malignant neoplasm of upper lobe, right bronchus or lung (principal); Z92.3 Personal history of irradiation; Z87.891 Personal history of nicotine dependence; Z88.0 Allergy status to penicillin; Z88.1 Allergy status to other antibiotic agents; Z79.899 Other long term (current) drug therapy

== ENCOUNTER → 2021-06-15 | Outpatient (REF) | payer MEDICARE ==
[~2021-06-15] MED LIST changes: +LEXA5TAB13 PO
[2021-06-15 13:45] LABS: FREE T4 2.03 NG/DL (0.76-1.46); THYROID STIMULATING HORMONE < 0.005 uIU/ML (0.358-3.740)
== END ==
LOC: M SFHCADAM 11:22
PROVIDERS: ATTEND Physician Assistant
DX: E03.9 Hypothyroidism, unspecified (principal)

== ENCOUNTER → 2021-06-21 | Outpatient (CLI) | payer MEDICARE | LOC: M EKG 09:57 | PROVIDERS: ATTEND Anesthesiology | DX: Z01.818 Encounter for other preprocedural examination (principal) ==

== ENCOUNTER → 2021-06-26 | Outpatient (CLI) | payer MEDICARE | LOC: M LABSMTC 09:49 | PROVIDERS: ATTEND Anesthesiology | DX: Z01.818 Encounter for other preprocedural examination (principal); Z11.52 Encounter for screening for COVID-19 ==

== ENCOUNTER 2021-06-30 06:10 | Day surgery (SDC) | payer MEDICARE ==
[~2021-06-30] VITALS: Ht 162.6 cm; Wt 59.9 kg
[~2021-06-30 06:10] MED LIST changes: +LR 1,000 ML IV ONE
[2021-06-30] MEDS ORDERED: MIDAZOLAM INJ 2MG/2ML VIAL (J2250 PER 1MG) As Ordered ONE (06:51)
[2021-06-30] MEDS ORDERED: fentaNYL 100 MCG/2 ML INJECTION As Ordered ONE (06:53)
[2021-06-30] MEDS ORDERED: propofoL 200 MG/20 ML VIAL As Ordered ONE ×2 (06:55→06:58)
[2021-06-30] MEDS ORDERED: LIDOCAINE 2% 100MG/5ML SDV (FOR ANES.) As Ordered ONE (06:55)
[2021-06-30] MEDS ORDERED: PHENYLephrine 500MCG 5ML (100MCG/ML) SYRINGE As Ordered ONE (07:38)
[2021-06-30] MEDS ORDERED: LIDOCAINE W/EPINEPHRINE 1% 20ML VIAL As Ordered ONE (08:05)
[2021-06-30 08:31] VITALS: BP 138/72
== END 2021-06-30 08:45 | disposition home or self-care (01) ==
LOC: M SDC 06:10
PROVIDERS: ATTEND Surgery
DX: L02.31 Cutaneous abscess of buttock (principal); J44.9 Chronic obstructive pulmonary disease, unspecified; Z85.118 Personal history of other malignant neoplasm of bronchus and lung; Z92.21 Personal history of antineoplastic chemotherapy; G43.909 Migraine, unspecified, not intractable, without status migrainosus; E03.9 Hypothyroidism, unspecified; Z87.891 Personal history of nicotine dependence; F41.9 Anxiety disorder, unspecified; Z88.0 Allergy status to penicillin; Z88.8 Allergy status to other drugs, medicaments and biological substances
CPT/HCPCS: 11403; 88304; J2250; J2370; J3010

== ENCOUNTER → 2021-08-09 | Outpatient (REF) | payer MEDICARE ==
[~2021-08-09] MED LIST changes: -LR 1,000 ML IV ONE
== END ==
LOC: M SFHCPLAZ 09:54
PROVIDERS: ATTEND Physician Assistant
DX: R05.9 Cough, unspecified (principal)

== ENCOUNTER → 2021-08-18 | Outpatient (CLI) | payer MEDICARE ==
[~2021-08-18] MED LIST changes: +ISOVUE-370 76% 100ML VIAL ONE
== END ==
LOC: M PLAIMG 13:11
PROVIDERS: ATTEND General Practice
DX: C34.11 Malignant neoplasm of upper lobe, right bronchus or lung (principal)
CPT/HCPCS: 71260; Q9967

== ENCOUNTER → 2021-08-24 | Outpatient (CLI) | payer MEDICARE ==
[~2021-08-24] MED LIST changes: +IPRA0.00 NEB; -ISOVUE-370 76% 100ML VIAL ONE
== END ==
LOC: M EKG 11:13
PROVIDERS: ATTEND General Practice
DX: C34.11 Malignant neoplasm of upper lobe, right bronchus or lung (principal)

== ENCOUNTER → 2021-08-24 | Outpatient (CLI) | payer MEDICARE | LOC: M ONCR 09:13 | PROVIDERS: ATTEND General Practice | DX: Z08 Encounter for follow-up examination after completed treatment for malignant neoplasm (principal); C34.11 Malignant neoplasm of upper lobe, right bronchus or lung; C34.12 Malignant neoplasm of upper lobe, left bronchus or lung; I95.1 Orthostatic hypotension; R06.09 Other forms of dyspnea; Z79.51 Long term (current) use of inhaled steroids; Z79.811 Long term (current) use of aromatase inhibitors; Z87.891 Personal history of nicotine dependence; Z88.0 Allergy status to penicillin; Z88.1 Allergy status to other antibiotic agents; Z88.8 Allergy status to other drugs, medicaments and biological substances; Z90.2 Acquired absence of lung [part of]; Z92.21 Personal history of antineoplastic chemotherapy; Z92.3 Personal history of irradiation | CPT/HCPCS: 93005; G0463 ==

== ENCOUNTER → 2021-09-29 | Outpatient (CLI) | payer MEDICARE ==
[2021-09-29 11:57] LABS: FREE T4 1.91 NG/DL (0.76-1.46); THYROID STIMULATING HORMONE < 0.005 uIU/ML (0.358-3.740)
== END ==
LOC: M LAB 10:03
PROVIDERS: ATTEND Physician Assistant
DX: E03.9 Hypothyroidism, unspecified (principal)

== ENCOUNTER → 2021-10-10 | Outpatient (REF) | payer MEDICARE ==
[2021-10-10 12:59] LABS: HEMATOCRIT 37.1 % (36.0-47.0); HEMOGLOBIN 11.9 g/dl (12.0-15.5); MEAN CORPUSCULAR HEMOGLOBIN 28.4 pg (27.0-33.0); MEAN CORPUSCULAR HGB CONC 32.1 g/dl (32.0-36.5); MEAN CORPUSCULAR VOLUME 88.5 fl (80.0-96.0); PLATELET COUNT, AUTOMATED 281 10^3/uL (150-450); RED BLOOD COUNT 4.19 10^6/uL (4.00-5.40); WHITE BLOOD COUNT 6.8 10^3/uL (4.0-10.0)
[2021-10-10 13:33] LABS: ALBUMIN 3.6 GM/DL (3.2-5.2); BILIRUBIN,TOTAL 0.3 MG/DL (0.2-1.0); CALCIUM LEVEL 9.5 MG/DL (8.5-10.1); CREATININE FOR GFR 1.02 MG/DL (0.55-1.30); POTASSIUM SERUM 3.9 MEQ/L (3.5-5.1); TOTAL PROTEIN 7.6 GM/DL (6.4-8.2)
[2021-10-10 13:47] LABS: TOTAL 25(OH) VITAMIN D 39.4 NG/ML (30.0-100.0)
[2021-10-10 13:49] LABS: FOLATE 7.4 NG/ML
== END ==
LOC: M SFHCADAM 11:03
PROVIDERS: ATTEND Physician Assistant
DX: E55.9 Vitamin D deficiency, unspecified (principal); E53.8 Deficiency of other specified B group vitamins; G58.8 Other specified mononeuropathies; R42 Dizziness and giddiness; R26.89 Other abnormalities of gait and mobility; R25.1 Tremor, unspecified; F11.20 Opioid dependence, uncomplicated

== ENCOUNTER → 2021-11-08 | Outpatient (REF) | payer MEDICARE ==
[2021-11-08 14:58] LABS: CHOLESTEROL LEVEL 219 MG/DL (<200); CHOLESTEROL RISK RATIO 4.211 (<5); FREE T4 1.76 NG/DL (0.76-1.46); HDL CHOLESTEROL 52 MG/DL (>40); LDL CHOLESTEROL 144 MG/DL (<100); NON-HDL-C 167 MG/DL; THYROID STIMULATING HORMONE < 0.005 uIU/ML (0.358-3.740); TRIGLYCERIDES LEVEL 113 MG/DL (<150)
[2021-11-08 16:12] LABS: VITAMIN B12 LEVEL 1967 PG/ML (247-911)
== END ==
LOC: M SFHCADAM 08:49
PROVIDERS: ATTEND Physician Assistant
DX: E03.9 Hypothyroidism, unspecified (principal); Z13.220 Encounter for screening for lipoid disorders; R41.3 Other amnesia

== ENCOUNTER → 2021-11-21 | Outpatient (CLI) | payer MEDICARE ==
[~2021-11-21] MED LIST changes: +ISOVUE-370 76% 100ML VIAL As Ordered ONE
== END ==
LOC: M RAD 12:39
PROVIDERS: ATTEND Internal Medicine Hematology & Oncology
DX: C34.02 Malignant neoplasm of left main bronchus (principal)
CPT/HCPCS: 71260; Q9967

== ENCOUNTER → 2022-01-12 | Outpatient (REF) | payer MEDICARE ==
[~2022-01-12] MED LIST changes: -ISOVUE-370 76% 100ML VIAL As Ordered ONE
[2022-01-12 13:59] LABS: FREE T4 1.28 NG/DL (0.76-1.46); THYROID STIMULATING HORMONE < 0.005 uIU/ML (0.358-3.740)
== END ==
LOC: M SFHCADAM 10:22
PROVIDERS: ATTEND Physician Assistant
DX: E03.9 Hypothyroidism, unspecified (principal)

== ENCOUNTER → 2022-02-13 | Outpatient (CLI) | payer MEDICARE ==
[~2022-02-13] MED LIST changes: +ISOVUE-370 76% 100ML VIAL As Ordered ONE
== END ==
LOC: M RAD 13:27
PROVIDERS: ATTEND General Practice
DX: C34.11 Malignant neoplasm of upper lobe, right bronchus or lung (principal)
CPT/HCPCS: 71260; Q9967

== ENCOUNTER → 2022-02-22 | Outpatient (CLI) | payer MEDICARE ==
[~2022-02-22] MED LIST changes: -ISOVUE-370 76% 100ML VIAL As Ordered ONE
== END ==
LOC: M ONCR 10:21
PROVIDERS: ATTEND General Practice
DX: C34.11 Malignant neoplasm of upper lobe, right bronchus or lung (principal); Z79.899 Other long term (current) drug therapy; Z87.891 Personal history of nicotine dependence; Z79.890 Hormone replacement therapy; Z88.0 Allergy status to penicillin; Z88.8 Allergy status to other drugs, medicaments and biological substances; Z91.041 Radiographic dye allergy status; Z92.21 Personal history of antineoplastic chemotherapy; Z92.25 Personal history of immunosuppression therapy; Z92.3 Personal history of irradiation

== ENCOUNTER → 2022-02-27 | Outpatient (CLI) | payer MEDICARE | LOC: M WHC 15:22 | PROVIDERS: ATTEND Physician Assistant | DX: Z12.31 Encounter for screening mammogram for malignant neoplasm of breast (principal) ==

== ENCOUNTER → 2022-03-07 | Outpatient (CLI) | payer MEDICARE | LOC: M RAD 10:53 | PROVIDERS: ATTEND Physician Assistant Medical | DX: R05.9 Cough, unspecified (principal) ==

== ENCOUNTER → 2022-07-05 | Outpatient (CLI) | payer MEDICARE ==
[~2022-07-05] MED LIST changes: +ISOVUE-370 76% 100ML VIAL As Ordered ONE; +NIRM1TAB PO; +PRED50TA PO
== END ==
LOC: M RAD 16:28
PROVIDERS: ATTEND Nurse Practitioner
DX: C34.92 Malignant neoplasm of unspecified part of left bronchus or lung (principal)
CPT/HCPCS: 71260; Q9967

== ENCOUNTER 2022-07-16 11:07 | Emergency (ER) | payer MEDICARE ==
[~2022-07-16] VITALS: Ht 160 cm; Wt 65.5 kg
[~2022-07-16 11:07] MED LIST changes: -ISOVUE-370 76% 100ML VIAL As Ordered ONE
[2022-07-16] MEDS ORDERED: MORPHINE 4 MG/ML 1ML VIAL IV ONE (13:55)
[2022-07-16 14:48] LABS: HEMATOCRIT 37.7 % (36.0-47.0); HEMOGLOBIN 12.1 g/dl (12.0-15.5); MEAN CORPUSCULAR HEMOGLOBIN 29.8 pg (27.0-33.0); MEAN CORPUSCULAR HGB CONC 32.1 g/dl (32.0-36.5); MEAN CORPUSCULAR VOLUME 92.9 fl (80.0-96.0); PLATELET COUNT, AUTOMATED 200 10^3/uL (150-450); RED BLOOD COUNT 4.06 10^6/uL (4.00-5.40)
[2022-07-16 14:54] LABS: WHITE BLOOD COUNT 9.4 10^3/uL (4.0-10.0)
[2022-07-16 14:58] LABS: INR 0.95; PROTHROMBIN TIME 12.9 SECONDS (12.5-14.5)
[2022-07-16 14:59] LABS: PARTIAL THROMBOPLASTIN TIME 25.9 SECONDS (24.8-34.2)
[2022-07-16 15:11] LABS: ERYTHROCYTE SEDIMENTATION RATE 49 mm/hr (0-30)
[2022-07-16 15:17] LABS: ALBUMIN 3.5 G/DL (3.2-5.2); ALKALINE PHOSPHATASE 106 U/L (46-116); ALT/SGPT < 9 U/L (7.0-40); AST/SGOT 12 U/L (<34); BILIRUBIN,DIRECT < 0.1 MG/DL (<0.4); BILIRUBIN,TOTAL < 0.2 MG/DL (0.3-1.2); BLOOD UREA NITROGEN 16 MG/DL (9-23); C REACTIVE PROTEIN QUANTITATIV < 0.40 MG/DL (<1.0); CALCIUM LEVEL 8.5 MG/DL (8.3-10.6); CARBON DIOXIDE LEVEL 28 MMOL/L (20-31); CHLORIDE LEVEL 105 MMOL/L (98-107); CREATININE FOR GFR 1.37 MG/DL (0.55-1.30); GLOMERULAR FILTRATION RATE 41.9 (>45); GLUCOSE, FASTING 91 MG/DL (74-106); POTASSIUM SERUM 4.7 MMOL/L (3.5-5.1); SODIUM LEVEL 139 MMOL/L (136-145); TOTAL PROTEIN 6.9 G/DL (5.7-8.2)
[2022-07-16] MEDS ORDERED: ISOVUE-370 76% 100ML VIAL As Ordered ONE (15:20)
[2022-07-16 15:29] LABS: LYMPHOCYTES 14 % (16-44); MONOCYTES 8 % (0-5); NEUTROPHILS 78 % (28-66)
[2022-07-16 15:30] LABS: PLATELET ESTIMATE NORMAL (NORMAL)
[2022-07-16] MEDS ORDERED: HYDR-3713 PO (16:04)
[2022-07-16 16:15] VITALS: BP 136/75
== END 2022-07-16 16:16 | disposition home or self-care (01) ==
LOC: M ED 11:07
DX: R07.9 Chest pain, unspecified (principal); E06.3 Autoimmune thyroiditis; K21.9 Gastro-esophageal reflux disease without esophagitis; J44.9 Chronic obstructive pulmonary disease, unspecified; G43.909 Migraine, unspecified, not intractable, without status migrainosus; I10 Essential (primary) hypertension; Z88.0 Allergy status to penicillin; Z88.8 Allergy status to other drugs, medicaments and biological substances; Z79.899 Other long term (current) drug therapy
CPT/HCPCS: 71101; 71275; 80048; 80076; 83605; 85025; 85610; 85652; 85730; 86140; 96374; 99284; Q9967

== ENCOUNTER → 2022-07-26 | Outpatient (CLI) | payer MEDICARE | LOC: M SLEEP 20:00 | PROVIDERS: ATTEND Internal Medicine Pulmonary Disease | DX: G47.33 Obstructive sleep apnea (adult) (pediatric) (principal) ==

== ENCOUNTER → 2022-08-22 | Outpatient (CLI) | payer MEDICARE | LOC: M ONCR 09:47 | PROVIDERS: ATTEND Specialist | DX: C34.11 Malignant neoplasm of upper lobe, right bronchus or lung (principal); Z90.2 Acquired absence of lung [part of]; Z92.3 Personal history of irradiation; Z79.899 Other long term (current) drug therapy; Z87.891 Personal history of nicotine dependence; Z88.0 Allergy status to penicillin; Z88.8 Allergy status to other drugs, medicaments and biological substances; Z79.891 Long term (current) use of opiate analgesic; Z71.2 Person consulting for explanation of examination or test findings; R07.81 Pleurodynia ==

== ENCOUNTER → 2022-08-24 | Outpatient (REF) | payer MEDICARE | LOC: M SFHCPLAZ 17:09 | PROVIDERS: ATTEND Physician Assistant | DX: R30.0 Dysuria (principal) ==

== ENCOUNTER 2022-09-13 15:06 | Emergency (ER) | payer MEDICARE ==
[~2022-09-13] VITALS: Ht 160 cm; Wt 63.6 kg
[2022-09-13] MEDS ORDERED: MORPHINE 4 MG/ML 1ML VIAL IV ONE (15:30)
[2022-09-13 16:29] LABS: BASO % 0.2 % (0.0-1.0); EOS # 0.1 10^3/uL (0.0-0.5); EOS % 0.8 % (0.0-3.0); HEMATOCRIT 34.4 % (36.0-47.0); HEMOGLOBIN 11.4 g/dl (12.0-15.5); LYMPH # 1.2 10^3/uL (1.5-5.0); LYMPH % 11.7 % (24.0-44.0); MEAN CORPUSCULAR HEMOGLOBIN 30.1 pg (27.0-33.0); MEAN CORPUSCULAR HGB CONC 33.1 g/dl (32.0-36.5); MEAN CORPUSCULAR VOLUME 90.8 fl (80.0-96.0); MONO # 0.5 10^3/uL (0.0-0.8); NEUTROPHILS # 8.6 10^3/uL (1.5-8.5); NEUTROPHILS % 81.8 % (36.0-66.0); PLATELET COUNT, AUTOMATED 200 10^3/uL (150-450); RED BLOOD COUNT 3.79 10^6/uL (4.00-5.40); WHITE BLOOD COUNT 10.5 10^3/uL (4.0-10.0)
[2022-09-13 16:48] LABS: CK-MB VALUE MASS < 1.0 NG/ML (<3.6)
[2022-09-13 16:50] LABS: BLOOD UREA NITROGEN 11 MG/DL (9-23); CALCIUM LEVEL 8.3 MG/DL (8.3-10.6); CARBON DIOXIDE LEVEL 25 MMOL/L (20-31); CHLORIDE LEVEL 109 MMOL/L (98-107); CREATININE FOR GFR 1.11 MG/DL (0.55-1.30); GLOMERULAR FILTRATION RATE 53.4 (>45); GLUCOSE, FASTING 117 MG/DL (74-106); POTASSIUM SERUM 3.7 MMOL/L (3.5-5.1); SODIUM LEVEL 142 MMOL/L (136-145)
[2022-09-13 16:58] LABS: CPK CREATINE PHOSPHOKINASE 70 U/L (34-145); MB/CK RELATIVE INDEX 1.42 (< OR =4)
[2022-09-13 17:38] VITALS: BP 113/57; TEMP 96.2; O2SAT 97
== END 2022-09-13 17:39 | disposition home or self-care (01) ==
LOC: M ED 15:06
DX: S30.0XXA Contusion of lower back and pelvis, initial encounter (principal); W01.0XXA Fall on same level from slipping, tripping and stumbling without subsequent striking against object, initial encounter; K21.9 Gastro-esophageal reflux disease without esophagitis; G43.909 Migraine, unspecified, not intractable, without status migrainosus; F32.A Depression, unspecified; C34.90 Malignant neoplasm of unspecified part of unspecified bronchus or lung; M19.90 Unspecified osteoarthritis, unspecified site; Z87.891 Personal history of nicotine dependence; Z88.0 Allergy status to penicillin; Z88.8 Allergy status to other drugs, medicaments and biological substances; Z91.041 Radiographic dye allergy status; Z79.891 Long term (current) use of opiate analgesic; Z79.52 Long term (current) use of systemic steroids; Z79.899 Other long term (current) drug therapy

== ENCOUNTER → 2022-10-10 | Outpatient (CLI) | payer MEDICARE ==
[2022-10-10 11:17] LABS: ALBUMIN 3.8 G/DL (3.2-5.2); BILIRUBIN,TOTAL 0.3 MG/DL (0.3-1.2); CALCIUM LEVEL 9.6 MG/DL (8.3-10.6); CREATININE FOR GFR 1.17 MG/DL (0.55-1.30); GLOMERULAR FILTRATION RATE 50.2 (>45); POTASSIUM SERUM 4.7 MMOL/L (3.5-5.1); TOTAL PROTEIN 6.9 G/DL (5.7-8.2)
== END ==
LOC: M RAD 09:41
PROVIDERS: ATTEND Radiology Radiation Oncology
DX: C34.11 Malignant neoplasm of upper lobe, right bronchus or lung (principal)
CPT/HCPCS: 36415; 78306; 80053; A9503

== ENCOUNTER → 2022-10-23 | Outpatient (REF) | payer MEDICARE ==
[2022-10-23 17:41] LABS: HEMOGLOBIN 11.6 g/dl (12.0-15.5); MEAN CORPUSCULAR HEMOGLOBIN 29.1 pg (27.0-33.0); MEAN CORPUSCULAR HGB CONC 30.5 g/dl (32.0-36.5); MEAN CORPUSCULAR VOLUME 95.2 fl (80.0-96.0); PLATELET COUNT, AUTOMATED 207 10^3/uL (150-450); RED BLOOD COUNT 3.99 10^6/uL (4.00-5.40)
[2022-10-23 17:52] LABS: C REACTIVE PROTEIN QUANTITATIV < 0.40 MG/DL (<1.0)
[2022-10-23 18:00] LABS: ALKALINE PHOSPHATASE 109 U/L (46-116); ALT/SGPT < 9 U/L (7.0-40); AST/SGOT < 8 U/L (<34); BILIRUBIN,TOTAL 0.4 MG/DL (0.3-1.2); BLOOD UREA NITROGEN 16 MG/DL (9-23); CALCIUM LEVEL 9.4 MG/DL (8.3-10.6); CARBON DIOXIDE LEVEL 24 MMOL/L (20-31); CHLORIDE LEVEL 108 MMOL/L (98-107); CHOLESTEROL LEVEL 185 MG/DL (<200); CHOLESTEROL RISK RATIO 3.05 (<5); GLOMERULAR FILTRATION RATE 44.5 (>45); GLUCOSE, FASTING 80 MG/DL (74-106); HDL CHOLESTEROL 60.5 MG/DL (>40); LDL CHOLESTEROL 103.9 MG/DL (<100); NON-HDL-C 124.5 MG/DL; POTASSIUM SERUM 4.2 MMOL/L (3.5-5.1); SODIUM LEVEL 141 MMOL/L (136-145); THYROID STIMULATING HORMONE 0.008 uIU/ML (0.55-4.78); TOTAL PROTEIN 7.2 G/DL (5.7-8.2); TRIGLYCERIDES LEVEL 103 MG/DL (<150)
== END ==
LOC: M SFHCADAM 11:49
PROVIDERS: ATTEND Physician Assistant
DX: Z12.11 Encounter for screening for malignant neoplasm of colon (principal); E55.9 Vitamin D deficiency, unspecified; E03.9 Hypothyroidism, unspecified; G58.8 Other specified mononeuropathies; M79.7 Fibromyalgia; E78.00 Pure hypercholesterolemia, unspecified; F41.1 Generalized anxiety disorder; Z79.899 Other long term (current) drug therapy

== ENCOUNTER → 2022-11-13 | Outpatient (REF) | payer MEDICARE | LOC: M SFHCADAM 17:20 | PROVIDERS: ATTEND Family Medicine | DX: R05.1 Acute cough (principal) ==

== ENCOUNTER 2022-11-28 14:20 | Emergency (ER) | payer MEDICARE ==
[~2022-11-28] VITALS: Ht 160 cm; Wt 60.0 kg
[2022-11-28 19:42] VITALS: BP 127/72; TEMP 98; O2SAT 100
== END 2022-11-28 20:05 | disposition home or self-care (01) ==
LOC: M ED 14:20
DX: S93.431A Sprain of tibiofibular ligament of right ankle, initial encounter (principal); W19.XXXA Unspecified fall, initial encounter; N18.30 Chronic kidney disease, stage 3 unspecified; G43.909 Migraine, unspecified, not intractable, without status migrainosus; J44.9 Chronic obstructive pulmonary disease, unspecified; Z85.118 Personal history of other malignant neoplasm of bronchus and lung; Y92.009 Unspecified place in unspecified non-institutional (private) residence as the place of occurrence of the external cause; Z88.0 Allergy status to penicillin; Z88.8 Allergy status to other drugs, medicaments and biological substances; Z91.041 Radiographic dye allergy status; Z79.52 Long term (current) use of systemic steroids; Z79.83 Long term (current) use of bisphosphonates; Z79.810 Long term (current) use of selective estrogen receptor modulators (SERMs); Z79.899 Other long term (current) drug therapy

== ENCOUNTER → 2023-01-21 | Outpatient (CLI) | payer MEDICARE | LOC: M CARPUL 15:17 | DX: R55 Syncope and collapse (principal) ==

== ENCOUNTER → 2023-01-21 | Outpatient (REF) | payer MEDICARE | LOC: M SFHCWAGY 15:25 | PROVIDERS: ATTEND Nurse Practitioner Family | DX: N94.10 Unspecified dyspareunia (principal) ==

== ENCOUNTER → 2023-02-11 | Outpatient (CLI) | payer MEDICARE, OTHER | LOC: M ADAMS 11:11 | PROVIDERS: ATTEND Physician Assistant Medical | DX: M47.812 Spondylosis without myelopathy or radiculopathy, cervical region (principal) ==

== ENCOUNTER → 2023-02-15 | Outpatient (CLI) | payer MEDICARE, OTHER ==
[~2023-02-15] MED LIST changes: +ISOVUE-370 76% 100ML VIAL ONE
== END ==
LOC: M PLAIMG 10:51
PROVIDERS: ATTEND Radiology Radiation Oncology
DX: C34.11 Malignant neoplasm of upper lobe, right bronchus or lung (principal); R07.81 Pleurodynia; S32.010A Wedge compression fracture of first lumbar vertebra, initial encounter for closed fracture; Y93.9 Activity, unspecified; Y92.9 Unspecified place or not applicable
CPT/HCPCS: 71260; Q9967

== ENCOUNTER → 2023-03-04 | Outpatient (CLI) | payer MEDICARE ==
[~2023-03-04] MED LIST changes: -ISOVUE-370 76% 100ML VIAL ONE
== END ==
LOC: M WHC 13:45
PROVIDERS: ATTEND General Practice
DX: Z13.820 Encounter for screening for osteoporosis (principal)

== ENCOUNTER → 2023-05-22 | Outpatient (CLI) | payer MEDICARE ==
[2023-05-22 10:45] LABS: BASO % 0.5 % (0.0-1.0); EOS # 0.1 10^3/uL (0.0-0.5); EOS % 1.8 % (0.0-3.0); HEMATOCRIT 35.8 % (36.0-47.0); HEMOGLOBIN 11.4 g/dl (12.0-15.5); LYMPH # 1.5 10^3/uL (1.5-5.0); LYMPH % 24.1 % (24.0-44.0); MEAN CORPUSCULAR HEMOGLOBIN 29.6 pg (27.0-33.0); MEAN CORPUSCULAR HGB CONC 31.8 g/dl (32.0-36.5); MONO # 0.4 10^3/uL (0.0-0.8); MONO % 5.9 % (2.0-8.0); NEUTROPHILS # 4.1 10^3/uL (1.5-8.5); NEUTROPHILS % 67.5 % (36.0-66.0); PLATELET COUNT, AUTOMATED 220 10^3/uL (150-450); RED BLOOD COUNT 3.85 10^6/uL (4.00-5.40); WHITE BLOOD COUNT 6.1 10^3/uL (4.0-10.0)
[2023-05-22 11:19] LABS: ALBUMIN 3.5 G/DL (3.2-5.2); BILIRUBIN,TOTAL 0.3 MG/DL (0.3-1.2); CALCIUM LEVEL 8.5 MG/DL (8.3-10.6); CREATININE FOR GFR 1.39 MG/DL (0.55-1.30); POTASSIUM SERUM 3.4 MMOL/L (3.5-5.1); TOTAL PROTEIN 6.7 G/DL (5.7-8.2)
[2023-05-22 11:22] LABS: FREE T4 1.31 NG/DL (0.89-1.76); THYROID STIMULATING HORMONE 0.008 uIU/ML (0.55-4.78)
== END ==
LOC: M LAB 09:35
PROVIDERS: ATTEND Physician Assistant
DX: I95.1 Orthostatic hypotension (principal); F32.9 Major depressive disorder, single episode, unspecified; G47.33 Obstructive sleep apnea (adult) (pediatric); E03.9 Hypothyroidism, unspecified; C34.92 Malignant neoplasm of unspecified part of left bronchus or lung

== ENCOUNTER → 2023-08-06 | Outpatient (REF) | payer MEDICARE | LOC: M SFHCADAM 15:26 | PROVIDERS: ATTEND Physician Assistant | DX: G89.29 Other chronic pain (principal); M25.561 Pain in right knee; M54.2 Cervicalgia; D64.9 Anemia, unspecified; E87.6 Hypokalemia ==

== ENCOUNTER → 2023-08-09 | Outpatient (CLI) | payer MEDICARE ==
[2023-08-09 11:48] LABS: BASO % 0.5 % (0.0-1.0); EOS # 0.1 10^3/uL (0.0-0.5); EOS % 2.4 % (0.0-3.0); HEMOGLOBIN 10.4 g/dl (12.0-15.5); LYMPH # 1.2 10^3/uL (1.5-5.0); LYMPH % 20.2 % (24.0-44.0); MEAN CORPUSCULAR HGB CONC 32.5 g/dl (32.0-36.5); MEAN CORPUSCULAR VOLUME 92.2 fl (80.0-96.0); MONO # 0.4 10^3/uL (0.0-0.8); MONO % 6.3 % (2.0-8.0); NEUTROPHILS # 4.1 10^3/uL (1.5-8.5); NEUTROPHILS % 70.4 % (36.0-66.0); PLATELET COUNT, AUTOMATED 224 10^3/uL (150-450); RED BLOOD COUNT 3.47 10^6/uL (4.00-5.40); WHITE BLOOD COUNT 5.9 10^3/uL (4.0-10.0)
[2023-08-09 12:19] LABS: ALBUMIN 3.1 G/DL (3.2-5.2); BILIRUBIN,TOTAL 0.2 MG/DL (0.3-1.2); CALCIUM LEVEL 8.8 MG/DL (8.3-10.6); CREATININE FOR GFR 1.49 MG/DL (0.55-1.30); GLOMERULAR FILTRATION RATE 37.9 (>45); MAGNESIUM LEVEL 1.6 MG/DL (1.8-2.4); PERCENT SATURATION 36.5 % (13.2-45.0); POTASSIUM SERUM 3.8 MMOL/L (3.5-5.1); TOTAL PROTEIN 6.4 G/DL (5.7-8.2)
[2023-08-09 12:20] LABS: FERRITIN 152.1 NG/ML (7.3-270.7)
[2023-08-09 12:21] LABS: FOLATE 7.1 NG/ML (>5.4)
== END ==
LOC: M LAB 11:20
PROVIDERS: ATTEND Physician Assistant
DX: G89.29 Other chronic pain (principal); M25.561 Pain in right knee; M54.2 Cervicalgia; D64.9 Anemia, unspecified; E87.6 Hypokalemia

== ENCOUNTER → 2023-08-23 | Outpatient (CLI) | payer MEDICARE ==
[~2023-08-23] MED LIST changes: +ISOVUE-370 76% 100ML VIAL As Ordered ONE
== END ==
LOC: M RAD 12:53
PROVIDERS: ATTEND General Practice
DX: C34.11 Malignant neoplasm of upper lobe, right bronchus or lung (principal)
CPT/HCPCS: 71260; Q9967

== ENCOUNTER 2023-08-26 09:54 | Emergency (ER) | payer MEDICARE ==
[~2023-08-26] VITALS: Ht 160 cm; Wt 52.4 kg
[~2023-08-26 09:54] MED LIST changes: -ISOVUE-370 76% 100ML VIAL As Ordered ONE
[2023-08-26 12:11] LABS: BASO % 0.4 % (0.0-1.0); EOS # 0.1 10^3/uL (0.0-0.5); EOS % 1.1 % (0.0-3.0); HEMATOCRIT 34.1 % (36.0-47.0); HEMOGLOBIN 11.1 g/dl (12.0-15.5); LYMPH # 0.9 10^3/uL (1.5-5.0); LYMPH % 11.9 % (24.0-44.0); MEAN CORPUSCULAR HEMOGLOBIN 30.1 pg (27.0-33.0); MEAN CORPUSCULAR HGB CONC 32.6 g/dl (32.0-36.5); MEAN CORPUSCULAR VOLUME 92.4 fl (80.0-96.0); MONO # 0.7 10^3/uL (0.0-0.8); MONO % 9.7 % (2.0-8.0); NEUTROPHILS # 5.8 10^3/uL (1.5-8.5); NEUTROPHILS % 76.5 % (36.0-66.0); PLATELET COUNT, AUTOMATED 239 10^3/uL (150-450); RED BLOOD COUNT 3.69 10^6/uL (4.00-5.40); WHITE BLOOD COUNT 7.6 10^3/uL (4.0-10.0)
[2023-08-26 12:35] LABS: ALBUMIN 3.7 G/DL (3.2-5.2); BILIRUBIN,TOTAL 0.2 MG/DL (0.3-1.2); CALCIUM LEVEL 8.6 MG/DL (8.3-10.6); CREATININE FOR GFR 1.32 MG/DL (0.55-1.30); GLOMERULAR FILTRATION RATE 43.6 (>45); POTASSIUM SERUM 3.1 MMOL/L (3.5-5.1); TOTAL PROTEIN 7.4 G/DL (5.7-8.2)
[2023-08-26] MEDS: ACETAMINOPHEN 500 MG TAB PO ONE (13:02)
[2023-08-26] MEDS ORDERED: IPRA0.00 NEB (18:42)
[2023-08-26] MEDS ORDERED: VENTAER INH (18:42)
[2023-08-26 18:53] VITALS: BP 117/57; TEMP 98.3; O2SAT 100
== END 2023-08-26 19:00 | disposition home or self-care (01) ==
LOC: M ED 09:54
DX: J06.9 Acute upper respiratory infection, unspecified (principal); N83.291 Other ovarian cyst, right side; M51.26 Other intervertebral disc displacement, lumbar region; M48.061 Spinal stenosis, lumbar region without neurogenic claudication; Z85.118 Personal history of other malignant neoplasm of bronchus and lung; Z88.0 Allergy status to penicillin; Z88.8 Allergy status to other drugs, medicaments and biological substances; Z79.1 Long term (current) use of non-steroidal anti-inflammatories (NSAID); Z79.52 Long term (current) use of systemic steroids; Z79.899 Other long term (current) drug therapy

== ENCOUNTER → 2023-08-28 | Outpatient (CLI) | payer MEDICARE | LOC: M ONCR 10:15 | PROVIDERS: ATTEND General Practice | DX: Z08 Encounter for follow-up examination after completed treatment for malignant neoplasm (principal); M54.2 Cervicalgia; N83.8 Other noninflammatory disorders of ovary, fallopian tube and broad ligament; Z85.118 Personal history of other malignant neoplasm of bronchus and lung; R51.9 Headache, unspecified; Z79.51 Long term (current) use of inhaled steroids; Z79.69 Long term (current) use of other immunomodulators and immunosuppressants; Z79.899 Other long term (current) drug therapy; Z87.891 Personal history of nicotine dependence; Z88.0 Allergy status to penicillin; Z88.8 Allergy status to other drugs, medicaments and biological substances; Z91.041 Radiographic dye allergy status; Z92.21 Personal history of antineoplastic chemotherapy; Z90.2 Acquired absence of lung [part of] ==

== ENCOUNTER → 2023-08-30 | Outpatient (CLI) | payer MEDICARE ==
[2023-08-30 13:12] LABS: BASO % 0.3 % (0.0-1.0); EOS # 0.1 10^3/uL (0.0-0.5); EOS % 0.9 % (0.0-3.0); HEMOGLOBIN 10.4 g/dl (12.0-15.5); LYMPH # 1.2 10^3/uL (1.5-5.0); LYMPH % 13.7 % (24.0-44.0); MEAN CORPUSCULAR HEMOGLOBIN 29.7 pg (27.0-33.0); MEAN CORPUSCULAR HGB CONC 32.5 g/dl (32.0-36.5); MEAN CORPUSCULAR VOLUME 91.4 fl (80.0-96.0); MONO # 0.7 10^3/uL (0.0-0.8); MONO % 7.4 % (2.0-8.0); NEUTROPHILS # 6.8 10^3/uL (1.5-8.5); NEUTROPHILS % 77.4 % (36.0-66.0); PLATELET COUNT, AUTOMATED 249 10^3/uL (150-450); WHITE BLOOD COUNT 8.8 10^3/uL (4.0-10.0)
[2023-08-30 13:54] LABS: ALBUMIN 3.2 G/DL (3.2-5.2); BILIRUBIN,TOTAL 0.3 MG/DL (0.3-1.2); CALCIUM LEVEL 8.5 MG/DL (8.3-10.6); CREATININE FOR GFR 1.53 MG/DL (0.55-1.30); FREE T4 1.52 NG/DL (0.89-1.76); GLOMERULAR FILTRATION RATE 36.7 (>45); MAGNESIUM LEVEL 1.6 MG/DL (1.8-2.4); POTASSIUM SERUM 3.8 MMOL/L (3.5-5.1); THYROID STIMULATING HORMONE 0.009 uIU/ML (0.55-4.78); TOTAL PROTEIN 6.6 G/DL (5.7-8.2)
== END ==
LOC: M PLALAB 10:38
PROVIDERS: ATTEND Family Medicine
DX: E83.42 Hypomagnesemia (principal); R63.4 Abnormal weight loss; E87.6 Hypokalemia; R23.1 Pallor

== ENCOUNTER → 2023-09-06 | Outpatient (CLI) | payer MEDICARE ==
[~2023-09-06] MED LIST changes: +COMBAER6 INH; +GUAI1SOL2 PO; +ISOVUE-370 76% 100ML VIAL ONE; +LEVO1TAB39 PO
== END ==
LOC: M PLAIMG 13:09
PROVIDERS: ATTEND Physician Assistant
DX: M54.2 Cervicalgia (principal)
CPT/HCPCS: 70491; Q9967

== ENCOUNTER → 2023-09-11 | Outpatient (CLI) | payer MEDICARE ==
[~2023-09-11] MED LIST changes: -ISOVUE-370 76% 100ML VIAL ONE
== END ==
LOC: M ONCR 10:09
PROVIDERS: ATTEND General Practice
DX: Z08 Encounter for follow-up examination after completed treatment for malignant neoplasm (principal); R05.9 Cough, unspecified; Z85.118 Personal history of other malignant neoplasm of bronchus and lung; Z79.69 Long term (current) use of other immunomodulators and immunosuppressants; Z79.899 Other long term (current) drug therapy; Z87.891 Personal history of nicotine dependence; Z88.0 Allergy status to penicillin; Z88.8 Allergy status to other drugs, medicaments and biological substances; Z91.048 Other nonmedicinal substance allergy status; Z92.3 Personal history of irradiation
CPT/HCPCS: 93005; G0463

== ENCOUNTER → 2023-09-11 | Outpatient (CLI) | payer MEDICARE | LOC: M EKG 10:47 | PROVIDERS: ATTEND Psychiatry & Neurology Neurology | DX: Z01.812 Encounter for preprocedural laboratory examination (principal) ==

== ENCOUNTER → 2023-09-19 | Outpatient (CLI) | payer MEDICARE | LOC: M RAD 14:31 | PROVIDERS: ATTEND General Practice | DX: C34.11 Malignant neoplasm of upper lobe, right bronchus or lung (principal); Z90.79 Acquired absence of other genital organ(s) ==

== ENCOUNTER → 2023-10-04 | Outpatient (CLI) | payer MEDICARE | LOC: M ONCR 13:14 | PROVIDERS: ATTEND General Practice | DX: R63.4 Abnormal weight loss (principal); Z90.710 Acquired absence of both cervix and uterus ==

== ENCOUNTER → 2023-10-28 | Outpatient (CLI) | payer MEDICARE ==
[2023-10-28 12:07] LABS: THYROID STIMULATING HORMONE 0.01 uIU/ML (0.55-4.78)
[2023-10-28 12:10] LABS: FREE T4 1.05 NG/DL (0.89-1.76)
== END ==
LOC: M LAB 10:28
PROVIDERS: ATTEND Physician Assistant
DX: E03.9 Hypothyroidism, unspecified (principal)

== ENCOUNTER → 2023-11-06 | Outpatient (CLI) | payer MEDICARE | LOC: M WHC 16:46 | PROVIDERS: ATTEND Physician Assistant | DX: Z12.31 Encounter for screening mammogram for malignant neoplasm of breast (principal) ==

== ENCOUNTER 2024-01-13 12:09 | Emergency (ER) | payer MEDICARE ==
[~2024-01-13 12:09] MED LIST changes: +GABA-1172 PO; -GABA-282 PO
[2024-01-13 13:13] LABS: CK-MB VALUE MASS < 1.0 NG/ML (<3.6)
[2024-01-13 13:16] LABS: ALKALINE PHOSPHATASE 97 U/L (46-116); ALT/SGPT 11 U/L (7.0-40); AST/SGOT 13 U/L (<34); BILIRUBIN,DIRECT < 0.1 MG/DL (<0.4); BILIRUBIN,TOTAL 0.4 MG/DL (0.3-1.2); BLOOD UREA NITROGEN 13 MG/DL (9-23); CALCIUM LEVEL 8.7 MG/DL (8.3-10.6); CARBON DIOXIDE LEVEL 23 MMOL/L (20-31); CHLORIDE LEVEL 108 MMOL/L (98-107); CPK CREATINE PHOSPHOKINASE 89 U/L (34-145); CREATININE FOR GFR 1.44 MG/DL (0.55-1.30); GLOMERULAR FILTRATION RATE 39.4 (>45); GLUCOSE, FASTING 95 MG/DL (74-106); MB/CK RELATIVE INDEX 1.12 (< OR =4); POTASSIUM SERUM 3.6 MMOL/L (3.5-5.1); SODIUM LEVEL 140 MMOL/L (136-145); TOTAL PROTEIN 7.3 G/DL (5.7-8.2)
[2024-01-13 13:17] LABS: THYROXINE (T4) 11.2 UG/DL (4.5-10.9)
[2024-01-13 13:18] LABS: THYROID STIMULATING HORMONE 0.012 uIU/ML (0.55-4.78)
[2024-01-13] MEDS ORDERED: CEFD300C PO (15:03)
[2024-01-13] MEDS ORDERED: DOXY100C82 PO (15:03)
[2024-01-13 15:10] VITALS: BP 103/62; TEMP 97.1; O2SAT 95
== END 2024-01-13 15:17 | disposition home or self-care (01) ==
LOC: M ED 12:09
DX: J18.9 Pneumonia, unspecified organism (principal); I10 Essential (primary) hypertension; Z87.891 Personal history of nicotine dependence; Z88.0 Allergy status to penicillin; Z88.8 Allergy status to other drugs, medicaments and biological substances; Z79.52 Long term (current) use of systemic steroids; Z79.2 Long term (current) use of antibiotics; Z79.899 Other long term (current) drug therapy

== ENCOUNTER → 2024-01-22 | Outpatient (REF) | payer MEDICARE ==
[~2024-01-22] MED LIST changes: +ALBU8.5H INH; +CEFD300C PO; +CYAN500T20 PO; +DOXY100C82 PO; +EMGA120I SC; +GABA-1490 PO; +IPRA0.00 INH; +LEVO100T5 PO; +LEXA1TAB PO; +MIDO5TA PO; +OXYC1TAB23 PO; +PROC5TAB57 PO; +ROPI5TAB19 PO; +TOPI-21 PO
[2024-01-22 18:53] LABS: BASO # 0.1 10^3/uL (0.0-0.2); BASO % 0.5 % (0.0-1.0); EOS # 0.2 10^3/uL (0.0-0.5); EOS % 1.9 % (0.0-3.0); HEMATOCRIT 34.4 % (36.0-47.0); HEMOGLOBIN 10.9 g/dl (12.0-15.5); LYMPH # 1.5 10^3/uL (1.5-5.0); LYMPH % 14.1 % (24.0-44.0); MEAN CORPUSCULAR HEMOGLOBIN 28.6 pg (27.0-33.0); MEAN CORPUSCULAR HGB CONC 31.7 g/dl (32.0-36.5); MEAN CORPUSCULAR VOLUME 90.3 fl (80.0-96.0); MONO # 0.8 10^3/uL (0.0-0.8); MONO % 6.9 % (2.0-8.0); NEUTROPHILS # 8.3 10^3/uL (1.5-8.5); NEUTROPHILS % 76.2 % (36.0-66.0); PLATELET COUNT, AUTOMATED 442 10^3/uL (150-450); RED BLOOD COUNT 3.81 10^6/uL (4.00-5.40); WHITE BLOOD COUNT 10.9 10^3/uL (4.0-10.0)
== END ==
LOC: M SFHCADAM 14:35
PROVIDERS: ATTEND Physician Assistant
DX: R06.09 Other forms of dyspnea (principal); J44.9 Chronic obstructive pulmonary disease, unspecified

== ENCOUNTER → 2024-01-23 | Outpatient (CLI) | payer MEDICARE ==
[~2024-01-23] MED LIST changes: +ISOVUE-370 76% 100ML VIAL As Ordered ONE
== END ==
LOC: M RAD 09:02
PROVIDERS: ATTEND Physician Assistant
DX: R09.02 Hypoxemia (principal); R79.89 Other specified abnormal findings of blood chemistry; Z90.2 Acquired absence of lung [part of]

== ENCOUNTER 2024-01-25 11:57 | Inpatient (IN) | payer MEDICARE, OTHER ==
[~2024-01-25] VITALS: Ht 160 cm; Wt 54.3 kg
[2024-01-25] VITALS (32 sets, daily range): BP systolic 79–129; BP diastolic 54–78; TEMP 96.6–98.3; O2SAT 67–99
[~2024-01-25 11:57] MED LIST changes: -ALBU8.5H INH; -CYAN500T20 PO; -CYCL5TAB PO; +CYCL5TAB4 PO; -EMGA120I SC; -GABA-1490 PO; -IPRA0.00 INH; -ISOVUE-370 76% 100ML VIAL As Ordered ONE; -LEVO100T5 PO; -LEXA1TAB PO; -MIDO5TA PO; -OXYC1TAB23 PO; -PROC5TAB57 PO; -ROPI5TAB19 PO; -TOPI-21 PO
[2024-01-25 12:22] LABS: ABG BASE EXCESS -5.2 (-2.0-2.0); ABG HCO3 19.3 MMOL/L (22.0-26.0); ABG O2 SATURATION 97.4 % (95.0-99.0); ABG PARTIAL PRESSURE CO2 34.2 mmHg (35.0-45.0); ABG STANDARD HCO3 20.1 MMOL/L. (22.0-26.0); ABG TOTAL CO2 20.4 MMOL/L (23.0-31.0)
[2024-01-25 12:35] LABS: HEMATOCRIT 31.8 % (36.0-47.0); HEMOGLOBIN 10.2 g/dl (12.0-15.5); MEAN CORPUSCULAR HGB CONC 32.1 g/dl (32.0-36.5); MEAN CORPUSCULAR VOLUME 90.3 fl (80.0-96.0); PLATELET COUNT, AUTOMATED 369 10^3/uL (150-450); RED BLOOD COUNT 3.52 10^6/uL (4.00-5.40)
[2024-01-25] MEDS: NS 1,620 ML in IV 1 EA IV ONE (12:42)
[2024-01-25 12:43] LABS: INR 1.33
[2024-01-25 12:56] LABS: CK-MB VALUE MASS 3.5 NG/ML (<3.6)
[2024-01-25 12:59] LABS: ALBUMIN 2.4 G/DL (3.2-5.2); ALKALINE PHOSPHATASE 105 U/L (46-116); ALT/SGPT 10 U/L (7.0-40); AST/SGOT 35 U/L (<34); BILIRUBIN,DIRECT < 0.1 MG/DL (<0.4); BILIRUBIN,TOTAL 0.3 MG/DL (0.3-1.2); BLOOD UREA NITROGEN 21 MG/DL (9-23); CALCIUM LEVEL 8.7 MG/DL (8.3-10.6); CARBON DIOXIDE LEVEL 20 MMOL/L (20-31); CHLORIDE LEVEL 108 MMOL/L (98-107); CREATININE FOR GFR 1.34 MG/DL (0.55-1.30); GLOMERULAR FILTRATION RATE 42.8 (>45); GLUCOSE, FASTING 191 MG/DL (74-106); POTASSIUM SERUM 4.4 MMOL/L (3.5-5.1); SODIUM LEVEL 135 MMOL/L (136-145)
[2024-01-25 13:00] LABS: THYROXINE (T4) 10.8 UG/DL (4.5-10.9)
[2024-01-25 13:01] LABS: THYROID STIMULATING HORMONE 0.022 uIU/ML (0.55-4.78)
[2024-01-25 13:06] LABS: PROCALCITONIN 1.07 ng/ml
[2024-01-25 13:07] LABS: CPK CREATINE PHOSPHOKINASE 89 U/L (34-145); MB/CK RELATIVE INDEX 3.93 (< OR =4)
[2024-01-25 13:24] LABS: LYMPHOCYTES 2 % (16-44); MONOCYTES 4 % (0-5); NEUTROPHILS 92 % (28-66)
[2024-01-25] MEDS: CEFEPIME HCL 2 GM in DEXTROSE 5% (D5W) ADV/MINI-BAG 50 ML IV ONE (13:24)
[2024-01-25 13:25] LABS: PLATELET CLUMPS SMALL AMT; PLATELET ESTIMATE NORMAL (NORMAL)
[2024-01-25 13:52] LABS: APPEARANCE, URINE CLEAR (CLEAR); BACTERIA, URINE AUTO NEGATIVE (NEGATIVE); BILIRUBIN, URINE AUTO NEGATIVE (NEGATIVE); BLOOD, URINE BLOOD NEGATIVE (NEGATIVE); COLOR, URINE YELLOW (YELLOW); GLUCOSE, URINE (UA) AUTO NEGATIVE (NEGATIVE); KETONE, URINE AUTO NEGATIVE (NEGATIVE); LEUKOCYTE ESTERASE, URINE AUTO NEGATIVE (NEGATIVE); NITRITE, URINE AUTO NEGATIVE (NEGATIVE); PROTEIN, URINE AUTO NEGATIVE (NEGATIVE); RBC, URINE AUTO 1 /HPF (0-3); SPECIFIC GRAVITY URINE AUTO 1.009 (1.002-1.035); SQUAMOUS EPITHELIAL CELL UR AU 0 /HPF (0-6); UROBILINOGEN, URINE AUTO 0.2 mg/dL (0.0-2.0); WBC, URINE AUTO 1 /HPF (0-3)
[2024-01-25] MEDS: NOREPINEPHRINE 4MG IN D5 250ML 4 MG in IV 1 EA IV SCH ×2 (13:56→16:36)
[2024-01-25] MEDS: VANCOMYCIN/WATER FOR INJ 1,000 MG in IV 1 EA IV ONE (14:07)
[2024-01-25] MEDS ORDERED: ISOVUE-370 76% 100ML VIAL As Ordered ONE (14:12)
[2024-01-25] MEDS ORDERED: MED REC IN PROGRESS XX SCH (14:35)
[2024-01-25 14:53] LABS: MAGNESIUM LEVEL 1.5 MG/DL (1.8-2.4)
[2024-01-25] MEDS ORDERED: NS 1,000 ML IV SCH (14:55)
[2024-01-25] MEDS: PANTOPRAZOLE 40MG VIAL IV SCH (15:06)
[2024-01-25] MEDS: HYDROCORTISONE 100MG/2ML VIAL IV ONE (15:07)
[2024-01-25] MEDS: ASPIRIN 81MG CHEW TABLET PO ONE (15:44)
[2024-01-25] MEDS: NS 1,000 ML IV ONE (15:44)
[2024-01-25] MEDS: IPRATROPIUM 0.5MG/ALBUTEROL 2.5MG INH SOL UD 3ML (DUONEB) NEB SCH (15:47)
[2024-01-25] MEDS: VASOPRESSIN IN 0.9 % NACL 20 UNIT in IV 1 EA IV SCH (16:00)
[2024-01-25] MEDS ORDERED: GABA-1490 PO (16:21)
[2024-01-25] MEDS ORDERED: ALBU8.5H INH (16:21)
[2024-01-25] MEDS ORDERED: LEVO100T5 PO (16:21)
[2024-01-25] MEDS ORDERED: EMGA120I SC (16:21)
[2024-01-25] MEDS ORDERED: OXYC1TAB23 PO (16:21)
[2024-01-25] MEDS ORDERED: TOPI-21 PO (16:21)
[2024-01-25] MEDS ORDERED: LEXA1TAB PO (16:21)
[2024-01-25] MEDS ORDERED: ROPI5TAB19 PO (16:21)
[2024-01-25] MEDS ORDERED: CYAN500T20 PO (16:21)
[2024-01-25] MEDS ORDERED: MIDO5TA PO (16:21)
[2024-01-25] MEDS ORDERED: PROC5TAB57 PO (16:21)
[2024-01-25] MEDS ORDERED: IPRA0.00 INH (16:23)
[2024-01-25] MEDS ORDERED: HOME MED LIST COMPLETE! XX SCH (16:25)
[2024-01-25 16:37] LABS: MAGNESIUM LEVEL 1.4 MG/DL (1.8-2.4)
[2024-01-25 16:38] LABS: CK-MB VALUE MASS 3.1 NG/ML (<3.6); MB/CK RELATIVE INDEX 3.78 (< OR =4)
[2024-01-25] MEDS: FUROSEMIDE 100MG/10ML VIAL IV ONE (17:41)
[2024-01-25] MEDS: metroNIDAZOLE 500 MG in IV 1 EA IV SCH (17:42)
[2024-01-25] MEDS: MAG SULF 1GM/100ML (MAG RUN) 1 GM in IV 1 EA IV SCH (17:42)
[2024-01-25] MEDS: methylPREDNISolone 40MG 1ML VIAL IV SCH (20:38)
[2024-01-25] MEDS: DOXYCYCLINE HYCLATE 100 MG in DEXTROSE 5% (D5W) MINI-BAG PLU 100 ML IV SCH (20:39)
[2024-01-25] MEDS: VANCOMYCIN/WATER FOR INJ 750 MG in IV 1 EA IV SCH (22:00)
[2024-01-25] MEDS: HEPARIN SOD (PORCINE) 5000UNITS/ML 1ML VIAL/SYRINGE SC SCH (22:30)
[2024-01-26] VITALS (48 sets, daily range): BP systolic 83–160; BP diastolic 52–86; TEMP 96.6–97.8; O2SAT 84–99
[2024-01-26 04:54] LABS: BASO % 0.1 % (0.0-1.0); HEMATOCRIT 27.5 % (36.0-47.0); HEMOGLOBIN 8.9 g/dl (12.0-15.5); LYMPH % 4.6 % (24.0-44.0); MEAN CORPUSCULAR HGB CONC 32.4 g/dl (32.0-36.5); MEAN CORPUSCULAR VOLUME 89.6 fl (80.0-96.0); MONO # 0.9 10^3/uL (0.0-0.8); MONO % 4.3 % (2.0-8.0); NEUTROPHILS # 18.7 10^3/uL (1.5-8.5); NEUTROPHILS % 90.3 % (36.0-66.0); PLATELET COUNT, AUTOMATED 338 10^3/uL (150-450); RED BLOOD COUNT 3.07 10^6/uL (4.00-5.40); WHITE BLOOD COUNT 20.7 10^3/uL (4.0-10.0)
[2024-01-26 05:19] LABS: CPK CREATINE PHOSPHOKINASE 82 U/L (34-145)
[2024-01-26 05:30] LABS: PROCALCITONIN 1.94 ng/ml
[2024-01-26 05:36] LABS: ALBUMIN 2.1 G/DL (3.2-5.2); ALKALINE PHOSPHATASE 103 U/L (46-116); ALT/SGPT < 9 U/L (7.0-40); AST/SGOT 27 U/L (<34); BILIRUBIN,TOTAL 0.2 MG/DL (0.3-1.2); BLOOD UREA NITROGEN 22 MG/DL (9-23); CARBON DIOXIDE LEVEL 22 MMOL/L (20-31); CHLORIDE LEVEL 112 MMOL/L (98-107); CK-MB VALUE MASS 3.5 NG/ML (<3.6); CREATININE FOR GFR 1.16 MG/DL (0.55-1.30); GLOMERULAR FILTRATION RATE 50.6 (>45); GLUCOSE, FASTING 121 MG/DL (74-106); MAGNESIUM LEVEL 2.3 MG/DL (1.8-2.4); MB/CK RELATIVE INDEX 4.26 (< OR =4); POTASSIUM SERUM 3.8 MMOL/L (3.5-5.1); SODIUM LEVEL 141 MMOL/L (136-145); TOTAL PROTEIN 6.3 G/DL (5.7-8.2)
[2024-01-26 06:00] LABS: ABG O2 SATURATION 97.2 % (95.0-99.0); ABG PARTIAL PRESSURE CO2 31.6 mmHg (35.0-45.0); ABG PARTIAL PRESSURE O2 96.8 mmHg (75.0-100.0); ABG STANDARD HCO3 20.3 MMOL/L. (22.0-26.0); ABG pH (ARTERIAL) 7.398 UNITS (7.350-7.450)
[2024-01-26] MEDS: CALCIUM CHLORIDE 10% 1 GM in D5W 100 ML IV ONE (08:35)
[2024-01-26] MEDS: MAG SULF 1GM/100ML (MAG RUN) 1 GM in IV 1 EA IV ONE (08:35)
[2024-01-26] MEDS: MIRALAX *UNIT DOSE* 17GM PACKET PO SCH (10:50)
[2024-01-26] MEDS: ASPIRIN 325 MG TAB PO SCH (10:50)
[2024-01-26] MEDS: BISACODYL 10MG SUPP PR PRN (13:22)
[2024-01-26] MEDS: methylPREDNISolone 40MG 1ML VIAL IV SCH (14:11)
[2024-01-26] MEDS: CEFEPIME HCL 2 GM in DEXTROSE 5% (D5W) ADV/MINI-BAG 50 ML IV SCH (15:11)
[2024-01-26] MEDS: FLEET ENEMA PR PRN (20:07)
[2024-01-27] VITALS (7 sets, daily range): BP systolic 118–168; BP diastolic 77–92; TEMP 96.8–97.1; O2SAT 88–97
[2024-01-27 05:16] LABS: BASO % 0.1 % (0.0-1.0); HEMATOCRIT 31.9 % (36.0-47.0); HEMOGLOBIN 10.3 g/dl (12.0-15.5); LYMPH # 0.7 10^3/uL (1.5-5.0); LYMPH % 3.1 % (24.0-44.0); MEAN CORPUSCULAR HEMOGLOBIN 29.3 pg (27.0-33.0); MEAN CORPUSCULAR HGB CONC 32.3 g/dl (32.0-36.5); MEAN CORPUSCULAR VOLUME 90.6 fl (80.0-96.0); MONO # 0.8 10^3/uL (0.0-0.8); MONO % 3.2 % (2.0-8.0); NEUTROPHILS # 21.6 10^3/uL (1.5-8.5); NEUTROPHILS % 92.9 % (36.0-66.0); PLATELET COUNT, AUTOMATED 406 10^3/uL (150-450); RED BLOOD COUNT 3.52 10^6/uL (4.00-5.40); WHITE BLOOD COUNT 23.3 10^3/uL (4.0-10.0)
[2024-01-27 05:39] LABS: CK-MB VALUE MASS 4.6 NG/ML (<3.6); CPK CREATINE PHOSPHOKINASE 82 U/L (34-145)
[2024-01-27 05:43] LABS: ALBUMIN 2.1 G/DL (3.2-5.2); ALKALINE PHOSPHATASE 116 U/L (46-116); ALT/SGPT 9 U/L (7.0-40); AST/SGOT 18 U/L (<34); BILIRUBIN,TOTAL < 0.2 MG/DL (0.3-1.2); BLOOD UREA NITROGEN 31 MG/DL (9-23); CALCIUM LEVEL 9.4 MG/DL (8.3-10.6); CARBON DIOXIDE LEVEL 21 MMOL/L (20-31); CHLORIDE LEVEL 113 MMOL/L (98-107); CREATININE FOR GFR 0.89 MG/DL (0.55-1.30); GLOMERULAR FILTRATION RATE > 60.0 (>45); GLUCOSE, FASTING 106 MG/DL (74-106); MAGNESIUM LEVEL 2.1 MG/DL (1.8-2.4); POTASSIUM SERUM 4.2 MMOL/L (3.5-5.1); SODIUM LEVEL 143 MMOL/L (136-145); TOTAL PROTEIN 6.3 G/DL (5.7-8.2)
[2024-01-27] MEDS: ASPIRIN 81MG CHEW TABLET PO SCH (08:54)
[2024-01-27] MEDS ORDERED: TOPIRAMATE (TopAMAX) 25 MG TAB PO SCH (09:00)
[2024-01-27] MEDS ORDERED: ESCITALOPRAM OXALATE 10 MG TAB (LEXAPRO) PO SCH (09:00)
[2024-01-27] MEDS ORDERED: SCOPOLAMINE 1MG TRANSDERMAL PATCH TOP PRN (13:50)
[2024-01-27] MEDS ORDERED: ONDANSETRON 4MG 2ML VIAL IV PRN (13:50)
[2024-01-27] MEDS ORDERED: HYOSCYAMINE SULFATE 0.125 MG SUBL TABLET PO PRN (13:50)
[2024-01-27] MEDS ORDERED: ATROPINE SULFATE 1% OPHTH SOLN 2ML BTL SL PRN (13:50)
[2024-01-27] MEDS: LORazepam 2 MG/ML 1ML VIAL IV PRN (14:07)
[2024-01-27] MEDS: MORPHINE 4 MG/ML 1ML VIAL IV STA (14:34)
[2024-01-27] MEDS: MORPHINE SULFATE INJ 100 MG in NS 90 ML IV SCH (14:41)
[2024-01-27] MEDS ORDERED: MORPHINE 2 MG/ML 1ML VIAL IV PRN (16:10)
[2024-01-27] MEDS ORDERED: rOPINIRole 0.25 MG TAB(REQUIP) PO SCH (21:00)
[2024-01-27] MEDS ORDERED: AMITRIPTYLINE 50 MG TAB PO SCH (21:00)
[2024-01-27] MEDS ORDERED: PROCHLORPERAZINE 5MG TAB PO SCH (21:00)
[2024-01-27] MEDS ORDERED: GABAPENTIN 300 MG CAP PO SCH (21:00)
[2024-01-31 21:11] LABS: URINE STREP PNEUMONIAE ANTIGEN NOT DETECTED (NOT DETECT)
== END 2024-01-28 03:52 | disposition expired | DRG 871 ==
LOC: M ED 11:57 → EDBD 11:57 → M ED INP 14:42 → M ICU 16:35 → M PCU 01-27 11:18
PROVIDERS: ADMIT Internal Medicine Critical Care Medicine; ATTEND Internal Medicine Critical Care Medicine
DX: A41.9 Sepsis, unspecified organism (principal); R65.21 Severe sepsis with septic shock; I21.A1 Myocardial infarction type 2; J18.9 Pneumonia, unspecified organism; C34.11 Malignant neoplasm of upper lobe, right bronchus or lung; J44.1 Chronic obstructive pulmonary disease with (acute) exacerbation; N17.9 Acute kidney failure, unspecified; J44.0 Chronic obstructive pulmonary disease with (acute) lower respiratory infection; C77.1 Secondary and unspecified malignant neoplasm of intrathoracic lymph nodes; I27.20 Pulmonary hypertension, unspecified; E04.9 Nontoxic goiter, unspecified; M47.816 Spondylosis without myelopathy or radiculopathy, lumbar region; G47.33 Obstructive sleep apnea (adult) (pediatric); F41.9 Anxiety disorder, unspecified; K59.00 Constipation, unspecified; Z87.891 Personal history of nicotine dependence; Z88.0 Allergy status to penicillin; Z88.8 Allergy status to other drugs, medicaments and biological substances; Z79.899 Other long term (current) drug therapy